=== PATIENT | female | born 1960 | race Caucasian/White ===

== ENCOUNTER → 2017-01-11 | Outpatient (CLI) | payer OTHER ==
--- NOTE | 2017-01-11 09:57 | US ---
EXAMINATION TYPE: US liver DATE OF EXAM: 01/11/2017 9:27 AM COMPARISON: CT on PACS CLINICAL HISTORY: Abn Liver Function Test R94.5. Patient stated is on multiple meds for anxiety and b ack pain due to multiple back surgeries; smoker; gallbladder removed EXAM MEASUREMENTS: Liver Length: 16.1 cm Gallbladder Wall: surgically removed cm CBD: 0.9 cm Right Kidney: 10.5 x 5.0 x 4.4cm TECHNOLOGIST IMPRESSION: Pancreas: hyperechoic Liver: mildly hyperechoic; prominent CHD at fay hepatis but gallbladder is removed Gallbladder: surgically removed CBD: size is wnl post cholecystectomy; comet tail artifact is noted posterior to hyperechoic focus a nterior wall within CBD (? Surgical clip vs. ?) Right Kidney: parallel hyperechoic focus noted upper and mid pole could represent vascular wall calc ifications; mid pole solitary focus could be microcalcification = 0.2 x 0.3 x 0.2cm. IMPRESSION: No definite acute right upper quadrant abnormality is seen. Echogenic focus within the common hepatic duct may represent a small polyp.
== END | disposition home or self-care (01) ==
LOC: RADUSWWP 08:51
PROVIDERS: ATTEND Family Medicine
DX: R94.5 Abnormal results of liver function studies (principal)
CPT/HCPCS: 76705

== ENCOUNTER → 2017-02-17 | Outpatient (CLI) | payer OTHER ==
--- NOTE | 2017-02-17 12:06 | XR ---
EXAMINATION TYPE: XR knee complete LT DATE OF EXAM: 02/17/2017 10:09 AM COMPARISON: NONE HISTORY: Pain TECHNIQUE: Four views are submitted. FINDINGS: Small suprapatellar bursal fluid collection seen. Mild/moderate arthropathy of the knee with no erosi ve changes. Mild diffuse osteopenia. Osseous structures are intact. No acute fracture seen. IMPRESSION: 1. Osteoarthritis. 2. Small suprapatellar bursal fluid collection. Correlate with MRI as clinically warranted.
== END | disposition home or self-care (01) ==
LOC: RADXRMAIN 09:46
PROVIDERS: ATTEND Psychiatry & Neurology Pain Medicine
DX: M17.12 Unilateral primary osteoarthritis, left knee (principal)

== ENCOUNTER 2017-02-22 15:00 | Emergency (ER) | payer OTHER ==
[2017-02-22 15:33] VITALS: RESP 18
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
--- NOTE | 2017-02-22 16:37 | CT ---
EXAMINATION TYPE: CT brain dexter wo con DATE OF EXAM: 02/22/2017 4:18 PM COMPARISON: NONE HISTORY: Pain Automated exposure control for dose reduction was used. TECHNIQUE: CT scan of the head and cervical spine are performed without contrast. FINDINGS: There is no acute intracranial hemorrhage, mass effect, or midline shift identified. The ventricles and sulci are within normal limits in size. The globes are intact and the visualized sin uses are clear. Right parietal occipital small scalp hematoma. Cervical spine is visualized in its entirety from C1 through upper thoracic levels and demonstrates s atisfactory alignment without evidence of acute fracture or dislocation. Prevertebral soft tissue ap pears within normal limits. The C1-C2 articulation is unremarkable. Postoperative changes of ACDF with laminectomy and pedicular screws. Alignment is anatomic. IMPRESSION: 1. There is no acute fracture or dislocation evident in the cervical spine. 2. No acute intracranial hemorrhage, mass effect, or midline shift is seen.
[2017-02-22] MEDS ORDERED: ORPHENADRINE 30 MG/ML 2 ML VIAL IM STA (16:47)
[2017-02-22 17:17] VITALS: BP 122/88; PULSE 92; TEMP 98.1
== END 2017-02-22 17:16 | disposition home or self-care (01) ==
LOC: EC 15:00
DX: S06.0X0A Concussion without loss of consciousness, initial encounter (principal); S16.1XXA Strain of muscle, fascia and tendon at neck level, initial encounter; V89.2XXA Person injured in unspecified motor-vehicle accident, traffic, initial encounter; F41.9 Anxiety disorder, unspecified; F17.200 Nicotine dependence, unspecified, uncomplicated; Z79.899 Other long term (current) drug therapy; Z88.0 Allergy status to penicillin; Z88.5 Allergy status to narcotic agent
CPT/HCPCS: 72125; 70450; 99284; 96372; J2360

== ENCOUNTER → 2017-03-03 | Outpatient (CLI) | payer OTHER ==
--- NOTE | 2017-03-03 20:43 | MR ---
EXAMINATION TYPE: MR lumbar spine wo con DATE OF EXAM: 03/03/2017 12:17 PM COMPARISON: 01/24/2016 HISTORY: 56-year-old female with low back pain TECHNIQUE: Multiplanar, multisequence images of the lumbar spine were acquired. FINDINGS: Vertebral body heights are preserved. There is similar grade 1 anterolisthesis at L4-L5 secondary to hypertrophic facet arthropathy in the mid to lower lumbar spine. Variable mild to moderate disc desiccation throughout with disc bulging at multiple levels and ligame ntum flavum thickening. No suspicious bone marrow replacement. Conus medullaris is normal. At T12-L1, no spinal canal or neuroforaminal stenosis. At L1-L2, no spinal canal or neuroforaminal stenosis. At L2-L3, very mild disc bulge and facet degenerative change. No significant spinal canal or foramina l stenosis. At L3-L4, mild disc bulge, ligamentum flavum thickening, and hypertrophic facet arthropathy. No signi ficant spinal canal or neuroforaminal stenosis. At L4-L5, there is hypertrophic facet arthropathy with grade 1 anterolisthesis, ligamentum flavum thi ckening, prominent dorsal epidural fat, and disc bulge. Changes result in mild spinal canal stenosis with mild to moderate bilateral neuroforaminal stenosis with disc material possibly abutting both exi ting L4 nerve roots. At L5-S1, there is facet degenerative change with minimal disc bulge. No significant spinal canal or neuroforaminal stenosis. Overall changes have not significantly progressed from prior. No prevertebral or paravertebral soft tissue abnormality seen. IMPRESSION: 1. Redemonstrated moderate multilevel degenerative disc disease as well as hypertrophic facet arthrop athy and ligamentum flavum thickening. 2. Similar degenerative grade 1 anterolisthesis at L4-L5. 3. Similar mild spinal canal stenosis at L4-L5 with mild to moderate bilateral neuroforaminal stenosi s though disc material may abut both exiting L4 nerve roots here.
--- NOTE | 2017-03-03 21:02 | MR ---
EXAMINATION TYPE: MR knee LT wo con DATE OF EXAM: 03/03/2017 12:20 PM COMPARISON: NONE HISTORY: 56-year-old female with left knee pain TECHNIQUE: Multiplanar, multisequence imaging of the left knee is performed without IV contrast. FINDINGS: The ACL and PCL are intact. There is mild soft tissue edema on either side of the intact MCL fibers. The LCL complex is intact. The posterior horn body of the medial meniscus is diffusely degenerative and torn with some horizonta l tearing extending into portion of the anterior horn. There is mild extrusion of the medial meniscal body. There is moderate cartilage thinning along the weightbearing aspect of the medial compartment by bone marrow edema within the medial tibial plateau is out of proportion to the degree of degenerat molly change. There is a curvilinear area of subchondral low signal intensity within the medial tibial plateau measuring 1.4 cm wide and 2.0 cm AP, coronal image 16 and sagittal image 19. There is degenerative signal within the posterior horn of the lateral meniscus which does not clearly contact either articular surface. Mild diffuse thinning of lateral compartment articular cartilage. There is mild irregular cartilage loss along the medial patellar facet and moderate irregular cartila ge loss along the inferior trochlear groove. Extensor mechanism is intact. There is a small knee joint effusion but with diffuse deep soft tissue swelling throughout the knee l ikely in part due to the changes involving the medial tibial plateau but also secondary to a frankly ruptured Norwood cyst which tracks both inferiorly and superiorly. There is focal area of increased fluid signal within the distal femoral diaphysis with corresponding low T1 signal, coronal image 16 that is only partially visualized. Normal popliteal artery anatomy and muscle bulk. IMPRESSION: 1. Diffusely degenerative and torn posterior horn and body of the medial meniscus with horizontal tea r extending into a portion of the anterior horn as well. 2. Nondepressed subchondral insufficiency fracture of the medial tibial plateau with extensive reacti ve bone marrow and deep soft tissue edema. 3. Grade 1 MCL sprain. 4. Extensively ruptured Norwood's cyst tracking both up and down. 5. Bone marrow signal changes within the distal femoral shaft are partially visualized. Additional marshall ne contusion is possible. This can be further evaluated with an MRI of the femur without and with con trast and also utilizing T1 opposed phase imaging to exclude an enhancing bone marrow replacing proce ss. 6. Mild overall medial and patellofemoral compartment osteoarthrosis.
== END | disposition home or self-care (01) ==
LOC: RADMRIMAIN 11:18
PROVIDERS: ATTEND Psychiatry & Neurology Pain Medicine
DX: S83.412A Sprain of medial collateral ligament of left knee, initial encounter (principal); S83.242A Other tear of medial meniscus, current injury, left knee, initial encounter; M25.462 Effusion, left knee; M17.12 Unilateral primary osteoarthritis, left knee; M48.06 Spinal stenosis, lumbar region
CPT/HCPCS: 72148

== ENCOUNTER → 2017-05-29 | Outpatient (CLI) | payer OTHER | END | disposition home or self-care (01) | LOC: RADMRIMAIN 13:01 | PROVIDERS: ATTEND Psychiatry & Neurology Pain Medicine | DX: Z53.9 Procedure and treatment not carried out, unspecified reason (principal) ==

== ENCOUNTER → 2017-05-29 | Outpatient (CLI) | payer OTHER ==
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
== END ==
LOC: RADXRMAIN 13:17
PROVIDERS: ATTEND Psychiatry & Neurology Pain Medicine
DX: M54.2 Cervicalgia (principal)
CPT/HCPCS: 72052; 72156; A9577

== ENCOUNTER → 2017-06-12 | Outpatient (CLI) | payer OTHER ==
[2017-06-12 11:16] LABS: EKG EKG PERFORMED
[2017-06-12 11:45] LABS: Basophils # (A) 0.1 k/uL (0-0.2); Basophils % (A) 1 %; CH 30.4; CHCM 32.7; Eosinophils # (A) 0.1 k/uL (0-0.7); Eosinophils % (A) 1 %; HCT 41.1 % (34.0-46.0); HDW 2.32; HGB 13.7 gm/dL (11.4-16.0); Luc # (Auto) 0.18; Luc % (Auto) 2; Lymphocytes # (A) 2.2 k/uL (1.0-4.8); Lymphocytes % (A) 23 %; MCH 31.1 pg (25.0-35.0); MCHC 33.3 g/dL (31.0-37.0); MCV 93.4 fL (80.0-100.0); Mean Platelet Volume 7.5; Monocytes # (A) 0.4 k/uL (0-1.0); Monocytes % (A) 5 %; Neutrophils # (A) 6.6 k/uL (1.3-7.7); Neutrophils % (A) 69 %; RDW 13.3 % (11.5-15.5); WBC 9.5 k/uL (3.8-10.6); WBC (Perox) 9.83
[2017-06-12 11:49] LABS: Anion Gap 9 mmol/L; Blood Urea Nitrogen 9 mg/dL (7-17); Calcium 9.9 mg/dL (8.4-10.2); Carbon Dioxide 27 mmol/L (22-30); Chloride 106 mmol/L (98-107); Glucose 87 mg/dL (74-99); Non-African American GFR(MDRD) >60 (>60 ml/min/1.73 sqM); Potassium 4.8 mmol/L (3.5-5.1); Sodium 142 mmol/L (137-145)
== END | disposition home or self-care (01) ==
LOC: LABWHC1 11:07
PROVIDERS: ATTEND Orthopaedic Surgery
DX: Z01.810 Encounter for preprocedural cardiovascular examination (principal); I49.49 Other premature depolarization; D61.3 Idiopathic aplastic anemia; Z01.812 Encounter for preprocedural laboratory examination
CPT/HCPCS: 36415; 80048; 85025; 93005

== ENCOUNTER → 2017-09-15 | Outpatient (CLI) | payer OTHER ==
[2017-09-15 11:44] LABS: CH 29.6; CHCM 31.9; HCT 40.7 % (34.0-46.0); HDW 2.11; MCH 29.9 pg (25.0-35.0); MCV 93.3 fL (80.0-100.0); Mean Platelet Volume 7.5; RBC 4.36 m/uL (3.80-5.40); RDW 13.3 % (11.5-15.5); WBC 10.2 k/uL (3.8-10.6)
[2017-09-15 11:58] LABS: ALT 32 U/L (9-52); AST 30 U/L (14-36); Alkaline Phosphatase 92 U/L (38-126); Anion Gap 9 mmol/L; Blood Urea Nitrogen 20 mg/dL (7-17); Calcium 9.3 mg/dL (8.4-10.2); Carbon Dioxide 27 mmol/L (22-30); Chloride 105 mmol/L (98-107); Glucose 86 mg/dL (74-99); Non-African American GFR(MDRD) >60 (>60 ml/min/1.73 sqM); Potassium 4.6 mmol/L (3.5-5.1); Sodium 141 mmol/L (137-145); Total Bilirubin 0.5 mg/dL (0.2-1.3); Total Protein 6.9 g/dL (6.3-8.2)
== END | disposition home or self-care (01) ==
LOC: LABWHC1 10:57
PROVIDERS: ATTEND Psychiatry & Neurology Pain Medicine
DX: A49.9 Bacterial infection, unspecified (principal); Z79.899 Other long term (current) drug therapy
CPT/HCPCS: 36415; 80053; 85027

== ENCOUNTER → 2017-10-13 | Outpatient (CLI) | payer OTHER ==
--- NOTE | 2017-10-13 14:01 | MR ---
EXAMINATION TYPE: MR knee LT wo con DATE OF EXAM: 10/13/2017 COMPARISON: MRI left knee March 03, 2017. Left knee x-ray February 17, 2017 HISTORY: Medial meniscus tear, lt knee per order. Pain and swelling after injury per patient. TECHNIQUE: Multiplanar, multisequence images of the knee is performed without IV contrast. FINDINGS: MEDIAL MENISCUS: There is redemonstration of diffuse degenerative change posterior horn of medial men iscus with oblique tear extending to inferior articular surface and central body. Medial extrusion of meniscus is redemonstrated. LATERAL MENISCUS: Degenerative signal posterior horn of lateral meniscus is redemonstrated. There is more prominent globular signal anterior horn of lateral meniscus on sagittal image 10 does not distin ctly extend to articular surface along the periphery. CRUCIATE LIGAMENTS: The anterior and posterior cruciate ligaments are intact. Increased signal in the anterior cruciate ligament is present which remains intact. COLLATERAL LIGAMENTS: The medial collateral ligament and lateral collateral ligament complex are inta ct. There is medial bulging of medial collateral ligament with surrounding fluid redemonstrated felt more prominent versus prior. EXTENSOR MECHANISM: Visualized quadriceps and patellar tendons are intact. EFFUSION: There is large suprapatellar joint effusion increased in prominence versus prior. POPLITEAL CYST: There is moderate to large size multi septated popliteal/norwood cyst seen best near sa gittal image 22. Surrounding ill-defined fluid superiorly and inferiorly is redemonstrated. TRICOMPARTMENT SPACES: There is persistent moderate tricompartment joint space loss and mild tricompa rtment joint space spurring. CARTILAGE: There is full-thickness cartilaginous loss medial tibiofemoral compartment. BONE MARROW SIGNAL: There is interval improvement in osseous contusion or bone marrow edema diffusely involving the medial tibial plateau though some medial compartment edema remains present. There is p ersistent subchondral curvilinear of low signal seen best sagittal image 22 measuring 2.[address] Some overall heterogeneity remains present. OTHER: No additional significant abnormality is appreciated. IMPRESSION: 1. Redemonstration of degeneration and tear posterior horn of medial meniscus extending into body wit h horizontal tear extending into portion of the anterior horn is not significantly changed. 2. Grade 2 MCL sprain injury more prominent versus prior. 3. Intrasubstance tear posterior horn lateral meniscus redemonstrated. New intrasubstance tearing ant erior horn lateral meniscus noted. 4. New myxoid degeneration ACL. 5. New large suprapatellar joint effusion. 6. Stable large ruptured Norwood's cyst. 7. Redemonstration of subchondral insufficiency fracture medial tibial plateau with interval improvem ent in surrounding edema. 8. Mild to moderate tricompartment degenerative changes most pronounced medial tibiofemoral compartme nt redemonstrated most likely on basis of osteoarthritis.
== END ==
LOC: RADMRIMAIN 11:05
PROVIDERS: ATTEND Physical Medicine & Rehabilitation
DX: S83.242A Other tear of medial meniscus, current injury, left knee, initial encounter (principal); S83.412A Sprain of medial collateral ligament of left knee, initial encounter; M17.12 Unilateral primary osteoarthritis, left knee; M71.22 Synovial cyst of popliteal space [Baker], left knee; M84.462A Pathological fracture, left tibia, initial encounter for fracture

== ENCOUNTER 2019-02-05 12:37 | Observation (INO) | payer OTHER ==
[2019-02-05] MEDS ORDERED: ONDANSETRON 4 MG/2 ML VIAL IVP STA (12:57)
[2019-02-05] MEDS ORDERED: SODIUM CHLORIDE 0.9% 500 ML 500 ML IV STA (12:57)
[2019-02-05] MEDS ORDERED: PANTOPRAZOLE 40 MG/10 ML VIAL IVP STA (12:58)
[2019-02-05] MEDS ORDERED: MAG HYDROX/AL HYDROX/SIMETH 30 ML, HYOSCYAMINE ELIXIR 10 ML, CIMETIDINE HCL 300 MG, LID... PO STA ×4 (12:58)
[2019-02-05] MEDS ORDERED: LORazepam 2 MG/ML INJ IV STA (13:00)
[2019-02-05] MEDS ORDERED: METOPROLOL TARTRATE 5 MG/5 ML VIAL IVP STA (13:14)
--- NOTE | 2019-02-05 13:14 | ED ---
General Adult HPI - General Chief complaint: Abdominal Pain Stated complaint: SOB, back pain Time Seen by Provider: 02/05/19 12:45 Source: patient, RN notes reviewed Mode of arrival: wheelchair Limitations: no limitations - History of Present Illness Initial comments: This a 58-year-old female presents emergency department stating that she's been having increasing gastric reflux over the last month but since yesterday has been severe pain in the epigastric region radiates to her back and sometimes up into her throat. Patient denies any actual chest pain or pressure. Patient states the pain is a burning sensation. Patient denies any shortness of breath or difficulty breathing. Patient states last night she was vomiting a lot and today she was nauseated but has not vomited. Patient denies any diarrhea. Patient denies any recent fever chills or cough. Patient denies any lightheadedness dizziness or near syncopal episode. Patient denies any recent injury or trauma. Patient denies any swelling to legs or calf tenderness. - Related Data Home Medications Medication Instructions Recorded Confirmed traMADol HCL [Ultram] 100 mg PO TID 02/22/17 02/05/19 ALPRAZolam [Xanax] 1 mg PO QID 01/05/19 02/05/19 Mirtazapine [Remeron] 15 mg PO HS 01/05/19 02/05/19 Mirtazapine [Remeron] 30 mg PO HS 01/05/19 02/05/19 Omeprazole 20 mg PO BID 01/05/19 02/05/19 Polyethylene Glycol 3350 [Miralax] 17 gm PO DAILY 01/05/19 02/05/19 QUEtiapine FUMARATE [QUEtiapine 50 mg PO HS 01/05/19 02/05/19 FUMARATE ER] Zolpidem Tartrate [Ambien] 10 mg PO HS 01/05/19 02/05/19 Levothyroxine Sodium [Synthroid] 75 mcg PO DAILY 02/05/19 02/05/19 Allergies Allergy/AdvReac Type Severity Reaction Status Date / Time hydrocodone [From [place]] Allergy Severe Abdominal Verified 02/05/19 13:09 Pain,vomiting codeine Allergy Rash/Hives Verified 02/05/19 13:09 Penicillins Allergy Rash/Hives Verified 02/05/19 13:09 Review of Systems ROS Statement: Those systems with pertinent positive or pertinent negative responses have been documented in the HPI. ROS Other: All systems not noted in ROS Statement are negative. Past Medical History Past Medical History: Chest Pain / Angina, Liver Disease, Osteoarthritis (OA), Pneumonia, Rheumatoid Arthritis (RA), Thyroid Disorder Additional Past Medical History / Comment(s): orthostatic hypotension, constipation, hx sepsis, currently has a cold History of Any Multi-Drug Resistant Organisms: None Reported Past Surgical History: Adenoidectomy, Back Surgery, Cholecystectomy, Hysterectomy, Joint Replacement, Tonsillectomy Additional Past Surgical History / Comment(s): cadavar bone placed in c-4 through C-7 with titanium jarod, left knee replacement, Past Anesthesia/Blood Transfusion Reactions: Postoperative Nausea & Vomiting (PONV) Past Psychological History: Anxiety Smoking Status: Former smoker Past Alcohol Use History: None Reported Past Drug Use History: None Reported General Exam - General Exam Comments Initial Comments: GENERAL: Patient is well-developed and well-nourished. Patient is nontoxic and well- hydrated and is in moderate distress. ENT: Neck is soft and supple. No significant lymphadenopathy is noted. Oropharynx is clear. Moist mucous membranes. Neck has full range of motion without eliciting any pain. EYES: The sclera were anicteric and conjunctiva were pink and moist. Extraocular movements were intact and pupils were equal round and reactive to light. Eyelids were unremarkable. PULMONARY: Unlabored respirations. Good breath sounds bilaterally. No audible rales rhonchi or wheezing was noted. CARDIOVASCULAR: There is a regular rate and rhythm without any murmurs gallops or rubs. ABDOMEN: Soft and nontender with normal bowel sounds. No palpable organomegaly was noted. There is no palpable pulsatile mass. SKIN: Skin is clear with no lesions or rashes and otherwise unremarkable. NEUROLOGIC: Patient is alert and oriented x3. Cranial nerves II through XII are grossly intact. Motor and sensory are also intact. Normal speech, volume and content. Symmetrical smile. MUSCULOSKELETAL: Normal extremities with adequate strength and full range of motion. No lower extremity swelling or edema. No calf tenderness. LYMPHATICS: No significant lymphadenopathy is noted PSYCHIATRIC: Normal psychiatric evaluation. Limitations: no limitations Course Vital Signs 02/05/19 02/05/19 02/05/19 12:42 12:53 13:00 Temperature 98.2 F Pulse Rate 52 L 100 94 Respiratory 24 30 H 21 Rate Blood Pressure 178/95 142/111 O2 Sat by Pulse 97 97 Oximetry 02/05/19 02/05/19 02/05/19 13:10 13:20 13:30 Temperature Pulse Rate 92 84 87 Respiratory 28 H 12 8 L Rate Blood Pressure 152/117 152/117 152/117 O2 Sat by Pulse 90 L Oximetry 02/05/19 02/05/19 02/05/19 13:36 13:40 13:50 Temperature Pulse Rate 81 Respiratory Rate Blood Pressure 139/77 139/77 139/77 O2 Sat by Pulse Oximetry 02/05/19 02/05/19 02/05/19 14:00 14:10 14:20 Temperature Pulse Rate 85 Respiratory 15 Rate Blood Pressure 139/77 139/77 134/76 O2 Sat by Pulse 95 Oximetry 02/05/19 02/05/19 14:30 14:40 Temperature Pulse Rate 81 84 Respiratory 9 L 13 Rate Blood Pressure 142/74 142/74 O2 Sat by Pulse 95 97 Oximetry Medical Decision Making - Medical Decision Making EKG shows sinus rhythm with PVCs in a bigeminy pattern. Patient's rate is 90 be ats minute MN interval 164 QRS is 82 QT interval 396 QTC is 505. On the kenaitze rhythm I don't see any ST segment elevation. CT of the aorta shows no dissection. I spoke with Dr. Samayoa he wanted the patient admitted the patient I consult to cardiology. - Lab Data Result diagrams: 02/05/19 13:02 02/05/19 13:02 Lab Results 02/05/19 02/05/19 02/05/19 Range/Units 13:02 13:02 13:02 WBC 10.3 (3.8-10.6) k/uL RBC 4.58 (3.80-5.40) m/uL Hgb 13.3 (11.4-16.0) gm/dL Hct 41.3 (34.0-46.0) % MCV 90.3 (80.0-100.0) fL MCH 29.0 (25.0-35.0) pg MCHC 32.2 (31.0-37.0) g/dL RDW 13.4 (11.5-15.5) % Plt Count 305 (150-450) k/uL Neutrophils % 74 % Lymphocytes % 18 % Monocytes % 5 % Eosinophils % 2 % Basophils % 1 % Neutrophils # 7.6 (1.3-7.7) k/uL Lymphocytes # 1.9 (1.0-4.8) k/uL Monocytes # 0.5 (0-1.0) k/uL Eosinophils # 0.2 (0-0.7) k/uL Basophils # 0.1 (0-0.2) k/uL Sodium 140 (137-145) mmol/L Potassium 4.3 (3.5-5.1) mmol/L Chloride 109 H (98-107) mmol/L Carbon Dioxide 20 L (22-30) mmol/L Anion Gap 11 mmol/L BUN 12 (7-17) mg/dL Creatinine 0.66 (0.52-1.04) mg/dL Est GFR (CKD-EPI)AfAm >90 (>60 ml/min/1.73 sqM) Est GFR (CKD-EPI)NonAf >90 (>60 ml/min/1.73 sqM) Glucose 102 H (74-99) mg/dL Plasma Lactic Acid Tae 1.3 (0.7-2.0) mmol/L Calcium 9.6 (8.4-10.2) mg/dL Total Bilirubin 0.7 (0.2-1.3) mg/dL AST 23 (14-36) U/L ALT 28 (9-52) U/L Alkaline Phosphatase 110 (38-126) U/L Troponin I (0.000-0.034) ng/mL Total Protein 7.3 (6.3-8.2) g/dL Albumin 4.4 (3.5-5.0) g/dL Amylase 43 (30-110) U/L Lipase 31 (23-300) U/L Urine Color Urine Appearance (Clear) Urine pH (5.0-8.0) Ur Specific [place] (1.001-1.035) Urine Protein (Negative) Urine Glucose (UA) (Negative) Urine Ketones (Negative) Urine Blood (Negative) Urine Nitrite (Negative) Urine Bilirubin (Negative) Urine Urobilinogen (<2.0) mg/dL Ur Leukocyte Esterase (Negative) 02/05/19 02/05/19 Range/Units 13:02 13:02 WBC (3.8-10.6) k/uL RBC (3.80-5.40) m/uL Hgb (11.4-16.0) gm/dL Hct (34.0-46.0) % MCV (80.0-100.0) fL MCH (25.0-35.0) pg MCHC (31.0-37.0) g/dL RDW (11.5-15.5) % Plt Count (150-450) k/uL Neutrophils % % Lymphocytes % % Monocytes % % Eosinophils % % Basophils % % Neutrophils # (1.3-7.7) k/uL Lymphocytes # (1.0-4.8) k/uL Monocytes # (0-1.0) k/uL Eosinophils # (0-0.7) k/uL Basophils # (0-0.2) k/uL Sodium (137-145) mmol/L Potassium (3.5-5.1) mmol/L Chloride (98-107) mmol/L Carbon Dioxide (22-30) mmol/L Anion Gap mmol/L BUN (7-17) mg/dL Creatinine (0.52-1.04) mg/dL Est GFR (CKD-EPI)AfAm (>60 ml/min/1.73 sqM) Est GFR (CKD-EPI)NonAf (>60 ml/min/1.73 sqM) Glucose (74-99) mg/dL Plasma Lactic Acid Tae (0.7-2.0) mmol/L Calcium (8.4-10.2) mg/dL Total Bilirubin (0.2-1.3) mg/dL AST (14-36) U/L ALT (9-52) U/L Alkaline Phosphatase (38-126) U/L Troponin I <0.012 (0.000-0.034) ng/mL Total Protein (6.3-8.2) g/dL Albumin (3.5-5.0) g/dL Amylase (30-110) U/L Lipase (23-300) U/L Urine Color Light Yellow Urine Appearance Clear (Clear) Urine pH 5.5 (5.0-8.0) Ur Specific [place] 1.005 (1.001-1.035) Urine Protein Negative (Negative) Urine Glucose (UA) Negative (Negative) Urine Ketones Negative (Negative) Urine Blood Negative (Negative) Urine Nitrite Negative (Negative) Urine Bilirubin Negative (Negative) Urine Urobilinogen <2.0 (<2.0) mg/dL Ur Leukocyte Esterase Negative (Negative) Critical Care Time Critical Care Time: Yes Total Critical Care Time: 35 Disposition Clinical Impression: Chest pain, Bigeminy, GERD (gastroesophageal reflux disease) Disposition: ADMITTED IP TO THIS HOSP Referrals: Elmer Samayoa MD [Primary Care Provider] - 1-2 days Time of Disposition: 16:16
[2019-02-05 13:30] LABS: Basophils # (A) 0.1 k/uL (0-0.2); Basophils % (A) 1 %; Eosinophils # (A) 0.2 k/uL (0-0.7); Eosinophils % (A) 2 %; HCT 41.3 % (34.0-46.0); HGB 13.3 gm/dL (11.4-16.0); Lymphocytes # (A) 1.9 k/uL (1.0-4.8); Lymphocytes % (A) 18 %; MCHC 32.2 g/dL (31.0-37.0); MCV 90.3 fL (80.0-100.0); Mean Platelet Volume 7.9; Monocytes # (A) 0.5 k/uL (0-1.0); Monocytes % (A) 5 %; Neutrophils # (A) 7.6 k/uL (1.3-7.7); Neutrophils % (A) 74 %; Platelet Count 305 k/uL (150-450); RBC 4.58 m/uL (3.80-5.40); RDW 13.4 % (11.5-15.5); WBC 10.3 k/uL (3.8-10.6)
[2019-02-05 13:32] LABS: Appearance,Urine Clear (Clear); Bilirubin,Urine Negative (Negative); Blood,Urine Negative (Negative); Color,Urine Light Yellow; Glucose,Urine (UA) Negative (Negative); Ketones,Urine Negative (Negative); Leukocyte Esterase,Urine Negative (Negative); Nitrite,Urine Negative (Negative); PH, Urine 5.5 (5.0-8.0); Protein,Urine Negative (Negative); Specific Gravity,Urine 1.005 (1.001-1.035); Urobilinogen,Urine <2.0 mg/dL (<2.0)
[2019-02-05 13:43] LABS: ALT 28 U/L (9-52); AST 23 U/L (14-36); Albumin 4.4 g/dL (3.5-5.0); Alkaline Phosphatase 110 U/L (38-126); Amylase 43 U/L (30-110); Anion Gap 11 mmol/L; Blood Urea Nitrogen 12 mg/dL (7-17); Calcium 9.6 mg/dL (8.4-10.2); Carbon Dioxide 20 mmol/L (22-30); Chloride 109 mmol/L (98-107); Glucose 102 mg/dL (74-99); Lipase 31 U/L (23-300); Potassium 4.3 mmol/L (3.5-5.1); Sodium 140 mmol/L (137-145); Total Bilirubin 0.7 mg/dL (0.2-1.3); Total Protein 7.3 g/dL (6.3-8.2)
--- NOTE | 2019-02-05 13:52 | XR ---
EXAMINATION TYPE: XR chest 2V DATE OF EXAM: 02/05/2019 COMPARISON: Prior chest x-ray 03/16/2016 HISTORY: Abdominal pain, chest pain TECHNIQUE: Frontal and lateral views of the chest are obtained. FINDINGS: There is no focal air space opacity, pleural effusion, or pneumothorax seen. The cardiac silhouette size is prominent, may be accentuated by technique. The osseous structures are intact. T here are cardiac leads. Patient is rotated. Postop change noted in the cervical spine. IMPRESSION: Prominence of the cardiac silhouette could be at least in part due to rotation
--- NOTE | 2019-02-05 16:01 | CT ---
EXAMINATION TYPE: CT angio thor/abd pel aorta DATE OF EXAM: 02/05/2019 COMPARISON: CT 02/27/2015 HISTORY: Abdominal pain, hx of liver disease CT DLP: 1521.7 mGycm. Automated Exposure Control for Dose Reduction was Utilized. CONTRAST: CT scan of the thorax, abdomen and pelvis is performed with IV Contrast, patient injected with 100 mL of Isovue 300. FINDINGS: LUNGS: The lungs are grossly clear, there is no concerning parenchymal mass or nodule identified. T here is no pleural effusion or pneumothorax seen. The tracheobronchial tree is patent. MEDIASTINUM: There are no greater than 1 cm hilar or mediastinal lymph nodes. Prevascular nodes are present. No pericardial effusion is seen. The heart is overlying enlarged. Aorta shows normal enhancement, there is no evident aneurysm or dissection. The super aortic branch v essels are patent proximally, the abdominal aorta is not aneurysmal, celiac axis, superior mesenteric artery, inferior mesenteric artery are patent, independent origin of the splenic artery is noted. Re nal arteries are patent. Atheromatous changes are present within the aorta, common iliac, proximal carreno perficial femoral, common femoral, deep femoral, iliac arteries are patent. LIVER/GB: No significant abnormality is appreciated within the liver, gallbladder is absent. PANCREAS: No significant abnormality is seen. SPLEEN: No significant abnormality is seen. ADRENALS: No significant abnormality is seen. KIDNEYS: No significant abnormality is seen. BOWEL: Fluid-filled loops of small bowel are present, small hiatal hernia. GENITAL ORGANS: Not seen LYMPH NODES: No greater than 1cm abdominal or pelvic lymph nodes are apprec iated. OSSEOUS STRUCTURES: There are facet arthropathy changes, degenerative disc changes the lower lumbar s pine. OTHER: No significant additional abnormality is seen. IMPRESSION: Borderline cardiac enlargement. Correlate for possible enteritis. Postop changes. Additio nal nonspecific findings above.
[2019-02-05] MEDS ORDERED: NITROGLYCERIN SL TABS 0.4 MG TAB SUBLINGUAL PRN (16:22)
[2019-02-05] MEDS: NITROGLYCERIN OINT 1 INCH/GM PACKET TOPICAL SCH ×2 (17:05→19:57)
[2019-02-05 19:42] LABS: T4, Free (Free Thyroxine) 0.6 ng/dL (0.78-2.19)
[2019-02-05] MEDS: MIRTAZAPINE 45 MG TABLET PO SCH (19:50)
[2019-02-05] MEDS: traMADol 50 MG TAB PO SCH (19:50)
[2019-02-05] MEDS: QUEtiapine 25 MG TAB PO SCH (19:51)
[2019-02-05] MEDS: ALPRAZolam 1 MG TAB PO SCH ×2 (19:51→23:30)
[2019-02-05] MEDS ORDERED: MIRTAZAPINE 30 MG PO SCH (21:00)
[2019-02-06] MEDS: ALPRAZolam 1 MG TAB PO SCH ×4 (01:37→19:24)
[2019-02-06] MEDS: traMADol 50 MG TAB PO SCH ×3 (03:44→21:33)
[2019-02-06] MEDS: LEVOTHYROXINE 75 MCG TAB PO SCH (03:44)
[2019-02-06] MEDS: POLYETHYLENE GLYCOL 3350 17 GM POWD.PACK PO SCH (08:09)
[2019-02-06] MEDS: ASPIRIN 325 MG TAB PO SCH (08:09)
[2019-02-06] MEDS: QUEtiapine 25 MG TAB PO SCH ×2 (08:09→21:33)
[2019-02-06] MEDS: PANTOPRAZOLE 40 MG TABLET PO SCH (08:09)
[2019-02-06] MEDS ORDERED: DOBUTamine DRIP for NUC MED 500 MG in DEXTROSE/WATER 1 250ML.BAG IV ONE (08:16)
[2019-02-06 08:46] LABS: Magnesium 1.9 mg/dL (1.6-2.3)
--- NOTE | 2019-02-06 10:21 | P.GSCN ---
History of Present Illness Consult date: 02/06/19 Reason for Consult: abdominal pain Requesting physician: Elmer Samayoa History of present illness: CHIEF COMPLAINT: Abdominal pain HISTORY OF PRESENT ILLNESS: 58-year-old female who presented to the emergency room with a chief complaint of abdominal pain and increasing reflux. Patient states this has been going on for about a month but has gotten worse over the last 2 days. She reports nausea. Denies diarrhea or constipation. Last EGD was performed over 5 years ago. PAST MEDICAL HISTORY: See list. PAST SURGICAL HISTORY: See list. MEDICATIONS: See list. ALLERGIES: See list. SOCIAL HISTORY: No illicit drug use. REVIEW OF SYSTEMS: CONSTITUTIONAL: Denies fever or chills. HEENT: Denies blurred vision, vision changes, or eye pain. Denies hemoptysis ENDOCRINE: Denies heat or cold intolerance. CARDIOVASCULAR: Denies chest pain or pressure. RESPIRATORY: No shortness of breath. GASTROINTESTINAL: Reports epigastric pain. Reports nausea. NEURO: Denies history of seizures. PSYCH: No depression or suicidal ideation HEMATOLOGIC: Denies bleeding disorders. LYMPHATIC: The patient denies any lumps and bumps around the neck. GENITOURINARY: Denies any blood in urine or increased urinary frequency. MUSCULOSKELETAL: Denies myalgias. Denies joint swelling. Denies decreased range of motion beyond patients baseline. SKIN: Denies pruitis. Denies rash. PHYSICAL EXAM: VITAL SIGNS: Currently stable. GENERAL: Well-developed in no acute distress. HEENT: No sclera icterus. Extraocular movements grossly intact. Moist buccal mucosa. Head is atraumatic, normocephalic. Hears conversational speech. No nasal drainage. NECK: Supple without lymphadenopathy. CHEST: Non-labored respirations and equal bilateral excursions. CARDIOVASCULAR: Regular rate with regular rhythm. Palpable 2+ radial pulses. ABDOMEN: Soft. Nondistended. Tenderness upon palpation of epigastric region. MUSCULOSKELETAL: No clubbing, cyanosis or edema. NEUROLOGIC: No focal or lateralizing signs. Cranial nerves II through XII grossly intact. PSYCH: Appropriate affect. Alert and oriented to person, place and time. SKIN: Well perfused. Good skin turgor. ASSESSMENT: 1. Epigastric pain with nausea PLAN: 1. NPO 2. Patient to undergo EGD today with Dr. Verma Nurse practitioner note has been reviewed by physician. Signing provider agrees with the documented findings, assessment, and plan of care. Past Medical History Past Medical History: Chest Pain / Angina, Liver Disease, Osteoarthritis (OA), Pneumonia, Rheumatoid Arthritis (RA), Thyroid Disorder Additional Past Medical History / Comment(s): orthostatic hypotension, constipation, hx sepsis, currently has a cold History of Any Multi-Drug Resistant Organisms: None Reported Past Surgical History: Adenoidectomy, Back Surgery, Cholecystectomy, Hysterectomy, Joint Replacement, Tonsillectomy Additional Past Surgical History / Comment(s): cadavar bone placed in c-4 through C-7 with titanium jarod, left knee replacement, Past Anesthesia/Blood Transfusion Reactions: Postoperative Nausea & Vomiting (PONV) Past Psychological History: Anxiety Smoking Status: Former smoker Past Alcohol Use History: None Reported Additional Past Alcohol Use History / Comment(s): quit smoking 3 months ago, smoked for 45 yrs. has nicotine patch but does not use daily Past Drug Use History: None Reported Medications and Allergies Home Medications Medication Instructions Recorded Confirmed Type traMADol HCL [Ultram] 100 mg PO TID 02/22/17 02/05/19 History ALPRAZolam [Xanax] 1 mg PO QID 01/05/19 02/05/19 History Mirtazapine [Remeron] 15 mg PO HS 01/05/19 02/05/19 History Mirtazapine [Remeron] 30 mg PO HS 01/05/19 02/05/19 History Omeprazole 20 mg PO BID 01/05/19 02/05/19 History Polyethylene Glycol 3350 [Miralax] 17 gm PO DAILY 01/05/19 02/05/19 History QUEtiapine FUMARATE [QUEtiapine 50 mg PO HS 01/05/19 02/05/19 History FUMARATE ER] Zolpidem Tartrate [Ambien] 10 mg PO HS 01/05/19 02/05/19 History Levothyroxine Sodium [Synthroid] 75 mcg PO DAILY 02/05/19 02/05/19 History Allergies Allergy/AdvReac Type Severity Reaction Status Date / Time hydrocodone [From [place]] Allergy Severe Abdominal Verified 02/05/19 13:09 Pain,vomiting codeine Allergy Rash/Hives Verified 02/05/19 13:09 Penicillins Allergy Rash/Hives Verified 02/05/19 13:09 Surgical - Exam Vital Signs Temp Pulse Resp BP Pulse Ox 98.2 F 52 L 24 178/95 97 02/05/19 12:42 02/05/19 12:42 02/05/19 12:42 02/05/19 12:42 02/05/19 12:42 Results - Labs 02/05/19 13:02 02/05/19 13:02 Abnormal Lab Results - Last 24 Hours (Table) 02/05/19 02/05/19 02/06/19 Range/Units 13:02 18:16 08:10 Chloride 109 H (98-107) mmol/L Carbon Dioxide 20 L (22-30) mmol/L Glucose 102 H (74-99) mg/dL Cholesterol 201 H (<200) mg/dL LDL Cholesterol, Calc 127 H (0-99) mg/dL TSH 5.980 H (0.465-4.680) mIU/L Free T4 0.60 L (0.78-2.19) ng/dL Diabetes panel 02/05/19 02/06/19 Range/Units 13:02 08:10 Sodium 140 (137-145) mmol/L Potassium 4.3 (3.5-5.1) mmol/L Chloride 109 H (98-107) mmol/L Carbon Dioxide 20 L (22-30) mmol/L BUN 12 (7-17) mg/dL Creatinine 0.66 (0.52-1.04) mg/dL Glucose 102 H (74-99) mg/dL Calcium 9.6 (8.4-10.2) mg/dL AST 23 (14-36) U/L ALT 28 (9-52) U/L Alkaline Phosphatase 110 (38-126) U/L Total Protein 7.3 (6.3-8.2) g/dL Albumin 4.4 (3.5-5.0) g/dL Triglycerides 130 (<150) mg/dL HDL Cholesterol 48 (40-60) mg/dL Thyroid panel 02/05/19 Range/Units 18:16 TSH 5.980 H (0.465-4.680) mIU/L Calcium panel 02/05/19 Range/Units 13:02 Calcium 9.6 (8.4-10.2) mg/dL Albumin 4.4 (3.5-5.0) g/dL Pituitary panel 02/05/19 02/05/19 Range/Units 13:02 18:16 Sodium 140 (137-145) mmol/L Potassium 4.3 (3.5-5.1) mmol/L Chloride 109 H (98-107) mmol/L Carbon Dioxide 20 L (22-30) mmol/L BUN 12 (7-17) mg/dL Creatinine 0.66 (0.52-1.04) mg/dL Glucose 102 H (74-99) mg/dL Calcium 9.6 (8.4-10.2) mg/dL TSH 5.980 H (0.465-4.680) mIU/L Adrenal panel 02/05/19 Range/Units 13:02 Sodium 140 (137-145) mmol/L Potassium 4.3 (3.5-5.1) mmol/L Chloride 109 H (98-107) mmol/L Carbon Dioxide 20 L (22-30) mmol/L BUN 12 (7-17) mg/dL Creatinine 0.66 (0.52-1.04) mg/dL Glucose 102 H (74-99) mg/dL Calcium 9.6 (8.4-10.2) mg/dL Total Bilirubin 0.7 (0.2-1.3) mg/dL AST 23 (14-36) U/L ALT 28 (9-52) U/L Alkaline Phosphatase 110 (38-126) U/L Total Protein 7.3 (6.3-8.2) g/dL Albumin 4.4 (3.5-5.0) g/dL
--- NOTE | 2019-02-06 10:42 | P.CRDCN ---
History of Present Illness History of present illness: This is a pleasant 58-year-old female past medical history significant for hypothyroidism, rheumatoid arthritis, cervical injury status post surgical intervention, palpitations and chronic nicotine dependence recently quit 3 months ago. She denies history of coronary artery disease, hypertension, dyslipidemia or diabetes mellitus. We have been asked to see her in consultation for chest pain. She states over the previous few weeks she has been feeling increase in congestion, cough and shortness of breath. She also has been feeling increased pain in her neck, throat and down her left arm. She recently saw Dr. Villanueva and underwent an MRI due to left arm numbness and was told there is some abnormality. Since Wednesday she started feeling some numbness in her throat and tongue. She felt like her throat was congested and full of phlegm that she couldn't clear. She felt this is possibly related to levothyroxine so she stopped taking it and the swelling in her throat and tongue seemed to improve. She denies dizziness, palpitations or diaphoresis. She states she has been told in the past that she has frequent PVCs and can sometimes feel them. EKG reveals sinus mechanism with frequent PVC's in bigeminy. Repeat this morning reveals sinus mechanism with PVC's, no longer bigeminy. CT angio thoracic/abdomen/pelvis reveals no acute cardiopulmonary process. Aorta shows no evidence of aneurysm or dissection. Possible enteritis and small hiatal hernia. Laboratory data reviewed, WBC 10.3, hemoglobin 13.3, platelets 305, sodium 140, potassium 4.3, creatinine 0.66, magnesium 1.9, cardiac enzymes negative 3, LDL 127, HDL 48, TSH 5.98 and free T4 0.6. She takes no daily cardiac medications. At the time of my exam: CONSTITUTIONAL: Denies fever. Denies chills. EYES: Denies blurred vision. Denies vision changes. Denies eye pain. EARS, NOSE, MOUTH & THROAT: Denies headache. Denies sore throat. Denies ear pain. CARDIOVASCULAR: Denies chest pain. Denies shortness of breath. Denies orthopnea. Denies PND. Denies palpitations. RESPIRATORY: Denies cough. GASTROINTESTINAL: Denies abdominal pain. Denies diarrhea. Denies constipation. Denies nausea. Denies vomiting. MUSCULOSKELETAL: Denies myalgias. INTEGUMENTARY: Denies pruitis. Denies rash. NEUROLOGIC: Denies numbness. Denies tingling. Denies weakness. PSYCHIATRIC: Denies anxiety. Denies depression. ENDOCRINE: Denies fatigue. Denies weight change. Denies polydipsia. Denies polyurina. GENITOURINARY: Denies burning, hematuria or urgency with micturation. HEMATOLOGIC: Denies history of anemia. Denies bleeding. Blood pressure 128/65 heart rate 47 afebrile maintaining oxygen saturation on room air GENERAL: This is a 58-year-old female in no apparent distress at the time of my examination. HEENT: Head is atraumatic, normocephalic. Pupils are equal, round. Sclerae anicteric. Conjunctivae are clear. Mucous membranes of the mouth are moist. Neck is supple. There is no jugular venous distention. No carotid bruit is heard. LUNGS: Clear to auscultation no wheezes, rales or rhonchi. No chest wall tende rness is noted on palpation or with deep breathing. HEART: Irregular rate and rhythm without murmurs, rubs or gallops. S1 and S2 heard. ABDOMEN: Soft, nontender. Bowel sounds are heard. No organomegaly noted. EXTREMITIES: No evidence of peripheral edema and no calf tenderness noted. VASCULAR: Radial and dorsalis pedis pulses palpated, no evidence of clubbing. NEUROLOGIC: Patient is awake, alert and oriented x3. ASSESSMENT Chest pain, atypical. An acute coronary event has been ruled out. Frequent PVC's, bigeminy on admission. Chronic nicotine dependence Dyslipidemia Cervical fusion with jarod placement 2014 PLAN An acute coronary event coronary event has been ruled out. Obtain 2D echocardiogram and doppler study to assess cardiac structure and function. Perform dobutamine stress echocardiogram to assess for stress induced ischemia. Lifestyle modifications for lowering of LDL cholesterol discussed as well as ongoing smoking cessation. Thank you kindly for this consultation. Nurse Practitioner note has been reviewed, I agree with a documented findings and plan of care. Patient was seen and examined. Past Medical History Past Medical History: Chest Pain / Angina, Liver Disease, Osteoarthritis (OA), Pneumonia, Rheumatoid Arthritis (RA), Thyroid Disorder Additional Past Medical History / Comment(s): orthostatic hypotension, constipation, hx sepsis, currently has a cold History of Any Multi-Drug Resistant Organisms: None Reported Past Surgical History: Adenoidectomy, Back Surgery, Cholecystectomy, Hysterectomy, Joint Replacement, Tonsillectomy Additional Past Surgical History / Comment(s): cadavar bone placed in c-4 through C-7 with titanium jarod, left knee replacement, Past Anesthesia/Blood Transfusion Reactions: Postoperative Nausea & Vomiting (PONV) Past Psychological History: Anxiety Smoking Status: Former smoker Past Alcohol Use History: None Reported Additional Past Alcohol Use History / Comment(s): quit smoking 3 months ago, smoked for 45 yrs. has nicotine patch but does not use daily Past Drug Use History: None Reported Medications and Allergies Home Medications Medication Instructions Recorded Confirmed Type traMADol HCL [Ultram] 100 mg PO TID 02/22/17 02/05/19 History ALPRAZolam [Xanax] 1 mg PO QID 01/05/19 02/05/19 History Mirtazapine [Remeron] 15 mg PO HS 01/05/19 02/05/19 History Mirtazapine [Remeron] 30 mg PO HS 01/05/19 02/05/19 History Omeprazole 20 mg PO BID 01/05/19 02/05/19 History Polyethylene Glycol 3350 [Miralax] 17 gm PO DAILY 01/05/19 02/05/19 History QUEtiapine FUMARATE [QUEtiapine 50 mg PO HS 01/05/19 02/05/19 History FUMARATE ER] Zolpidem Tartrate [Ambien] 10 mg PO HS 01/05/19 02/05/19 History Levothyroxine Sodium [Synthroid] 75 mcg PO DAILY 02/05/19 02/05/19 History Allergies Allergy/AdvReac Type Severity Reaction Status Date / Time hydrocodone [From [place]] Allergy Severe Abdominal Verified 02/05/19 13:09 Pain,vomiting codeine Allergy Rash/Hives Verified 02/05/19 13:09 Penicillins Allergy Rash/Hives Verified 02/05/19 13:09 Physical Exam Vitals: Vital Signs Temp Pulse Pulse Resp BP BP Pulse Ox 02/06/19 03:48 98.2 F 47 L 16 128/65 96 02/06/19 03:07 18 02/05/19 23:34 18 02/05/19 23:33 98.1 F 50 L 18 113/68 96 02/05/19 19:40 18 02/05/19 19:36 97.9 F 49 L 18 128/69 96 02/05/19 17:00 16 02/05/19 16:53 98.4 F 81 16 142/77 96 02/05/19 16:30 90 11 L 02/05/19 16:20 83 16 155/84 95 02/05/19 16:10 84 9 L 155/84 97 02/05/19 16:00 81 23 133/85 88 L 02/05/19 15:50 85 20 133/85 95 02/05/19 15:40 98.8 F 86 21 154/90 94 L 02/05/19 15:30 86 21 154/90 94 L 02/05/19 15:20 88 18 150/101 94 L 02/05/19 15:10 84 20 150/101 96 02/05/19 15:00 87 23 131/71 96 02/05/19 14:50 131/71 02/05/19 14:40 84 13 142/74 97 02/05/19 14:30 81 9 L 142/74 95 02/05/19 14:20 85 15 134/76 95 02/05/19 14:10 139/77 02/05/19 14:00 139/77 02/05/19 13:50 139/77 02/05/19 13:40 139/77 02/05/19 13:36 81 139/77 02/05/19 13:30 87 8 L 152/117 90 L 02/05/19 13:20 84 12 152/117 02/05/19 13:10 92 28 H 152/117 02/05/19 13:00 94 21 142/111 97 02/05/19 12:53 100 30 H 02/05/19 12:42 98.2 F 52 L 24 178/95 97 Intake and Output 02/05/19 02/06/19 02/06/19 22:59 06:59 14:59 Intake Total 500 Balance 500 Intake: Amount of Fluid Infused ( 500 ml) Other: Voiding Method Toilet Toilet # Voids 1 Results 02/05/19 13:02 02/05/19 13:02 Cardiac Enzymes 02/05/19 02/05/19 02/05/19 Range/Units 13:02 13:02 18:16 AST 23 (14-36) U/L Troponin I <0.012 <0.012 (0.000-0.034) ng/mL 02/06/19 Range/Units 01:25 AST (14-36) U/L Troponin I <0.012 (0.000-0.034) ng/mL CBC 02/05/19 Range/Units 13:02 WBC 10.3 (3.8-10.6) k/uL RBC 4.58 (3.80-5.40) m/uL Hgb 13.3 (11.4-16.0) gm/dL Hct 41.3 (34.0-46.0) % Plt Count 305 (150-450) k/uL Comprehensive Metabolic Panel 02/05/19 Range/Units 13:02 Sodium 140 (137-145) mmol/L Potassium 4.3 (3.5-5.1) mmol/L Chloride 109 H (98-107) mmol/L Carbon Dioxide 20 L (22-30) mmol/L BUN 12 (7-17) mg/dL Creatinine 0.66 (0.52-1.04) mg/dL Glucose 102 H (74-99) mg/dL Calcium 9.6 (8.4-10.2) mg/dL AST 23 (14-36) U/L ALT 28 (9-52) U/L Alkaline Phosphatase 110 (38-126) U/L Total Protein 7.3 (6.3-8.2) g/dL Albumin 4.4 (3.5-5.0) g/dL Current Medications Generic Name Dose Route Start Last Admin Trade Name Freq PRN Reason Stop Dose Admin Alprazolam 1 mg 02/05/19 18:00 02/06/19 01:37 Xanax PO 1 mg QID [facility] Administration Aspirin 325 mg 02/06/19 09:00 Aspirin PO DAILY [facility] Levothyroxine Sodium 75 mcg 02/06/19 06:30 02/06/19 03:44 Synthroid PO 75 mcg DAILY@0630 [facility] Administration Mirtazapine 45 mg 02/05/19 21:00 02/05/19 19:50 Remeron PO 45 mg HS CHARLY Administration Nitroglycerin 1 inch 02/05/19 18:00 02/05/19 19:57 Nitro-Bid Oint TOPICAL Not Given Q6HR [facility] Nitroglycerin 0.4 mg 02/05/19 16:22 Nitrostat SUBLINGUAL Q5M PRN Chest Pain Pantoprazole Sodium 40 mg 02/06/19 07:30 Protonix PO AC-BRKFST [facility] Polyethylene Glycol 17 gm 02/06/19 09:00 Miralax PO DAILY [facility] Quetiapine Fumarate 25 mg 02/05/19 21:00 02/05/19 19:51 Seroquel PO 25 mg BID [facility] Administration Tramadol HCl 100 mg 02/05/19 22:00 02/06/19 03:44 Ultram PO 100 mg TID [facility] Administration Intake and Output 02/05/19 02/06/19 02/06/19 22:59 06:59 14:59 Intake Total 500 Balance 500 Intake: Amount of Fluid Infused ( 500 ml) Other: Voiding Method Toilet Toilet # Voids 1 02/05/19 13:02 02/05/19 13:02
--- NOTE | 2019-02-06 12:00 | ECHOF ---
Referral Reason:arrhythmia MEASUREMENTS -------- HEIGHT: 154.9 cm WEIGHT: 72.6 kg BP: RVIDd: 1.7 cm (< 3.3) IVSd: 1.1 cm (0.6 - 1.1) LVIDd: 5.8 cm (3.9 - 5.3) LVPWd: 1.1 cm (0.6 - 1.1) IVSs: 1.4 cm LVIDs: 4.7 cm LVPWs: 1.5 cm LAESV Index (A-L): 26.91 ml/m Ao Diam: 3.2 cm (2.0 - 3.7) AV Cusp: 2.2 cm (1.5 - 2.6) LA Diam: 3.4 cm (2.7 - 3.8) MV EXCURSION: 17.354 mm (> 18.000) MV EF SLOPE: 112 mm/s (70 - 150) EPSS: 1.7 cm MV E Jaciel: 1.38 m/s MV DecT: 250 ms MV A Jaciel: 0.73 m/s MV E/A Ratio: 1.90 RAP: 5.00 mmHg RVSP: 28.86 mmHg FINDINGS -------- Sinus rhythm with extra systolic beats. This was a technically difficult study with suboptimal views. The left ventricle is moderately dilated. There is mild concentric left ventricular hypertrophy. Overall left ventricular systolic function is mildly impaired with, an EF between 45 - 50 %. The right ventricular wall thickness is normal measuring < 5mm. Normal LA size by volume 22+/-6 ml/m2. The right atrium is normal in size. Lumason used The aortic valve is trileaflet and appears structurally normal. The mitral valve is normal. Moderate mitral regurgitation is present. Mild tricuspid regurgitation present. There is no evidence of pulmonary hypertension. The right v entricular systolic pressure, as measured by Doppler, is 28.86mmHg. There is no pulmonic regurgitation present. The aortic root size is normal. IVC Not well visulized. There is no pericardial effusion. CONCLUSIONS -------- 1. Sinus rhythm with extra systolic beats. 2. This was a technically difficult study with suboptimal views. 3. The left ventricle is moderately dilated. 4. There is mild concentric left ventricular hypertrophy. 5. Overall left ventricular systolic function is mildly impaired with, an EF between 45 - 50 %. 6. Normal LA size by volume 22+/-6 ml/m2. 7. Lumason used 8. The aortic valve is trileaflet and appears structurally normal. 9. Moderate mitral regurgitation is present. 10. Mild tricuspid regurgitation present. 11. There is no evidence of pulmonary hypertension. 12. There is no pulmonic regurgitation present. 13. The aortic root size is normal. 14. IVC Not well visulized. 15. There is no pericardial effusion. DOOR WORKER: Leigha Giron RDCS
[2019-02-06] MEDS ORDERED: GLYCOPYRROLATE 0.2 MG/ML 2 ML VIAL ONE (12:17)
[2019-02-06] MEDS ORDERED: LIDOCAINE 1% INJ 10MG/ML (20 ML MDV) ONE (12:17)
[2019-02-06] MEDS ORDERED: PROPOFOL 10 MG/ML 20 ML VIAL IV ONE (12:17)
[2019-02-06] MEDS ORDERED: LACTATED RINGERS 1,000 ML IV ONE ×2 (12:20)
--- NOTE | 2019-02-06 12:24 | HP ---
HISTORY AND PHYSICAL A 58-year-old white female who came to the hospital with hypothyroidism, rheumatoid arthritis, cervical injury, status post cervical surgery, palpitations, chronic nicotine addiction with chest pain radiating into the throat and down her arm. She is complaining of throat pain, cough, shortness of breath. She said, Dr. Smith ordered an ordered MRI due to left arm numbness, was told there was some abnormality. She came to the hospital with swelling of her throat and tongue, dizziness. She had bigeminy on the monitor when came at which time, Cardiology has been consulted for chest pain, rule out myocardial infarction. CT angiogram of the thoracic, abdomen and pelvis showed essentially normal except some possible enteritis for which Surgery has seen her. Her thyroid was off, she will need increasing thyroid doses. REVIEW OF SYSTEMS: Fourteen-point review of systems negative except for mentioned in HPI. Blood pressure 120s over 60s. Heart rate in the 40s. CARDIOVASCULAR: S1, S2. Lungs are clear. Abdomen is soft. EXTREMITIES: No cyanosis, clubbing, edema. : No suprapubic tenderness. ASSESSMENT: 1. Atypical chest pain. 2. Previous PVCs in bigeminy. 3. Nicotine addiction. 4. Cervical fusion. 5. Dyslipidemia. She has been ruled out for myocardial infarction. She did have a stress test prior to discharge as well as echo. Surgery has seen her for enteritis seen on CAT scan and abdominal pain. Recommendations EGD per Dr. Verma prior to discharge. MMODL / IJN: [id number] /
--- NOTE | 2019-02-06 12:48 | P.OP ---
Date of Procedure: 02/06/19 Preoperative Diagnosis: GERD Postoperative Diagnosis: Gastritis Hiatal hernia Esophagitis Procedure(s) Performed: EGD Anesthesia: MAC Surgeon: Germán Verma Pathology: other (Antrum, esophagus) Condition: stable Disposition: PACU Description of Procedure: The patient's placed on the endoscopy table in the lateral position. She received IV sedation. The gastroscope placed oropharynx and passed in the esophagus and into the stomach. Scope was then placed through the pylorus. The first and second portion of the duodenum appeared normal. Scope was then brought back the antrum and this was moderately inflamed. A biopsies performed. The scope was then retroflexed and the remainder the stomach appeared normal. There was evidence of a hiatal hernia. The GE junction was at 38 cm the distal esophagus appeared inflamed a biopsies performed. The proximal esophagus appeared normal. Scope was withdrawn for patient.
--- NOTE | 2019-02-06 13:02 | ECHOS ---
STRESS ECHOCARDIOGRAM DATE OF SERVICE: 02/06/2019 INDICATIONS: Chest pain. MEDICATIONS: BASELINE HEART RATE: 98 BASELINE BLOOD PRESSURE: 140/93 MAXIMUM HEART RATE: 132 MAXIMUM BLOOD PRESSURE: 148/78 85% MPHR: 138 100% MPHR: 162 METS: MAXIMUM STAGE REACHED: TOTAL EXERCISE TIME: CLINICAL INFORMATION: Baseline rhythm is a sinus mechanism, rate of 98, right axis deviation, frequent PVCs with bigeminal pattern. Baseline blood pressure 140/93 mmHg. Patient received an infusion of dobutamine per protocol peak rate 132 beats per minute which is equal to 82% maximum predicted heart rate. Peak blood pressure 148/78 mmHg. Electrocardiograph monitoring revealed frequent PVCs with evidence of bigeminy and couplets. There was no evidence of diagnostic ischemic ST deviation. Baseline echocardiogram revealed mild global hypokinesis at peak infusion. There was normal wall motion augmentation with no segmental wall motion abnormalities. CONCLUSION: 1. Nondiagnostic electrocardiographic response to dobutamine infusion secondary to baseline EKG abnormality and frequent PVCs. 2. Abnormal stress echocardiogram with baseline mild hypokinesis, but with no evidence of segmental wall abnormalities at peak infusion. Those finding are suggestive of mild nonischemic cardiomyopathy. There was no evidence of stress induced ischemia. MMODL / IJN: [id number] /
[2019-02-06] MEDS ORDERED: ALBUTEROL NEBULIZED 2.5 MG/3 ML INHALATION PRN (16:46)
[2019-02-06] MEDS: SODIUM CHLORIDE 0.9% 1,000 ML IV SCH (19:23)
[2019-02-06] MEDS: MIRTAZAPINE 45 MG TABLET PO SCH (21:33)
[2019-02-07] MEDS: ALPRAZolam 1 MG TAB PO SCH ×3 (00:42→12:13)
[2019-02-07] MEDS: LEVOTHYROXINE 75 MCG TAB PO SCH (06:03)
[2019-02-07] MEDS: SODIUM CHLORIDE 0.9% 1,000 ML IV SCH (06:03)
[2019-02-07] MEDS: traMADol 50 MG TAB PO SCH (07:44)
[2019-02-07] MEDS: ASPIRIN 325 MG TAB PO SCH (07:44)
[2019-02-07] MEDS: PANTOPRAZOLE 40 MG TABLET PO SCH (07:44)
[2019-02-07] MEDS: QUEtiapine 25 MG TAB PO SCH (07:45)
[2019-02-07] MEDS: POLYETHYLENE GLYCOL 3350 17 GM POWD.PACK PO SCH (07:46)
--- NOTE | 2019-02-07 08:42 | XR ---
EXAMINATION TYPE: XR chest 2V DATE OF EXAM: 02/07/2019 COMPARISON: Prior chest x-ray 02/05/2019 HISTORY: Chest pain, abdomen pain TECHNIQUE: Frontal and lateral views of the chest are obtained. FINDINGS: There is no focal air space opacity, pleural effusion, or pneumothorax seen. The cardiac silhouette size is stable, borderline enlarged. The osseous structures are intact. There are cardia c leads. Postop changes are noted to the cervical spine. IMPRESSION: No acute cardiopulmonary process. Borderline cardiac size
[2019-02-07 08:57] VITALS: RESP 18
--- NOTE | 2019-02-07 11:43 | P.PN ---
Subjective This is a pleasant 58-year-old female past medical history significant for hypothyroidism, rheumatoid arthritis, cervical injury status p ost surgical intervention, palpitations and chronic nicotine dependence recently quit 3 months ago. She denies history of coronary artery disease, hypertension, dyslipidemia or diabetes mellitus. We have been asked to see her in consultation for chest pain. She states over the previous few weeks she has been feeling increase in congestion, cough and shortness of breath. She also has been feeling increased pain in her neck, throat and down her left arm. She recently saw Dr. Villanueva and underwent an MRI due to left arm numbness and was told there is some abnormality. Since Wednesday she started feeling some numbness in her throat and tongue. She felt like her throat was congested and full of phlegm that she couldn't clear. She felt this is possibly related to levothyroxine so she stopped taking it and the swelling in her throat and tongue seemed to improve. She denies dizziness, palpitations or diaphoresis. She states she has been told in the past that she has frequent PVCs and can sometimes feel them. GENERAL: This is a 58-year-old female in no apparent distress at the time of my examination. HEENT: Head is atraumatic, normocephalic. Pupils are equal, round. Sclerae anicteric. Conjunctivae are clear. Mucous membranes of the mouth are moist. Neck is supple. There is no jugular venous distention. No carotid bruit is heard. LUNGS: Clear to auscultation no wheezes, rales or rhonchi. No chest wall tenderness is noted on palpation or with deep breathing. HEART: Irregular rate and rhythm without murmurs, rubs or gallops. S1 and S2 heard. EXTREMITIES: No evidence of peripheral edema and no calf tenderness noted. ASSESSMENT Chest pain, atypical. An acute coronary event has been ruled out. Mitral regurgitation Frequent PVC's, bigeminy on admission. Chronic nicotine dependence Dyslipidemia Cervical fusion with jarod placement 2015 PLAN Stable from a cardiac perspective. Further evaluation of the mitral valve with JANNA will be required. This can be pursued as an outpatient. Appointment has been in the office with Dr. Carreno. Initiate on Toprol 25 mg daily for PVC's as well as mildly impaired LV function. Nurse Practitioner note has been reviewed, I agree with a documented findings and plan of care. Patient was seen and examined. Objective - Vital Signs Vital signs: Vital Signs Temp 97.7 F 02/07/19 08:00 Pulse 90 02/07/19 08:00 Resp 18 02/07/19 08:00 BP 146/79 02/07/19 08:00 Pulse Ox 94 L 02/07/19 08:00 Intake & Output 02/06/19 02/07/19 02/07/19 18:59 06:59 18:59 Intake Total 822 375 440 Balance 822 375 440 Intake: IV 600 375 Sodium Chloride 0.9% 1, 375 000 ml @ 75 mls/hr IV . [id number] COUNT INCLUDES THE [facility] Rx#:[id number] Oral 222 240 Other 200 Other: Voiding Method Toilet Toilet Toilet # Voids 1 2 - Labs CBC & Chem 7: 02/05/19 13:02 02/05/19 13:02
[2019-02-07] MEDS ORDERED: METOPROLOL SUCCINATE (ER) 25 MG TAB.ER.24H PO SCH (11:45)
[2019-02-07 12:04] VITALS: BP 150/83; PULSE 46; TEMP 98
--- NOTE | 2019-02-07 17:22 | DS ---
DISCHARGE SUMMARY DISCHARGE MEDICATIONS: 1. Tramadol 100 mg t.i.d. 2. Quetiapine 50 mg at night. 3. Omeprazole 20 mg b.i.d. 4. Remeron 30 mg at bedtime. 5. Synthroid 75 mcg daily. 6. Xanax 1 mg q.i.d. 7. Toprol-XL 25 mg daily. 8. Medrol Dosepak. 9. Augmentin 875 one b.i.d. for 7 days. DIAGNOSES: 1. Atypical chest pain. 2. Tracheobronchitis with bronchospasm. 3. Hypertension. 4. Hypothyroidism. 5. Insomnia. 6. Mood disorder. 7. Chronic pain syndrome. HOSPITAL COURSE: This patient is a white female who came into the hospital with atypical chest pain. Cardiology saw her and cleared her for discharge. She was found to be negative with a stress test which she passed. She was treated for some tracheobronchitis and COPD with some medication. She will be is discharged to be sent home and follow up in the next 24-48 hours. MMCELYL / MAYTEN: [id number] /
== END 2019-02-07 12:23 | disposition home or self-care (01) ==
LOC: EC 12:37 → 1SOBS 16:22
PROVIDERS: ADMIT Family Medicine; ATTEND Family Medicine
DX: R07.89 Other chest pain (principal); K29.50 Unspecified chronic gastritis without bleeding; K21.0 Gastro-esophageal reflux disease with esophagitis; E03.9 Hypothyroidism, unspecified; E78.5 Hyperlipidemia, unspecified; I34.0 Nonrheumatic mitral (valve) insufficiency; Z71.6 Tobacco abuse counseling; M06.9 Rheumatoid arthritis, unspecified; K44.9 Diaphragmatic hernia without obstruction or gangrene; J44.0 Chronic obstructive pulmonary disease with (acute) lower respiratory infection; G89.4 Chronic pain syndrome; J20.9 Acute bronchitis, unspecified; F41.9 Anxiety disorder, unspecified; I49.3 Ventricular premature depolarization; Z90.49 Acquired absence of other specified parts of digestive tract; Z96.652 Presence of left artificial knee joint; Z98.1 Arthrodesis status; Z90.710 Acquired absence of both cervix and uterus; Z79.890 Hormone replacement therapy; Z87.891 Personal history of nicotine dependence; Z86.19 Personal history of other infectious and parasitic diseases
CPT/HCPCS: 96361; 96374; 96375; 99285; 36415; 94640; 94760; 93005; 84439; 88305; 80061; 80053; 84443; 82150; 83605; 83690; 83735; 84484 ×2; 85025; 81003; 71046 ×2; 71275; 74174; 43239; G0378 ×3; C8929; C8930; J2060; J1250; J2405; J2001; J2704; C9113; Q9950; Q9967; 93306; 93351

== ENCOUNTER 2019-07-22 00:43 | Inpatient (IN) | payer OTHER ==
[2019-07-22] MEDS ORDERED: SODIUM CHLORIDE 0.9% 1,000 ML IV STA (00:56)
[2019-07-22 01:51] LABS: Basophils # (A) 0.1 k/uL (0-0.2); Basophils % (A) 1 %; Eosinophils # (A) 0.2 k/uL (0-0.7); Eosinophils % (A) 2 %; HCT 39.9 % (34.0-46.0); HGB 13.1 gm/dL (11.4-16.0); Lymphocytes # (A) 2.3 k/uL (1.0-4.8); Lymphocytes % (A) 25 %; MCH 29.9 pg (25.0-35.0); MCHC 32.9 g/dL (31.0-37.0); MCV 90.8 fL (80.0-100.0); Mean Platelet Volume 7.8; Monocytes # (A) 0.6 k/uL (0-1.0); Monocytes % (A) 6 %; Neutrophils # (A) 5.9 k/uL (1.3-7.7); Neutrophils % (A) 64 %; Platelet Count 257 k/uL (150-450); RDW 13.5 % (11.5-15.5); WBC 9.2 k/uL (3.8-10.6)
[2019-07-22 02:24] LABS: Albumin 4.4 g/dL (3.5-5.0); Calcium 9.2 mg/dL (8.4-10.2); Potassium 3.7 mmol/L (3.5-5.1); Total Bilirubin 0.3 mg/dL (0.2-1.3); Total Protein 7.1 g/dL (6.3-8.2)
--- NOTE | 2019-07-22 03:07 | ED ---
Abdominal Pain HPI - General Chief Complaint: Abdominal Pain Stated Complaint: Abd Muscle Spasms Time Seen by Provider: 07/22/19 00:56 Source: patient Mode of arrival: wheelchair Limitations: no limitations - History of Present Illness Initial Comments: Ava is a 59-year-old female who presents to the emergency department today for evaluation of abdominal pain. Patient reports she's been experiencing significant abdominal pain for approximately 3-4 days however today became unbearable. Patient reports a burning discomfort throughout her abdomen as well as a significant difficulty urinating. Patient reports she feels as though there is something in her vagina that prevents her from urinating. She describes it as feeling as though her uterus is going to follow-up however the patient is status post hysterectomy. Patient denies any fevers chills nausea or vomiting. She denies any change in bowel habits. - Related Data Home Medications Medication Instructions Recorded Confirmed traMADol HCL [Ultram] 100 mg PO TID 02/22/17 07/22/19 ALPRAZolam [Xanax] 1 mg PO QID 01/05/19 07/22/19 Mirtazapine [Remeron] 15 mg PO HS 01/05/19 07/22/19 Mirtazapine [Remeron] 30 mg PO HS 01/05/19 07/22/19 QUEtiapine FUMARATE [QUEtiapine 50 mg PO HS 01/05/19 07/22/19 FUMARATE ER] Zolpidem Tartrate [Ambien] 10 mg PO HS 01/05/19 07/22/19 Levothyroxine Sodium [Synthroid] 150 mcg PO DAILY 02/05/19 07/22/19 Atorvastatin [Lipitor] 20 mg PO HS 07/22/19 07/22/19 Lisinopril [Prinivil] 5 mg PO 07/22/19 Methocarbamol [Robaxin] 1,000 mg PO QID 07/22/19 07/22/19 Previous Rx's Medication Instructions Recorded Metoprolol Succinate (ER) [Toprol 25 mg PO DAILY #90 tab.er.24h 02/07/19 XL] Allergies Allergy/AdvReac Type Severity Reaction Status Date / Time hydrocodone [From [place]] Allergy Severe Abdominal Verified 02/05/19 13:09 Pain,vomiting codeine Allergy Rash/Hives Verified 02/05/19 13:09 Penicillins Allergy Rash/Hives Verified 02/05/19 13:09 Review of Systems ROS Statement: Those systems with pertinent positive or pertinent negative responses have been documented in the HPI. ROS Other: All systems not noted in ROS Statement are negative. Past Medical History Past Medical History: Chest Pain / Angina, Liver Disease, Osteoarthritis (OA), Pneumonia, Rheumatoid Arthritis (RA), Thyroid Disorder Additional Past Medical History / Comment(s): orthostatic hypotension, constipation, hx sepsis, currently has a cold History of Any Multi-Drug Resistant Organisms: None Reported Past Surgical History: Adenoidectomy, Back Surgery, Cholecystectomy, Hysterectomy, Joint Replacement, Tonsillectomy Additional Past Surgical History / Comment(s): cadavar bone placed in c-4 through C-7 with titanium jarod, left knee replacement, Past Anesthesia/Blood Transfusion Reactions: Postoperative Nausea & Vomiting (PONV) Past Psychological History: Anxiety Smoking Status: Former smoker Past Alcohol Use History: None Reported Past Drug Use History: None Reported General Exam - General Exam Comments Initial Comments: Physical Exam GENERAL: Obese female appears mildly uncomfortable HENT: Normocephalic, Atraumatic. EYES: PERRL, EOMI PULMONARY: Have expiratory wheezing, nonproductive cough CARDIOVASCULAR: There is a regular rate and rhythm without any murmurs gallops or rubs. ABDOMEN: Obese, mild tenderness to palpation in the suprapubic region SKIN: Skin is clear with no lesions or rashes and otherwise unremarkable. : Normal external genitalia Intraoral exam concerning for bladder prolapse NEUROLOGIC: Patient is alert and oriented x3. Moving all extremities spontaneously MUSCULOSKELETAL: Normal extremities with adequate strength and full range of motion. No lower extremity swelling or edema. No calf tenderness. PSYCHIATRIC: Normal psychiatric evaluation Limitations: no limitations Course Vital Signs 07/22/19 00:47 Temperature 97.4 F L Pulse Rate 85 Respiratory 20 Rate Blood Pressure 120/67 O2 Sat by Pulse 99 Oximetry Medical Decision Making - Medical Decision Making The patient was seen and evaluated, history is obtained from the patient and at bedside next and history and physical exam concerning for bladder prolapse, labs resulted with elevated creatinine concerning for a KI likely secondary to outlet obstruction. Patient repeatedly stated that she could not urinate however after a liter fluid was able to urinate a significant amount though she did have to bear down significantly to do so. Computed tomography scan reveals a under distended bladder no significant abnormalities possible early colitis however patient has no leukocytosis and the rest of her abdomen is rather benign and I do not feel she warrants treatment with antibiotics at this time Urinalysis with no signs of urinary tract infection Given the patient's acute kidney injury and new finding of bladder prolapse I do feel she warrants observation the hospital for fluid resuscitation, repeat labs and possible evaluation by urology or gynecology. This plan was discussed with her primary care physician Dr. Samayoa who agrees with plan. - Lab Data Result diagrams: 07/22/19 01:22 07/22/19 01:22 Lab Results 07/22/19 07/22/19 07/22/19 Range/Units 01:22 01:22 01:22 WBC 9.2 (3.8-10.6) k/uL RBC 4.40 (3.80-5.40) m/uL Hgb 13.1 (11.4-16.0) gm/dL Hct 39.9 (34.0-46.0) % MCV 90.8 (80.0-100.0) fL MCH 29.9 (25.0-35.0) pg MCHC 32.9 (31.0-37.0) g/dL RDW 13.5 (11.5-15.5) % Plt Count 257 (150-450) k/uL Neutrophils % 64 % Lymphocytes % 25 % Monocytes % 6 % Eosinophils % 2 % Basophils % 1 % Neutrophils # 5.9 (1.3-7.7) k/uL Lymphocytes # 2.3 (1.0-4.8) k/uL Monocytes # 0.6 (0-1.0) k/uL Eosinophils # 0.2 (0-0.7) k/uL Basophils # 0.1 (0-0.2) k/uL Sodium 137 (137-145) mmol/L Potassium 3.7 (3.5-5.1) mmol/L Chloride 104 (98-107) mmol/L Carbon Dioxide 24 (22-30) mmol/L Anion Gap 9 mmol/L BUN 35 H (7-17) mg/dL Creatinine 1.72 H (0.52-1.04) mg/dL Est GFR (CKD-EPI)AfAm 37 (>60 ml/min/1.73 sqM) Est GFR (CKD-EPI)NonAf 32 (>60 ml/min/1.73 sqM) Glucose 87 (74-99) mg/dL Plasma Lactic Acid Tae 0.9 (0.7-2.0) mmol/L Calcium 9.2 (8.4-10.2) mg/dL Total Bilirubin 0.3 (0.2-1.3) mg/dL AST 32 (14-36) U/L ALT 34 (9-52) U/L Alkaline Phosphatase 102 (38-126) U/L Creatine Kinase 475 H (30-135) U/L Troponin I (0.000-0.034) ng/mL Total Protein 7.1 (6.3-8.2) g/dL Albumin 4.4 (3.5-5.0) g/dL Amylase 51 (30-110) U/L Lipase 55 (23-300) U/L Urine Color Urine Appearance (Clear) Urine pH (5.0-8.0) Ur Specific [place] (1.001-1.035) Urine Protein (Negative) Urine Glucose (UA) (Negative) Urine Ketones (Negative) Urine Blood (Negative) Urine Nitrite (Negative) Urine Bilirubin (Negative) Urine Urobilinogen (<2.0) mg/dL Ur Leukocyte Esterase (Negative) 07/22/19 07/22/19 Range/Units 01:22 04:57 WBC (3.8-10.6) k/uL RBC (3.80-5.40) m/uL Hgb (11.4-16.0) gm/dL Hct (34.0-46.0) % MCV (80.0-100.0) fL MCH (25.0-35.0) pg MCHC (31.0-37.0) g/dL RDW (11.5-15.5) % Plt Count (150-450) k/uL Neutrophils % % Lymphocytes % % Monocytes % % Eosinophils % % Basophils % % Neutrophils # (1.3-7.7) k/uL Lymphocytes # (1.0-4.8) k/uL Monocytes # (0-1.0) k/uL Eosinophils # (0-0.7) k/uL Basophils # (0-0.2) k/uL Sodium (137-145) mmol/L Potassium (3.5-5.1) mmol/L Chloride (98-107) mmol/L Carbon Dioxide (22-30) mmol/L Anion Gap mmol/L BUN (7-17) mg/dL Creatinine (0.52-1.04) mg/dL Est GFR (CKD-EPI)AfAm (>60 ml/min/1.73 sqM) Est GFR (CKD-EPI)NonAf (>60 ml/min/1.73 sqM) Glucose (74-99) mg/dL Plasma Lactic Acid Tae (0.7-2.0) mmol/L Calcium (8.4-10.2) mg/dL Total Bilirubin (0.2-1.3) mg/dL AST (14-36) U/L ALT (9-52) U/L Alkaline Phosphatase (38-126) U/L Creatine Kinase (30-135) U/L Troponin I <0.012 (0.000-0.034) ng/mL Total Protein (6.3-8.2) g/dL Albumin (3.5-5.0) g/dL Amylase (30-110) U/L Lipase (23-300) U/L Urine Color Light Yellow Urine Appearance Clear (Clear) Urine pH 5.5 (5.0-8.0) Ur Specific [place] 1.011 (1.001-1.035) Urine Protein Negative (Negative) Urine Glucose (UA) Negative (Negative) Urine Ketones Negative (Negative) Urine Blood Negative (Negative) Urine Nitrite Negative (Negative) Urine Bilirubin Negative (Negative) Urine Urobilinogen <2.0 (<2.0) mg/dL Ur Leukocyte Esterase Negative (Negative) Disposition Clinical Impression: SHEA (acute kidney injury), Bladder prolapse Disposition: ADMITTED IP TO THIS [facility] Condition: Stable Is patient prescribed a controlled substance at d/c from ED?: No Referrals: Elmer Samayoa MD [Primary Care Provider] - 1-2 days
--- NOTE | 2019-07-22 03:57 | XR ---
EXAM: XR Abdomen, 1 View CLINICAL HISTORY: ITS.REASON XR Reason: abdominal pain TECHNIQUE: Frontal supine view of the abdomen/pelvis. COMPARISON: 04/30/14. FINDINGS: Gastrointestinal tract: Nonspecific bowel gas pattern. Bones/joints: No acute fracture. Soft tissues: Surgical clips again noted in the right upper quadrant. IMPRESSION: Nonspecific bowel gas pattern.
--- NOTE | 2019-07-22 04:01 | XR ---
EXAM: XR Chest, 2 Views CLINICAL HISTORY: ITS.REASON XR Reason: abdominal pain TECHNIQUE: Frontal and lateral views of the chest. COMPARISON: 02/07/19. FINDINGS: Lungs: Low lung volumes with prominent perihilar opacities, possible atelectasis. Pleural space: No significant pleural effusion or pneumothorax. Heart: Stable cardiomediastinal silhouette. Mediastinum: See above. Bones/joints: No acute fracture. IMPRESSION: Low lung volumes with prominent perihilar opacities, possible atelectasis. Correlate clinically to exclude developing infiltrate.
[2019-07-22] MEDS ORDERED: SODIUM CHLORIDE 0.9% 1,000 ML IV ONE (04:44)
[2019-07-22 05:39] LABS: Appearance,Urine Clear (Clear); Bilirubin,Urine Negative (Negative); Blood,Urine Negative (Negative); Color,Urine Light Yellow; Glucose,Urine (UA) Negative (Negative); Ketones,Urine Negative (Negative); Leukocyte Esterase,Urine Negative (Negative); Nitrite,Urine Negative (Negative); PH, Urine 5.5 (5.0-8.0); Protein,Urine Negative (Negative); Specific Gravity,Urine 1.011 (1.001-1.035); Urobilinogen,Urine <2.0 mg/dL (<2.0)
--- NOTE | 2019-07-22 05:43 | CT ---
EXAM: CT Abdomen and Pelvis With Intravenous Contrast CLINICAL HISTORY: mid to upper abd pain, pelvic pain ITS.REASON CT Reason: Pain TECHNIQUE: Axial computed tomography images of the abdomen and pelvis with intravenous contrast. CTDI is 17 mGy and DLP is 1532.4 mGy-cm. This CT exam was performed using one or more of the following dose reduction techniques: automated exposure control, adjustment of the mA and/or kV according to patient size, and/or use of iterative reconstruction technique. COMPARISON: CT 02/27/15. FINDINGS: Lung bases: No acute findings. ABDOMEN: Liver: Hepatomegaly. Gallbladder and bile ducts: Prior cholecystectomy. Pancreas: Unremarkable. Spleen: Unremarkable. Adrenals: Unremarkable. Kidneys and ureters: No hydronephrosis. Stomach and bowel: Mild colonic wall thickening or underdistention. No evidence of bowel obstruction. PELVIS: Appendix: Normal caliber appendix. Bladder: Mildly thickened underdistended bladder. Reproductive: Unremarkable as visualized. ABDOMEN and PELVIS: Intraperitoneal space: No free air. No significant fluid collection. Bones/joints: No acute fracture. Soft tissues: Unremarkable. Vasculature: Atherosclerotic disease. Lymph nodes: Unremarkable. IMPRESSION: 1. Mild colonic wall thickening or underdistention. Correlate clinically regarding colitis. 2. Thickened underdistended bladder.
[2019-07-22] MEDS ORDERED: NALOXONE 0.4 MG/ML 1 ML VIAL IV PRN (05:50)
[2019-07-22] MEDS ORDERED: ONDANSETRON 4 MG/2 ML VIAL IVP PRN (05:50)
[2019-07-22] MEDS ORDERED: ALPRAZolam 1 MG TAB PO STA (06:00)
[2019-07-22] MEDS ORDERED: traMADol 50 MG TAB PO STA (06:00)
[2019-07-22] MEDS: SODIUM CHLORIDE 0.9% 1,000 ML IV SCH ×3 (06:07→21:31)
[2019-07-22 07:20] VITALS: BMI 36.0
--- NOTE | 2019-07-22 11:11 | P.GSCN ---
History of Present Illness Consult date: 07/22/19 Reason for Consult: Bladder prolapse Requesting physician: Elmer Samayoa History of present illness: The patient is a 59-year-old white female who underwent a hysterectomy at age 20. She now presents with a three-day history of diffuse abdominal pain. This is associated with a poor taste in her mouth, abdominal distention, and bloody diarrhea. She is a vague historian. She reports mild stress urinary incontinence. She states that she has recently experienced difficulty voiding, voiding only small amounts, and that she has noted a vaginal bulge. Review of Systems - Constitutional Reports chills, Reports poor appetite, Denies fever - Gastrointestinal Reports abdominal pain, Reports diarrhea - Genitourinary Genitourinary: Reports prolapse symptoms, Reports stress incontinence, Denies dysuria, Denies hematuria - Psychiatric Reports anxiety Past Medical History Past Medical History: Chest Pain / Angina, Liver Disease, Osteoarthritis (OA), Pneumonia, Rheumatoid Arthritis (RA), Thyroid Disorder Additional Past Medical History / Comment(s): orthostatic hypotension, constipation, hx sepsis, currently has a cold History of Any Multi-Drug Resistant Organisms: None Reported Past Surgical History: Adenoidectomy, Back Surgery, Cholecystectomy, Hyste rectomy, Joint Replacement, Tonsillectomy Additional Past Surgical History / Comment(s): cadavar bone placed in c-4 through C-7 with titanium jarod, left knee replacement, Past Anesthesia/Blood Transfusion Reactions: Postoperative Nausea & Vomiting (PO NV) Smoking Status: Former smoker Medications and Allergies Home Medications Medication Instructions Recorded Confirmed Type traMADol HCL [Ultram] 100 mg PO TID 02/22/17 07/22/19 History ALPRAZolam [Xanax] 1 mg PO QID 01/05/19 07/22/19 History Mirtazapine [Remeron] 15 mg PO HS 01/05/19 07/22/19 History Mirtazapine [Remeron] 30 mg PO HS 01/05/19 07/22/19 History QUEtiapine FUMARATE [QUEtiapine 50 mg PO HS 01/05/19 07/22/19 History FUMARATE ER] Zolpidem Tartrate [Ambien] 10 mg PO HS 01/05/19 07/22/19 History Levothyroxine Sodium [Synthroid] 150 mcg PO DAILY 02/05/19 07/22/19 History Metoprolol Succinate (ER) [Toprol 25 mg PO DAILY #90 tab.er.24h 02/07/19 07/22/19 Rx XL] Atorvastatin [Lipitor] 20 mg PO HS 07/22/19 07/22/19 History Furosemide [Lasix] 20 mg PO DAILY 07/22/19 07/22/19 History Ibuprofen [Motrin] 800 mg PO TID PRN 07/22/19 07/22/19 History Lisinopril [Prinivil] 5 mg PO DAILY 07/22/19 07/22/19 History Nicotine 21Mg/24Hr Patch [Habitrol] 1 patch TRANSDERM DAILY 07/22/19 07/22/19 History Omeprazole 20 mg PO DAILY 07/22/19 07/22/19 History Polyethylene Glycol 3350 [Miralax] 17 gm PO DAILY 07/22/19 07/22/19 History Vortioxetine Hydrobromide 10 mg PO DAILY 07/22/19 07/22/19 History [Trintellix] Allergies Allergy/AdvReac Type Severity Reaction Status Date / Time codeine Allergy Rash/Hives Verified 07/22/19 08:10 Penicillins Allergy Rash/Hives Verified 07/22/19 08:10 hydrocodone [From [place]] AdvReac Severe Abdominal Verified 07/22/19 08:10 Pain,vomiting Surgical - Exam Vital Signs Temp Pulse Resp BP Pulse Ox 97.4 F L 85 20 120/67 99 07/22/19 00:47 07/22/19 00:47 07/22/19 00:47 07/22/19 00:47 07/22/19 00:47 - General well developed, well nourished, no distress - Respiratory normal respiratory effort - Abdomen Abdomen: soft, tender (Diffuse abdominal tenderness to palpation), no guarding, no rigid, no rebound - Genitourinary normal external genitalia, normal perineum, no perineal/vulvar lesions, other (Grade 1-2 cystocele. Minimal urethral hypermobility.) - Psychiatric oriented to time, oriented to person, oriented to place, speech is normal, memory intact Results - Labs 07/22/19 01:22 07/22/19 01:22 Abnormal Lab Results - Last 24 Hours (Table) 07/22/19 Range/Units 01:22 BUN 35 H (7-17) mg/dL Creatinine 1.72 H (0.52-1.04) mg/dL Creatine Kinase 475 H (30-135) U/L Diabetes panel 07/22/19 Range/Units 01:22 Sodium 137 (137-145) mmol/L Potassium 3.7 (3.5-5.1) mmol/L Chloride 104 (98-107) mmol/L Carbon Dioxide 24 (22-30) mmol/L BUN 35 H (7-17) mg/dL Creatinine 1.72 H (0.52-1.04) mg/dL Glucose 87 (74-99) mg/dL Calcium 9.2 (8.4-10.2) mg/dL AST 32 (14-36) U/L ALT 34 (9-52) U/L Alkaline Phosphatase 102 (38-126) U/L Total Protein 7.1 (6.3-8.2) g/dL Albumin 4.4 (3.5-5.0) g/dL Calcium panel 07/22/19 Range/Units 01:22 Calcium 9.2 (8.4-10.2) mg/dL Albumin 4.4 (3.5-5.0) g/dL Pituitary panel 07/22/19 Range/Units 01:22 Sodium 137 (137-145) mmol/L Potassium 3.7 (3.5-5.1) mmol/L Chloride 104 (98-107) mmol/L Carbon Dioxide 24 (22-30) mmol/L BUN 35 H (7-17) mg/dL Creatinine 1.72 H (0.52-1.04) mg/dL Glucose 87 (74-99) mg/dL Calcium 9.2 (8.4-10.2) mg/dL Adrenal panel 07/22/19 Range/Units 01:22 Sodium 137 (137-145) mmol/L Potassium 3.7 (3.5-5.1) mmol/L Chloride 104 (98-107) mmol/L Carbon Dioxide 24 (22-30) mmol/L BUN 35 H (7-17) mg/dL Creatinine 1.72 H (0.52-1.04) mg/dL Glucose 87 (74-99) mg/dL Calcium 9.2 (8.4-10.2) mg/dL Total Bilirubin 0.3 (0.2-1.3) mg/dL AST 32 (14-36) U/L ALT 34 (9-52) U/L Alkaline Phosphatase 102 (38-126) U/L Total Protein 7.1 (6.3-8.2) g/dL Albumin 4.4 (3.5-5.0) g/dL - Imaging CT scan - abdomen: report reviewed, image reviewed Assessment and Plan (1) Cystocele Current Visit: Yes Status: Acute Code(s): [id number] - SNOMED Code(s): 002694562 Plan: I reviewed Mrs. Gaston's CT scan. The kidneys appear normal. The bladder is non-distended. Although she reports difficulty voiding, as can be the case with a cystocele, she voided 500 mL prior to my arrival and had a postvoid residual of only 16 mL. Urinalysis at the time of admission was negative. I have spoken with Dr. Vásquez, who will see her for gynecologic evaluation, and given the bloody diarrhea I believe she would benefit from general surgical or GI evaluation. I do not feel that any further urologic evaluation is warranted. There is a standing order to straight catheterized as needed. Please notify me if I can be of any further assistance.
[2019-07-22] MEDS: MORPHINE SULFATE 4 MG/ML SYRINGE IVP PRN ×2 (11:31→18:08)
[2019-07-22] MEDS: ALPRAZolam 1 MG TAB PO SCH ×3 (12:18→21:56)
--- NOTE | 2019-07-22 13:08 | P.OBCN ---
History of Present Illness Consult date: 07/22/19 Requesting physician: Elmer Samayoa Reason for consult: other (Possible prolapse) Chief complaint: Acute abdominal pain, 3 days History of present illness: The patient is a 59-year-old 1 para 1001 who presents to the hospital with a complaint of acute abdominal pain beginning approximately 3 days ago. She has had ongoing abdominal pain for quite some time but had an acute exacerbation 3 days ago and ultimately reported to the hospital today as it was significantly worse. She secondarily reports that she feels she is unable to void effectively or completely. She has, however, voided on 2 occasions on the floor today a volume of 500 mL and 300 mL with minimal post Lopez residual present. Her main complaint is of generalized abdominal pain. She has undergone hysterectomy in her 20s for undisclosed reasons. She reports that she has been unable to engage in intercourse secondary to discomfort but has had no other vaginal bleeding or concerns. She does report that she feels a bulge when straining at the bathroom. She does use occasional splinting in order to adequately void. The patient is not the most fluent historian. Obstetrical history: 1 para 1001 with 1 term vaginal delivery many years ago. Mester contraception has been hysterectomy. Gynecologic history: Unremarkable except as relates to history of present illness. She did undergo abdominal hysterectomy in her early to mid 20s for undisclosed reasons. She has not seen a feed miller in at least several years by her report. Review of Systems Review of systems is confined to history of present illness. Past Medical History Past Medical History: Chest Pain / Angina, Liver Disease, Osteoarthritis (OA), Pneumonia, Rheumatoid Arthritis (RA), Thyroid Disorder Additional Past Medical History / Comment(s): orthostatic hypotension, constipation, hx sepsis, currently has a cold History of Any Multi-Drug Resistant Organisms: None Reported Past Surgical History: Adenoidectomy, Back Surgery, Cholecystectomy, Hysterectomy, Joint Replacement, Tonsillectomy Additional Past Surgical History / Comment(s): cadavar bone placed in c-4 through C-7 with titanium jarod, left knee replacement, Past Anesthesia/Blood Transfusion Reactions: Postoperative Nausea & Vomiting (PONV) Smoking Status: Former smoker - Past Family History Mother Family Medical History: Cancer Additional Family Medical History / Comment(s): Brain CA Father Family Medical History: Cancer Additional Family Medical History / Comment(s): liver CA Medications and Allergies Home Medications Medication Instructions Recorded Confirmed Type traMADol HCL [Ultram] 100 mg PO TID 02/22/17 07/22/19 History ALPRAZolam [Xanax] 1 mg PO QID 01/05/19 07/22/19 History Mirtazapine [Remeron] 15 mg PO HS 01/05/19 07/22/19 History Mirtazapine [Remeron] 30 mg PO HS 01/05/19 07/22/19 History QUEtiapine FUMARATE [QUEtiapine 50 mg PO HS 01/05/19 07/22/19 History FUMARATE ER] Zolpidem Tartrate [Ambien] 10 mg PO HS 01/05/19 07/22/19 History Levothyroxine Sodium [Synthroid] 150 mcg PO DAILY 02/05/19 07/22/19 History Metoprolol Succinate (ER) [Toprol 25 mg PO DAILY #90 tab.er.24h 02/07/19 07/22/19 Rx XL] Atorvastatin [Lipitor] 20 mg PO HS 07/22/19 07/22/19 History Furosemide [Lasix] 20 mg PO DAILY 07/22/19 07/22/19 History Ibuprofen [Motrin] 800 mg PO TID PRN 07/22/19 07/22/19 History Lisinopril [Prinivil] 5 mg PO DAILY 07/22/19 07/22/19 History Nicotine 21Mg/24Hr Patch [Habitrol] 1 patch TRANSDERM DAILY 07/22/19 07/22/19 History Omeprazole 20 mg PO DAILY 07/22/19 07/22/19 History Polyethylene Glycol 3350 [Miralax] 17 gm PO DAILY 07/22/19 07/22/19 History Vortioxetine Hydrobromide 10 mg PO DAILY 07/22/19 07/22/19 History [Trintellix] Allergies Allergy/AdvReac Type Severity Reaction Status Date / Time codeine Allergy Rash/Hives Verified 07/22/19 08:10 Penicillins Allergy Rash/Hives Verified 07/22/19 08:10 hydrocodone [From [place]] AdvReac Severe Abdominal Verified 07/22/19 08:10 Pain,vomiting Exam Vital Signs Temp Pulse Pulse Pulse Resp BP BP 07/22/19 11:21 97.7 F 82 18 95/61 07/22/19 07:30 97.4 F L 82 16 07/22/19 06:16 98.7 F 97 18 134/88 07/22/19 00:47 97.4 F L 85 20 120/67 BP Pulse Ox 07/22/19 11:21 96 07/22/19 07:30 97/61 94 L 07/22/19 06:16 97 07/22/19 00:47 99 Intake and Output 07/21/19 07/22/19 07/22/19 22:59 06:59 14:59 Output Total 243 841 Balance -243 -841 Output: Urine 825 Post Void Residual 243 16 Other: Weight 83.915 kg 86.5 kg In general, this is a well-developed, well-nourished white female in some discomfort. She is hunched over in bed and holding her abdomen. Her heart has a regular rhythm and rate without murmur. Her lungs are clear to auscultation bilaterally in all craft. Her abdomen is nondistended, soft, without any palpable masses but is otherwise generally tender. Her extremities without any cyanosis, clubbing, or edema and are nontender to palpation bilaterally. Bimanual pelvic examination demonstrates normal external genitalia and BUS with normal vaginal mucosa and apex. With strong Valsalva, there is grade 3 cystocele present with the bladder bulging to the introitus. Uterus is surgically absent and I am unable to appreciate the adnexa bilaterally though there are no apparent masses. Rectovaginal examination is deferred. Results Result Diagrams: 07/22/19 01:22 07/22/19 01:22 Abnormal Lab Results - Last 24 Hours (Table) 07/22/19 Range/Units 01:22 BUN 35 H (7-17) mg/dL Creatinine 1.72 H (0.52-1.04) mg/dL Creatine Kinase 475 H (30-135) U/L Assessment and Plan (1) Cystocele Current Visit: Yes Status: Acute Code(s): [id number] - SNOMED Code(s): 930607917 (2) Abdominal pain Current Visit: No Status: Acute Code(s): R10.9 - UNSPECIFIED ABDOMINAL PAIN SNOMED Code(s): 26936363 Plan: Examination does indeed bear out a grade 3 cystocele. This, however, should not be responsible for the kind of pain that she is experiencing. She does appear to be able to adequately void though she reports occasionally she has needed to splint at home in order to do so. While the cystocele is present, it is not likely the source of her pain. It is much more amenable to evaluation and disposition in an outpatient setting either with the surgical repair for cystocele or use of a pessary. Pessary fitting cannot be accomplished as an inpatient. I strongly suspect that her concerns are primarily of a GI nature and should be evaluated by gastroenterology. She is certainly welcome to follow-up with a feed miller in the outpatient setting. Otherwise I will sign off the case unless require further information or direction.
[2019-07-22 14:30] LABS: Basophils # (A) 0.1 k/uL (0-0.2); Basophils % (A) 1 %; Eosinophils # (A) 0.2 k/uL (0-0.7); Eosinophils % (A) 3 %; HGB 11.9 gm/dL (11.4-16.0); Lymphocytes # (A) 1.7 k/uL (1.0-4.8); Lymphocytes % (A) 31 %; MCH 30.8 pg (25.0-35.0); MCHC 33.2 g/dL (31.0-37.0); MCV 92.8 fL (80.0-100.0); Mean Platelet Volume 7.7; Monocytes # (A) 0.4 k/uL (0-1.0); Monocytes % (A) 7 %; Neutrophils # (A) 3.1 k/uL (1.3-7.7); Neutrophils % (A) 56 %; Platelet Count 232 k/uL (150-450); RBC 3.88 m/uL (3.80-5.40); RDW 13.4 % (11.5-15.5); WBC 5.4 k/uL (3.8-10.6)
--- NOTE | 2019-07-22 15:22 | HP ---
HISTORY AND PHYSICAL CHIEF COMPLAINT: A 59-year-old white female had a hysterectomy at age 20. She now presents with 3-day history of abdominal pain, abdominal distention, bloody diarrhea, poor taste in her mouth. States in the ER, doctor said she possibly has ureteral cystocele affecting her inability to urinate. Not getting any urine out. She has stress urinary incontinence, difficulty voiding and a vaginal bulge. She is admitted to the hospital for possible colitis seen on CT scan and for possible acute renal insufficiency, tubular necrosis secondary to possible urinary retention or blockage. REVIEW OF SYSTEMS: Fourteen point review of systems negative except for mentioned above. Psych history of anxiety. PAST MEDICAL HISTORY: Angina, chest pain. Liver disease, osteoarthritis, pneumonia, community-acquired pneumonia, rheumatoid arthritis, hypothyroidism, constipation, orthostatic hypotension, history of sepsis. PAST SURGICAL HISTORY: She has had adenoidectomy, back surgery, lumbar disc surgery, left total knee replacement, hysterectomy, cholecystectomy, tonsillectomy, C4-3, C7 titanium jarod, left knee replacement. SOCIAL HISTORY: Former smoker. MEDICATIONS: Include tramadol 100 t.i.d., 1 mg q.i.d., Remeron 45 q.h.s., Quetiapine 50 q.h.s., Ambien 10 q.h.s., Synthroid 150 daily, metoprolol-XL 25 daily, atorvastatin 20 mg at night, Lasix 20 mg daily, Motrin 800 t.i.d., Prinivil 5 mg daily, nicotine patch 21 mg daily, omeprazole 20 mg daily, Trintellix 10 mg daily, MiraLAX 17 g daily. ALLERGIES: TO CODEINE, PENICILLIN, NORCO. PHYSICAL EXAMINATION: Temp 97.4, pulse 80 to 85, respiratory rate 15 to 20, blood pressure 120s over 60s, oxygen 99%. Constitutional: Well developed, well nourished, no acute distress. Respiratory: Normal respiratory effort. Abdomen is soft. Diffuse tenderness to palpation. No guarding. No rigidity. Genitourinary: Per ER doctor. Psych: She appears anxious and nervous. GI is increased bowel sounds. Some diffuse mild tenderness. No guarding. Lungs show mild wheeze. BUN 35, creatinine 1.72. Sodium 137, potassium 3.7. ASSESSMENT: 1. Acute tubular necrosis secondary to possible dehydration. 2. Cystocele, possible colitis. 3. Acute abdominal pain secondary to most likely colitis. 4. Stress urinary incontinence secondary to cystocele. Apparently, she has a good urinalysis, this morning and Gastroenterology evaluation for colitis. Will start her on IV Flagyl for colitis and wait for GI surgical intervention. Please see further orders and consults. MMODL / IJN: [id number] /
[2019-07-22] MEDS: methylPREDNISolone SOD SUCCI 40 MG/ML 1 ML VIAL IV SCH ×2 (16:37→23:58)
[2019-07-22] MEDS: metroNIDAZOLE-NS PMX 500 MG in SALINE 1 100ML.BAG IVPB SCH ×2 (16:37→23:58)
[2019-07-22] MEDS: traMADol 50 MG TAB PO SCH ×3 (16:38→22:48)
[2019-07-22] MEDS: MIRTAZAPINE 45 MG TABLET PO SCH (20:50)
[2019-07-22] MEDS: ATORVASTATIN 20 MG TAB PO SCH (20:50)
[2019-07-22] MEDS: QUEtiapine 25 MG TAB PO SCH (20:50)
[2019-07-22] MEDS ORDERED: MIRTAZAPINE 30 MG PO SCH (21:00)
[2019-07-23] MEDS: MORPHINE SULFATE 4 MG/ML SYRINGE IVP PRN ×3 (03:11→19:48)
[2019-07-23] MEDS: SODIUM CHLORIDE 0.9% 1,000 ML IV SCH ×3 (05:56→22:31)
[2019-07-23] MEDS: LEVOTHYROXINE 75 MCG TAB PO SCH (05:56)
[2019-07-23 07:52] LABS: ALT 33 U/L (9-52); AST 26 U/L (14-36); African American GFR (CKD) >90 (>60 ml/min/1.73 sqM); Albumin 3.2 g/dL (3.5-5.0); Alkaline Phosphatase 70 U/L (38-126); Anion Gap 5 mmol/L; Blood Urea Nitrogen 9 mg/dL (7-17); Calcium 8.2 mg/dL (8.4-10.2); Carbon Dioxide 22 mmol/L (22-30); Chloride 114 mmol/L (98-107); Glucose 94 mg/dL (74-99); Potassium 3.9 mmol/L (3.5-5.1); Sodium 141 mmol/L (137-145); Total Bilirubin 0.3 mg/dL (0.2-1.3); Total Protein 5.5 g/dL (6.3-8.2)
[2019-07-23] MEDS: QUEtiapine 25 MG TAB PO SCH ×2 (08:12→22:27)
[2019-07-23] MEDS: METOPROLOL SUCCINATE (ER) 25 MG TAB.ER.24H PO SCH (08:12)
[2019-07-23] MEDS: ALPRAZolam 1 MG TAB PO SCH ×4 (08:12→22:26)
[2019-07-23] MEDS: VORTIOXETINE HYDROBROMIDE 10 MG TABLET PO SCH (08:12)
[2019-07-23] MEDS: PANTOPRAZOLE 40 MG TABLET PO SCH (08:13)
[2019-07-23] MEDS: methylPREDNISolone SOD SUCCI 40 MG/ML 1 ML VIAL IV SCH ×2 (08:13→16:26)
[2019-07-23] MEDS: NICOTINE 21MG/24HR PATCH TRANSDERM SCH (08:13)
[2019-07-23] MEDS: metroNIDAZOLE-NS PMX 500 MG in SALINE 1 100ML.BAG IVPB SCH ×2 (08:15→18:13)
[2019-07-23] MEDS: traMADol 50 MG TAB PO SCH ×3 (09:09→22:27)
[2019-07-23] MEDS ORDERED: PEG 3350-NA SULF,BICARB,CL/KCL 4,000 ML BOTTLE PO ONE (10:19)
--- NOTE | 2019-07-23 10:19 | P.GSCN ---
History of Present Illness Consult date: 07/23/19 Reason for Consult: GI bleed History of present illness: 59-year-old female presents to the hospital complaining of abdominal pain bloating and bloody diarrhea. Describes a spasm prior to bowel activity. Started 4 days ago. No fevers. CAT scan was performed which showed slight thickening of the colon wall however the colon was fairly collapsed. No surrounding inflammatory changes. Last colonoscopy numerous years ago. Patient also complains of vague other symptoms including urinary retention neck pain in her pain headaches. States she has chronic pain. History of previous cholecystectomy. Patient started on IV Flagyl for colitis. Review of Systems The patient denies any acute changes in vision or hearing, no dysphagia or odynophagia, no chest pain or shortness of breath, no dysuria or hematuria, no headache, no runny nose, no melena, no unexplained weight loss Past Medical History Past Medical History: Chest Pain / Angina, Liver Disease, Osteoarthritis (OA), Pneumonia, Rheumatoid Arthritis (RA), Thyroid Disorder Additional Past Medical History / Comment(s): orthostatic hypotension, constipation, hx sepsis, currently has a cold History of Any Multi-Drug Resistant Organisms: None Reported Past Surgical History: Adenoidectomy, Back Surgery, Cholecystectomy, Hysterectomy, Joint Replacement, Tonsillectomy Additional Past Surgical History / Comment(s): cadavar bone placed in c-4 through C-7 with titanium jarod, left knee replacement, Past Anesthesia/Blood Transfusion Reactions: Postoperative Nausea & Vomiting (PONV) Smoking Status: Former smoker - Past Family History Mother Family Medical History: Cancer Additional Family Medical History / Comment(s): Brain CA Father Family Medical History: Cancer Additional Family Medical History / Comment(s): liver CA Medications and Allergies Home Medications Medication Instructions Recorded Confirmed Type traMADol HCL [Ultram] 100 mg PO TID 02/22/17 07/22/19 History ALPRAZolam [Xanax] 1 mg PO QID 01/05/19 07/22/19 History Mirtazapine [Remeron] 15 mg PO HS 01/05/19 07/22/19 History Mirtazapine [Remeron] 30 mg PO HS 01/05/19 07/22/19 History QUEtiapine FUMARATE [QUEtiapine 50 mg PO HS 01/05/19 07/22/19 History FUMARATE ER] Zolpidem Tartrate [Ambien] 10 mg PO HS 01/05/19 07/22/19 History Levothyroxine Sodium [Synthroid] 150 mcg PO DAILY 02/05/19 07/22/19 History Metoprolol Succinate (ER) [Toprol 25 mg PO DAILY #90 tab.er.24h 02/07/1907/22 Rx XL] Atorvastatin [Lipitor] 20 mg PO HS 07/22/19 07/22/19 History Furosemide [Lasix] 20 mg PO DAILY 07/22/19 07/22/19 History Ibuprofen [Motrin] 800 mg PO TID PRN 07/22/19 07/22/19 History Lisinopril [Prinivil] 5 mg PO DAILY 07/22/19 07/22/19 History Nicotine 21Mg/24Hr Patch [Habitrol] 1 patch TRANSDERM DAILY 07/22/19 07/22/19 History Omeprazole 20 mg PO DAILY 07/22/19 07/22/19 History Polyethylene Glycol 3350 [Miralax] 17 gm PO DAILY 07/22/19 07/22/19 History Vortioxetine Hydrobromide 10 mg PO DAILY 07/22/19 07/22/19 History [Trintellix] Allergies Allergy/AdvReac Type Severity Reaction Status Date / Time codeine Allergy Rash/Hives Verified 07/22/19 08:10 Penicillins Allergy Rash/Hives Verified 07/22/19 08:10 hydrocodone [From [place]] AdvReac Severe Abdominal Verified 07/22/19 08:10 Pain,vomiting Surgical - Exam Vital Signs Temp Pulse Resp BP Pulse Ox 97.4 F L 85 20 120/67 99 07/22/19 00:47 07/22/19 00:47 07/22/19 00:47 07/22/19 00:47 07/22/19 00:47 Results - Labs 07/22/19 14:02 07/23/19 06:58 Abnormal Lab Results - Last 24 Hours (Table) 07/23/19 Range/Units 06:58 Chloride 114 H (98-107) mmol/L Calcium 8.2 L (8.4-10.2) mg/dL Total Protein 5.5 L (6.3-8.2) g/dL Albumin 3.2 L (3.5-5.0) g/dL Diabetes panel 07/23/19 Range/Units 06:58 Sodium 141 (137-145) mmol/L Potassium 3.9 (3.5-5.1) mmol/L Chloride 114 H (98-107) mmol/L Carbon Dioxide 22 (22-30) mmol/L BUN 9 (7-17) mg/dL Creatinine 0.66 (0.52-1.04) mg/dL Glucose 94 (74-99) mg/dL Calcium 8.2 L (8.4-10.2) mg/dL AST 26 (14-36) U/L ALT 33 (9-52) U/L Alkaline Phosphatase 70 (38-126) U/L Total Protein 5.5 L (6.3-8.2) g/dL Albumin 3.2 L (3.5-5.0) g/dL Calcium panel 07/23/19 Range/Units 06:58 Calcium 8.2 L (8.4-10.2) mg/dL Albumin 3.2 L (3.5-5.0) g/dL Pituitary panel 07/23/19 Range/Units 06:58 Sodium 141 (137-145) mmol/L Potassium 3.9 (3.5-5.1) mmol/L Chloride 114 H (98-107) mmol/L Carbon Dioxide 22 (22-30) mmol/L BUN 9 (7-17) mg/dL Creatinine 0.66 (0.52-1.04) mg/dL Glucose 94 (74-99) mg/dL Calcium 8.2 L (8.4-10.2) mg/dL Adrenal panel 07/23/19 Range/Units 06:58 Sodium 141 (137-145) mmol/L Potassium 3.9 (3.5-5.1) mmol/L Chloride 114 H (98-107) mmol/L Carbon Dioxide 22 (22-30) mmol/L BUN 9 (7-17) mg/dL Creatinine 0.66 (0.52-1.04) mg/dL Glucose 94 (74-99) mg/dL Calcium 8.2 L (8.4-10.2) mg/dL Total Bilirubin 0.3 (0.2-1.3) mg/dL AST 26 (14-36) U/L ALT 33 (9-52) U/L Alkaline Phosphatase 70 (38-126) U/L Total Protein 5.5 L (6.3-8.2) g/dL Albumin 3.2 L (3.5-5.0) g/dL Assessment and Plan (1) GI bleed Narrative/Plan: Patient with abdominal pain and rectal bleeding. We'll proceed with upper and lower endoscopy tomorrow. Risks of bleeding and bowel perforation reviewed. She understands and wishes to proceed. Current Visit: Yes Status: Acute Code(s): K92.2 - GASTROINTESTINAL HEMORRHAGE, UNSPECIFIED SNOMED Code(s): 88324717
[2019-07-23] MEDS: MIRTAZAPINE 45 MG TABLET PO SCH (22:27)
[2019-07-23] MEDS: ATORVASTATIN 20 MG TAB PO SCH (22:27)
--- NOTE | 2019-07-24 00:18 | PN ---
PROGRESS NOTE She was complaining of some mild shortness of breath. She was having some lower abdominal pain. She is due for upper and lower GI endoscopy tomorrow. On physical examination respiratory rate is 17, pulse rate is 82, temperature 98.2, blood pressure 110/60, O2 saturation on room air is 91%. HEENT is unremarkable. Chest reveals faint expiratory wheeze. Cardiovascular system is S1, S2. Abdomen is soft. There is no edema. IMPRESSION: At this time is: 1. Abdominal pain. 2. Bladder prolapse with cystocele. 3. Colitis. Continue IV Flagyl and IV fluids and IV steroids. At this point, she her prognosis is fair. MMODL / IJN: [id number] /
[2019-07-24] MEDS: methylPREDNISolone SOD SUCCI 40 MG/ML 1 ML VIAL IV SCH ×3 (00:42→16:19)
[2019-07-24] MEDS: metroNIDAZOLE-NS PMX 500 MG in SALINE 1 100ML.BAG IVPB SCH ×2 (00:42→07:52)
[2019-07-24] MEDS: MORPHINE SULFATE 4 MG/ML SYRINGE IVP PRN ×4 (00:48→19:22)
[2019-07-24] MEDS: SODIUM CHLORIDE 0.9% 1,000 ML IV SCH ×2 (05:31→13:42)
[2019-07-24] MEDS: LEVOTHYROXINE 75 MCG TAB PO SCH (05:31)
[2019-07-24] MEDS: ALBUTEROL NEBULIZED 2.5 MG/3 ML INHALATION PRN ×4 (05:34→19:48)
--- NOTE | 2019-07-24 07:16 | XR ---
"EXAMINATION TYPE: XR chest 1V portable DATE OF EXAM: 07/24/2019 COMPARISON: 07/22/2019 HISTORY: Shortness of breath TECHNIQUE: Single frontal view of the chest is obtained. FINDINGS: There is a questionable new trace right lateral pneumothorax versus overlying skin fold. N o clear lung markings are definitively seen beyond the vertically oriented linear density. Cardiomedi astinal silhouette is mildly enlarged. Pulmonary vascular prominence is present. No focal consolidati on, pleural effusion, or left-sided pneumothorax. Partial visualization of cervical fusion rods. Osse ous structures are grossly intact. IMPRESSION: There is a trace new right pneumothorax versus lateral skinfold. Inspiratory and expirat ory chest x-ray is recommended for further evaluation. A Yellow level critical message alert has been initiated for Elmer Samayoa MD via the [employer] 36 0 | Critical Results System on 07/24/2019 7:13 AM. This message alert has been sent to Elmer Samayoa MD via the preferences provided by the clinician for the receipt of Radiology Critical Findings. [facility], [place] [id number]."
[2019-07-24] MEDS: traMADol 50 MG TAB PO SCH ×3 (07:51→22:16)
[2019-07-24] MEDS: PANTOPRAZOLE 40 MG TABLET PO SCH (07:51)
[2019-07-24] MEDS: NICOTINE 21MG/24HR PATCH TRANSDERM SCH (07:51)
[2019-07-24] MEDS: VORTIOXETINE HYDROBROMIDE 10 MG TABLET PO SCH (07:51)
[2019-07-24] MEDS: METOPROLOL SUCCINATE (ER) 25 MG TAB.ER.24H PO SCH (07:51)
[2019-07-24] MEDS: ALPRAZolam 1 MG TAB PO SCH ×4 (07:51→22:18)
[2019-07-24] MEDS: QUEtiapine 25 MG TAB PO SCH ×2 (07:53→22:18)
[2019-07-24] MEDS: FUROSEMIDE 20 MG TAB PO SCH (08:12)
--- NOTE | 2019-07-24 11:01 | CT ---
EXAMINATION TYPE: CT chest wo con DATE OF EXAM: 07/24/2019 COMPARISON: CTA chest 02/05/2019 chest x-ray 07/24/2019 HISTORY: New trace Right pneumothorax CT DLP: 534.50 mGycm, Automated exposure control for dose reduction was used. CONTRAST: Performed injected with 0 mL of Isovue 300. TECHNIQUE: Axial images were obtained at 5 mm thick sections. Reconstructed images are reviewed on Snapguide computer in the coronal plane. FINDINGS: Thyroid is not visualized. Small bilateral pleural effusions are present. No enlarged mediastinal or hilar adenopathy is evident. The ascending aorta diameter at the level of the main pulmonary artery is 3.9 cm. The main pulmonary artery diameter at the bifurcation is 3.0 cm. Mild coronary artery calcifications present. Limited CT sections are obtained through the upper abdomen. Abdomen is essentially unremarkable. No pneumothorax is identified. IMPRESSIONS: 1. Small bilateral pleural effusions. 2. No pneumothorax is evident on the current exam. Findings from CXR are likely related to a skinfold .
[2019-07-24] MEDS ORDERED: FUROSEMIDE 10 MG/ML 10 ML VIAL IV STA (11:05)
--- NOTE | 2019-07-24 11:44 | P.PN ---
Subjective Progress Note Date: 07/24/19 Chest x-ray suggestive of right pneumothorax. Stat CT ordered, reviewed by pulmonary as negative, with a dose of Lasix IV push ordered and cleared patient to proceed with EGD and colonoscopy.NPO, endoscopies pending. Mild lower abdominal pain. No further bleeding reported. Currently maintaining O2 sats of 93% on room air. Vital signs stable. Denies chest pain, palpitations. Denies lightheadedness, dizziness or focal deficits. Objective - Vital Signs Vital signs: Vital Signs Temp 98.1 F 07/24/19 05:00 Pulse 84 07/24/19 09:09 Resp 16 07/24/19 05:00 BP 148/78 07/24/19 05:00 Pulse Ox 91 L 07/24/19 05:00 Intake & Output 07/23/19 07/24/19 07/24/19 18:59 06:59 18:59 Intake Total 160 2000 Output Total 250 Balance -90 2000 Intake: Intake, IV Titration 2000 Amount Sodium Chloride 0.9% 1, 2000 000 ml @ 125 mls/hr IV . Q8H [facility] Rx#:[id number] Oral 160 Output: Urine 250 Other: Voiding Method Toilet Bedside Commode Bedside Commode # Voids 3 5 # Bowel Movements 2 - Exam PHYSICAL EXAM: VITAL SIGNS: As above GENERAL: Sitting up in bed, no acute distress HEENT: Conjunctivae normal. eyes normal. NECK: No JVD. No thyroid enlargement. No LNs CARDIOVASCULAR: S1, S2 regular.. No murmur RESPIRATION: Breath sounds diminished in the bases. No rhonchi or crackles. Occasional fine expiratory wheeze ABDOMEN: Soft, nontender . No guarding. no masses palpable. Bowel sounds heard. LEGS: No edema. no swelling PSYCHIATRY: Alert and oriented X3, mood and affect normal. NERVOUS SYSTEM: Cranial N 2-12 grossly normal. Moves all 4 limbs. Diffuse weakness No focal deficits. Strength and sensation grossly intact.. Skin: no lesions, no rash - Labs CBC & Chem 7: 07/22/19 14:02 07/23/19 06:58 Assessment and Plan Assessment: -Acute renal failure secondary to tubular necrosis related to possible de hydration, improved -Cystocele possibly colitis -Acute abdominal pain secondary to most likely colitis with rectal bleeding -Stress incontinence secondary to cystocele, Plan: Continue on current medication regime ,monitoring and sed rate treatment. Pneumothorax ruled out her pulmonary's review of CT and patient has been cleared to proceed with EGD and colonoscopy-pending. Maintain IV Flagyl, IV steroids and IV fluid hydration. Further recommendations to follow. The impression and plan of care has been dictated as directed. : I performed a history and examination of this patient, discussed the same with the dictator. I agree with the dictator's note ,documented as a scribe. Any additional findings or plans will be noted.
[2019-07-24] MEDS ORDERED: MIDAZOLAM 2 MG/2 ML VIAL ONE (11:49)
[2019-07-24] MEDS ORDERED: fentaNYL (PF) 50 MCG/ML 2 ML AMP ONE (11:49)
[2019-07-24] MEDS ORDERED: PROPOFOL 10 MG/ML 20 ML VIAL IV ONE (11:49)
[2019-07-24] MEDS ORDERED: IV FLUID CONTINUATION 1,000 ML IV ONE (11:49)
[2019-07-24] MEDS ORDERED: LIDOCAINE 1% INJ 10MG/ML (20 ML MDV) ONE (11:49)
--- NOTE | 2019-07-24 12:30 | P.PCN ---
Date of Procedure: 07/24/19 Procedure(s) Performed: PREOPERATIVE DIAGNOSIS: GI bleed, abdominal pain POSTOPERATIVE DIAGNOSIS: Gastritis, diverticulosis PROCEDURE: 1. EGD with biopsy 2. Colonoscopy ANESTHESIA: MAC SURGEON: Munir Harris M.D. SPECIMENS: Antrum ENDOSCOPIC PROCEDURE: The patient was on the endoscopy table in the left decubitus position. The Olympus gastroscope was inserted into the oropharynx and passed under direct visualization to the region of the third portion of the duodenum. From that point the scope was slowly withdrawn inspecting all surfaces carefully. There were no neoplastic inflammatory or polypoid lesions throughout the duodenum. The pylorus was widely patent. The stomach was carefully inspected. There was mild gastritis present. A biopsy of the antrum took place to rule out H. pylori. Retroflexion revealed a normal hiatus. The esophagus was then carefully examined. There were no neoplastic inflammatory or polypoid lesions throughout the visualized esophagus. The patient was kept on the endoscopy table in the left decubitus position. The Olympus colonoscope was inserted into the anus and passed under direct visualization to the proximal ascending colon. I could not advance the scope to the base of the cecum. From a distance I did not see any abnormalities at the cecum or what I could visualize of the cecal base. From that point the scope was slowly withdrawn inspecting all surfaces carefully. There were no neoplastic inflammatory or polypoid lesions throughout the cecum, ascending, transverse, descending, sigmoid and rectum. Overall prep was slightly suboptimal. There was mild left-sided diverticulosis noted. Digital rectal examination was normal. The patient was taken to the recovery room in stable condition per anesthesia guidelines. RECOMMENDATIONS: Increase fiber. Resume diet. Continue antiacids.
[2019-07-24] MEDS: DICYCLOMINE 20 MG TAB PO PRN ×2 (16:19→22:17)
[2019-07-24] MEDS: metroNIDAZOLE 500 MG TAB PO SCH (16:19)
--- NOTE | 2019-07-24 19:30 | P.CONS ---
History of Present Illness - Reason for Consult Consult date: 07/24/19 Abdominal pain Requesting physician: Elmer Samayoa - Chief Complaint Abdominal pain - History of Present Illness 59-year-old female with a medical history significant for hypertension, dyslipidemia, hypothyroidism who presented to the hospital with complaints of 3- 4 days of abdominal pain. She described severe cramping abdominal pain worse prior to bowel movements across her abdomen. She reports associated abdominal distention and did feel as though she was having urinary retention with symptoms. Patient denied any nausea or vomiting. She did report blood with b owel movements prior to presentation to the hospital, however has had no further bleeding since admission. Laboratory evaluation significant for WBC 5.4, hemoglobin 11.9, platelet count 232,000, total bilirubin 0.3, alkaline phosphatase 70, AST 26, LC 33 with a normal amylase and lipase. Computed tomography scan performed on evaluation was significant for mild colonic wall thickening versus under distention. Review of Systems REVIEW OF SYSTEMS: CONSTITUTIONAL: Denies any fevers, chills, weight change or fatigue. CARDIOVASCULAR: Denies any chest pain, palpitations high or low blood pressures RESPIRATORY: Denies any shortness of breath, hemoptysis or cough. GENITOURINARY: No dysuria or hematuria, but did report some difficulty voiding. MUSCULOSKELETAL: No weakness reported. SKIN: Denies any new rashes or lesions, jaundice or pallor. PSYCHIATRIC: Denies any recent change in mood. NEUROLOGY: Denies headache, denies any new focal deficits. EARS/NOSE/THROAT: No recent hearing change, congestion, nasal discharge or sore throat. EYES: No pain in eyes, discharge or change in vision. GASTROINTESTINAL: As per HPI. Past Medical History Past Medical History: Chest Pain / Angina, Liver Disease, Osteoarthritis (OA), Pneumonia, Rheumatoid Arthritis (RA), Thyroid Disorder Additional Past Medical History / Comment(s): orthostatic hypotension, constipation, hx sepsis, currently has a cold History of Any Multi-Drug Resistant Organisms: None Reported Past Surgical History: Adenoidectomy, Back Surgery, Cholecystectomy, Hysterectomy, Joint Replacement, Tonsillectomy Additional Past Surgical History / Comment(s): cadavar bone placed in c-4 through C-7 with titanium jarod, left knee replacement, Past Anesthesia/Blood Transfusion Reactions: Postoperative Nausea & Vomiting (PONV) Smoking Status: Former smoker - Past Family History Mother Family Medical History: Cancer Additional Family Medical History / Comment(s): Brain CA Father Family Medical History: Cancer Additional Family Medical History / Comment(s): liver CA Medications and Allergies Home Medications Medication Instructions Recorded Confirmed Type traMADol HCL [Ultram] 100 mg PO TID 02/22/17 07/22/19 History ALPRAZolam [Xanax] 1 mg PO QID 01/05/19 07/22/19 History Mirtazapine [Remeron] 15 mg PO HS 01/05/19 07/22/19 History Mirtazapine [Remeron] 30 mg PO HS 01/05/19 07/22/19 History QUEtiapine FUMARATE [QUEtiapine 50 mg PO HS 01/05/19 07/22/19 History FUMARATE ER] Zolpidem Tartrate [Ambien] 10 mg PO HS 01/05/19 07/22/19 History Levothyroxine Sodium [Synthroid] 150 mcg PO DAILY 02/05/19 07/22/19 History Metoprolol Succinate (ER) [Toprol 25 mg PO DAILY #90 tab.er.24h 02/07/19 07/22/19 Rx XL] Atorvastatin [Lipitor] 20 mg PO HS 07/22/19 07/22/19 History Furosemide [Lasix] 20 mg PO DAILY 07/22/19 07/22/19 History Ibuprofen [Motrin] 800 mg PO TID PRN 07/22/19 07/22/19 History Lisinopril [Prinivil] 5 mg PO DAILY 07/22/19 07/22/19 History Nicotine 21Mg/24Hr Patch [Habitrol] 1 patch TRANSDERM DAILY 07/22/19 07/22/19 History Omeprazole 20 mg PO DAILY 07/22/19 07/22/19 History Polyethylene Glycol 3350 [Miralax] 17 gm PO DAILY 07/22/19 07/22/19 History Vortioxetine Hydrobromide 10 mg PO DAILY 07/22/19 07/22/19 History [Trintellix] Allergies Allergy/AdvReac Type Severity Reaction Status Date / Time codeine Allergy Rash/Hives Verified 07/22/19 08:10 Penicillins Allergy Rash/Hives Verified 07/22/19 08:10 hydrocodone [From [place]] AdvReac Severe Abdominal Verified 07/22/19 08:10 Pain,vomiting Physical Exam Vitals: Vital Signs Temp Pulse Pulse Pulse Pulse Resp BP 07/24/19 09:09 84 07/24/19 08:58 84 07/24/19 05:45 88 07/24/19 05:38 88 07/24/19 05:00 98.1 F 86 16 148/78 07/23/19 23:20 72 16 07/23/19 20:52 98.0 F 71 16 128/78 07/23/19 16:30 83 79 82 17 07/23/19 11:56 98.2 F 79 17 112/60 Pulse Ox 07/24/19 09:09 07/24/19 08:58 07/24/19 05:45 07/24/19 05:38 07/24/19 05:00 91 L 07/23/19 23:20 07/23/19 20:52 94 L 07/23/19 16:30 07/23/19 11:56 91 L Intake and Output 07/23/19 07/24/19 07/24/19 22:59 06:59 14:59 Intake Total 1000 1000 Output Total 250 Balance 750 1000 Intake: Intake, IV Titration 1000 1000 Amount Sodium Chloride 0.9% 1, 1000 1000 000 ml @ 125 mls/hr IV . Q8H [facility] Rx#:[id number] Output: Urine 250 Other: Voiding Method Toilet Bedside Commode Bedside Commode # Voids 3 5 # Bowel Movements 2 On physical examination, patient appears comfortable in no apparent distress. HEAD: Normocephalic, atraumatic. EYES: No scleral icterus. No conjunctival injection. MOUTH: No lesions, tongue midline. NECK: Trachea midline, no gross abnormalities. CHEST: Clear to auscultation with no wheezing or rhonchi appreciated. HEART: S1-S2 appreciated. ABDOMEN: Soft, obese. Bowel sounds are positive. No organomegaly. No guarding or rigidity. EXTREMITIES: No pedal edema. SKIN: No rashes, no jaundice. NEUROLOGIC: Alert and oriented x3. No focal deficits. Results CBC & Chem 7: 07/22/19 14:02 07/23/19 06:58 CT scan - abdomen: report reviewed (Computed tomography scan of abdomen with findings suggestive of colonic thickening versus under distention) Assessment and Plan (1) Abdominal pain Narrative/Plan: 59-year-old with multiple medical comorbidities reporting 3-4 days of diffuse cramping abdominal pain on presentation with associated sensation of distention. A CT showed mild colonic wall thickening versus under distention. Patient underwent EGD and colonoscopy today significant only for some mild gastritis and diverticulosis. Amylase and lipase normal on admission. Likely represents an acute viral or bacterial gastroenteritis, with consideration also for functional bowel disorder, with no evidence of colitis on endoscopy. Current Visit: No Status: Acute Code(s): R10.9 - UNSPECIFIED ABDOMINAL PAIN SNOMED Code(s): 89023559 (2) GI bleed Narrative/Plan: No further reports of lower GI bleeding since patient was admitted. Current Visit: Yes Status: Acute Code(s): K92.2 - GASTROINTESTINAL HEMORRHAGE, UNSPECIFIED SNOMED Code(s): 66624814 Plan: Supportive care Okay for diet Computed tomography scan reviewed Endoscopic report reviewed Continue to monitor CBC, CMP At this time will add Bentyl 20 mg 4 times a day when necessary abdominal pain, with patient instructed to try the medication to see if he aids and relief of her abdominal pain Thank you for allowing us to participate in the care of the patient, okay for discharge from gastroenterology standpoint
[2019-07-24 22:05] VITALS: RESP 16
[2019-07-24] MEDS: ATORVASTATIN 20 MG TAB PO SCH (22:17)
[2019-07-24] MEDS: MIRTAZAPINE 45 MG TABLET PO SCH (22:17)
--- NOTE | 2019-07-24 23:14 | CONS ---
CONSULTATION Ava Gaston is a 59-year-old female who presented to the ED at [facility] on 07/22/2019. At that time, she had been complaining of abdominal pain. She had some diarrhea as well. She also had been having shortness of breath with wheezing. A chest x-ray was done on July 24, 2019 prior to her having an EGD and colonoscopy. There was noticed to be a possible right-sided pneumothorax and a pulmonary consultation was placed. The patient was short of breath and a stat CT scan was done, which showed no evidence of pneumothorax with bilateral pleural effusion. The patient was given a single dose of Lasix and was continued on Solu-Medrol and subsequently underwent EGD and colonoscopy, which showed gastritis as well as diverticulosis. The patient is in the post procedure period and is sleepy, but arousable. She does not seem to be in any distress and does not have any audible wheezing. She easily awakens and follows simple commands. Her chart was reviewed. PAST MEDICAL HISTORY: Positive for COPD, pneumonia, asthma, sepsis, chest pain, adenoidectomy, cholecystectomy, tonsillectomy, C3, C4, C7 back surgery with titanium jarod and left knee replacement. SOCIAL HISTORY: Patient is a former smoker. FAMILY HISTORY: Was reviewed. MEDS: Were reviewed. PHYSICAL EXAMINATION: Patient is lying in bed. Her respiratory rate was 18, pulse rate 71, temperature 97.7, blood pressure 130/84, O2 saturation on room air is 95%. HEENT reveals pupils are equal. No jugular venous distention. Chest with decreased breath sounds. Prolonged expiration. No wheeze. Cardiovascular system reveals an S1, S2. ABDOMEN: Soft. There is trace to 1+ pedal edema. CT scan of the chest was personally reviewed which showed evidence of bilateral pleural effusions more on the right than the left. No evidence of any pneumothorax. IMPRESSION: At this time: 1. Gastritis. 2. Diverticulosis. 3. Asthma with chronic obstructive pulmonary disease with acute exacerbation. 4. Congestive heart failure. 5. Possible obstructive sleep apnea. 6. Cystocele. At this point in time from a pulmonary standpoint, would keep her in negative fluid balance. Continue bronchodilators, aerosolized steroids, and IV steroids. Increase her activity level. We will follow closely and appreciate the opportunity to participate in her care. MMODL / IJN: [id number] /
[2019-07-25] MEDS: metroNIDAZOLE 500 MG TAB PO SCH ×2 (00:33→08:16)
[2019-07-25] MEDS: MORPHINE SULFATE 4 MG/ML SYRINGE IVP PRN (00:34)
[2019-07-25] MEDS: methylPREDNISolone SOD SUCCI 40 MG/ML 1 ML VIAL IV SCH ×2 (00:34→08:20)
[2019-07-25 06:03] VITALS: BP 143/75; PULSE 66; TEMP 97.9
[2019-07-25] MEDS: LEVOTHYROXINE 75 MCG TAB PO SCH (06:06)
[2019-07-25 08:00] LABS: African American GFR (CKD) >90 (>60 ml/min/1.73 sqM); Anion Gap 4 mmol/L; Blood Urea Nitrogen 9 mg/dL (7-17); Calcium 8.7 mg/dL (8.4-10.2); Carbon Dioxide 32 mmol/L (22-30); Chloride 104 mmol/L (98-107); Glucose 109 mg/dL (74-99); Potassium 4.3 mmol/L (3.5-5.1); Sodium 140 mmol/L (137-145)
[2019-07-25 08:01] LABS: Basophils % (A) 0 %; Eosinophils % (A) 0 %; HCT 35.7 % (34.0-46.0); HGB 11.7 gm/dL (11.4-16.0); Lymphocytes # (A) 0.9 k/uL (1.0-4.8); Lymphocytes % (A) 7 %; MCH 30.2 pg (25.0-35.0); MCHC 32.9 g/dL (31.0-37.0); Mean Platelet Volume 8.1; Monocytes # (A) 0.3 k/uL (0-1.0); Monocytes % (A) 2 %; Neutrophils # (A) 11.6 k/uL (1.3-7.7); Neutrophils % (A) 90 %; Platelet Count 244 k/uL (150-450); RBC 3.88 m/uL (3.80-5.40); RDW 14.4 % (11.5-15.5); WBC 12.9 k/uL (3.8-10.6)
[2019-07-25] MEDS: NICOTINE 21MG/24HR PATCH TRANSDERM SCH (08:07)
[2019-07-25] MEDS: QUEtiapine 25 MG TAB PO SCH (08:15)
[2019-07-25] MEDS: ALPRAZolam 1 MG TAB PO SCH (08:16)
[2019-07-25] MEDS: PANTOPRAZOLE 40 MG TABLET PO SCH (08:16)
[2019-07-25] MEDS: VORTIOXETINE HYDROBROMIDE 10 MG TABLET PO SCH (08:16)
[2019-07-25] MEDS: FUROSEMIDE 20 MG TAB PO SCH (08:16)
[2019-07-25] MEDS: traMADol 50 MG TAB PO SCH (08:16)
[2019-07-25] MEDS: METOPROLOL SUCCINATE (ER) 25 MG TAB.ER.24H PO SCH (08:17)
[2019-07-25] MEDS: SODIUM CHLORIDE 0.9% 1,000 ML IV SCH (08:17)
--- NOTE | 2019-07-25 10:55 | P.DS ---
Providers Date of admission: 07/24/19 14:14 Expected date of discharge: 07/25/19 Attending physician: Elmer Samayoa Consults: 07/22/19 05:50 Consult Physician Urgent Consulting Provider: Braden Owusu Consult Reason/Comments: bladder prolapse, SHEA Do you want consulting provider notified?: Yes 07/22/19 10:43 Consult Physician Urgent Consulting Provider: Adelia Jamil Consult Reason/Comments: colitis Do you want consulting provider notified?: Yes 07/22/19 10:45 Consult Physician Routine Consulting Provider: Latoya Whitman Consult Reason/Comments: uterocoele/cystocoele Do you want consulting provider notified?: Yes 07/22/19 13:28 Consult Physician Urgent Consulting Provider: Munir Harris Consult Reason/Comments: abdominal pain, colitis Do you want consulting provider notified?: Yes 07/24/19 09:39 Consult Physician Stat Consulting Provider: Zackary Rios Consult Reason/Comments: new right pneumothorax Do you want consulting provider notified?: Yes Primary care physician: Elmer Samayoa [facility] Course: Final Diagnoses: -Acute renal failure secondary to tubular necrosis related to possible dehydration, improved -Cystocele possibly colitis -Acute abdominal pain secondary to most likely colitis with rectal bleeding. Status post EGD colonoscopy reporting gastritis, diverticulosis. -Stress incontinence secondary to cystocele, Hospital course: This a 59-year-old female admitted with multiple medical issues, including rectal bleeding,, pain, sepsis is soft, acute renal failure .evaluated by multiple consults. Maintained on Flagyl IV. Underwent EGD, colonoscopy reporting gastritis diverticulosis. Tolerated procedure well. Significant clinical improvement. Cleared by all consults for discharge. Patient is being discharged home in stable condition with guarded prognosis. - Exam GENERAL: Alert and oriented 3, no acute distress CARDIOVASCULAR: S1, S2 regular. No murmur RESPIRATION: Breath sounds diminished in the bases. No rhonchi or crackles. No wheezing. ABDOMEN: Soft, nontender . No guarding. no masses palpable. Bowel sounds heard. NERVOUS SYSTEM: No focal deficits. The impression and plan of care has been dictated as directed. : I performed a history and examination of this patient, discussed the same with the dictator. I agree with the dictator's note ,documented as a scribe. Any additional findings or plans will be noted. Time taken: 35 min. Patient Condition at Discharge: Stable Plan - Discharge Summary Discharge Rx Participant: No New Discharge Prescriptions: New metroNIDAZOLE [Flagyl] 500 mg PO Q8HR #30 tab Dicyclomine [Bentyl] 20 mg PO QID PRN #28 tab PRN Reason: Dyspepsia predniSONE 10 mg PO DIRECTED #30 tab Albuterol Inhaler [Ventolin Hfa Inhaler] 2 puff INHALATION RT-Q6H PRN #1 inhaler PRN Reason: Shortness Of Breath Continue traMADol HCL [Ultram] 100 mg PO TID ALPRAZolam [Xanax] 1 mg PO QID Mirtazapine [Remeron] 30 mg PO HS Mirtazapine [Remeron] 15 mg PO HS QUEtiapine FUMARATE [QUEtiapine FUMARATE ER] 50 mg PO HS Zolpidem Tartrate [Ambien] 10 mg PO HS Levothyroxine Sodium [Synthroid] 150 mcg PO DAILY Metoprolol Succinate (ER) [Toprol XL] 25 mg PO DAILY #90 tab.er.24h Atorvastatin [Lipitor] 20 mg PO HS Lisinopril [Prinivil] 5 mg PO DAILY Omeprazole 20 mg PO DAILY Furosemide [Lasix] 20 mg PO DAILY Vortioxetine Hydrobromide [Trintellix] 10 mg PO DAILY Polyethylene Glycol 3350 [Miralax] 17 gm PO DAILY Nicotine 21Mg/24Hr Patch [Habitrol] 1 patch TRANSDERM DAILY Discontinued Ibuprofen [Motrin] 800 mg PO TID PRN PRN Reason: Pain Discharge Medication List traMADol HCL [Ultram] 100 mg PO TID 02/22/17 [History] ALPRAZolam [Xanax] 1 mg PO QID 01/05/19 [History] Mirtazapine [Remeron] 15 mg PO HS 01/05/19 [History] Mirtazapine [Remeron] 30 mg PO HS 01/05/19 [History] QUEtiapine FUMARATE [QUEtiapine FUMARATE ER] 50 mg PO HS 01/05/19 [History] Zolpidem Tartrate [Ambien] 10 mg PO HS 01/05/19 [History] Levothyroxine Sodium [Synthroid] 150 mcg PO DAILY 02/05/19 [History] Metoprolol Succinate (ER) [Toprol XL] 25 mg PO DAILY #90 tab.er.24h 03/12/19 [Rx] Atorvastatin [Lipitor] 20 mg PO HS 07/22/19 [History] Furosemide [Lasix] 20 mg PO DAILY 07/22/19 [History] Lisinopril [Prinivil] 5 mg PO DAILY 07/22/19 [History] Nicotine 21Mg/24Hr Patch [Habitrol] 1 patch TRANSDERM DAILY 07/22/19 [History] Omeprazole 20 mg PO DAILY 07/22/19 [History] Polyethylene Glycol 3350 [Miralax] 17 gm PO DAILY 07/22/19 [History] Vortioxetine Hydrobromide [Trintellix] 10 mg PO DAILY 07/22/19 [History] Albuterol Inhaler [Ventolin Hfa Inhaler] 2 puff INHALATION RT-Q6H PRN #1 inhaler 07/25/19 [Rx] Dicyclomine [Bentyl] 20 mg PO QID PRN #28 tab 07/25/19 [Rx] metroNIDAZOLE [Flagyl] 500 mg PO Q8HR #30 tab 07/25/19 [Rx] predniSONE 10 mg PO DIRECTED #30 tab 07/25/19 [Rx] Follow up Appointment(s)/Referral(s): Munir Harris MD [Medical Doctor] - 2 Weeks Elmer Samayoa MD [Primary Care Provider] - 1 Week SAFETY SUPERVISOR, of patient's choice [Other] - 3 Weeks Activity/Diet/Wound Care/Special Instructions: Lift abdomen while urinating.
--- NOTE | 2019-07-25 14:18 | PN ---
PROGRESS NOTE DATE OF SERVICE: 07/25/2019. She is less short of breath. She is being considered for discharge. She has less abdominal pain and diarrhea. PHYSICAL EXAMINATION: Her blood pressure is 143/75, respiratory rate of 16, pulse rate of 66, temperature 97.9, O2 saturation on room air is 94%. HEENT: Reveals no new changes. CHEST: Reveals prolonged expiration, but no wheeze. CARDIOVASCULAR SYSTEM: Reveals an S1, S2. ABDOMEN: Soft. There is trace pedal edema. White count is 12.9, hemoglobin of 11.7, sodium 140, potassium 4.3, chloride 104, bicarb 32. IMPRESSION: 1. Asthma with chronic obstructive pulmonary disease with acute exacerbation. 2. Colitis and gastritis. 3. Mild fluid overload and possible congestive heart failure. 4. Possible obstructive sleep apnea. 5. Cystocele. From a pulmonary perspective, agree with discharge planning with close outpatient followup. Will be happy to see her in the outpatient setting if need be. She was counseled regarding her condition and this approach. MMODL / IJN: [id number] /
== END 2019-07-25 12:35 | disposition home or self-care (01) | DRG 391 ==
LOC: EC 00:43 → 3NMEDONC 05:50 → OBSVTOIN 07-24 14:14
PROVIDERS: ADMIT Family Medicine; ATTEND Family Medicine
PROC: 0DB78ZX Excision of Stomach, Pylorus, Via Natural or Artificial Opening Endoscopic, Diagnostic (ICD-10-PCS; principal; 2019-07-24 07:55)
PROC: 0DJD8ZZ Inspection of Lower Intestinal Tract, Via Natural or Artificial Opening Endoscopic (ICD-10-PCS; 2019-07-24 07:55)
DX: K52.9 Noninfective gastroenteritis and colitis, unspecified (principal); N17.0 Acute kidney failure with tubular necrosis; J44.1 Chronic obstructive pulmonary disease with (acute) exacerbation; J45.901 Unspecified asthma with (acute) exacerbation; K29.70 Gastritis, unspecified, without bleeding; K57.90 Diverticulosis of intestine, part unspecified, without perforation or abscess without bleeding; M06.9 Rheumatoid arthritis, unspecified; N39.3 Stress incontinence (female) (male); N99.3 Prolapse of vaginal vault after hysterectomy; Z79.890 Hormone replacement therapy; E03.9 Hypothyroidism, unspecified; E78.5 Hyperlipidemia, unspecified; G89.29 Other chronic pain; I11.0 Hypertensive heart disease with heart failure; I50.9 Heart failure, unspecified; Z79.899 Other long term (current) drug therapy; Z80.0 Family history of malignant neoplasm of digestive organs; Z80.8 Family history of malignant neoplasm of other organs or systems; Z87.891 Personal history of nicotine dependence; Z96.652 Presence of left artificial knee joint; M54.2 Cervicalgia; R51 Headache; M19.90 Unspecified osteoarthritis, unspecified site; Z87.01 Personal history of pneumonia (recurrent); Z88.5 Allergy status to narcotic agent; Z88.0 Allergy status to penicillin; Z90.49 Acquired absence of other specified parts of digestive tract
CPT/HCPCS: 36415; 43239; 45378; 51798; 71045; 71046; 71250; 74018; 74177; 80048; 80053; 81003; 82150; 82550; 83605; 83690; 84484; 85025; 88305; 93005; 94640; 96360; 96361; 99285

== ENCOUNTER 2021-01-23 08:57 | Inpatient (IN) | payer OTHER ==
[2021-01-23] MEDS ORDERED: ASPIRIN 81 MG PO STA (09:37)
[2021-01-23] MEDS ORDERED: MORPHINE SULFATE 2 MG/ML SYRINGE IV STA (09:38)
[2021-01-23] MEDS ORDERED: MAG HYDROX/AL HYDROX/SIMETH 30 ML, HYOSCYAMINE ELIXIR 10 ML, LIDOCAINE VISCOUS 2% 10 ML PO STA ×3 (09:40)
--- NOTE | 2021-01-23 09:41 | ED ---
General Adult HPI - General Chief complaint: Chest Pain Stated complaint: Chest pain Time Seen by Provider: 01/23/21 09:07 Source: patient Mode of arrival: ambulatory Limitations: no limitations - History of Present Illness Initial comments: Dictation was produced using [email or web address] dictation software. please excuse any grammatical, word or spelling errors. This patient was cared for during a federal and state declared state of emergency secondary to Covid 19 Chief Complaint: 60-year-old female presents with chest pain History of Present Illness: Is a 6-year-old female she has past medical history of angina, hiatal hernia, pneumonia thyroid disease. She states that over the last 48 hours she's been developing left lower anterior chest pain and epigastric abdominal pain. Patient states that her last 48 hours she's been having increased frequency and intensity of episodes. She states that she is been getting sweaty with this pain. She states he goes on her left upper extremity. Patient states she denies any cardiac history. She reports having had a stress test proximal one year ago which was found to be normal. Patient denies any known history of coronary artery disease. Patient states she's had been having a really poor intake recently. Family member at bedside reports that she's been having these symptoms for the last 2 weeks. They notified the primary care physician about this. They report that Taurus momin wants to be involved. The ROS documented in this emergency department record has been reviewed and confirmed by me. Those systems with pertinent positive or negative responses have been documented in the HPI. All other systems are other negative and/or noncontributory. PHYSICAL EXAM: General Impression: Alert and oriented x3, mild distress secondary to symptoms. HEENT: Normocephalic atraumatic, extra-ocular movements intact, pupils equal and reactive to light bilaterally, mucous membranes moist. Cardiovascular: Heart regular rate and rhythm Chest: Able to complete full sentences, no retractions, no tachypnea Abdomen: abdomen soft, non-tender, non-distended, no organomegaly Musculoskeletal: Pulses present and equal in all extremities, no peripheral edema Motor: no focal deficits noted Neurological: CN II-XII grossly intact, no focal motor or sensory deficits noted Skin: Intact with no visualized rashes Psych: Normal affect and mood ED course: 60 y Old female presents with atypical chest pain with typical features. Vital signs upon arrival are within acceptable limits. Case was discussed with patient's primary care physician who reports that patient is normally very healthy and well-appearing. States that it's abnormal for patient to be having the symptoms that she is having. Primary care physician recommended computed tomography scan of the brain. Patient is reevaluated at bedside at 1035 and started having a difficult is ambulatory however she appears in marked distress. Since that pain is severe and in her epigastric left upper quadrant area with radiation to the back. Laboratory evaluation obtained. CBC unremarkable. Coag panel is negative. Metabolic panel was obtained showing no acute processes. Urinalysis is positive for nitrites but there are only 4 white blood cells. Patient will be treated with 1 g of ceftriaxone. Chest x-ray shows no acute processes. Computed tomography scan of the brain shows no acute processes. Computed tomography scan of the thoracic aorta shows no aortic dissection. There is mild ectasia of the ascending aorta 3.6 cm. No acute findings to account for patient's symptoms. At this point signs entirely clear what is causing patient's symptoms of pain. She does have atypical chest pain with typical features. There is concern of acute delirium from urinary tract infection. PCP and patient's also report that patient has been acting more strangely recently. EKG interpretation: Ventricular rate 93, sinus rhythms with multiple PVCs,. Interval 156, QRS 92, QTC 452. No VA prolongation, no QTC prolongation, no ST or T-wave changes noted. Overall this EKG is nonspecific. - Related Data Home Medications Medication Instructions Recorded Confirmed traMADol HCL [Ultram] 100 mg PO TID PRN 02/22/17 01/23/21 ALPRAZolam [Xanax] 1 mg PO QID 01/05/19 01/23/21 QUEtiapine FUMARATE [QUEtiapine 50 mg PO HS 01/05/19 01/23/21 FUMARATE ER] Zolpidem Tartrate [Ambien] 10 mg PO HS 01/05/19 01/23/21 Furosemide [Lasix] 20 mg PO DAILY 07/22/19 01/23/21 Omeprazole 20 mg PO BID 07/22/19 01/23/21 Albuterol Sulfate [Proair Hfa] 1 - 2 puff INHALATION RT-Q6H PRN 01/23/21 01/23/21 Chlorzoxazone [Parafon Forte DSC] 250 mg PO BID 01/23/21 01/23/21 Diclofenac Sodium Gel [Voltaren 1 gm TOPICAL QID PRN 01/23/21 01/23/21 Gel] Ibuprofen [Motrin] 800 mg PO Q8H PRN 01/23/21 01/23/21 Levothyroxine Sodium [Synthroid] 150 mcg PO DAILY 01/23/21 01/23/21 Mirtazapine [Remeron Soluspan] 30 mg PO HS 01/23/21 01/23/21 Nystatin 100,000 Unit/ml Susp 5 ml PO QID 01/23/21 01/23/21 [Mycostatin Oral Susp] Allergies Allergy/AdvReac Type Severity Reaction Status Date / Time codeine Allergy Rash/Hives Verified 01/23/21 10:22 Penicillins Allergy Rash/Hives Verified 01/23/21 10:22 hydrocodone [From [place]] AdvReac Severe Abdominal Verified 01/23/21 10:22 Pain,vomiting Review of Systems ROS Statement: Those systems with pertinent positive or pertinent negative responses have been documented in the HPI. ROS Other: All systems not noted in ROS Statement are negative. Past Medical History Past Medical History: Chest Pain / Angina, Liver Disease, Osteoarthritis (OA), Pneumonia, Rheumatoid Arthritis (RA), Thyroid Disorder Additional Past Medical History / Comment(s): orthostatic hypotension, constipation, hx sepsis, currently has a cold History of Any Multi-Drug Resistant Organisms: None Reported Past Surgical History: Adenoidectomy, Back Surgery, Cholecystectomy, Hysterectomy, Joint Replacement, Tonsillectomy Additional Past Surgical History / Comment(s): cadavar bone placed in c-4 throug h C-7 with titanium jarod, left knee replacement, Past Anesthesia/Blood Transfusion Reactions: Postoperative Nausea & Vomiting (PONV) Past Psychological History: Anxiety Smoking Status: Current every day smoker Past Alcohol Use History: None Reported Past Drug Use History: None Reported - Past Family History Mother Family Medical History: Cancer Additional Family Medical History / Comment(s): Brain CA Father Family Medical History: Cancer Additional Family Medical History / Comment(s): liver CA General Exam Limitations: no limitations Course Vital Signs 01/23/21 01/23/21 09:01 10:39 Temperature 98 F Pulse Rate 50 L 75 Respiratory 18 20 Rate Blood Pressure 198/79 194/87 O2 Sat by Pulse 98 99 Oximetry Medical Decision Making - Lab Data Result diagrams: 01/23/21 09:41 01/23/21 09:41 Lab Results 01/23/21 01/23/21 01/23/21 Range/Units 09:41 09:41 09:41 WBC 9.6 (3.8-10.6) k/uL RBC 4.80 (3.80-5.40) m/uL Hgb 14.5 (11.4-16.0) gm/dL Hct 42.8 (34.0-46.0) % MCV 89.2 (80.0-100.0) fL MCH 30.3 (25.0-35.0) pg MCHC 34.0 (31.0-37.0) g/dL RDW 12.4 (11.5-15.5) % Plt Count 314 (150-450) k/uL MPV 8.8 Neutrophils % 74 % Lymphocytes % 18 % Monocytes % 5 % Eosinophils % 1 % Basophils % 1 % Neutrophils # 7.1 (1.3-7.7) k/uL Lymphocytes # 1.7 (1.0-4.8) k/uL Monocytes # 0.5 (0-1.0) k/uL Eosinophils # 0.1 (0-0.7) k/uL Basophils # 0.1 (0-0.2) k/uL PT 9.9 (9.0-12.0) sec INR 0.9 (<1.2) APTT 25.0 (22.0-30.0) sec Sodium 137 (137-145) mmol/L Potassium 4.1 (3.5-5.1) mmol/L Chloride 107 (98-107) mmol/L Carbon Dioxide 19 L (22-30) mmol/L Anion Gap 11 mmol/L BUN 12 (7-17) mg/dL Creatinine 0.80 (0.52-1.04) mg/dL Est GFR (CKD-EPI)AfAm >90 (>60 ml/min/1.73 sqM) Est GFR (CKD-EPI)NonAf 81 (>60 ml/min/1.73 sqM) Glucose 121 H (74-99) mg/dL Calcium 9.8 (8.4-10.2) mg/dL Magnesium 2.0 (1.6-2.3) mg/dL Total Bilirubin 0.6 (0.2-1.3) mg/dL AST 25 (14-36) U/L ALT 20 (4-34) U/L Alkaline Phosphatase 124 (38-126) U/L Troponin I (0.000-0.034) ng/mL Total Protein 7.6 (6.3-8.2) g/dL Albumin 4.7 (3.5-5.0) g/dL Lipase 34 (23-300) U/L Urine Color Urine Appearance (Clear) Urine pH (5.0-8.0) Ur Specific [place] (1.001-1.035) Urine Protein (Negative) Urine Glucose (UA) (Negative) Urine Ketones (Negative) Urine Blood (Negative) Urine Nitrite (Negative) Urine Bilirubin (Negative) Urine Urobilinogen (<2.0) mg/dL Ur Leukocyte Esterase (Negative) Urine RBC (0-5) /hpf Urine WBC (0-5) /hpf Ur Squamous Epith Cells (0-4) /hpf Urine Bacteria (None) /hpf 01/23/21 01/23/21 Range/Units 09:41 10:32 WBC (3.8-10.6) k/uL RBC (3.80-5.40) m/uL Hgb (11.4-16.0) gm/dL Hct (34.0-46.0) % MCV (80.0-100.0) fL MCH (25.0-35.0) pg MCHC (31.0-37.0) g/dL RDW (11.5-15.5) % Plt Count (150-450) k/uL MPV Neutrophils % % Lymphocytes % % Monocytes % % Eosinophils % % Basophils % % Neutrophils # (1.3-7.7) k/uL Lymphocytes # (1.0-4.8) k/uL Monocytes # (0-1.0) k/uL Eosinophils # (0-0.7) k/uL Basophils # (0-0.2) k/uL PT (9.0-12.0) sec INR (<1.2) APTT (22.0-30.0) sec Sodium (137-145) mmol/L Potassium (3.5-5.1) mmol/L Chloride (98-107) mmol/L Carbon Dioxide (22-30) mmol/L Anion Gap mmol/L BUN (7-17) mg/dL Creatinine (0.52-1.04) mg/dL Est GFR (CKD-EPI)AfAm (>60 ml/min/1.73 sqM) Est GFR (CKD-EPI)NonAf (>60 ml/min/1.73 sqM) Glucose (74-99) mg/dL Calcium (8.4-10.2) mg/dL Magnesium (1.6-2.3) mg/dL Total Bilirubin (0.2-1.3) mg/dL AST (14-36) U/L ALT (4-34) U/L Alkaline Phosphatase (38-126) U/L Troponin I <0.012 (0.000-0.034) ng/mL Total Protein (6.3-8.2) g/dL Albumin (3.5-5.0) g/dL Lipase (23-300) U/L Urine Color Light Yellow Urine Appearance Clear (Clear) Urine pH 6.5 (5.0-8.0) Ur Specific [place] 1.005 (1.001-1.035) Urine Protein Negative (Negative) Urine Glucose (UA) Negative (Negative) Urine Ketones Negative (Negative) Urine Blood Negative (Negative) Urine Nitrite Positive H (Negative) Urine Bilirubin Negative (Negative) Urine Urobilinogen <2.0 (<2.0) mg/dL Ur Leukocyte Esterase Small H (Negative) Urine RBC 1 (0-5) /hpf Urine WBC 4 (0-5) /hpf Ur Squamous Epith Cells 1 (0-4) /hpf Urine Bacteria Few H (None) /hpf Disposition Clinical Impression: Chest pain Disposition: ADMITTED IP TO THIS HOSP Condition: Fair Referrals: Elmer Samayoa MD [Primary Care Provider] - 1-2 days Decision Time: 11:47
[2021-01-23 10:01] LABS: Basophils # (A) 0.1 k/uL (0-0.2); Basophils % (A) 1 %; Eosinophils # (A) 0.1 k/uL (0-0.7); Eosinophils % (A) 1 %; HCT 42.8 % (34.0-46.0); HGB 14.5 gm/dL (11.4-16.0); Lymphocytes # (A) 1.7 k/uL (1.0-4.8); Lymphocytes % (A) 18 %; MCH 30.3 pg (25.0-35.0); MCV 89.2 fL (80.0-100.0); Mean Platelet Volume 8.8; Monocytes # (A) 0.5 k/uL (0-1.0); Monocytes % (A) 5 %; Neutrophils # (A) 7.1 k/uL (1.3-7.7); Neutrophils % (A) 74 %; Platelet Count 314 k/uL (150-450); RDW 12.4 % (11.5-15.5); WBC 9.6 k/uL (3.8-10.6)
--- NOTE | 2021-01-23 10:04 | XR ---
EXAMINATION TYPE: XR chest 2V DATE OF EXAM: 01/23/2021 COMPARISON: 07/24/2019 TECHNIQUE: PA and lateral views submitted. HISTORY: Chest pain FINDINGS: The lungs are clear and there is no pneumothorax, pleural effusion, or focal pneumonia. Postsurgica l change overlying the cervical spine. No overt failure. Heart size normal. Hypertrophic and degenera tive changes of the spine. IMPRESSION: 1. No acute process.
[2021-01-23 10:08] LABS: ALT 20 U/L (4-34); AST 25 U/L (14-36); African American GFR (CKD) >90 (>60 ml/min/1.73 sqM); Albumin 4.7 g/dL (3.5-5.0); Alkaline Phosphatase 124 U/L (38-126); Anion Gap 11 mmol/L; Blood Urea Nitrogen 12 mg/dL (7-17); Calcium 9.8 mg/dL (8.4-10.2); Carbon Dioxide 19 mmol/L (22-30); Chloride 107 mmol/L (98-107); Glucose 121 mg/dL (74-99); Lipase 34 U/L (23-300); Non-African American GFR(CKD) 81 (>60 ml/min/1.73 sqM); Potassium 4.1 mmol/L (3.5-5.1); Sodium 137 mmol/L (137-145); Total Bilirubin 0.6 mg/dL (0.2-1.3); Total Protein 7.6 g/dL (6.3-8.2)
[2021-01-23 10:21] LABS: INR 0.9 (<1.2); Prothrombin Time 9.9 sec (9.0-12.0)
[2021-01-23] MEDS ORDERED: MORPHINE SULFATE 4 MG/ML SYRINGE IV STA (10:36)
[2021-01-23 10:57] LABS: Appearance,Urine Clear (Clear); Bacteria,Urine Few /hpf; Bilirubin,Urine Negative (Negative); Blood,Urine Negative (Negative); Color,Urine Light Yellow; Glucose,Urine (UA) Negative (Negative); Ketones,Urine Negative (Negative); Leukocyte Esterase,Urine Small (Negative); Nitrite,Urine Positive (Negative); PH, Urine 6.5 (5.0-8.0); Protein,Urine Negative (Negative); RBC,Urine 1 /hpf (0-5); Specific Gravity,Urine 1.005 (1.001-1.035); Squamous Epithelial Cell,Urine 1 /hpf (0-4); Urobilinogen,Urine <2.0 mg/dL (<2.0); WBC,Urine 4 /hpf (0-5)
--- NOTE | 2021-01-23 11:14 | CT ---
EXAMINATION TYPE: CT brain wo con DATE OF EXAM: 01/23/2021 COMPARISON: 02/15/1717 HISTORY: mental status change CT DLP: 1111.[address] of the brain was performed. The ventricles, basal cisterns and sulci overlying the cerebral convexities demonstrate mild enlargem ent. There is no evidence for intracranial hemorrhage or sulcal effacement. There is decreased attenuation about the periventricular white matter and deep white matter of both c erebral hemispheres, compatible with chronic small vessel ischemia. Differential diagnosis does inclu de demyelination. No mass effects are seen.No midline shift. Osseous calvarium is intact. If symptoms persist consider MRI. IMPRESSION: 1. Age related atrophic and chronic small vessel ischemic change without acute intracranial process s een at this time.
--- NOTE | 2021-01-23 11:20 | CT ---
EXAMINATION TYPE: CT angio thor/abd pel aorta DATE OF EXAM: 01/23/2021 COMPARISON: CT February 05, 2019 HISTORY: Severe chest and back pain, difficulty breathing CT DLP: 1552.3 mGycm. Automated Exposure Control for Dose Reduction was Utilized. CONTRAST: CTA scan of the thorax, abdomen and pelvis is performed without and with IV Contrast, patient injecte d with 100 mL of Isovue 370. Dissection protocol with 3-D reconstructed images created on an [employer] ent workstation and reviewed. FINDINGS: VASCULAR: Noncontrast images show no suspicious hyperdense material to suggest intramural hematoma. P ostcontrast images show satisfactory enhancement of the pulmonary arteries. Normal three-vessel origi n from the aortic arch is redemonstrated. Satisfactory visualization of the celiac artery, SMA, and b ilateral single renal arteries along with patent [place]. No significant stenosis. No linear hypodensity to suggest dissection. Prominent main pulmonary artery of 3.2 cm axial image [address] f indings consistent with underlying pulmonary artery hypertension. Adjacent ascending aorta measures u p to 3.6 cm in diameter axial image 38. Mild peripheral mixed plaque in the descending thoracic aorta . More mild to moderate calcified plaque in the mid to distal abdominal aorta extending into the jigar c branch vessels. No significant stenosis extending into the femoral artery branches in the bilateral groin. No AAA. LUNGS: Low lung volumes. Lungs remain grossly clear. There is no pleural effusion or pneumothorax s een. The tracheobronchial tree is patent. MEDIASTINUM: There are no new greater than 1 cm hilar or mediastinal lymph nodes. No cardiomegaly o r pericardial effusion is seen. Moderate three-vessel coronary artery calcification is present. LIVER/GB: Gallbladder not seen presumed surgically absent similar to prior. PANCREAS: No significant abnormality is seen. SPLEEN: No significant abnormality is seen. ADRENALS: No significant abnormality is seen. KIDNEYS: No significant abnormality is seen. BOWEL: Suboptimal evaluation without enteric contrast. No suspicious dilatation. GENITAL ORGANS: Uterus surgically absent or markedly atrophic. LYMPH NODES: No greater than 1cm abdominal or pelvic lymph nodes are appreciated. OSSEOUS STRUCTURES: Surgical change of the cervical spine noted on localizer. Grade 1 anterolisthesis L4 on L5. Mild to moderate disc space narrowing and spurring in the mid to lower thoracic spine. OTHER: No significant additional abnormality is seen. IMPRESSION: No aortic dissection. Ectasia of ascending aorta up to 3.6 cm. No AAA. No acute findings identified on this study to account for patient's symptoms.
[2021-01-23] MEDS ORDERED: cefTRIAXone IN SWFI 1,000 MG/10 ML SYRINGE IVP STA (11:36)
[2021-01-23] MEDS: PANTOPRAZOLE 40 MG/10 ML VIAL IVP SCH ×2 (12:02→20:57)
[2021-01-23] MEDS: ALPRAZolam 1 MG TAB PO SCH ×3 (12:53→20:56)
--- NOTE | 2021-01-23 16:02 | CONS ---
CONSULTATION Mrs. Gaston is a 60-year-old female with a history of hypertension, history of chronic tobacco use, who presented to the hospital with symptoms of abdominal and lower chest discomfort going on for the last 2 weeks. The discomfort is on and off, worse with drinking or lying supine, better with certain position and not activity related. Because of that, she came into the emergency room and subsequently admitted. The patient was in the hospital in January of 2019 and at that time had symptoms of chest discomfort. She has a history of neck discomfort and prior cervical fusion. During her last admission in 2019, she underwent an echocardiogram that was reported showing ejection fraction of 45% to 50% with moderate mitral and mild tricuspid regurgitation. Subsequently underwent dobutamine stress echocardiogram and that showed fixed mild global hypokinesis, but no evidence of stress-induced ischemia. The discomfort is not associated with significant dyspnea or dizziness. She has no syncope. She has no history of PND nor orthopnea. She has occasional peripheral edema. She has been told that she has a hiatal hernia in the past and has underwent endoscopy and had gastritis as well as hiatal hernia. Her coronary risk factors are remarkable for the history of hypertension and chronic tobacco use. She is nondiabetic. Her lipid profile is not available to me. She had that abdominal discomfort in the past and has been evaluated by Dr. Romero as well as Dr. Harris and Dr. Verma. MEDICATION: Her medications at home included tramadol, Ambien, quetiapine, omeprazole, Remeron, Synthroid, Motrin, Lasix 20 mg daily, Voltaren cream, Parafon Forte, ProAir, and Xanax. REVIEW OF SYSTEMS: RESPIRATORY SYSTEM: She has chronic tobacco use with some dyspnea but no recent wheezing or cough. GI SYSTEM: She has the abdominal pain. She has constipation with some lower GI bleeding related to the constipation. She takes a lot of laxative. SYSTEM: No dysuria or hematuria. NERVOUS SYSTEM: No history of stroke or seizure. MUSCULOSKELETAL: She has history of the cervical pain. SOCIAL HISTORY: She denies any alcohol intake. PHYSICAL EXAMINATION: She is a 60-year-old female, alert, oriented, in mild discomfort. Blood pressure running in the 150s to 190s with the heart rate in the 70s and 90s. HEAD: Normocephalic. EYES: Sclerae anicteric. NECK: Good upstroke, no bruit. LUNGS: Clear to auscultation. HEART: Regular rate and rhythm. S1, S2. No S3 with extra systole with a soft systolic murmur. No diastolic murmur. No rub. ABDOMEN: Soft. Epigastric, right and left upper quadrant tenderness. No rebound. Positive bowel sounds. No organomegaly. EXTREMITIES: No edema. Intact distal pulses. LAB DATA: Lab data revealed BUN and creatinine 12 and 0.8, potassium 4.1. Troponin less than 0.012. Hemoglobin of 14.5, white blood cell of 9.6. EKG revealed a sinus mechanism with a bigeminal ventricular ectopic activity. On subsequent EKG she is sinus mechanism with occasional PVCs and nonspecific ST-T wave changes. Her chest x-ray shows no infiltrates. She had a thoracic aortic CT done that showed no evidence of aortic dissection. There was ectasia of the ascending aorta. There was mild to moderate calcific plaque in the mid to distal abdominal aorta with no clear other abnormalities. IMPRESSIONS: 1. Abdominal and chest discomfort, appears to be GI in origin, unlikely to be cardiac in etiology. 2. Prior history of cardiomyopathy in 2019. The patient has not followed subsequently. 3. History of chronic tobacco use. 4. History of hypertension. 5. History of ventricular ectopic activity noted in the past. 6. History of musculoskeletal arthritic pain. RECOMMENDATION: From the cardiac standpoint, I will obtain echocardiogram with Doppler. I will add to her regimen metoprolol tartrate 25 mg twice a day. She is started on Protonix intravenously. She may benefit from further GI evaluation and depending on her progress, further recommendation will be made. We will follow her cardiac enzymes. Depending on the results, further recommendation will be made. Thank you for this consult. We will follow with you. MMODL / IJN: [id number] / MTDD
[2021-01-23] MEDS ORDERED: DICLOFENAC SODIUM GEL 100 GM TUBE TOPICAL PRN (16:54)
[2021-01-23] MEDS ORDERED: IBUPROFEN 800 MG TAB PO PRN (16:54)
[2021-01-23] MEDS: traMADol 50 MG TAB PO PRN (17:27)
[2021-01-23] MEDS: METOPROLOL TARTRATE 25 MG TAB PO SCH ×2 (17:27→21:00)
[2021-01-23] MEDS: FUROSEMIDE 20 MG TAB PO SCH (17:28)
[2021-01-23] MEDS ORDERED: MAG HYDROX/AL HYDROX/SIMETH 30 ML, HYOSCYAMINE ELIXIR 10 ML, LIDOCAINE VISCOUS 2% 10 ML PO ONE ×3 (18:30)
--- NOTE | 2021-01-23 18:34 | HP ---
HISTORY AND PHYSICAL This is a 60-year-old white female with history hypertension, nicotine addiction, chronic abdominal and lower chest discomfort for the past 2 weeks. Since she has an ulcer she has dysphagia and difficulty swallowing any liquids or solids, severe epigastric pain. She had normal lipase. CT scan of her chest was normal on admission. Cardiology saw her. She has a history heart disease, but they cleared her for she has severe anxiety over her granddaughter getting taken from her. Home medicines include omeprazole, Remeron, Seroquel, Ambien, tramadol, Synthroid, Motrin, Lasix, Voltaren cream, Parafon Forte, ProAir, Xanax. REVIEW OF SYSTEMS: Fourteen-point review of systems positive for chronic nicotine addiction, chronic constipation, epigastric pain, possible ulcer. Otherwise negative. SOCIAL HISTORY: She denies any alcohol intake. Continues to smoke. PHYSICAL EXAMINATION: A 60-year-old white female. She is apparently hysterical, very anxious, nervous, rapid speech. Blood pressure 150 over 90s, heart rate 70s to 90s. HEAD: Normocephalic, atraumatic. Pupils equal, round, reactive. Eyes: no scleral icterus. Lungs are clear. HEART: Regular rate, rhythm. ABDOMEN: Soft. Tenderness to palpation, epigastric. Mild guarding. EXTREMITIES: No cyanosis, clubbing, edema. LABS: Potassium 4.1, BUN is 12, creatinine 0.8. Troponin less than 0.012. Hemoglobin is 14.5, white count 9.6. EKG sinus rhythm but bilateral ventricular ectopy. Chest x-ray is negative. Thoracic CT scans show some mild calcific plaques. ASSESSMENT: 1. Abdominal chest discomfort. I think she has possibly a peptic ulcer versus severe esophagitis. 2. History of cardiomyopathy. 3. Nicotine addiction. 4. Hypertension. 5. Possible diastolic heart failure. 6. Chronic musculoskeletal pain. Echo, EGD will be ordered. She will need an EGD. Cardiology started her on metoprolol. That should help with her anxiety also. Protonix IV for her stomach. Please see further orders. Wait for endoscopy. MMODL / IJN: [id number] /
[2021-01-23] MEDS: NYSTATIN 100,000 UNIT/ML SUSP 500,000 UNIT/5 ML CUP PO SCH ×3 (18:46→20:57)
[2021-01-23] MEDS: SODIUM CHLORIDE 0.9% 1,000 ML IV SCH (18:46)
[2021-01-23] MEDS ORDERED: ONDANSETRON 4 MG/2 ML VIAL IVP PRN (20:35)
[2021-01-23] MEDS: CYCLOBENZAPRINE 5 MG TAB PO SCH (20:56)
[2021-01-23] MEDS: MIRTAZAPINE 15 MG TAB PO SCH (20:56)
[2021-01-23] MEDS: ZOLPIDEM 10 MG TAB PO SCH (20:56)
[2021-01-23] MEDS: QUEtiapine 50 MG TAB PO SCH (20:56)
[2021-01-23] MEDS ORDERED: NON FORMULARY DRUG (Omeprazole [Omeprazole] 20 MG Capsule.Dr) PO SCH (21:00)
[2021-01-24] MEDS: traMADol 50 MG TAB PO PRN ×3 (04:57→17:59)
[2021-01-24] MEDS: LEVOTHYROXINE 75 MCG TAB PO SCH (06:12)
[2021-01-24 07:50] LABS: Calcium 9.6 mg/dL (8.4-10.2); Cholesterol 292 mg/dL (<200); HDL Cholesterol 72 mg/dL (40-60); LDL Cholesterol,Calculated 196 mg/dL (0-99); Potassium 4.2 mmol/L (3.5-5.1); Triglycerides 120 mg/dL (<150)
[2021-01-24] MEDS: ASPIRIN 81 MG PO SCH (08:30)
[2021-01-24] MEDS: FUROSEMIDE 20 MG TAB PO SCH (08:30)
[2021-01-24] MEDS: CYCLOBENZAPRINE 5 MG TAB PO SCH ×2 (08:30→20:47)
[2021-01-24] MEDS: ALPRAZolam 1 MG TAB PO SCH ×4 (08:30→20:49)
[2021-01-24] MEDS: METOPROLOL TARTRATE 25 MG TAB PO SCH ×2 (08:30→20:46)
[2021-01-24] MEDS: PANTOPRAZOLE 40 MG/10 ML VIAL IVP SCH ×2 (08:30→20:46)
[2021-01-24] MEDS: NYSTATIN 100,000 UNIT/ML SUSP 500,000 UNIT/5 ML CUP PO SCH ×4 (08:31→20:49)
[2021-01-24] MEDS ORDERED: ASPIRIN 325 MG TAB PO SCH (09:00)
--- NOTE | 2021-01-24 13:50 | P.PN ---
Subjective This is a pleasant 60-year-old female past medical history significant for hypertension, tobacco use. She presented to the hospital with symptoms of abdominal and lower chest discomfort going on for 2 weeks. Patient is resting in bed comfortably, in no apparent distress. Endorses epigastric pain, burning from the throat epigastric abdomen. Yesterday when eating without like food was getting stuck. States pain is consistent and now eating/drinking does not improve or worsen the pain. Patient denies shortness of breath and lightheadedness dizziness. Patient is scheduled for an EGD today. Laboratory data reviewed, sodium 141, potassium 4.2, serum creatinine 0.96, triglycerides 120, cholesterol 92, LDL 16, HDL 72. Vital signs blood pressure 101/66 heart rate 68, 98% on room air, afebrile PHYSICAL EXAMINATION CONSTITUTIONAL: No apparent distress. CHEST EXAMINATION: Lungs are clear to auscultation. HEART EXAMINATION: Regular rate and rhythm. S1, S2 heard. No murmurs, gallops or rub. ABDOMEN: Epigastric tender to palpation, Soft, Positive bowel sounds. EXTREMITIES: 2+ peripheral pulses, no lower extremity edema and no calf tenderness. NEUROLOGIC EXAMINATION: Patient is awake, alert and oriented x3. ASSESSMENT -Abdominal and chest discomfort- appears GI in origin, unlikely to be cardiac in etiology. Patient scheduled for EGD today. -Prior history of cardiomyopathy in 2019. -Hyperlipidemia -History of chronic tobacco use -History of hypertension -History of musculoskeletal arthritic pain PLAN -TTE completed- will await read before signing off, if no acute changes and patient will follow up in clinic in 2-3 weeks. -Patient's lipid panel results available, will start atorvastatin 40mg daily -Continue metoprolol 25mg BID, ASA 81mg daily, Lasix 20mg daily Nurse Practitioner note has been reviewed, I agree with a documented findings and plan of care. Patient was seen and examined. Objective - Vital Signs Vital signs: Vital Signs Temp 97.6 F 01/24/21 08:00 Pulse 53 L 01/24/21 08:00 Resp 18 01/24/21 08:00 BP 101/66 01/24/21 08:00 Pulse Ox 97 01/24/21 08:00 Intake & Output 01/23/21 01/24/21 01/24/21 18:59 06:59 18:59 Intake Total 275 Balance 275 Weight 75.75 kg 77.2 kg Intake: Oral 275 Other: Voiding Method Toilet # Voids 1 - Labs CBC & Chem 7: 01/23/21 09:41 01/24/21 06:52 Labs: Abnormal Lab Results - Last 24 Hours (Table) 01/23/21 01/24/21 Range/Units 10:32 06:52 Cholesterol 292 H (<200) mg/dL LDL Cholesterol, Calc 196 H (0-99) mg/dL HDL Cholesterol 72 H (40-60) mg/dL Urine Nitrite Positive H (Negative) Ur Leukocyte Esterase Small H (Negative) Urine Bacteria Few H (None) /hpf
[2021-01-24] MEDS ORDERED: IV FLUID CONTINUATION 1,000 ML IV ONE (14:47)
[2021-01-24] MEDS ORDERED: PROPOFOL 10 MG/ML 20 ML VIAL IV ONE (14:47)
[2021-01-24] MEDS ORDERED: LIDOCAINE 1% INJ 10MG/ML (20 ML MDV) ONE (14:47)
--- NOTE | 2021-01-24 14:57 | P.PCN ---
Date of Procedure: 01/24/21 Procedure(s) Performed: BRIEF HISTORY: Patient is a 60-year-old, pleasant, white female, admitted hospital with chest pain, epigastric pain and difficulty swallowing for the last few weeks duration.. PROCEDURE PERFORMED: Esophagogastroduodenoscopy with biopsy. PREOPERATIVE DIAGNOSIS: Chest pain/epigastric pain and dysphagia for few weeks duration. IV sedation per anesthesia. PROCEDURE: After informed consent was obtained, the patient was brought into the endoscopy unit. IV sedation was administered by Anesthesia under continuous monitoring. Initially the Olympus GIF-140 video endoscope was inserted into the mouth. Esophagus intubated without any difficulty. It was gradually advanced into the stomach and duodenum and carefully examined. The bulb and the second part of the duodenum appeared normal. The scope at this time was withdrawn to the stomach, adequately insufflated with air, and upon careful examination, mucosa of the antrum, mild gastritis and biopsies were done from this area. The body, cardia and the fundus appeared normal. The scope was then withdrawn into the esophagus. The GE junction was located at 39 cm from the incisors. The esophagus appeared normal. There was circumferential erythema of the GE junction consistent with LA grade a reflux esophagitis. There were no erosions or ulcerations seen and the patient tolerated the procedure well. IMPRESSION: 1. Mild antral gastritis. 2. Normal-appearing esophagus with no evidence of esophageal stricture.. Mild distal esophagitis seen RECOMMENDATIONS: The findings of this examination were discussed with the patient. She was advised to follow with the biopsy results. She will continue with Carafate 1 g 4 times daily and Protonix 40 mg twice daily.
[2021-01-24] MEDS: ATORVASTATIN 40 MG TAB PO SCH (15:29)
--- NOTE | 2021-01-24 15:35 | CONS ---
CONSULTATION DATE OF DICTATION: January 24, 2021 REASON FOR CONSULTATION: Atypical chest pain and dysphagia. HISTORY OF PRESENT ILLNESS: The patient is a 60-year-old pleasant white female with history of hypertension, admitted to the hospital with atypical chest pain, difficulty swallowing, severe burning epigastric pain for the last 3-4 weeks duration. Her symptoms are progressively getting worse lately. She denies any nausea, vomiting. She states that she has been having some diaphoresis with the pain and sometimes the pain radiates into her neck and into the upper extremities. She came to the emergency room and had a CT angiogram done that was negative. She was also seen by Cardiology and because of atypical symptoms, GI is consulted for possible upper endoscopy. The patient states that she does have longstanding history of GERD, while in the hospital was started on Protonix and Carafate with no help. PAST MEDICAL HISTORY: Significant for hypertension, anxiety, depression, hypothyroidism, gastroesophageal reflux disease. MEDICATIONS: Medications at home include Remeron, Synthroid, Motrin, Voltaren, albuterol, omeprazole, quetiapine, Ultram, Xanax Ambien, and Lasix. ALLERGIES: CODEINE, PENICILLIN. PAST SURGICAL HISTORY: Cholecystectomy, hysterectomy, back surgery, adenoidectomy, and clavicle surgery, left knee replacement, SOCIAL HISTORY: Chronic smoker, no alcohol use. FAMILY HISTORY: Mother had brain cancer. Father had liver cancer. REVIEW OF SYSTEMS: CARDIOPULMONARY: She does complain chest pain but no shortness of breath. GENITOURINARY: No dysuria or hematuria. MUSCULOSKELETAL: Chronic back pain and neck pain. NEUROLOGY: Unremarkable. PSYCHIATRIC: Unremarkable. ENT/VISION: Unremarkable. CONSTITUTIONAL: No recent weight loss. No fever, chills, night sweats. HEMATOLOGY: Unremarkable. PHYSICAL EXAMINATION: VITAL SIGNS: Blood pressure 99/65, pulse rate 68, temperature 97.7. HEENT EXAMINATION: Unremarkable. Conjunctivae pink. Sclerae anicteric. Oral cavity no lesions. NECK: No JVD or lymph node enlargement. CHEST: Was clear to auscultation. HEART: Regular rate and rhythm. ABDOMEN: Soft. Bowel sounds are positive. No organomegaly. EXTREMITIES: No pedal edema. NEURO: She is alert and oriented x3. No focal deficits. LABS: WBC 9.6, hemoglobin 14, platelets normal. Basic metabolic panel is within normal limits. BUN and creatinine are normal. ALT, AST, T bilirubin and alkaline phosphatase are normal. Coronavirus PCR is negative. IMPRESSION: 1. This lady presents to the hospital with atypical chest pain, severe epigastric burning pain radiating to the neck and upper extremity and severe dysphagia to liquids and solids for the last 2-[address] angiogram negative. Rule out upper GI pathology. 2. History of gastroesophageal reflux disease. 3. History of anxiety and depression. 4. History of hypothyroidism. RECOMMENDATIONS: 1. We will proceed with EGD today. 2. Continue with Protonix 40 mg twice daily. 3. Continue Carafate 1 gram 4 times daily. 4. Further recommendations to follow based on the endoscopy results. Thank you for this consultation. MMODL / IJN: [id number] /
--- NOTE | 2021-01-24 17:28 | PN ---
PROGRESS NOTE [id number] white female who had an EGD done today by Dr. Jamil for severe epigastric pain, burning with any food or liquid intake. Procedure was done. She was found to have mild antral gastritis. No evidence of esophageal stricture. Mild esophagitis. Continue with Carafate and Protonix. Possibly be discharged home. She has no ride today. She will probably be discharged home tomorrow. CARDIOVASCULAR: S1, S2. LUNGS: Clear. GI: Soft. HEMATOLOGY: Negative Homans. PSYCH: Fair mood and affect. She also has hypercholesterolemia, for which treatment will have to be initiated as an outpatient. Please see further orders. Will order cholesterol medication, Carafate, Protonix twice a day. Possible discharge in the morning. MMODL / IJN: [id number] /
--- NOTE | 2021-01-24 17:35 | ECHOF ---
Referral Reason:cp MEASUREMENTS -------- HEIGHT: 152.4 cm WEIGHT: 75.7 kg BP: IVSd: 1.0 cm (0.6 - 1.1) LVIDd: 4.9 cm (3.9 - 5.3) LVPWd: 1.2 cm (0.6 - 1.1) IVSs: 1.1 cm LVIDs: 3.6 cm LVPWs: 1.4 cm LA Diam: 3.9 cm (2.7 - 3.8) MV EXCURSION: 17.701 mm (> 18.000) MV EF SLOPE: 58 mm/s (70 - 150) EPSS: 2.0 cm MV E Jaciel: 0.47 m/s MV DecT: 287 ms MV A Jaciel: 0.73 m/s MV E/A Ratio: 0.65 RAP: 5.00 mmHg RVSP: 12.93 mmHg FINDINGS -------- Atrial fibrillation. This was a techncally difficult study with suboptimal views, , Lumason utilized for enhancement of im ages. LV size, wall thickness and systolic function are normal, with an EF greater than 55%. The left andrew tricular size is normal. Overall left ventricular systolic function is low-normal with, an EF betwe en 50 - 55 %. The right ventricle is normal in size. The left atrial size is normal. The right atrial size is normal. 5.0mg OF Lumason UTLIZED: 2 OR MORE WALL SEGMENTS NOT VISUALIZED. There is mild aortic valve sclerosis. Mild mitral regurgitation is present. Mild tricuspid regurgitation present. Right ventricular systolic pressure is normal at < 35 mmHg. The pulmonic valve was not well visualized. The aortic root size is normal. There is no pericardial effusion. CONCLUSIONS -------- 1. This was a techncally difficult study with suboptimal views, , Lumason utilized for enhancement of images. 2. LV size, wall thickness and systolic function are normal, with an EF greater than 55%. 3. The left ventricular size is normal. 4. Overall left ventricular systolic function is low-normal with, an EF between 50 - 55 %. 5. The right ventricle is normal in size. 6. The left atrial size is normal. 7. The right atrial size is normal. 8. 5.0mg OF Lumason UTLIZED: 2 OR MORE WALL SEGMENTS NOT VISUALIZED. 9. There is mild aortic valve sclerosis. 10. Mild mitral regurgitation is present. 11. Mild tricuspid regurgitation present. 12. The pulmonic valve was not well visualized. 13. The aortic root size is normal. 14. There is no pericardial effusion. SENIOR GAMES TECHNICIAN: Barb Redd RDCS
[2021-01-24] MEDS: SODIUM CHLORIDE 0.9% 1,000 ML IV SCH (18:07)
[2021-01-24] MEDS: ZOLPIDEM 10 MG TAB PO SCH (20:46)
[2021-01-24] MEDS: MIRTAZAPINE 15 MG TAB PO SCH (20:46)
[2021-01-24] MEDS: QUEtiapine 50 MG TAB PO SCH (20:46)
[2021-01-25] MEDS: traMADol 50 MG TAB PO PRN ×2 (05:08→08:21)
[2021-01-25] MEDS: LEVOTHYROXINE 75 MCG TAB PO SCH (05:09)
[2021-01-25 08:13] VITALS: RESP 18
[2021-01-25] MEDS: CYCLOBENZAPRINE 5 MG TAB PO SCH (08:13)
[2021-01-25] MEDS: ALPRAZolam 1 MG TAB PO SCH ×2 (08:13→12:04)
[2021-01-25] MEDS: ASPIRIN 81 MG PO SCH (08:13)
[2021-01-25] MEDS: FUROSEMIDE 20 MG TAB PO SCH (08:13)
[2021-01-25] MEDS: NYSTATIN 100,000 UNIT/ML SUSP 500,000 UNIT/5 ML CUP PO SCH ×2 (08:13→12:04)
[2021-01-25] MEDS: ATORVASTATIN 40 MG TAB PO SCH (08:13)
[2021-01-25] MEDS: METOPROLOL TARTRATE 25 MG TAB PO SCH (08:13)
[2021-01-25] MEDS: PANTOPRAZOLE 40 MG/10 ML VIAL IVP SCH (08:13)
[2021-01-25 11:56] VITALS: BP 93/58; PULSE 58; TEMP 98
[2021-01-25] MEDS ORDERED: PANTOPRAZOLE 40 MG TABLET PO SCH (12:15)
[2021-01-25] MEDS ORDERED: SUCRALFATE 1 GM TAB PO SCH (12:30)
--- NOTE | 2021-01-25 14:04 | DS ---
DISCHARGE SUMMARY A 60-year-old white female who was admitted with atypical chest pain, near syncope, acute GI distress and acute severe abdominal pain. EGD showed esophagitis, gastritis, at which time she was placed on Carafate and Protonix. Cleared by Cardiology for discharge. MEDICATIONS: Will include Xanax 1 mg q.i.d., aspirin 81 daily, Lipitor 40 daily, Flexeril 5 b.i.d., Voltaren gel topically daily, Lasix 20 mg daily, Synthroid 150 daily, Lopressor 25 b.i.d., Remeron 30 q.h.s., nystatin suspension q.i.d. 5 mL, Protonix 40 p.o. b.i.d., Seroquel 50 q.h.s., Carafate 1 g t.i.d., Ultram 100 t.i.d., Ambien 10 q.h.s. She will follow up in office in a week. CONDITION: Stable. PROGNOSIS: Guarded. Cleared from Cardiology and GI doctor for discharge. MMODL / IJN: [id number] /
== END 2021-01-25 12:52 | disposition home or self-care (01) | DRG 392 ==
LOC: EC 08:57 → 3SCARD 11:44
PROVIDERS: ADMIT Family Medicine; ATTEND Family Medicine
PROC: 0DB78ZX Excision of Stomach, Pylorus, Via Natural or Artificial Opening Endoscopic, Diagnostic (ICD-10-PCS; principal; 2021-01-24 08:50)
PROC: 0DB98ZX Excision of Duodenum, Via Natural or Artificial Opening Endoscopic, Diagnostic (ICD-10-PCS; principal; 2021-01-24 08:50)
PROC: 0DB58ZX Excision of Esophagus, Via Natural or Artificial Opening Endoscopic, Diagnostic (ICD-10-PCS; principal; 2021-01-24 08:50)
DX: K21.00 Gastro-esophageal reflux disease with esophagitis, without bleeding (principal); I42.9 Cardiomyopathy, unspecified; I50.30 Unspecified diastolic (congestive) heart failure; K29.70 Gastritis, unspecified, without bleeding; K44.9 Diaphragmatic hernia without obstruction or gangrene; M06.9 Rheumatoid arthritis, unspecified; R13.10 Dysphagia, unspecified; I77.810 Thoracic aortic ectasia; I49.3 Ventricular premature depolarization; Z20.822 Contact with and (suspected) exposure to COVID-19; E03.9 Hypothyroidism, unspecified; E78.00 Pure hypercholesterolemia, unspecified; E78.5 Hyperlipidemia, unspecified; F17.210 Nicotine dependence, cigarettes, uncomplicated; F41.9 Anxiety disorder, unspecified; F32.9 Major depressive disorder, single episode, unspecified; G89.29 Other chronic pain; M54.2 Cervicalgia; M54.9 Dorsalgia, unspecified; I08.1 Rheumatic disorders of both mitral and tricuspid valves; I11.0 Hypertensive heart disease with heart failure; Z79.890 Hormone replacement therapy; Z79.899 Other long term (current) drug therapy; Z80.0 Family history of malignant neoplasm of digestive organs; Z80.8 Family history of malignant neoplasm of other organs or systems; Z90.710 Acquired absence of both cervix and uterus; Z90.49 Acquired absence of other specified parts of digestive tract; Z96.652 Presence of left artificial knee joint; Z98.1 Arthrodesis status
CPT/HCPCS: 36415; 43239; 70450; 71046; 71275; 74174; 80048; 80053; 80061; 81001; 83690; 83735; 84484; 85025; 85610; 85730; 87635; 88305; 88342; 93005; 93306; 96374; 96375; 96376; 99285

== ENCOUNTER 2021-03-15 23:11 | Inpatient (IN) | payer OTHER ==
[2021-03-16] MEDS ORDERED: SODIUM CHLORIDE 0.9% 500 ML 500 ML IV STA (00:10)
[2021-03-16 00:41] LABS: Basophils # (A) 0.1 k/uL (0-0.2); Basophils % (A) 0 %; Eosinophils # (A) 0.2 k/uL (0-0.7); Eosinophils % (A) 1 %; HCT 40.3 % (34.0-46.0); HGB 13.7 gm/dL (11.4-16.0); Lymphocytes % (A) 7 %; MCH 30.6 pg (25.0-35.0); MCHC 34.1 g/dL (31.0-37.0); MCV 89.9 fL (80.0-100.0); Mean Platelet Volume 7.5; Monocytes # (A) 0.4 k/uL (0-1.0); Monocytes % (A) 3 %; Neutrophils # (A) 12.4 k/uL (1.3-7.7); Neutrophils % (A) 88 %; Platelet Count 262 k/uL (150-450); RBC 4.48 m/uL (3.80-5.40); WBC 14.1 k/uL (3.8-10.6)
--- NOTE | 2021-03-16 00:45 | ED ---
General Adult HPI <Dani Montesinos - Last Filed: 03/16/21 22:46> <Rafa Land - Last Filed: 03/18/21 06:28> - General Stated complaint: Mental Health Time Seen by Provider: 03/15/21 23:39 - History of Present Illness Initial comments: 60-year-old female presents emergency Department with the chief complaint of possible overdose. Patient is present with her and brought to the ED via EMS. states the patient has been battling depression for the last several months due to family circumstances. Patient has been contemplated suicide. states that when he came home today, he noticed her laying on the kitchen floor. He also reported the car was turned down in the garage door closed. He also states the patient supposedly got a pillow in the garage floor. states she contacted the ambulance who were able to speak with the patient. States the patient was still able to converse a but this has gradually decreased. states the patient could have overdosed on her home medications as well. States she takes Ambien and tramadol and Xanax. However, I did not find any open bottles lying around. (Dani Montesinos) - Related Data Home Medications Medication Instructions Recorded Confirmed traMADol HCL [Ultram] 100 mg PO TID PRN 02/22/17 03/16/21 Albuterol Sulfate [Proair Hfa] 1 - 2 puff INHALATION RT-Q6H PRN 01/23/21 03/16/21 Levothyroxine Sodium [Synthroid] 150 mcg PO DAILY 01/23/21 03/16/21 Omeprazole 20 mg PO BID 03/16/21 03/16/21 Previous Rx's Medication Instructions Recorded Aspirin 81 mg PO DAILY 90 Days #90 chew 01/25/21 Atorvastatin [Lipitor] 40 mg PO DAILY 90 Days #90 tab 01/25/21 Metoprolol Tartrate [Lopressor] 25 mg PO BID 90 Days #180 tab 01/25/21 Azithromycin [Zithromax] 500 mg PO DAILY@1200 tab 03/17/21 Calcium Carbonate [Tums] 1,000 mg PO QID PRN chew 03/17/21 Chlorhexidine Gluconate [Peridex] 15 ml MUCOUS MEM BID ml 03/17/21 chlordiazePOXIDE HCl [Librium] 50 mg PO TID cap 03/17/21 Allergies Allergy/AdvReac Type Severity Reaction Status Date / Time codeine Allergy Rash/Hives Verified 03/16/21 07:59 Penicillins Allergy Rash/Hives Verified 03/16/21 07:59 hydrocodone [From [place]] AdvReac Severe Abdominal Verified 03/16/21 07:59 Pain,vomiting Review of Systems ROS Other: All systems not noted in ROS Statement are negative. <aDni Montesinos - Last Filed: 03/16/21 22:46> ROS Other: All systems not noted in ROS Statement are negative. <Rafa Land - Last Filed: 03/18/21 06:28> ROS Statement: Those systems with pertinent positive or pertinent negative responses have been documented in the HPI. Past Medical History Past Medical History: Chest Pain / Angina, GERD/Reflux, GI Bleed, Hyperlipidemia, Liver Disease, Osteoarthritis (OA), Pneumonia, Rheumatoid Arthritis (RA), Thyroid Disorder Additional Past Medical History / Comment(s): Liver problem with gallbladder disease and was septic/had cholecystectom and biliary drainage tube, chronic cervical pain/chronic low back and L knee pain, colitis, diverticulitis, gastritis, lower GI bleed, constipation, orthostatic hypotention, bilateral lower leg edema, hypothyroid History of Any Multi-Drug Resistant Organisms: None Reported Past Surgical History: Adenoidectomy, Back Surgery, Cholecystectomy, Hys terectomy, Joint Replacement, Tonsillectomy Additional Past Surgical History / Comment(s): EGD, colonosocpy, cadavar bone placed in c-4 through C-7 with titanium jarod, left knee replacement, lower back epidural injections/ablation. Past Anesthesia/Blood Transfusion Reactions: Postoperative Nausea & Vomiting (PONV) Smoking Status: Current every day smoker - Past Family History Mother Family Medical History: Cancer Additional Family Medical History / Comment(s): Brain CA Father Family Medical History: Cancer Additional Family Medical History / Comment(s): liver CA <Dani Montesinos - Last Filed: 03/16/21 22:46> General Exam Limitations: no limitations General appearance: other (Drowsy) Head exam: Present: atraumatic, normocephalic, normal inspection Eye exam: Present: normal appearance ENT exam: Present: normal exam, mucous membranes dry Neck exam: Present: normal inspection Respiratory exam: Present: normal lung sounds bilaterally. Absent: respiratory distress, wheezes, rales, rhonchi, stridor, chest wall tenderness Cardiovascular Exam: Present: regular rate, normal rhythm, normal heart sounds Extremities exam: Present: normal inspection, normal capillary refill Back exam: Present: normal inspection Neurological exam: Present: altered Expanded Cranial nerves: Gag Reflex: Abnormal Left, Abnormal Right Skin exam: Present: warm, dry, intact, normal color <Dani Montesinos - Last Filed: 03/16/21 22:46> Course Vital Signs 03/15/21 03/16/21 03/16/21 23:11 00:10 00:46 Temperature 97.7 F Pulse Rate 65 68 64 Respiratory 14 14 12 Rate Blood Pressure 126/65 96/62 96/62 O2 Sat by Pulse 94 L 99 98 Oximetry 03/16/21 03/16/21 03/16/21 01:34 02:35 03:30 Temperature Pulse Rate 66 64 66 Respiratory 18 20 20 Rate Blood Pressure 151/93 150/96 148/93 O2 Sat by Pulse 100 100 100 Oximetry Procedures - Intubation Sedative: Etomidate Mg Given: 20 Laryngoscope: Gail Size: 3 ET Tube Size: 7.5 ET Tube Uncuffed: No Tube Secured Depth (cm): 23 Tube Secured Location: lips Tube Placement Confirmation: visualized tube passing through cords, equal breath sounds bilaterally, no breath sounds over epigastrium, confirmation by capnometry Patient Tolerated Procedure: well Intubation Complications: none <Rafa Land - Last Filed: 03/18/21 06:28> Medical Decision Making - Lab Data Result diagrams: 03/16/21 04:20 03/16/21 04:00 <Dani Montesinos - Last Filed: 03/16/21 22:46> - Lab Data Result diagrams: 03/17/21 06:51 03/17/21 06:51 <Rafa Land - Last Filed: 03/18/21 06:28> - Medical Decision Making 60-year-old female presenting to the emergency department for a possible overdose. On physical examination, patient is quite drowsy but is arousable with sternal rub. She does have a gag reflex. Laboratory workup was started. Patient was not able to answer questions. On reevaluation, patient continued to appear more sedated. Her gag reflex diminished. The decision was made to intubate the patient. CBC revealed leukocytosis of 14.1 K.creatinine 1.2. Mild transaminitis. CK 1075. Troponin within normal limits. Urine drug screen p ositive for TCAs and benzodiazapines. Negative salicylates, acetaminophen and alcohol. At this time, patient care signed off to (Dani Montesinos) I saw this patient in conjunction with the physician fire assistant. I performed independent history and physical exam. Agree with case management. (Rafa Land) - Lab Data Lab Results 03/16/21 03/16/21 03/16/21 Range/Units 00:34 00:34 00:34 WBC 14.1 H (3.8-10.6) k/uL RBC 4.48 (3.80-5.40) m/uL Hgb 13.7 (11.4-16.0) gm/dL Hct 40.3 (34.0-46.0) % MCV 89.9 (80.0-100.0) fL MCH 30.6 (25.0-35.0) pg MCHC 34.1 (31.0-37.0) g/dL RDW 13.0 (11.5-15.5) % Plt Count 262 (150-450) k/uL MPV 7.5 Neutrophils % 88 % Lymphocytes % 7 % Monocytes % 3 % Eosinophils % 1 % Basophils % 0 % Neutrophils # 12.4 H (1.3-7.7) k/uL Lymphocytes # 1.0 (1.0-4.8) k/uL Monocytes # 0.4 (0-1.0) k/uL Eosinophils # 0.2 (0-0.7) k/uL Basophils # 0.1 (0-0.2) k/uL Sample Site ABG pH (7.35-7.45) ABG pCO2 (35-45) mmHg ABG pO2 (83-108) mmHg ABG HCO3 (21-25) mmol/L ABG Total CO2 (19-24) mmol/L ABG O2 Saturation (94-97) % ABG Base Excess mmol/L Les Test Carbon Monoxide, Quant (<10.0) % FiO2 % Sodium 133 L (137-145) mmol/L Potassium 4.3 (3.5-5.1) mmol/L Chloride 100 (98-107) mmol/L Carbon Dioxide 25 (22-30) mmol/L Anion Gap 8 mmol/L BUN 12 (7-17) mg/dL Creatinine 1.20 H (0.52-1.04) mg/dL Est GFR (CKD-EPI)AfAm 57 (>60 ml/min/1.73 sqM) Est GFR (CKD-EPI)NonAf 49 (>60 ml/min/1.73 sqM) Glucose 103 H (74-99) mg/dL Plasma Lactic Acid Tae (0.7-2.0) mmol/L Calcium 9.1 (8.4-10.2) mg/dL Total Bilirubin 0.5 (0.2-1.3) mg/dL AST 84 H (14-36) U/L ALT 46 H (4-34) U/L Alkaline Phosphatase 123 (38-126) U/L Creatine Kinase 1075 H* (30-135) U/L Troponin I (0.000-0.034) ng/mL Total Protein 6.8 (6.3-8.2) g/dL Albumin 4.1 (3.5-5.0) g/dL Urine HCG, Qual Not Detected (Not Detectd) Salicylates <1.0 mg/dL Urine Opiates Screen (NotDetected) Ur Oxycodone Screen (NotDetected) Urine Methadone Screen (NotDetected) Ur Propoxyphene Screen (NotDetected) Acetaminophen <10.0 ug/mL Ur Barbiturates Screen (NotDetected) U Tricyclic Antidepress (NotDetected) Ur Phencyclidine Scrn (NotDetected) Ur Amphetamines Screen (NotDetected) U Methamphetamines Scrn (NotDetected) U Benzodiazepines Scrn (NotDetected) Urine Cocaine Screen (NotDetected) U Marijuana (THC) Screen (NotDetected) Serum Alcohol <10 mg/dL Coronavirus (PCR) (Not Detectd) 03/16/21 03/16/21 03/16/21 Range/Units 00:34 01:11 01:29 WBC (3.8-10.6) k/uL RBC (3.80-5.40) m/uL Hgb (11.4-16.0) gm/dL Hct (34.0-46.0) % MCV (80.0-100.0) fL MCH (25.0-35.0) pg MCHC (31.0-37.0) g/dL RDW (11.5-15.5) % Plt Count (150-450) k/uL MPV Neutrophils % % Lymphocytes % % Monocytes % % Eosinophils % % Basophils % % Neutrophils # (1.3-7.7) k/uL Lymphocytes # (1.0-4.8) k/uL Monocytes # (0-1.0) k/uL Eosinophils # (0-0.7) k/uL Basophils # (0-0.2) k/uL Sample Site ABG pH (7.35-7.45) ABG pCO2 (35-45) mmHg ABG pO2 (83-108) mmHg ABG HCO3 (21-25) mmol/L ABG Total CO2 (19-24) mmol/L ABG O2 Saturation (94-97) % ABG Base Excess mmol/L Les Test Carbon Monoxide, Quant 4.0 (<10.0) % FiO2 % Sodium (137-145) mmol/L Potassium (3.5-5.1) mmol/L Chloride (98-107) mmol/L Carbon Dioxide (22-30) mmol/L Anion Gap mmol/L BUN (7-17) mg/dL Creatinine (0.52-1.04) mg/dL Est GFR (CKD-EPI)AfAm (>60 ml/min/1.73 sqM) Est GFR (CKD-EPI)NonAf (>60 ml/min/1.73 sqM) Glucose (74-99) mg/dL Plasma Lactic Acid Tae (0.7-2.0) mmol/L Calcium (8.4-10.2) mg/dL Total Bilirubin (0.2-1.3) mg/dL AST (14-36) U/L ALT (4-34) U/L Alkaline Phosphatase (38-126) U/L Creatine Kinase (30-135) U/L Troponin I 0.013 (0.000-0.034) ng/mL Total Protein (6.3-8.2) g/dL Albumin (3.5-5.0) g/dL Urine HCG, Qual (Not Detectd) Salicylates mg/dL Urine Opiates Screen Not Detected (NotDetected) Ur Oxycodone Screen Not Detected (NotDetected) Urine Methadone Screen Not Detected (NotDetected) Ur Propoxyphene Screen Not Detected (NotDetected) Acetaminophen ug/mL Ur Barbiturates Screen Not Detected (NotDetected) U Tricyclic Antidepress Detected H (NotDetected) Ur Phencyclidine Scrn Not Detected (NotDetected) Ur Amphetamines Screen Not Detected (NotDetected) U Methamphetamines Scrn Not Detected (NotDetected) U Benzodiazepines Scrn Detected H (NotDetected) Urine Cocaine Screen Not Detected (NotDetected) U Marijuana (THC) Screen Not Detected (NotDetected) Serum Alcohol mg/dL Coronavirus (PCR) (Not Detectd) 03/16/21 03/16/21 03/16/21 Range/Units 01:29 02:16 02:39 WBC (3.8-10.6) k/uL RBC (3.80-5.40) m/uL Hgb (11.4-16.0) gm/dL Hct (34.0-46.0) % MCV (80.0-100.0) fL MCH (25.0-35.0) pg MCHC (31.0-37.0) g/dL RDW (11.5-15.5) % Plt Count (150-450) k/uL MPV Neutrophils % % Lymphocytes % % Monocytes % % Eosinophils % % Basophils % % Neutrophils # (1.3-7.7) k/uL Lymphocytes # (1.0-4.8) k/uL Monocytes # (0-1.0) k/uL Eosinophils # (0-0.7) k/uL Basophils # (0-0.2) k/uL Sample Site rbrach ABG pH 7.31 L (7.35-7.45) ABG pCO2 49 H (35-45) mmHg ABG pO2 194 H (83-108) mmHg ABG HCO3 25 (21-25) mmol/L ABG Total CO2 26 H (19-24) mmol/L ABG O2 Saturation 99.1 H (94-97) % ABG Base Excess -1.7 mmol/L Les Test Yes Carbon Monoxide, Quant (<10.0) % FiO2 60 % Sodium (137-145) mmol/L Potassium (3.5-5.1) mmol/L Chloride (98-107) mmol/L Carbon Dioxide (22-30) mmol/L Anion Gap mmol/L BUN (7-17) mg/dL Creatinine (0.52-1.04) mg/dL Est GFR (CKD-EPI)AfAm (>60 ml/min/1.73 sqM) Est GFR (CKD-EPI)NonAf (>60 ml/min/1.73 sqM) Glucose (74-99) mg/dL Plasma Lactic Acid Tae 1.2 (0.7-2.0) mmol/L Calcium (8.4-10.2) mg/dL Total Bilirubin (0.2-1.3) mg/dL AST (14-36) U/L ALT (4-34) U/L Alkaline Phosphatase (38-126) U/L Creatine Kinase (30-135) U/L Troponin I (0.000-0.034) ng/mL Total Protein (6.3-8.2) g/dL Albumin (3.5-5.0) g/dL Urine HCG, Qual (Not Detectd) Salicylates mg/dL Urine Opiates Screen (NotDetected) Ur Oxycodone Screen (NotDetected) Urine Methadone Screen (NotDetected) Ur Propoxyphene Screen (NotDetected) Acetaminophen ug/mL Ur Barbiturates Screen (NotDetected) U Tricyclic Antidepress (NotDetected) Ur Phencyclidine Scrn (NotDetected) Ur Amphetamines Screen (NotDetected) U Methamphetamines Scrn (NotDetected) U Benzodiazepines Scrn (NotDetected) Urine Cocaine Screen (NotDetected) U Marijuana (THC) Screen (NotDetected) Serum Alcohol mg/dL Coronavirus (PCR) Not Detected (Not Detectd) Disposition <Dani Montesinos - Last Filed: 03/16/21 22:46> <Rafa Land - Last Filed: 03/18/21 06:28> Clinical Impression: Accidental drug overdose Disposition: ADMITTED IP TO THIS [facility] Condition: Fair
[2021-03-16 00:55] LABS: ALT 46 U/L (4-34); AST 84 U/L (14-36); Acetaminophen <10.0 ug/mL; African American GFR (CKD) 57 (>60 ml/min/1.73 sqM); Albumin 4.1 g/dL (3.5-5.0); Alcohol <10 mg/dL; Alkaline Phosphatase 123 U/L (38-126); Anion Gap 8 mmol/L; Blood Urea Nitrogen 12 mg/dL (7-17); Calcium 9.1 mg/dL (8.4-10.2); Carbon Dioxide 25 mmol/L (22-30); Chloride 100 mmol/L (98-107); Glucose 103 mg/dL (74-99); Non-African American GFR(CKD) 49 (>60 ml/min/1.73 sqM); Potassium 4.3 mmol/L (3.5-5.1); Salicylate <1.0 mg/dL; Sodium 133 mmol/L (137-145); Total Bilirubin 0.5 mg/dL (0.2-1.3); Total Protein 6.8 g/dL (6.3-8.2)
[2021-03-16] MEDS ORDERED: ETOMIDATE 2 MG/ML 10 ML VIAL IVP STA (00:59)
[2021-03-16] MEDS ORDERED: LORazepam 2 MG/ML INJ IV STA (01:05)
[2021-03-16 01:14] LABS: Creatine Kinase 1075 U/L (30-135)
--- NOTE | 2021-03-16 01:28 | XR ---
EXAM: XR Chest, 1 View CLINICAL HISTORY: ITS.REASON XR Reason: INTUBATION TECHNIQUE: Frontal view of the chest. COMPARISON: No relevant prior studies available. FINDINGS: Lungs: Low lung volumes and patchy left base opacity. No consolidation. Pleural space: Unremarkable. No pneumothorax. Heart: Unremarkable. No cardiomegaly. Mediastinum: Unremarkable. Bones/joints: Unremarkable. Lines and tubes: Endotracheal tube terminates 1.0 cm above the level of the susie. IMPRESSION: 1. Endotracheal tube terminates 1.0 cm above the level of the susie. 2. Low lung volumes and patchy left base opacity which may be due to atelectasis, aspiration or infection.
[2021-03-16 01:52] LABS: Amphetamine Screen,Urine Not Detected (NotDetected); Cocaine Screen,Urine Not Detected (NotDetected); Opiate Screen,Urine Not Detected (NotDetected); Phencyclidine Screen,Urine Not Detected (NotDetected); Urn Cannabinoid Scrn Not Detected (NotDetected)
[2021-03-16 01:53] LABS: Barbiturate Screen,Urine Not Detected (NotDetected); Benzodiazepines Screen,Urine Detected (NotDetected); Methadone Screen, Urine Not Detected (NotDetected); Oxycodone Screen, Urine Not Detected (NotDetected); Tricyclic Antidepressant,Urine Detected (NotDetected)
[2021-03-16 02:22] LABS: ABG Base Excess -1.7 mmol/L; ABG HCO3 25 mmol/L (21-25); ABG Oxygen Saturation 99.1 % (94-97); ABG PCO2 49 mmHg (35-45); ABG PH 7.31 (7.35-7.45); ABG PO2 194 mmHg (83-108); ABG TCO2 26 mmol/L (19-24); Allen Test Performed? Yes
--- NOTE | 2021-03-16 02:28 | XR ---
EXAM: XR Chest, 1 View CLINICAL HISTORY: ITS.REASON XR Reason: Tube placement TECHNIQUE: Frontal view of the chest. COMPARISON: No relevant prior studies available. FINDINGS: Lines and tubes: Endotracheal tube terminates 1.2 cm above the level of the susie. Nasogastric tube is kinked in the distal esophagus with tip at the level of the midesophagus. Lungs: Unchanged streaky left base opacity. IMPRESSION: 1. Endotracheal tube terminates 1.2 cm above the level of the susie. 2. Nasogastric tube is kinked in the distal esophagus with tip at the level of the midesophagus.
--- NOTE | 2021-03-16 02:31 | XR ---
EXAM: XR Chest, 1 View CLINICAL HISTORY: ITS.REASON XR Reason: Tube placement TECHNIQUE: Frontal view of the chest. COMPARISON: 03/16/2021 at 1:37am FINDINGS: See impression IMPRESSION: 1. Unchanged position of nasogastric tube which is kinked within the distal esophagus. 2. Stable position of endotracheal tube.
[2021-03-16] MEDS ORDERED: ARTIFICIAL TEARS OINTMENT 3.5 GM TUBE BOTH EYES PRN (02:59)
[2021-03-16] MEDS ORDERED: NALOXONE 0.4 MG/ML 1 ML VIAL IV PRN (02:59)
[2021-03-16 04:17] LABS: Glucose,Whole Blood 106 mg/dL (75-99)
[2021-03-16 05:06] LABS: Basophils % (A) 0 %; Eosinophils # (A) 0.1 k/uL (0-0.7); Eosinophils % (A) 1 %; HCT 41.4 % (34.0-46.0); HGB 13.9 gm/dL (11.4-16.0); Lymphocytes # (A) 1.4 k/uL (1.0-4.8); Lymphocytes % (A) 11 %; MCH 30.4 pg (25.0-35.0); MCHC 33.7 g/dL (31.0-37.0); MCV 90.3 fL (80.0-100.0); Mean Platelet Volume 8.6; Monocytes # (A) 0.4 k/uL (0-1.0); Monocytes % (A) 3 %; Neutrophils # (A) 9.9 k/uL (1.3-7.7); Neutrophils % (A) 84 %; Platelet Count 270 k/uL (150-450); RBC 4.58 m/uL (3.80-5.40); WBC 11.8 k/uL (3.8-10.6)
[2021-03-16 05:15] LABS: Calcium 8.5 mg/dL (8.4-10.2); Magnesium 1.9 mg/dL (1.6-2.3); Potassium 5.4 mmol/L (3.5-5.1)
--- NOTE | 2021-03-16 05:47 | XR ---
EXAMINATION TYPE: XR chest 1V portable DATE OF EXAM: 03/16/2021 CLINICAL HISTORY: Difficulty breathing progress study. TECHNIQUE: Single AP portable semiupright view of the chest is obtained. COMPARISON: Chest x-rays from earlier today and older studies. CTA chest January 23, 2021 FINDINGS: Orogastric tube adjusted and now projects below diaphragm. Endotracheal tube retracted now at aortic knob level approximately 2 to 3 cm above susie. Persistent low lung volumes and patchy left basilar opacity. Right lung remains clear. Cardiac silhou ette size stable and within normal limits. Osseous structures are intact. IMPRESSION: 1. Improved satisfactory positioning of endotracheal and orogastric tubes after repositioning. 2. Stable patchy left basilar atelectasis and/or early infiltrate
[2021-03-16 06:09] LABS: Appearance,Urine Clear (Clear); Bilirubin,Urine Negative (Negative); Blood,Urine Trace (Negative); Color,Urine Colorless; Glucose,Urine (UA) Negative (Negative); Ketones,Urine Negative (Negative); Leukocyte Esterase,Urine Negative (Negative); Mucus,Urine Rare /hpf; Nitrite,Urine Negative (Negative); PH, Urine 6.5 (5.0-8.0); Protein,Urine Negative (Negative); RBC,Urine 2 /hpf (0-5); Specific Gravity,Urine 1.003 (1.001-1.035); Urobilinogen,Urine <2.0 mg/dL (<2.0); WBC,Urine 1 /hpf (0-5)
[2021-03-16] MEDS ORDERED: FAMOTIDINE 20 MG/2 ML VIAL IV SCH (09:00)
[2021-03-16] MEDS: SODIUM CHLORIDE 0.9% 1,000 ML IV SCH ×4 (10:04→21:43)
[2021-03-16] MEDS: CHLORHEXIDINE GLUCONATE 15 ML CUP MUCOUS MEM SCH ×2 (10:05→20:39)
[2021-03-16 10:12] LABS: ABG Base Excess -0.9 mmol/L; ABG HCO3 24 mmol/L (21-25); ABG Oxygen Saturation 99.8 % (94-97); ABG PCO2 40 mmHg (35-45); ABG PH 7.39 (7.35-7.45); ABG PO2 216 mmHg (83-108); ABG TCO2 25 mmol/L (19-24); Allen Test Performed? Yes
--- NOTE | 2021-03-16 10:43 | P.CNPUL ---
History of Present Illness Consult date: 03/16/21 Reason for consult: hypoxemia, pneumonia Chief complaint: Overdose with altered mental status mechanically ventilated History of present illness: Patient is a 60-year-old female with a history of major depression, patient presented to the emergency department with suspicion of overdose brought in by her , she has a long-standing history of severe depression and has been contemplating suicide, yesterday it appears that patient overdose on her medicine and then turned the motor vehicle open the garage door she was in kitchen where she was found unresponsive, at home patient takes Ambien tramadol and Xanax, patient was intubated for airway protection, during my evaluation patient is opening her eyes following simple commands, she however remains on ventilator with setting of 14 over 14 assist control tidal volume of 400 with 5 of PEEP and 50% oxygen, labs are significant for a leukocytosis mild hyponatr emia and hyperkalemia, COVID-19 testing has been negative urine analysis unremarkable, Review of Systems ROS unobtainable: due to endotracheal tube Past Medical History Past Medical History: Chest Pain / Angina, GERD/Reflux, GI Bleed, Hyperlipidemia, Liver Disease, Osteoarthritis (OA), Pneumonia, Rheumatoid Arthritis (RA), Thyroid Disorder Additional Past Medical History / Comment(s): Liver problem with gallbladder disease and was septic/had cholecystectom and biliary drainage tube, chronic cervical pain/chronic low back and L knee pain, colitis, diverticulitis, gastritis, lower GI bleed, constipation, orthostatic hypotention, bilateral lower leg edema, hypothyroid History of Any Multi-Drug Resistant Organisms: None Reported Past Surgical History: Adenoidectomy, Back Surgery, Cholecystectomy, Hysterectomy, Joint Replacement, Tonsillectomy Additional Past Surgical History / Comment(s): EGD, colonosocpy, cadavar bone placed in c-4 through C-7 with titanium jarod, left knee replacement, lower back epidural injections/ablation. Past Anesthesia/Blood Transfusion Reactions: Postoperative Nausea & Vomiting (PONV) Past Psychological History: Anxiety, Depression Additional Psychological History / Comment(s): Pt resides with her spouse. She uses no assistive device. She can drive. Smoking Status: Current every day smoker Past Alcohol Use History: None Reported Additional Past Alcohol Use History / Comment(s): Pt started smoking in 1974. She was a ppd smoker years ago then a pack will last about 5 days. Past Drug Use History: None Reported - Past Family History Mother Family Medical History: Cancer Additional Family Medical History / Comment(s): Brain CA Father Family Medical History: Cancer Additional Family Medical History / Comment(s): liver CA Medications and Allergies Home Medications Medication Instructions Recorded Confirmed Type traMADol HCL [Ultram] 100 mg PO TID PRN 02/22/17 03/16/21 History ALPRAZolam [Xanax] 1 mg PO QID 01/05/19 03/16/21 History QUEtiapine FUMARATE [QUEtiapine 50 mg PO HS 01/05/19 03/16/21 History FUMARATE ER] Zolpidem Tartrate [Ambien] 10 mg PO HS 01/05/19 03/16/21 History Furosemide [Lasix] 20 mg PO DAILY 07/22/19 03/16/21 History Albuterol Sulfate [Proair Hfa] 1 - 2 puff INHALATION RT-Q6H PRN 01/23/21 03/16/21 History Chlorzoxazone [Parafon Forte DSC] 250 mg PO BID 01/23/21 03/16/21 History Diclofenac Sodium Gel [Voltaren 1 gm TOPICAL QID PRN 01/23/21 03/16/21 History Gel] Levothyroxine Sodium [Synthroid] 150 mcg PO DAILY 01/23/21 03/16/21 History Mirtazapine [Remeron Soluspan] 30 mg PO HS 01/23/21 03/16/21 History Aspirin 81 mg PO DAILY 90 Days #90 chew 01/25/21 03/16/21 Rx Atorvastatin [Lipitor] 40 mg PO DAILY 90 Days #90 tab 01/25/21 03/16/21 Rx Metoprolol Tartrate [Lopressor] 25 mg PO BID 90 Days #180 tab 01/25/21 03/16/21 Rx Sucralfate [Carafate] 1 gm PO AC-TID 30 Days #90 tab 01/25/21 03/16/21 Rx Omeprazole 20 mg PO BID 03/16/21 03/16/21 History Allergies Allergy/AdvReac Type Severity Reaction Status Date / Time codeine Allergy Rash/Hives Verified 03/16/21 07:59 Penicillins Allergy Rash/Hives Verified 03/16/21 07:59 hydrocodone [From [place]] AdvReac Severe Abdominal Verified 03/16/21 07:59 Pain,vomiting Physical Exam Vitals: Vital Signs Temp Pulse Pulse Resp BP BP Pulse Ox 03/16/21 10:30 64 19 150/93 98 03/16/21 10:00 64 15 106/71 98 03/16/21 09:30 56 L 14 100/67 99 03/16/21 09:00 56 L 14 111/71 99 03/16/21 08:30 56 L 14 103/71 99 03/16/21 08:00 56 L 14 108/72 100 03/16/21 07:30 57 L 14 107/74 99 03/16/21 07:00 57 L 14 122/80 100 03/16/21 06:30 58 L 14 101/69 99 03/16/21 06:00 59 L 14 104/72 100 03/16/21 05:30 60 14 108/75 99 03/16/21 05:00 63 14 132/87 100 03/16/21 04:30 66 14 151/97 100 03/16/21 04:15 66 14 155/97 99 03/16/21 04:10 98.3 F 71 14 165/139 99 03/16/21 03:50 97.4 F L 64 20 143/94 100 03/16/21 03:30 66 20 148/93 100 03/16/21 02:35 64 20 150/96 100 03/16/21 01:34 66 18 151/93 100 03/16/21 00:46 64 12 96/62 98 03/16/21 00:10 68 14 96/62 99 03/15/21 23:11 97.7 F 65 14 126/65 94 L Intake and Output 03/15/21 03/16/21 03/16/21 22:59 06:59 14:59 Intake Total 250 500 Output Total 1285 370 Balance -1035 130 Intake: IV 250 500 0.9 NS 250 500 Output: Urine 1285 370 Other: Voiding Method Indwelling Catheter Indwelling Catheter Weight 117.934 kg - Constitutional General appearance: average body habitus - EENT Eyes: PERRLA Ears: bilateral: normal - Neck Carotids: bilateral: upstroke normal Thyroid: bilateral: normal size - Respiratory Respiratory: bilateral: CTA - Cardiovascular Rhythm: regular Heart sounds: normal: S1, S2 - Integumentary Integumentary: normal turgor - Musculoskeletal Musculoskeletal: generalized weakness - Psychiatric Psychiatric: A&O x's 3, appropriate affect Results - Laboratory Findings CBC and BMP: 03/16/21 04:20 03/16/21 04:00 ABG ABG pH 7.39 (7.35-7.45) 03/16/21 10:11 ABG pCO2 40 mmHg (35-45) 03/16/21 10:11 ABG pO2 216 mmHg (83-108) H 03/16/21 10:11 ABG O2 Saturation 99.8 % (94-97) H 03/16/21 10:11 Abnormal lab findings: Abnormal Labs 03/16/21 03/16/21 03/16/21 00:34 00:34 01:11 WBC 14.1 H Neutrophils # 12.4 H ABG pH ABG pCO2 ABG pO2 ABG Total CO2 ABG O2 Saturation Sodium 133 L Potassium Creatinine 1.20 H Glucose 103 H POC Glucose (mg/dL) AST 84 H ALT 46 H Creatine Kinase 1075 H* Urine Blood Urine Mucus U Tricyclic Antidepress Detected H U Benzodiazepines Scrn Detected H 03/16/21 03/16/21 03/16/21 02:16 04:00 04:14 WBC Neutrophils # ABG pH 7.31 L ABG pCO2 49 H ABG pO2 194 H ABG Total CO2 26 H ABG O2 Saturation 99.1 H Sodium 133 L Potassium 5.4 H Creatinine Glucose 100 H POC Glucose (mg/dL) 106 H AST ALT Creatine Kinase Urine Blood Urine Mucus U Tricyclic Antidepress U Benzodiazepines Scrn 03/16/21 03/16/21 03/16/21 04:20 05:20 10:11 WBC 11.8 H Neutrophils # 9.9 H ABG pH ABG pCO2 ABG pO2 216 H ABG Total CO2 25 H ABG O2 Saturation 99.8 H Sodium Potassium Creatinine Glucose POC Glucose (mg/dL) AST ALT Creatine Kinase Urine Blood Trace H Urine Mucus Rare H U Tricyclic Antidepress U Benzodiazepines Scrn - Diagnostic Findings Chest x-ray: report reviewed, image reviewed Assessment and Plan Assessment: Left lower lobe pneumonia aspiration versus community-acquired Drug overdose Altered mental status likely related to above versus pneumonia versus COPD exacerbation Major depression Suicidal gesture Plan: We'll put patient on CPAP 5 and pressure support of 5 and obtain weaning parameters and arterial blood gas if patient remains stable consider extubation Broad-spectrum antibiotics like Rocephin 1 g daily along with Zithromax 500 mg daily IV steroids 40 mg every 12 Bronchodilators as needed and 3 times a day Suicidal precautions and evaluation DVT and peptic ulcer disease prophylaxis Further plan of care as per clinical response of the patient Time with Patient: Greater than 30
[2021-03-16 11:37] LABS: Glucose,Whole Blood 87 mg/dL (75-99)
[2021-03-16] MEDS: CALCIUM CARBONATE 500 MG CHEWABLE PO PRN ×2 (19:16→20:54)
[2021-03-16] MEDS: METOPROLOL TARTRATE 25 MG TAB PO SCH (20:52)
[2021-03-17] MEDS: PANTOPRAZOLE 40 MG TABLET PO SCH (07:37)
[2021-03-17] MEDS: CHLORHEXIDINE GLUCONATE 15 ML CUP MUCOUS MEM SCH ×2 (07:37→22:23)
[2021-03-17] MEDS: METOPROLOL TARTRATE 25 MG TAB PO SCH ×2 (07:37→22:23)
[2021-03-17] MEDS: SODIUM CHLORIDE 0.9% 1,000 ML IV SCH ×2 (07:37→17:16)
[2021-03-17] MEDS: ATORVASTATIN 40 MG TAB PO SCH (07:37)
[2021-03-17] MEDS: ASPIRIN 81 MG PO SCH (07:38)
[2021-03-17] MEDS: CALCIUM CARBONATE 500 MG CHEWABLE PO PRN (08:05)
[2021-03-17 10:30] LABS: Basophils # (A) 0.07 X 10*3/uL (0.00-0.10); Basophils % (A) 0.5 %; Eosinophils # (A) 0.03 X 10*3/uL (0.04-0.35); Eosinophils % (A) 0.2 %; HCT 40.1 % (37.2-46.3); Lymphocytes # (A) 1.34 X 10*3/uL (0.90-5.00); Lymphocytes % (A) 10.3 %; MCH 29.5 pg (27.0-32.0); MCHC 32.4 g/dL (32.0-37.0); MCV 91.1 fL (80.0-97.0); Mean Platelet Volume 11.1 fL (9.5-12.2); Monocytes # (A) 0.76 X 10*3/uL (0.20-1.00); Monocytes % (A) 5.8 %; Neutrophils % (A) 82.8 %; Platelet Count 276 X 10*3/uL (140-440); RDW 13.4 % (11.5-14.5); WBC 13.05 X 10*3/uL (4.50-10.00)
[2021-03-17 10:49] LABS: African American GFR (CKD) 70.9 (60.0-200.0); Anion Gap 7.9 mmol/L (4.00-12.00); Carbon Dioxide 25.1 mmol/L (21.6-31.8); Non-African American GFR(CKD) 61.2 (60.0-200.0); Potassium 3.6 mmol/L (3.5-5.5)
--- NOTE | 2021-03-17 11:05 | P.PN ---
Subjective Progress Note Date: 03/17/21 Principal diagnosis: Left lower lobe pneumonia aspiration versus community-acquired Drug overdose Altered mental status likely related to above versus pneumonia versus COPD exacerbation Major depression Suicidal gesture 03/17/2021, patient seen eval examined during the rounds respiratory status stable patient is room air intermittent dry nonproductive cough is present reva es any chest pain, patient has been admitted suicidal attempt secondary due to severe depression, psych service and evaluation pending this time, patient has a bedside sitter, patient to be started on antibiotics, Patient is a 60-year-old female with a history of major depression, patient presented to the emergency department with suspicion of overdose brought in by her , she has a long-standing history of severe depression and has been contemplating suicide, yesterday it appears that patient overdose on her medicine and then turned the motor vehicle open the garage door she was in [facility] where she was found unresponsive, at home patient takes Ambien tramadol and Xanax, patient was intubated for airway protection, during my evaluation patient is opening her eyes following simple commands, she however remains on ventilator with setting of 14 over 14 assist control tidal volume of 400 with 5 of PEEP and 50% oxygen, labs are significant for a leukocytosis mild hyponatremia and hy perkalemia, COVID-19 testing has been negative urine analysis unremarkable, Objective - Vital Signs Vital signs: Vital Signs Temp 98.9 F 03/17/21 08:17 Pulse 80 03/17/21 08:17 Resp 18 03/17/21 08:17 BP 142/89 03/17/21 08:17 Pulse Ox 98 03/17/21 08:17 Intake & Output 03/16/21 03/17/21 03/17/21 18:59 06:59 18:59 Intake Total 625 Output Total 570 Balance 55 Weight 80.3 kg Intake: IV 625 0.9 NS 625 Output: Urine 570 Other: Voiding Method Indwelling Catheter Toilet Toilet # Voids 1 - Exam - Constitutional General appearance: average body habitus - EENT Eyes: PERRLA Ears: bilateral: normal - Neck Carotids: bilateral: upstroke normal Thyroid: bilateral: normal size - Respiratory Respiratory: bilateral: CTA - Cardiovascular Rhythm: regular Heart sounds: normal: S1, S2 - Integumentary Integumentary: normal turgor - Musculoskeletal Musculoskeletal: generalized weakness - Psychiatric Psychiatric: A&O x's 3, appropriate affect - Labs CBC & Chem 7: 03/17/21 06:51 03/17/21 06:51 Labs: Abnormal Lab Results - Last 24 Hours (Table) 03/17/21 03/17/21 Range/Units 06:51 06:51 WBC 13.05 H (4.50-10.00) X 10*3/uL Immature Gran # 0.05 H (0.00-0.04) X 10*3/uL Neutrophils # 10.80 H (1.80-7.70) X 10*3/uL Eosinophils # 0.03 L (0.04-0.35) X 10*3/uL BUN/Creatinine Ratio 10.00 L (12.00-20.00) Ratio Assessment and Plan Assessment: Left lower lobe pneumonia aspiration versus community-acquired Drug overdose Altered mental status likely related to above versus pneumonia versus COPD exacerbation Major depression Suicidal gesture Plan: successfully weaned and extubated Broad-spectrum antibiotics like Rocephin 1 g daily along with Zithromax 500 mg daily IV steroids 40 mg every 12 Bronchodilators as needed and 3 times a day Suicidal precautions and evaluation DVT and peptic ulcer disease prophylaxis Further plan of care as per clinical response of the patient Time with Patient: Greater than 30
--- NOTE | 2021-03-17 11:09 | HP ---
HISTORY AND PHYSICAL DATE OF SERVICE: 03/16/2021 This 60-year-old white female came with possible overdose or suicide attempt, possibly starting a car in a garage and closing the garage door and was going to sleep out there. Apparently she passed out in the kitchen. She was found hypoxemic and pneumonia. She is on the ventilator, date of service 03/16/2021, in the ICU. She is opening her eyes. Following commands. They are going to wean her off the vent later today. She has mild hyponatremia, hyperkalemia. COVID-19 was pending, but has been negative. REVIEW OF SYSTEMS: Fourteen-point review of systems negative. She is on the vent. PAST MEDICAL HISTORY: Angina, GI bleed, dyslipidemia, liver disease, osteoarthritis, pneumonia, rheumatoid arthritis, severe depression, anxiety, hypothyroidism. She has had gallbladder disease, knee replacement, cholecystectomy with sepsis, chronic cervical pain, lumbar degenerative disc disease, hypothyroid, orthostatic hypotension. PAST SURGICAL HISTORY: Adenoidectomy, back surgery, cholecystectomy, hysterectomy, joint replacement, tonsillectomy. SOCIAL HISTORY: Current everyday smoker. Lives with her . Her found her lying on the floor in the kitchen. She has history of anxiety and depression. FAMILY HISTORY: Mother with brain cancer. Father cancer of the liver. MEDICATIONS: 1. Tramadol 100 mg t.i.d. 2. Xanax 1 mg q.i.d. 3. Seroquel 50 daily. 4. Ambien 10 daily. 5. Lasix 20 daily. 6. ProAir HFA 2 puffs q.4 p.r.n. 7. Voltaren gel topically daily. 8. Levothyroxine 150 daily. 9. Remeron 30 at bedtime. 10.Aspirin 81 daily. 11.Lipitor 40 daily. 12.Metoprolol 25 b.i.d. 13.Carafate 1 gram a.c. t.i.d. ALLERGIES: CODEINE, PENICILLIN, NORCO. PHYSICAL EXAMINATION: She is resting comfortably on the vent. She is opening her eyes. Shaking head to our questions. VITAL SIGNS: Temperature 98, blood pressure is 130 to 160s over 70s, pulse 50s to 60s, respiratory rate 12 to 18. She is overweight. BMI is over 40 CARDIOVASCULAR: S1, S2. LUNGS: Transmitted upper airway sounds. HEMATOLOGY: Negative Homans. PSYCH: Fair mood and affect. NEUROLOGIC: Alert and oriented x3. ABDOMEN: Distended, obesity noted. Nontender. No mass. Sodium 133, potassium 5.4, white count . ASSESSMENT: 1. Left lower lobe aspiration pneumonia versus community-acquired. 2. Possible near suicide attempt, not sure if she took any medicines or not. 3. Chronic obstructive pulmonary disease exacerbation. 4. Suicidal gesture. 5. Major depression. She is on the vent, broad-spectrum antibiotics, steroids, antibiotics, suicide precautions, psych consult. MMODL / IJN: [id number] /
[2021-03-17] MEDS: AZITHROMYCIN 500 MG TAB PO SCH (12:29)
[2021-03-17] MEDS: methylPREDNISolone SOD SUCCI 40 MG/ML 1 ML VIAL IV SCH ×2 (12:31→22:22)
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
[2021-03-17] MEDS: chlordiazePOXIDE 25 MG CAP PO SCH ×2 (13:54→22:23)
--- NOTE | 2021-03-17 14:01 | PN ---
PROGRESS NOTE A 60-year-old white female, status post ventilator, successfully weaned. She is giving appropriate answers. She is admitted for possible suicide attempt. Psych is pending. CARDIOVASCULAR: S1, S2. LUNGS: Clear. GI: Soft. ASSESSMENT: 1. Possible drug overdose. 2. Altered mental status secondary to pneumonia versus chronic obstructive pulmonary disease. 3. Major depression. 4. Suicidal gesture. Wait for psych consult. Continue on broad-spectrum antibiotics and steroids. Suicide precautions. Wait for psych consult to take her to the floor, possibly take her to [address] [place] [address], etc. MMODL / IJN: [id number] /
[2021-03-17] MEDS ORDERED: LORazepam 2 MG/ML INJ IM STA (14:06)
[2021-03-17] MEDS ORDERED: LORazepam 2 MG/ML INJ IV PRN (14:07)
[2021-03-17 14:30] VITALS: BMI 33.4
[2021-03-18] MEDS: SODIUM CHLORIDE 0.9% 1,000 ML IV SCH ×2 (04:28→12:36)
[2021-03-18] MEDS: ATORVASTATIN 40 MG TAB PO SCH (08:22)
[2021-03-18] MEDS: ASPIRIN 81 MG PO SCH (08:22)
[2021-03-18] MEDS: chlordiazePOXIDE 25 MG CAP PO SCH (08:22)
[2021-03-18] MEDS: METOPROLOL TARTRATE 25 MG TAB PO SCH (08:22)
[2021-03-18] MEDS: methylPREDNISolone SOD SUCCI 40 MG/ML 1 ML VIAL IV SCH (08:23)
[2021-03-18] MEDS: PANTOPRAZOLE 40 MG TABLET PO SCH (08:23)
[2021-03-18] MEDS: CHLORHEXIDINE GLUCONATE 15 ML CUP MUCOUS MEM SCH (08:23)
[2021-03-18 08:58] VITALS: BP 114/78; PULSE 74; RESP 16; TEMP 98.6
[2021-03-18 09:01] LABS: Basophils # (A) 0.03 X 10*3/uL (0.00-0.10); Basophils % (A) 0.2 %; Eosinophils # (A) 0 X 10*3/uL (0.04-0.35); Eosinophils % (A) 0 %; HCT 38.8 % (37.2-46.3); HGB 12.5 g/dL (12.0-15.0); Lymphocytes # (A) 1.31 X 10*3/uL (0.90-5.00); Lymphocytes % (A) 10.7 %; MCH 29.1 pg (27.0-32.0); MCHC 32.2 g/dL (32.0-37.0); MCV 90.4 fL (80.0-97.0); Mean Platelet Volume 10.9 fL (9.5-12.2); Monocytes # (A) 0.33 X 10*3/uL (0.20-1.00); Monocytes % (A) 2.7 %; Neutrophils # (A) 10.56 X 10*3/uL (1.80-7.70); Neutrophils % (A) 85.9 %; Platelet Count 287 X 10*3/uL (140-440); RBC 4.29 X 10*6/uL (4.10-5.20); RDW 13.4 % (11.5-14.5); WBC 12.29 X 10*3/uL (4.50-10.00)
[2021-03-18 10:23] LABS: African American GFR (CKD) 70.9 (60.0-200.0); Anion Gap 10.6 mmol/L (4.00-12.00); Calcium 9.1 mg/dL (8.7-10.3); Carbon Dioxide 22.4 mmol/L (21.6-31.8); Non-African American GFR(CKD) 61.2 (60.0-200.0); Potassium 3.6 mmol/L (3.5-5.5)
[2021-03-18] MEDS: AZITHROMYCIN 500 MG TAB PO SCH (11:52)
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
== END 2021-03-18 15:40 | DRG 917 ==
LOC: EC 23:11 → 2SICU 03-16 02:59 → 4SSUR 03-16 17:12
PROVIDERS: ADMIT Family Medicine; ATTEND Family Medicine
PROC: 0BH17EZ Insertion of Endotracheal Airway into Trachea, Via Natural or Artificial Opening (ICD-10-PCS; principal; 2021-03-16)
PROC: 5A1935Z Respiratory Ventilation, Less than 24 Consecutive Hours (ICD-10-PCS; principal; 2021-03-16)
DX: T42.4X2A Poisoning by benzodiazepines, intentional self-harm, initial encounter (principal); J69.0 Pneumonitis due to inhalation of food and vomit; E87.1 Hypo-osmolality and hyponatremia; F13.20 Sedative, hypnotic or anxiolytic dependence, uncomplicated; J44.1 Chronic obstructive pulmonary disease with (acute) exacerbation; T40.422A Poisoning by tramadol, intentional self-harm, initial encounter; Y92.000 Kitchen of unspecified non-institutional (private) residence as the place of occurrence of the external cause; E87.5 Hyperkalemia; E03.9 Hypothyroidism, unspecified; E78.5 Hyperlipidemia, unspecified; F17.210 Nicotine dependence, cigarettes, uncomplicated; K59.00 Constipation, unspecified; F32.9 Major depressive disorder, single episode, unspecified; M06.9 Rheumatoid arthritis, unspecified; I95.1 Orthostatic hypotension; R09.02 Hypoxemia; M51.36 Other intervertebral disc degeneration, lumbar region; Z79.82 Long term (current) use of aspirin; Z79.890 Hormone replacement therapy; Z79.899 Other long term (current) drug therapy; Z80.0 Family history of malignant neoplasm of digestive organs; Z80.8 Family history of malignant neoplasm of other organs or systems; Z20.822 Contact with and (suspected) exposure to COVID-19; Z90.710 Acquired absence of both cervix and uterus; Z96.652 Presence of left artificial knee joint; Z87.01 Personal history of pneumonia (recurrent); Z87.19 Personal history of other diseases of the digestive system; Z90.49 Acquired absence of other specified parts of digestive tract; Z90.89 Acquired absence of other organs; Z88.5 Allergy status to narcotic agent; Z88.0 Allergy status to penicillin
CPT/HCPCS: 36415; 36600; 71045; 80048; 80053; 80143; 80179; 80306; 80320; 81001; 81025; 82375; 82550; 82805; 83605; 83735; 84484; 85025; 87635; 93005; 94002; 96374; 96375; 99285

== ENCOUNTER 2021-03-18 14:23 | Inpatient (IN) | payer MEDICAID ==
[2021-03-18] MEDS ORDERED: ALBUTEROL HFA INHALER INHALATION PRN (15:51)
[2021-03-18] MEDS ORDERED: CALCIUM CARBONATE 500 MG CHEWABLE PO PRN (15:51)
[2021-03-18] MEDS ORDERED: MAG HYDROX/AL HYDROX/SIMETH 30 ML CUP PO PRN (15:56)
[2021-03-18] MEDS ORDERED: LORazepam 1 MG TAB PO PRN (15:56)
[2021-03-18] MEDS ORDERED: MAGNESIUM HYDROXIDE 2,400 MG/10 ML CUP PO PRN (15:56)
[2021-03-18] MEDS ORDERED: ACETAMINOPHEN TAB 325 MG TAB PO PRN (15:56)
[2021-03-18] MEDS ORDERED: HALOPERIDOL LACTATE 5 MG/ML 1 ML VIAL IM PRN (16:01)
[2021-03-18] MEDS ORDERED: LORazepam 2 MG/ML INJ IM PRN (16:01)
[2021-03-18] MEDS: chlordiazePOXIDE 25 MG CAP PO SCH ×2 (17:07→22:19)
[2021-03-18] MEDS: traMADol 50 MG TAB PO PRN (17:12)
[2021-03-18] MEDS: CHLORHEXIDINE GLUCONATE 15 ML CUP MUCOUS MEM SCH (22:19)
[2021-03-18] MEDS: METOPROLOL TARTRATE 25 MG TAB PO SCH (22:19)
[2021-03-19] MEDS: LEVOTHYROXINE 75 MCG TAB PO SCH (06:40)
[2021-03-19] MEDS: traMADol 50 MG TAB PO PRN ×2 (06:55→15:35)
[2021-03-19] MEDS: ATORVASTATIN 40 MG TAB PO SCH (07:54)
[2021-03-19] MEDS: chlordiazePOXIDE 25 MG CAP PO SCH ×2 (07:54→21:15)
[2021-03-19] MEDS: ASPIRIN 81 MG PO SCH (07:54)
[2021-03-19] MEDS: PANTOPRAZOLE 40 MG TABLET PO SCH (07:54)
[2021-03-19] MEDS: METOPROLOL TARTRATE 25 MG TAB PO SCH ×2 (09:52→21:18)
[2021-03-19] MEDS: CHLORHEXIDINE GLUCONATE 15 ML CUP MUCOUS MEM SCH ×2 (10:37→21:16)
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
[2021-03-19] MEDS: AZITHROMYCIN 500 MG TAB PO SCH (12:06)
[2021-03-19 15:02] LABS: T4, Free (Free Thyroxine) 0.17 ng/dL (0.78-2.19)
[2021-03-19] MEDS ORDERED: SERTRALINE 50 MG TAB PO SCH (21:00)
[2021-03-19] MEDS ORDERED: MIRTAZAPINE 15 MG TAB PO SCH (21:00)
[2021-03-19] MEDS: MIRTAZAPINE 15 MG TAB PO SCH (21:14)
[2021-03-20] MEDS: LEVOTHYROXINE 75 MCG TAB PO SCH (06:45)
[2021-03-20] MEDS: ATORVASTATIN 40 MG TAB PO SCH (07:45)
[2021-03-20] MEDS: PANTOPRAZOLE 40 MG TABLET PO SCH (07:45)
[2021-03-20] MEDS: ASPIRIN 81 MG PO SCH (07:45)
[2021-03-20] MEDS: CHLORHEXIDINE GLUCONATE 15 ML CUP MUCOUS MEM SCH ×2 (07:46→21:46)
[2021-03-20] MEDS: METOPROLOL TARTRATE 25 MG TAB PO SCH ×2 (07:47→21:52)
[2021-03-20] MEDS: chlordiazePOXIDE 25 MG CAP PO SCH (07:47)
[2021-03-20] MEDS: traMADol 50 MG TAB PO PRN (07:48)
[2021-03-20] MEDS ORDERED: SERTRALINE 50 MG TAB PO STA (09:08)
--- NOTE | 2021-03-20 11:01 | P.PN ---
Progress Note - Text Progress Note Date: 03/20/21 Interval History: Patient was seen wandering the hallways and was directable and agreeable to speak with junior underwriter in the office. The patient reports that she is feeling better. She continues to report elevated anxiety but states that she has not been expressing any significant panic attacks. She describes anxiety as feeling "an easy and jittery inside." She does appear to be anxious, especially regarding her home medications of Xanax and Ambien. The patient is expressing significant concern for withdrawal from these medications despite much redirection and education on her current medication regimen which has been designed to slowly taper her benzodiazepine medications. At this time, she is not reporting any suicidal or homicidal ideation, intention, and/or plan. She is denying any auditory or visual hallucinations. She denies any paranoia or other delusions. She's been adherent to the medications and is not reporting any significant side effects at this time. She does report some difficulty sleeping. She states that she only slept for about 3-4 hours last night. She denies any issues with appetite. Mental Status Exam: General Appearance: Patient appears to be stated age is alert, directable, and cooperative. Elderly female, dressed in a hospital gown and has a blanket around her due to feeling cold. Behavior: Patient is calmly seated without any agitated behavior. Eye contact is appropriate. Psychomotor activity is normal. Speech: Patient's speech is fluent and nonpressured. Mood/Affect: Mood is described as very nervous, affect is incongruent and appears to be euthymic with appropriate range. Suicidality/Homicidality: Patient denies having any suicidal or homicidal ideation intent or plan. Perceptions: Patient denies any visual hallucinations and denies any auditory hallucinations Though content/process: There is no evidence of any delusional thought content and thought process is linear and goal-directed. Strong fixation on anxiety and benzodiazepine medications. Memory and concentration: AOX3, grossly intact for the purposes of this session Judgment and insight: Improving mildly Assessment Major depressive disorder Anxiety disorder, unspecified Rule out posttraumatic stress disorder Benzodiazepine dependence Plan: -Patient continues to meet criteria for inpatient psychiatric admission for symptom stabilization and safety. Patient has signed adult voluntary form and medication consent and was placed in patient's chart. -Medications: Discontinue Librium. Start Klonopin 1 mg by mouth twice a day. We'll continue this medication as the patient is discharged tomorrow. The patient is recommended to gradually taper off this medication over the next few months. Increase Zoloft to 100 mg by mouth at bedtime for depression/anxiety/panic disorder Continue Remeron 7.5 mg by mouth at bedtime for depression/insomnia Start melatonin 5 mg daily at bedtime for insomnia -When necessary Haldol for agitation/aggression. -SW on board for discharge planning. Encouraged the patient to participate in milieu.
[2021-03-20] MEDS: AZITHROMYCIN 500 MG TAB PO SCH (11:03)
--- NOTE | 2021-03-20 12:12 | CONS ---
CONSULTATION A 60-year-old white female who had a syncopal episode at home, during a suicide attempt for which she had started her car in the garage with the garage door shut. She passed out before she was taken. We reviewed all her home medications and medicines per psych medications and psychiatry at their recommendations. She apparently tried this. She has had this depression for a long time secondary to raising her grand kid for 12 years and then granddaughter was taken away from her by an estranged mother and she has no contact to the patient , which made the patient suicidal. Due to weakness, fatigue, she had a low T4, T3, started her on Synthroid. She is up. REVIEW OF SYSTEMS: Fourteen-point review of systems, she is much more calm now. She is walking in the hallway. Giving appropriate answers. CARDIOVASCULAR: S1, S2. LUNGS: Clear. PSYCH: Fair mood and affect. NEUROLOGIC: Alert and oriented x3. She says she wants to go home. MEDICATIONS: Medications include for blood pressure, GERD, Her severe anxiety is being treated with Klonopin now instead of Xanax. She is on Ventolin for her asthma. Lipitor for dyslipidemia and aspirin. Prognosis extremely guarded, but she is doing much better from psych standpoint. She should be able to be discharged home soon. MMCELYL / IJN: [id number] /
[2021-03-20] MEDS ORDERED: MELATONIN 5 MG TABLET PO SCH (21:00)
[2021-03-20] MEDS ORDERED: clonazePAM 0.5 MG TAB PO SCH (21:00)
[2021-03-20] MEDS: MIRTAZAPINE 15 MG TAB PO SCH (21:43)
[2021-03-20] MEDS: clonazePAM 1 MG TAB PO SCH (21:46)
[2021-03-21] MEDS: LEVOTHYROXINE 75 MCG TAB PO SCH (06:25)
[2021-03-21 06:36] VITALS: BP 112/68; PULSE 76; RESP 14; TEMP 97.8
[2021-03-21] MEDS: ASPIRIN 81 MG PO SCH (07:57)
[2021-03-21] MEDS: PANTOPRAZOLE 40 MG TABLET PO SCH (07:57)
[2021-03-21] MEDS: CHLORHEXIDINE GLUCONATE 15 ML CUP MUCOUS MEM SCH (07:57)
[2021-03-21] MEDS: ATORVASTATIN 40 MG TAB PO SCH (07:57)
[2021-03-21] MEDS: clonazePAM 1 MG TAB PO SCH (07:58)
[2021-03-21] MEDS: METOPROLOL TARTRATE 25 MG TAB PO SCH (07:58)
[2021-03-21] MEDS: traMADol 50 MG TAB PO PRN (08:26)
[2021-03-21] MEDS ORDERED: SERTRALINE 100 MG TAB PO SCH ×2 (09:00→21:00)
[2021-03-21] MEDS ORDERED: clonazePAM 1 MG TAB PO SCH (09:00)
[2021-03-21] MEDS ORDERED: clonazePAM 1 MG TAB PO STA (09:05)
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
== END 2021-03-21 11:10 | disposition home or self-care (01) | DRG 881 ==
LOC: 3MHU 15:50
PROVIDERS: ADMIT Psychiatry & Neurology Psychiatry; ATTEND Psychiatry & Neurology Psychiatry
DX: F32.9 Major depressive disorder, single episode, unspecified (principal); F13.239 Sedative, hypnotic or anxiolytic dependence with withdrawal, unspecified; E03.9 Hypothyroidism, unspecified; E78.5 Hyperlipidemia, unspecified; F17.200 Nicotine dependence, unspecified, uncomplicated; F41.0 Panic disorder [episodic paroxysmal anxiety]; F41.1 Generalized anxiety disorder; F79 Unspecified intellectual disabilities; F80.81 Childhood onset fluency disorder; G47.00 Insomnia, unspecified; M06.9 Rheumatoid arthritis, unspecified; T42.4X2A Poisoning by benzodiazepines, intentional self-harm, initial encounter; Z63.8 Other specified problems related to primary support group; Z79.899 Other long term (current) drug therapy; Z90.710 Acquired absence of both cervix and uterus; Z96.652 Presence of left artificial knee joint
CPT/HCPCS: 84439; 84481; 93005

== ENCOUNTER 2022-03-10 10:56 | Inpatient (IN) | payer OTHER ==
[2022-03-10] MEDS ORDERED: SODIUM CHLORIDE 0.9% 500 ML 500 ML IV STA (11:31)
[2022-03-10] MEDS ORDERED: KETOROLAC 15 MG/ML 1 ML VIAL IVP STA (11:31)
[2022-03-10] MEDS ORDERED: LORazepam 2 MG/ML INJ IV STA (11:32)
[2022-03-10] MEDS ORDERED: MAG HYDROX/AL HYDROX/SIMETH 30 ML, HYOSCYAMINE ELIXIR 10 ML, LIDOCAINE VISCOUS 2% 10 ML PO STA ×3 (11:37)
[2022-03-10] MEDS ORDERED: PANTOPRAZOLE 40 MG/10 ML VIAL IVP STA (11:37)
[2022-03-10 11:42] LABS: Basophils # (A) 0.1 k/uL (0-0.2); Basophils % (A) 1 %; Eosinophils # (A) 0.2 k/uL (0-0.7); Eosinophils % (A) 2 %; HCT 46.9 % (34.0-46.0); HGB 15.2 gm/dL (11.4-16.0); Lymphocytes # (A) 1.8 k/uL (1.0-4.8); Lymphocytes % (A) 19 %; MCH 28.3 pg (25.0-35.0); MCHC 32.4 g/dL (31.0-37.0); MCV 87.5 fL (80.0-100.0); Mean Platelet Volume 8.6; Monocytes # (A) 0.4 k/uL (0-1.0); Monocytes % (A) 4 %; Neutrophils # (A) 7.2 k/uL (1.3-7.7); Neutrophils % (A) 73 %; Platelet Count 354 k/uL (150-450); RBC 5.36 m/uL (3.80-5.40); RDW 12.9 % (11.5-15.5); WBC 9.9 k/uL (3.8-10.6)
[2022-03-10 11:50] LABS: Appearance,Urine Cloudy (Clear); Bacteria,Urine Rare /hpf; Bilirubin,Urine Negative (Negative); Blood,Urine Negative (Negative); Color,Urine Yellow; Glucose,Urine (UA) Negative (Negative); Hyaline Casts,Urine 9 /lpf (0-2); Ketones,Urine Negative (Negative); Leukocyte Esterase,Urine Small (Negative); Mucus,Urine Few /hpf; Nitrite,Urine Negative (Negative); Protein,Urine 1+ (Negative); RBC,Urine 1 /hpf (0-5); Specific Gravity,Urine 1.026 (1.001-1.035); Squamous Epithelial Cell,Urine 52 /hpf (0-4); Urobilinogen,Urine <2.0 mg/dL (<2.0); WBC,Urine 7 /hpf (0-5)
[2022-03-10 11:53] LABS: Albumin 4.6 g/dL (3.5-5.0); Calcium 9.7 mg/dL (8.4-10.2); Potassium 4.1 mmol/L (3.5-5.1); Total Bilirubin 0.5 mg/dL (0.2-1.3)
--- NOTE | 2022-03-10 12:12 | ED ---
General Adult HPI - General Chief complaint: Arrhythmia/Palpitations Stated complaint: Abnormal Labs Time Seen by Provider: 03/10/22 11:10 Source: patient, RN notes reviewed, old records reviewed Mode of arrival: wheelchair - History of Present Illness Initial comments: This is a 61-year-old female presents emergency Department with an extensive past medical history of abdominal pain and gastric reflux. Patient comes in today stating she's been having epigastric abdominal pain and radius to her back for at least 6 months if not longer. Patient denies any fever chills per patient denies any vomiting or diarrhea. Patient states she has occasionally been nauseated. Patient denies any diarrhea. Patient denies any chest pain difficulty breathing shortness of breath. Patient states she has an extensive history of anxiety. Patient also states she can put her finger down her throat feel him see inside her throat and her argues this point stating that she can get her fingers down past her tongue but she insists she can. Patient seems extremely anxious. - Related Data Home Medications Medication Instructions Recorded Confirmed Albuterol Sulfate [Proair Hfa] 1 - 2 puff INHALATION RT-Q6H PRN 01/23/21 03/18/21 Omeprazole 20 mg PO BID 03/16/21 03/18/21 Previous Rx's Medication Instructions Recorded Atorvastatin [Lipitor] 40 mg PO DAILY 90 Days #90 tab 01/25/21 Metoprolol Tartrate [Lopressor] 25 mg PO BID 90 Days #180 tab 01/25/21 Calcium Carbonate [Tums] 1,000 mg PO QID PRN chew 03/17/21 Chlorhexidine Gluconate [Peridex] 15 ml MUCOUS MEM BID ml 03/17/21 Aspirin 81 mg PO DAILY 30 Days chew 03/21/21 Azithromycin [Zithromax] 500 mg PO DAILY@1200 3 Days tab 03/21/21 Levothyroxine Sodium [Synthroid] 150 mcg PO DAILY@0630 30 Days tab 03/21/21 Melatonin 5 mg PO HS 30 Days tablet 03/21/21 Mirtazapine [Remeron] 7.5 mg PO HS 30 Days tab 03/21/21 Sertraline [Zoloft] 100 mg PO DAILY 30 Days tab 03/21/21 clonazePAM [KlonoPIN] 1 mg PO TID 30 Days tab 03/21/21 Allergies Allergy/AdvReac Type Severity Reaction Status Date / Time codeine Allergy Rash/Hives Verified 03/10/22 11:11 Penicillins Allergy Rash/Hives Verified 03/10/22 11:11 hydrocodone [From [facility]] AdvReac Severe Abdominal Verified 03/10/22 11:11 Pain,vomiting Review of Systems ROS Statement: Those systems with pertinent positive or pertinent negative responses have been documented in the HPI. ROS Other: All systems not noted in ROS Statement are negative. Past Medical History Past Medical History: Chest Pain / Angina, GERD/Reflux, GI Bleed, Hyperlipidemia, Liver Disease, Osteoarthritis (OA), Pneumonia, Rheumatoid Arthritis (RA), Thyroid Disorder Additional Past Medical History / Comment(s): Liver problem with gallbladder disease and was septic/had cholecystectom and biliary drainage tube, chronic cervical pain/chronic low back and L knee pain, colitis, diverticulitis, gastritis, lower GI bleed, constipation, orthostatic hypotention, bilateral lower leg edema, hypothyroid History of Any Multi-Drug Resistant Organisms: None Reported Past Surgical History: Adenoidectomy, Back Surgery, Cholecystectomy, Hysterectomy, Joint Replacement, Tonsillectomy Additional Past Surgical History / Comment(s): EGD, colonosocpy, cadavar bone placed in c-4 through C-7 with titanium jarod, left knee replacement, lower back epidural injections/ablation. Past Anesthesia/Blood Transfusion Reactions: Postoperative Nausea & Vomiting (PONV) Past Psychological History: Anxiety, Depression Smoking Status: Current every day smoker Past Alcohol Use History: None Reported Past Drug Use History: None Reported - Past Family History Mother Family Medical History: Cancer Additional Family Medical History / Comment(s): Brain CA Father Family Medical History: Cancer Additional Family Medical History / Comment(s): liver CA General Exam - General Exam Comments Initial Comments: GENERAL: Patient is well-developed and well-nourished. Patient is nontoxic and well- hydrated and is in mild distress. ENT: Neck is soft and supple. No significant lymphadenopathy is noted. Oropharynx is clear. Moist mucous membranes. Neck has full range of motion without eliciting any pain. EYES: The sclera were anicteric and conjunctiva were pink and moist. Extraocular movements were intact and pupils were equal round and reactive to light. Eyelids were unremarkable. PULMONARY: Unlabored respirations. Good breath sounds bilaterally. No audible rales rhonchi or wheezing was noted. CARDIOVASCULAR: There is a regular rate and rhythm without any murmurs gallops or rubs. ABDOMEN: Mild epigastric and right upper quadrant abdominal pain SKIN: Skin is clear with no lesions or rashes and otherwise unremarkable. NEUROLOGIC: Patient is alert and oriented x3. Cranial nerves II through XII are grossly intact. Motor and sensory are also intact. Normal speech, volume and content. Symmetrical smile. MUSCULOSKELETAL: Normal extremities with adequate strength and full range of motion. No lower extremity swelling or edema. No calf tenderness. LYMPHATICS: No significant lymphadenopathy is noted PSYCHIATRIC: Very anxious Course Vital Signs 03/10/22 03/10/22 03/10/22 11:09 11:22 11:56 Temperature 97.5 F L Pulse Rate 36 L 89 Pulse Rate [ 102 H Inspector Multifocal Lens ] Respiratory 18 22 Rate Blood Pressure 156/71 162/96 O2 Sat by Pulse 97 95 Oximetry Medical Decision Making - Medical Decision Making EKG shows sinus tachycardia 111 bpm FL interval 183 QRS is 88 QT interval 348 QTC is 414. Patient's EKG shows multiple PVCs. Patient was given Ativan and she became more relaxed heart rate came down but she still stated her epigastrium was better but not gone. I spoke with Dr. Samayoa he agreed to admit the patient admitted the patient wrote admitting or epigastric abdominal pain - Lab Data Result diagrams: 03/10/22 11:33 03/10/22 11:33 Lab Results 03/10/22 03/10/22 03/10/22 Range/Units 11:33 11:33 11:33 WBC 9.9 (3.8-10.6) k/uL RBC 5.36 (3.80-5.40) m/uL Hgb 15.2 (11.4-16.0) gm/dL Hct 46.9 H (34.0-46.0) % MCV 87.5 (80.0-100.0) fL MCH 28.3 (25.0-35.0) pg MCHC 32.4 (31.0-37.0) g/dL RDW 12.9 (11.5-15.5) % Plt Count 354 (150-450) k/uL MPV 8.6 Neutrophils % 73 % Lymphocytes % 19 % Monocytes % 4 % Eosinophils % 2 % Basophils % 1 % Neutrophils # 7.2 (1.3-7.7) k/uL Lymphocytes # 1.8 (1.0-4.8) k/uL Monocytes # 0.4 (0-1.0) k/uL Eosinophils # 0.2 (0-0.7) k/uL Basophils # 0.1 (0-0.2) k/uL Sodium 137 (137-145) mmol/L Potassium 4.1 (3.5-5.1) mmol/L Chloride 106 (98-107) mmol/L Carbon Dioxide 20 L (22-30) mmol/L Anion Gap 11 mmol/L BUN 13 (7-17) mg/dL Creatinine 0.88 (0.52-1.04) mg/dL Est GFR (CKD-EPI)AfAm 83 (>60 ml/min/1.73 sqM) Est GFR (CKD-EPI)NonAf 72 (>60 ml/min/1.73 sqM) Glucose 131 H (74-99) mg/dL Plasma Lactic Acid Tae (0.7-2.0) mmol/L Calcium 9.7 (8.4-10.2) mg/dL Total Bilirubin 0.5 (0.2-1.3) mg/dL AST 23 (14-36) U/L ALT 20 (4-34) U/L Alkaline Phosphatase 123 (38-126) U/L Troponin I (0.000-0.034) ng/mL Total Protein 8.0 (6.3-8.2) g/dL Albumin 4.6 (3.5-5.0) g/dL Amylase 52 (30-110) U/L Lipase 49 (23-300) U/L Urine Color Yellow Urine Appearance Cloudy H (Clear) Urine pH 6.0 (5.0-8.0) Ur Specific [place] 1.026 (1.001-1.035) Urine Protein 1+ H (Negative) Urine Glucose (UA) Negative (Negative) Urine Ketones Negative (Negative) Urine Blood Negative (Negative) Urine Nitrite Negative (Negative) Urine Bilirubin Negative (Negative) Urine Urobilinogen <2.0 (<2.0) mg/dL Ur Leukocyte Esterase Small H (Negative) Urine RBC 1 (0-5) /hpf Urine WBC 7 H (0-5) /hpf Ur Squamous Epith Cells 52 H (0-4) /hpf Urine Bacteria Rare H (None) /hpf Hyaline Casts 9 H (0-2) /lpf Urine Mucus Few H (None) /hpf 03/10/22 03/10/22 Range/Units 11:33 11:37 WBC (3.8-10.6) k/uL RBC (3.80-5.40) m/uL Hgb (11.4-16.0) gm/dL Hct (34.0-46.0) % MCV (80.0-100.0) fL MCH (25.0-35.0) pg MCHC (31.0-37.0) g/dL RDW (11.5-15.5) % Plt Count (150-450) k/uL MPV Neutrophils % % Lymphocytes % % Monocytes % % Eosinophils % % Basophils % % Neutrophils # (1.3-7.7) k/uL Lymphocytes # (1.0-4.8) k/uL Monocytes # (0-1.0) k/uL Eosinophils # (0-0.7) k/uL Basophils # (0-0.2) k/uL Sodium (137-145) mmol/L Potassium (3.5-5.1) mmol/L Chloride (98-107) mmol/L Carbon Dioxide (22-30) mmol/L Anion Gap mmol/L BUN (7-17) mg/dL Creatinine (0.52-1.04) mg/dL Est GFR (CKD-EPI)AfAm (>60 ml/min/1.73 sqM) Est GFR (CKD-EPI)NonAf (>60 ml/min/1.73 sqM) Glucose (74-99) mg/dL Plasma Lactic Acid Tae 1.5 (0.7-2.0) mmol/L Calcium (8.4-10.2) mg/dL Total Bilirubin (0.2-1.3) mg/dL AST (14-36) U/L ALT (4-34) U/L Alkaline Phosphatase (38-126) U/L Troponin I <0.012 (0.000-0.034) ng/mL Total Protein (6.3-8.2) g/dL Albumin (3.5-5.0) g/dL Amylase (30-110) U/L Lipase (23-300) U/L Urine Color Urine Appearance (Clear) Urine pH (5.0-8.0) Ur Specific [place] (1.001-1.035) Urine Protein (Negative) Urine Glucose (UA) (Negative) Urine Ketones (Negative) Urine Blood (Negative) Urine Nitrite (Negative) Urine Bilirubin (Negative) Urine Urobilinogen (<2.0) mg/dL Ur Leukocyte Esterase (Negative) Urine RBC (0-5) /hpf Urine WBC (0-5) /hpf Ur Squamous Epith Cells (0-4) /hpf Urine Bacteria (None) /hpf Hyaline Casts (0-2) /lpf Urine Mucus (None) /hpf Disposition Clinical Impression: Abdominal pain, Anxiety Disposition: ADMITTED IP TO THIS HOSP Referrals: Elmer Samayao MD [Primary Care Provider] - 1-2 days Time of Disposition: 12:45
[2022-03-10] MEDS ORDERED: SODIUM CHLORIDE 0.9% 1,000 ML IV ONE (12:45)
--- NOTE | 2022-03-10 13:40 | P.CN ---
Psychiatric Consult - . Consult date: 03/10/22 Consult:: 03/10/22 13:04 IDENTIFYING DATA: Patient is a , on disability, 61-year-old female, has 1 son. Reason for consultation: Anxiety HPI: Patient presented to the emergency department from her PCPs office. Currently patient was complaining of abdominal pain and "epigastric burning" for the past 6 months or so. She states that she has a significant history of anxiety. Patient does not have a psychiatrist progress following up with her PCP for her medications. Her last psychiatric admission was February 2021. She was approached by web content writer today to speak. Patient appeared to be laying on her side and states that she is still having the pain. She claims that "I don't need a psychiatrist" to web content writer when he introduced himself. She states that she has been doing okay with her medications and denied any complaints. She states that she is taking Zoloft and Xanax. She claims that she is able to sleep throughout the night. She states that she has always had "anxiety" since she was little. She claims that she also has a history of panic attacks however has been doing well with her medications. She states that "I've always been a worrier". She is denying any depression at this time. She denies any problems with appetite. She states that she stopped taking her Zoloft about one week ago because it was giving her side effects such as dizziness and palpitations. In regards to bipolar symptoms, the patient denies any significant history of shilo. She denies any periods of excessive energy, mood swings, or increased goal directed behavior. She reports no history of any psychotic symptoms. She denies any auditory or visual hallucinations. She denies any paranoia or other delusions. She is denying any suicidal or homicidal ideations intent or plan. Denying any auditory or visual hallucinations. PAST PSYCHIATRIC HISTORY: Patient states that She has a history of anxiety and depression. prior to this admission, she has been on her prescribed regimen of Seroquel, Xanax, Remeron. Patient did have 1 psychiatric hospitalization one year ago on the mental health unit. she is prescribed her psychotropic medications through her outpatient primary care physician. Patient states that she did have 1 overdose suicide attempt one year ago. PMH: Past Medical History: Chest Pain / Angina, GERD/Reflux, GI Bleed, Hyperlipidemia, Liver Disease, Osteoarthritis (OA), Pneumonia, Rheumatoid Arthritis (RA), Thyroid Disorder Additional Past Medical History / Comment(s): Liver problem with gallbladder disease and was septic/had cholecystectom and biliary drainage tube, chronic cervical pain/chronic low back and L knee pain, colitis, diverticulitis, gastritis, lower GI bleed, constipation, orthostatic hypotention, bilateral lower leg edema, hypothyroid ALLERGIES: Codeine, penicillin, hydrocodone CHEMICAL DEPENDENCY HISTORY: patient reports experimenting with marijuana when she was 17 years old. She denies any use since then. She currently denies any tobacco, alcohol, or illicit drug use. FAMILY PSYCHIATRIC/SUBSTANCE USE HISTORY: denies SOCIAL HISTORY: Patient was born and raised in [place], [place]. She was living in [place] but moved back to [place] in 2009. She has been for 20+ years with her current spouse. She has 1 adult son who is 43 years of age. She has a 12-year-old granddaughter was previously in the house but is now currently living with her mother as of November 20. She is currently on disability for intellectual disability. She reports the Hinduism zoroastrianism. She denies any legal issues or history. MENTAL STATUS EXAM: General Appearance: Patient appears to be stated age is alert, directable, and attempts to cooperate. Patient appears to have fair hygiene and grooming. Behavior: Patient is laying on her bed on her side. Attempts to cooperate. Speech: Patient's speech is fluent and nonpressured. Hyperverbal and repetitive, somewhat circumstantial. Mood/Affect: Patient reports their mood is "okay", affect is slightly expansive and nervous. Suicidality/Homicidality: Patient denies having any homicidal ideation intent or plan. Denies any suicidal ideations intent or plan Perceptions: Patient denies any visual hallucinations and denies any auditory hallucinations Though content/process: There is no evidence of any delusional thought content and thought process is linear and goal-directed. Rambles. Memory and concentration: AOX3, grossly intact for the purposes of this session. Can spell "WORLD" backwards Judgment and insight: Fair IMPRESSIONS: Generalized anxiety disorder PLAN: -At this time patient DOES NOT meet criteria for inpatient psychiatric admission. -Would recommend the following medication changes/additions: We'll resume patient's home medications including Seroquel, 50 mg daily at bedtime and Remeron 7.5 mg daily at bedtime. Discontinue Zoloft at this time and replaced with Cymbalta 30 mg daily for mood/anxiety. BuSpar added 10 mg 3 times a day for anxiety. -picking table worker to provide patient with outpatient mental health/psychiatry resources for appropriate follow up upon discharge -Communicated plan to patient's nurse -Will continue to follow along tomorrow. -Please contact with any questions.
[2022-03-10] MEDS: DULoxetine HCL 30 MG CAPSULE.DR PO SCH (14:00)
[2022-03-10] MEDS: busPIRone HCl 10 MG TAB PO SCH ×2 (16:18→21:35)
[2022-03-10] MEDS ORDERED: IOPAMIDOL CONTRAST (ORAL USE) VIAL PO PRN (16:52)
[2022-03-10] MEDS: ALPRAZolam 0.5 MG TAB PO PRN ×2 (17:18→23:38)
--- NOTE | 2022-03-10 19:39 | CT ---
EXAMINATION TYPE: CT abdomen pelvis wo con DATE OF EXAM: 03/10/2022 COMPARISON: 01/23/2021 HISTORY: Generalized abdominal pain. CT DLP: 1258.4 mGycm Automated exposure control for dose reduction was used. The lung bases are clear. There is no pleural effusion. Heart size is normal. There is no pericardial effusion. Liver spleen and stomach pancreas appear intact. The bile ducts are not dilated. There are clips from cholecystectomy. There is no adrenal mass. Kidneys have fairly normal size and contour. There is no hydronephrosis. Th e ureters are not dilated. There is no retroperitoneal adenopathy. The bladder distends smoothly. The re is no inguinal hernia. No free fluid in the pelvis. There is no mesenteric edema. No ascites or free air. No sign of a bowel obstruction. Terminal ileum appears normal. Appendix is medial and best seen on coronal image 66 and appears normal. There is mild atheromatous change in the abdominal aorta. There is no evidence of a mass. The lumbar vertebrae are fairly normal spacing and alignment. There is a minimal degenerative first-degree L4-5 spondylolisthesis. No compression fracture. The bony pelvis appears intact. The hip joints appear int act. Small bowel pattern is normal. IMPRESSION: Normal appendix. No evidence of acute abdomen and pelvis.
[2022-03-10] MEDS: MIRTAZAPINE 15 MG TAB PO SCH (21:34)
[2022-03-10] MEDS: QUEtiapine 50 MG TAB PO SCH (21:35)
[2022-03-10] MEDS: KETOROLAC 15 MG/ML 1 ML VIAL IVP PRN (21:42)
[2022-03-11] MEDS: ALPRAZolam 0.5 MG TAB PO PRN ×3 (08:35→23:48)
[2022-03-11] MEDS: busPIRone HCl 10 MG TAB PO SCH ×3 (08:35→21:00)
[2022-03-11] MEDS: DULoxetine HCL 30 MG CAPSULE.DR PO SCH (08:35)
--- NOTE | 2022-03-11 13:36 | P.PN ---
Progress Note - Text Progress Note Date: 03/11/22 Interval History: Patient was seen today for psychiatric follow-up. Patient was agreeable to sp jaimek to mortgage or loan underwriter today at the bedside. Patient claims that she is doing better today with regards her anxiety. She is denying any depression adamantly today. She states that she never feels depressed and states that "I have a lot to look forward to". She spoke about grieving her son's as he earlier this year. She states that she has been tolerating the Cymbalta well and wants to remain on the specifics of Zoloft. She has 4 questions about her medications. She states that she is able to sleep fairly last night. At this time patient denies any suicidal or homical ideations, intent or plan. Patient denies any auditory, visual hallucinations and denies any paranoia or delusions. Patient denies any side effects from the medications and has been compliant with meds. Mental Status Exam: General Appearance: Patient appears to be stated age is alert, directable, and attempts to cooperate. Patient appears to have fair hygiene and grooming. Behavior: Patient is laying on her bed on her side. Attempts to cooperate. Speech: Patient's speech is fluent and nonpressured. somewhat circumstantial. Mood/Affect: Patient reports their mood is "better", affect is appropriate yet constricted. Suicidality/Homicidality: Patient denies having any homicidal ideation intent or plan. Denies any suicidal ideations intent or plan Perceptions: Patient denies any visual hallucinations and denies any auditory hallucinations Though content/process: There is no evidence of any delusional thought content and thought process is linear and goal-directed. Memory and concentration: AOX3, grossly intact for the purposes of this session Judgment and insight: Fair IMPRESSIONS: Generalized anxiety disorder PLAN: -At this time patient DOES NOT meet criteria for inpatient psychiatric admission. -Would recommend the following medication changes/additions: Seroquel, 50 mg daily at bedtime, Remeron 7.5 mg daily at bedtime, Cymbalta 30 mg daily for mood/anxiety. BuSpar 10 mg 3 times a day for anxiety. -sand worker to provide patient with outpatient mental health/psychiatry resources for appropriate follow up upon discharge -Communicated plan to patient's nurse -at this time psychiatry will sign off -Please contact with any questions.
--- NOTE | 2022-03-11 14:24 | P.GSCN ---
History of Present Illness Consult date: 03/11/22 History of present illness: CHIEF COMPLAINT: Abdominal pain HISTORY OF PRESENT ILLNESS: This is a 61-year-old female presented to the hospital with complaints of epigastric abdominal pain and right upper quadrant pain with nausea. She reported that this is an ongoing issue for her at least for 6 months. She reports that the food sticks in the lower esophagus and in the epigastric area. She denies vomiting. She reports having a history of cholecystectomy with biliary drainage tube over 30 years ago. She does report occasional blood in her stools and the last episode of bloody stool was this morning. She reports that this is not new. She does have a history of hemorrhoids and issues with constipation. She does report history of constipation. Last EGD was in 01/18/2021 with evidence of gastritis. She had a computed tomography scan abdomen and pelvis which was negative. PAST MEDICAL HISTORY: Anxiety, Chest Pain / Angina, GERD/Reflux, GI Bleed, Hyperlipidemia, Liver Disease, Osteoarthritis (OA), Pneumonia, Rheumatoid Arthritis (RA), Thyroid Disorder, Liver problem with gallbladder disease and was septic/had cholecystect om and biliary drainage tube, chronic cervical pain/chronic low back and L knee pain, colitis, diverticulitis, gastritis, lower GI bleed, constipation, orthostatic hypotention, bilateral lower leg edema, hypothyroid PAST SURGICAL HISTORY: See list. MEDICATIONS: See list. ALLERGIES: See list. SOCIAL HISTORY: No illicit drug use. REVIEW OF SYSTEMS: CONSTITUTIONAL: Denies fever or chills. HEENT: Denies blurred vision, vision changes, or eye pain. Denies hemoptysis CARDIOVASCULAR: Denies chest pain or pressure. RESPIRATORY: No shortness of breath. GASTROINTESTINAL: See HPI for pertinent findings HEMATOLOGIC: Denies bleeding disorders. GENITOURINARY: Denies any blood in urine or increased urinary frequency. SKIN: Denies pruitis. Denies rash. PHYSICAL EXAM: VITAL SIGNS: Reviewed GENERAL: Well-developed in no acute distress. HEENT: No sclera icterus. Extraocular movements grossly intact. Moist buccal mucosa. Head is atraumatic, normocephalic. No nasal drainage. ABDOMEN: Soft. Nondistended. Tenderness to palpation of the epigastric area NEUROLOGIC: Alert and oriented. Cranial nerves II through XII grossly intact. LABORATORY DATA: WBC is 9.9 hemoglobin 15.2 platelets 354 Sodium 137 potassium 4.1 creatinine 0.88 Lactic acid 1.5 LFTs normal Lipase 49 IMAGING: Computed tomography scan abdomen and pelvis normal appendix. No acute abdomen and pelvis ASSESSMENT: 1. Epigastric abdominal pain 2. Dysphagia 3. Nausea PLAN: -Patient is scheduled for upper GI with small bowel follow-through tomorrow -She can have full liquid diet today -Recommend EGD in the outpatient setting -Continue supportive care -Continue PPI Thank you for this consultation Physician Hoisting Engineer Pile Driving note has been reviewed by physician. Signing provider agrees with the documented findings, assessment, and plan of care. Past Medical History Past Medical History: Chest Pain / Angina, GERD/Reflux, GI Bleed, Hyperlipidemia, Liver Disease, Osteoarthritis (OA), Pneumonia, Rheumatoid Arthritis (RA), Thyroid Disorder Additional Past Medical History / Comment(s): Liver problem with gallbladder disease and was septic/had cholecystectom and biliary drainage tube, chronic cervical pain/chronic low back, colitis, diverticulitis, gastritis, lower GI bleed, constipation, orthostatic hypotention, bilateral lower leg edema, hyp othyroid, recent vertigo History of Any Multi-Drug Resistant Organisms: None Reported Past Surgical History: Adenoidectomy, Back Surgery, Cholecystectomy, Hysterectomy, Joint Replacement, Tonsillectomy Additional Past Surgical History / Comment(s): EGD, colonosocpy, cadavar bone placed in c-4 through C-7 with titanium jarod, left knee replacement, lower back epidural injections/ablation. Past Anesthesia/Blood Transfusion Reactions: Postoperative Nausea & Vomiting (PONV) Past Psychological History: Anxiety, Depression Additional Psychological History / Comment(s): Pt resides with her spouse. She uses no assistive device. She has not driven for the past year, her spouse drives. Smoking Status: Former smoker Past Alcohol Use History: None Reported Additional Past Alcohol Use History / Comment(s): Pt started smoking in 1974 and quit 6 months ago. Past Drug Use History: None Reported - Past Family History Mother Family Medical History: Cancer Additional Family Medical History / Comment(s): Brain CA Father Family Medical History: Cancer Additional Family Medical History / Comment(s): liver CA Medications and Allergies Home Medications Medication Instructions Recorded Confirmed Type Omeprazole 20 mg PO BID 03/16/21 03/10/22 History ALPRAZolam [Xanax] 0.5 mg PO QID 03/10/22 03/10/22 History Furosemide [Lasix] 20 mg PO DAILY 03/10/22 03/10/22 History Lactobacillus Acidophilus 1 tab PO DAILY 03/10/22 03/10/22 History [Acidophilus] Levothyroxine Sodium [Synthroid] 150 mcg PO DAILY 03/10/22 03/10/22 History Linaclotide [Linzess] 290 mcg PO DAILY 03/10/22 03/10/22 History Mirtazapine [Remeron Soluspan] 30 mg PO HS 03/10/22 03/10/22 History QUEtiapine FUMARATE [SEROquel XR] 50 mg PO HS 03/10/22 03/10/22 History Sertraline [Zoloft] 50 mg PO BID 03/10/22 03/10/22 History Allergies Allergy/AdvReac Type Severity Reaction Status Date / Time codeine Allergy Rash/Hives Verified 03/10/22 12:57 hydrocodone [From [place]] AdvReac Severe Abdominal Verified 03/10/22 12:57 Pain,vomiting Penicillins AdvReac Nausea & Verified 03/10/22 12:57 Vomiting & Diarrhea Surgical - Exam Vital Signs Temp Pulse Resp BP Pulse Ox 97.5 F L 36 L 18 156/71 97 03/10/22 11:09 03/10/22 11:09 03/10/22 11:09 03/10/22 11:09 03/10/22 11:09 Results - Labs 03/10/22 11:33 03/10/22 11:33
[2022-03-11] MEDS ORDERED: PANTOPRAZOLE 40 MG/10 ML VIAL IVP SCH (14:30)
[2022-03-11] MEDS: PANTOPRAZOLE 40 MG TABLET PO SCH (14:35)
--- NOTE | 2022-03-11 17:48 | PN ---
PROGRESS NOTE This 61-year-old white female has progressive nausea and vomiting, abdominal pain with severe anxiety, for which Psychiatry had seen her. She is scheduled for an EGD tomorrow. Her CT scan of the abdomen and pelvis shows some L4 spondylolisthesis but nothing that is causing any abdominal blockages. Due to progressive nausea and vomiting, she is set up for EGD tomorrow. Wait for further orders. Possibly a barium swallow to check for GI blockages causing chronic abdominal pain. MMODL / IJN: [id number] /
[2022-03-11] MEDS: QUEtiapine 50 MG TAB PO SCH (21:00)
[2022-03-11] MEDS: MIRTAZAPINE 15 MG TAB PO SCH (21:01)
[2022-03-11] MEDS: FUROSEMIDE 20 MG TAB PO SCH (21:23)
[2022-03-12] MEDS: LEVOTHYROXINE 75 MCG TAB PO SCH (05:26)
[2022-03-12] MEDS: KETOROLAC 15 MG/ML 1 ML VIAL IVP PRN ×2 (05:29→17:42)
[2022-03-12] MEDS: busPIRone HCl 10 MG TAB PO SCH ×3 (08:01→23:40)
[2022-03-12] MEDS: PANTOPRAZOLE 40 MG TABLET PO SCH (08:01)
[2022-03-12] MEDS: DULoxetine HCL 30 MG CAPSULE.DR PO SCH (08:01)
[2022-03-12] MEDS: FUROSEMIDE 20 MG TAB PO SCH (08:01)
[2022-03-12] MEDS: ALPRAZolam 0.5 MG TAB PO PRN ×3 (08:11→23:40)
--- NOTE | 2022-03-12 15:39 | P.PN ---
Subjective Progress Note Date: 03/12/22 CHIEF COMPLAINT: Abdominal pain HISTORY OF PRESENT ILLNESS: Patient reports some improvement in her upper abdominal pain. She does complain of upset stomach. Denies any nausea or vomiting. Patient scheduled for upper GI today. Results are pending. Patient did report having loose stools. She did have 2 stools this morning with a small amount of blood. PHYSICAL EXAM: VITAL SIGNS: Reviewed. GENERAL: Well-developed in no acute distress. HEENT: No sclera icterus. Extraocular movements grossly intact. Moist buccal mucosa. Head is atraumatic, normocephalic. ABDOMEN: Soft. Nondistended. Mild tenderness in the epigastric area NEUROLOGIC: Alert and oriented. Cranial nerves II through XII grossly intact. ASSESSMENT: 1. Epigastric abdominal pain 2. Dysphagia 3. Nausea 4. Blood in stools PLAN: -Follow up on upper GI results -Recommend EGD in the outpatient setting -Continue supportive care -Continue PPI -Check stool for occult blood -Check CBC Physician Mobile Product Manager note has been reviewed by physician. Signing provider agrees with the documented findings, assessment, and plan of care. Objective - Vital Signs Vital signs: Vital Signs Temp 98.3 F 03/12/22 07:00 Pulse 71 03/12/22 13:14 Resp 20 03/12/22 13:14 BP 105/67 03/12/22 07:00 Pulse Ox 97 03/12/22 07:00 Intake & Output 03/11/22 03/12/22 03/12/22 18:59 06:59 18:59 Intake Total 330 Balance 330 Intake: Oral 330 Other: Voiding Method Toilet # Voids 1 1 3 - Labs CBC & Chem 7: 03/10/22 11:33 03/10/22 11:33
--- NOTE | 2022-03-12 17:52 | PN ---
PROGRESS NOTE This 61-year-old white female had upper GI bleeding. Small-bowel follow-through to be read. Results are pending. She has had some GI bleeding today with two bloody stools. Waiting for Surgery to clear her for discharge. Waiting for the bowel study to be read. Cardiovascular S1-S2. Lungs clear. Psych anxious and nervous. Abdomen mild tenderness, epigastric. ASSESSMENT: 1. Epigastric abdominal pain. 2. Dysphagia. 3. Nausea. 4. Blood in stools. EGD outpatient. Waiting for upper GI results. Continue supportive care. Psych was seeing her for anxiety and depression. Continue proton pump inhibitor. Prognosis guarded. MMODL / IJN: [id number] /
--- NOTE | 2022-03-12 18:22 | FL ---
EXAMINATION TYPE: FL UGI w esophagus w sm bowel DATE OF EXAM: 03/12/2022 COMPARISON: Correlation CT 03/10/2022 HISTORY: 61-year-old female dysphagia, epigastric pain. TECHNIQUE: A double contrast contrast esophagram and UGI study is performed with small bowel follow through. A total of 2 minutes of fluoroscopic time was utilized during procedure and 68 images obtai aissatou. FINDINGS: Animal Pathologist image of the abdomen shows nonobstructive bowel gas pattern. There is C3-C6 posterior cervical fusion hardware. There is an episode of deep penetration with coating of the vocal folds. Otherwise, the swallowing me chanism is normal. There is moderate hypertrophy of the cricopharyngeus. The thoracic portion has a normal course and caliber. Mild tertiary peristaltic waves are demonstrate d. There is a small to moderate-sized hiatal hernia with moderate gastroesophageal reflux to the upper t hird chest. The stomach shows normal distensibility, peristalsis, and mucosal folds. A couple small round smooth filling defects probably represent air bubbles relating to the effervescent granules. In the setting of epigastric pain, mild gastritis with small hyperplastic polyps are also possible. No evidence of any mass or ulcer disease. The duodenal bulb and sweep are unremarkable. The small bowel study shows normal transit to the colon in less than one hour. There is normal mucosa l fold pattern throughout the small bowel. There is no evidence of any stricture or filling defect n oted. The terminal ileum is unremarkable. IMPRESSION: 1. An episode of deep penetration with coating of the vocal folds. Correlate for any complaints of re current episodes of aspiration. Speech pathology referral for further evaluation of the swallowing me chanism if clinically indicated. 2. Moderate CP muscle hypertrophy. This may be a protective mechanism to guard against chronic gastro esophageal reflux. 3. There is a small to moderate-sized hiatal hernia with at least moderate gastroesophageal reflux to the upper third chest. 4. The stomach may contain a couple small hyperplastic polyps that may be an indicator of some chroni c gastritis. 5. Unremarkable small bowel follow-through
[2022-03-12] MEDS: MIRTAZAPINE 15 MG TAB PO SCH (23:40)
[2022-03-12] MEDS: QUEtiapine 50 MG TAB PO SCH (23:40)
[2022-03-13] MEDS: LEVOTHYROXINE 75 MCG TAB PO SCH (05:31)
[2022-03-13] MEDS: PANTOPRAZOLE 40 MG TABLET PO SCH (07:35)
[2022-03-13] MEDS: busPIRone HCl 10 MG TAB PO SCH ×3 (07:35→23:16)
[2022-03-13] MEDS: DULoxetine HCL 30 MG CAPSULE.DR PO SCH (07:36)
[2022-03-13] MEDS: FUROSEMIDE 20 MG TAB PO SCH (07:36)
[2022-03-13] MEDS: KETOROLAC 15 MG/ML 1 ML VIAL IVP PRN ×2 (07:38→19:53)
[2022-03-13] MEDS: ALPRAZolam 0.5 MG TAB PO PRN ×3 (07:38→23:15)
[2022-03-13 10:27] LABS: Basophils # (A) 0.06 X 10*3/uL (0.00-0.10); Basophils % (A) 0.8 %; Eosinophils # (A) 0.22 X 10*3/uL (0.04-0.35); HCT 40.3 % (37.2-46.3); HGB 12.4 g/dL (12.0-15.0); Immature Grans, Automated 0.3 %; Lymphocytes # (A) 1.98 X 10*3/uL (0.90-5.00); MCH 27.8 pg (27.0-32.0); MCHC 30.8 g/dL (32.0-37.0); MCV 90.4 fL (80.0-97.0); Mean Platelet Volume 11.3 fL (9.5-12.2); Monocytes # (A) 0.49 X 10*3/uL (0.20-1.00); Monocytes % (A) 6.7 %; NRBC Per 100 WBC 0 /100 WBCS (0.0-0.0); Neutrophils # (A) 4.55 X 10*3/uL (1.80-7.70); Neutrophils % (A) 62.2 %; Platelet Count 294 X 10*3/uL (140-440); RBC 4.46 X 10*6/uL (4.10-5.20); RDW 13.6 % (11.5-14.5); WBC 7.32 X 10*3/uL (4.50-10.00)
[2022-03-13] MEDS: MECLIZINE 12.5 MG TAB PO SCH ×2 (13:31→19:57)
--- NOTE | 2022-03-13 18:52 | P.PN ---
Progress Note - Text Progress Note Date: 03/13/22 Presenting complaint: Dizziness Hospital course: I'm rounding for Dr. Elmer Samayoa. Patient presented upper abdominal pain present for at least 6 months and reflux symptoms.. March 13: Patient had undergone upper GI and small bowel follow-through. No specific findings. No further intervention per surgery. Patient does complain of dizziness that she's had for some time. Also complains of ringing in the ear. And like a thumping. Patient is being prescribed Antivert. Patient was negative for orthostatic this morning. Eating close to 100%. Encouraged to be out of bed. Had a BM Active Medications Alprazolam (Alprazolam 0.5 Mg Tab) 0.5 mg PO QID PRN PRN Reason: Anxiety Last Admin: 03/13/22 15:57 Dose: 0.5 mg Documented by: Buspirone HCl (Buspirone Hcl 10 Mg Tab) 10 mg PO TID [facility] Last Admin: 03/13/22 15:57 Dose: 10 mg Documented by: Duloxetine HCl (Duloxetine Hcl 30 Mg Capsule.Dr) 30 mg PO DAILY [facility] Last Admin: 03/13/22 07:36 Dose: 30 mg Documented by: Ketorolac Tromethamine (Ketorolac 15 Mg/Ml 1 Ml Vial) 15 mg IVP Q6HR PRN PRN Reason: Moderate to Severe Pain Stop: 03/13/22 20:43 Last Admin: 03/13/22 07:38 Dose: 15 mg Documented by: Levothyroxine Sodium (Levothyroxine 75 Mcg Tab) 150 mcg PO DAILY@0630 [facility] Last Admin: 03/13/22 05:31 Dose: 150 mcg Documented by: Meclizine HCl (Meclizine 12.5 Mg Tab) 12.5 mg PO QID [facility] Last Admin: 03/13/22 13:31 Dose: 12.5 mg Documented by: Mirtazapine (Mirtazapine 15 Mg Tab) 7.5 mg PO [facility] Last Admin: 03/12/22 23:40 Dose: 7.5 mg Documented by: Pantoprazole Sodium (Pantoprazole 40 Mg Tablet) 40 mg PO -BRKFST [facility] Last Admin: 03/13/22 07:35 Dose: 40 mg Documented by: Quetiapine Fumarate (Quetiapine 50 Mg Tab) 50 mg PO [facility] Last Admin: 03/12/22 23:40 Dose: 50 mg Documented by: On examination: VITAL SIGNS: [Negative orthostatic. 97.6, 67, 16, 127/77, 96% room air] GENERAL APPEARANCE: Reclining in bed, awake, comfortable. HEENT: Normal external appearance of nose and ear. Oral cavity normal EYES: Pupils equal. Conjunctiva normal. NECK: JVD not raised. Mass not palpable. RESPIRATORY: Respiratory effort normal. Lungs clear to auscultation. CARDIOVASCULAR: First and second sounds normal. No edema. ABDOMEN: Soft. Liver and spleen not palpable. No tenderness. No mass palpable. PSYCHIATRY: Alert and oriented x3. Mood and affect anxious INVESTIGATIONS, reviewed in the clinical context: White count 7.3 hemoglobin 12.4 platelets 294 EKG tracing: Sinus rhythm. PVC. Upper GI and small bowel follow-through. Nonspecific findings. CT abdomen pelvis: Unremarkable Assessment and plan: -Abdominal pain present present for at least 6 months duration. Patient's small bowel follow-through and computed tomography scan abdomen both unremarkable. Patient tolerating a diet. Bowel movements are good. Note patient had EGD by Dr. Mary Carmen Jamil and felt be 2020. Unremarkable. Possible nonulcer dyspepsia. -Obesity BMI 34 Weight loss measures -Chronic tinnitus Follow-up with ENT outpatient -Chronic dizziness. Relevant patient follow-up with ENT. Negative for orthostatic. Try a course of Antivert -GERD Omeprazole 20 mg twice a day -Hyperlipidemia -Osteoarthritis and rheumatoid arthritis -Hypothyroid Synthroid 1 g a -Nonpitting edema MERARY stockings -Anxiety not otherwise specified Xanax 0.5 when necessary -Chronic insomnia Remeron 30 mg daily at bedtime Try Antivert 12.5 by mouth 4 times a day. Stop Lasix. Fluid restriction. Increase activity. Discussed with patient. Hopefully home tomorrow. Total time spent about 40 minutes with over 25 minutes of discussion.
[2022-03-13] MEDS: QUEtiapine 50 MG TAB PO SCH (23:16)
[2022-03-13] MEDS: MIRTAZAPINE 15 MG TAB PO SCH (23:16)
[2022-03-14] MEDS: LEVOTHYROXINE 75 MCG TAB PO SCH (05:30)
[2022-03-14] MEDS: ALPRAZolam 0.5 MG TAB PO PRN ×2 (07:03→13:12)
[2022-03-14] MEDS: PANTOPRAZOLE 40 MG TABLET PO SCH (07:03)
[2022-03-14] MEDS: DULoxetine HCL 30 MG CAPSULE.DR PO SCH (07:03)
[2022-03-14] MEDS: busPIRone HCl 10 MG TAB PO SCH (07:03)
[2022-03-14 07:10] VITALS: TEMP 98.1
[2022-03-14] MEDS: MECLIZINE 12.5 MG TAB PO SCH ×2 (07:19→11:54)
[2022-03-14 12:31] VITALS: BP 123/74; PULSE 74; RESP 18
--- NOTE | 2022-03-14 20:49 | P.DS ---
Providers Date of admission: 03/13/22 12:17 Expected date of discharge: 03/14/22 Attending physician: Elmer Samayoa Consults: 03/10/22 12:45 Consult Physician Urgent Consulting Provider: Ant Dash Consult Reason/Comments: Anxiety Do you want consulting provider notified?: Yes 03/10/22 16:54 Consult Physician Routine Consulting Provider: Germán Verma Consult Reason/Comments: egd/nausea/abd pain Do you want consulting provider notified?: Yes Primary care physician: Elmer Samayoa [facility] Course: Presenting complaint: Dizziness Hospital course: I'm rounding for Dr. Elmer Samayoa. Patient presented upper abdominal pain present for at least 6 months and reflux symptoms.. March 13: Patient had undergone upper GI and small bowel follow-through. No specific findings. No further intervention per surgery. Patient does complain of dizziness that she's had for some time. Also complains of ringing in the ear. And like a thumping. Patient is being prescribed Antivert. Patient was negative for orthostatic this morning. Eating close to 100%. Encouraged to be out of bed. Had a BM March 14: Patient did not want to take Antivert.. Beta feel funny. Doing better. Eating well. Keen to go home. Patient follow-up with ENT outpatient for her tinnitus. On examination: VITAL SIGNS: 98.1, 74, 18, 123 / 74, 97% room air GENERAL APPEARANCE: Reclining in bed, awake, comfortable. HEENT: Normal external appearance of nose and ear. Oral cavity normal EYES: Pupils equal. Conjunctiva normal. NECK: JVD not raised. Mass not palpable. RESPIRATORY: Respiratory effort normal. Lungs clear to auscultation. CARDIOVASCULAR: First and second sounds normal. No edema. ABDOMEN: Soft. Liver and spleen not palpable. No tenderness. No mass palpable. PSYCHIATRY: Alert and oriented x3. Mood and affect anxious INVESTIGATIONS, reviewed in the clinical context: White count 7.3 hemoglobin 12.4 platelets 294 EKG tracing: Sinus rhythm. PVC. Upper GI and small bowel follow-through. Nonspecific findings. CT abdomen pelvis: Unremarkable Assessment and plan: -Abdominal pain present present for at least 6 months duration. Patient's small bowel follow-through and computed tomography scan abdomen both unremarkable. Patient tolerating a diet. Bowel movements are good. Note patient had EGD by Dr. Mary Carmen Jamil and felt be 2020. Unremarkable. Possible nonulcer dyspepsia. -Obesity BMI 34 Weight loss measures -Chronic tinnitus Follow-up with ENT outpatient -Chronic dizziness. Relevant patient follow-up with ENT. Negative for orthostatic. Try a course of Antivert -GERD Omeprazole 20 mg twice a day -Hyperlipidemia -Osteoarthritis and rheumatoid arthritis -Hypothyroid Synthroid 1 g a -Nonpitting edema MERARY stockings -Anxiety not otherwise specified Xanax 0.5 when necessary -Chronic insomnia Remeron 30 mg daily at bedtime Disposition: Home Plan - Discharge Summary Discharge Rx Participant: No New Discharge Prescriptions: New busPIRone HCl [Buspar] 10 mg PO TID #90 tab DULoxetine HCL [Cymbalta] 30 mg PO DAILY #30 Mirtazapine [Remeron] 7.5 mg PO HS #30 tab DULoxetine HCL [Cymbalta] 30 mg PO DAILY #30 cap Continue Levothyroxine Sodium [Synthroid] 150 mcg PO DAILY Omeprazole 20 mg PO BID QUEtiapine FUMARATE [SEROquel XR] 50 mg PO HS Linaclotide [Linzess] 290 mcg PO DAILY Lactobacillus Acidophilus [Acidophilus] 1 tab PO DAILY ALPRAZolam [Xanax] 0.5 mg PO QID Discontinued Mirtazapine [Remeron Soluspan] 30 mg PO HS Sertraline [Zoloft] 50 mg PO BID No Action Furosemide [Lasix] 20 mg PO DAILY Discharge Medication List Omeprazole 20 mg PO BID 03/16/21 [History] ALPRAZolam [Xanax] 0.5 mg PO QID 03/10/22 [History] Furosemide [Lasix] 20 mg PO DAILY 03/10/22 [History] Lactobacillus Acidophilus [Acidophilus] 1 tab PO DAILY 03/10/22 [History] Levothyroxine Sodium [Synthroid] 150 mcg PO DAILY 03/10/22 [History] Linaclotide [Linzess] 290 mcg PO DAILY 03/10/22 [History] QUEtiapine FUMARATE [SEROquel XR] 50 mg PO HS 03/10/22 [History] DULoxetine HCL [Cymbalta] 30 mg PO DAILY #30 03/14/22 [Rx] DULoxetine HCL [Cymbalta] 30 mg PO DAILY #30 cap 03/14/22 [Rx] Mirtazapine [Remeron] 7.5 mg PO HS #30 tab 03/14/22 [Rx] busPIRone HCl [Buspar] 10 mg PO TID #90 tab 03/14/22 [Rx] Follow up Appointment(s)/Referral(s): psychiatry, [Other] - 2 Weeks Adama Chavez DO [Doctor of Osteopathic Medicine] - 1 Week Elmer Samayoa MD [Primary Care Provider] - 1-2 days Germán Verma MD [STAFF PHYSICIAN] - 1 Week Activity/Diet/Wound Care/Special Instructions: hold lasix till f/u with dr son follow up as directed fluid restrict 2000 cc/day Call your DR with return or worsening of the symptoms that brought you here or any concerns. Discharge/Stand Alone Forms: Community Resources, Outpatient Counseling Discharge Disposition: HOME SELF-CARE
== END 2022-03-14 13:43 | disposition home or self-care (01) | DRG 392 ==
LOC: EC 10:56 → 6NMEDSUR 12:46 → UNDODISOB 22:46 → OBSVTOIN 03-13 12:17
PROVIDERS: ADMIT Family Medicine; ATTEND Family Medicine
DX: R10.13 Epigastric pain (principal); K92.1 Melena; E03.9 Hypothyroidism, unspecified; E66.9 Obesity, unspecified; E78.5 Hyperlipidemia, unspecified; F17.210 Nicotine dependence, cigarettes, uncomplicated; F32.A Depression, unspecified; F41.1 Generalized anxiety disorder; F51.04 Psychophysiologic insomnia; H93.19 Tinnitus, unspecified ear; I49.3 Ventricular premature depolarization; K21.9 Gastro-esophageal reflux disease without esophagitis; M06.9 Rheumatoid arthritis, unspecified; M19.90 Unspecified osteoarthritis, unspecified site; M43.16 Spondylolisthesis, lumbar region; R13.10 Dysphagia, unspecified; Z68.34 Body mass index [BMI] 34.0-34.9, adult; Z79.82 Long term (current) use of aspirin; Z79.890 Hormone replacement therapy; Z79.899 Other long term (current) drug therapy; Z80.0 Family history of malignant neoplasm of digestive organs; Z80.8 Family history of malignant neoplasm of other organs or systems; Z90.49 Acquired absence of other specified parts of digestive tract; Z90.710 Acquired absence of both cervix and uterus; Z96.652 Presence of left artificial knee joint; Z88.5 Allergy status to narcotic agent; Z88.0 Allergy status to penicillin; Z87.19 Personal history of other diseases of the digestive system
CPT/HCPCS: 36415; 74176; 74240; 74248; 80053; 81001; 82150; 83605; 83690; 84484; 85025; 93005; 96361; 96374; 96375; 99285

== ENCOUNTER → 2022-09-18 | Outpatient (CLI) | payer OTHER ==
--- NOTE | 2022-09-18 23:09 | CT ---
EXAMINATION TYPE: CT brain wo con DATE OF EXAM: 09/18/2022 COMPARISON: 01/23/2021 HISTORY: 62-year-old female G45.9, TIA, chronic sinusitis, change in memory, blacking out x3 months. TECHNIQUE: Examination was done in axial plane without intravenous contrast. Coronal and sagittal r econstructions performed. CT DLP: 1844.2 mGycm Automated exposure control for dose reduction was used. FINDINGS: There is no evidence of acute intracranial hemorrhage, acute ischemic changes, mass, mass-effect, or extra-axial fluid collection. There is no effacement of cerebral sulci or basal subarachnoid cister ns. There is no hydrocephalus. There is no midline shift. Parker-white matter distinction is preserv ed. Partially empty sella. Mastoid air cells well pneumatized. Facial bones reported separately. IMPRESSION: No acute intracranial abnormality seen. Facial bones reported separately.
--- NOTE | 2022-09-18 23:14 | CT ---
EXAMINATION TYPE: CT facial bones wo con DATE OF EXAM: 09/18/2022 COMPARISON: None HISTORY: 62-year-old female G45.9, TIA, chronic sinusitis, change in memory, blacking out x3 months. CT DLP: 1844.2 mGycm Automated exposure control for dose reduction was used. TECHNIQUE: Noncontrast axial views of the paranasal sinuses were obtained. Coronal and sagittal refor matted images were obtained. FINDINGS: PARANASAL SINUSES: Trace mucosal thickening ethmoid air cells. Hypoplastic right frontal sinus. The frontal, maxillary, and sphenoid sinuses are well pneumatized. There is no air-fluid level. Reactive idania- osteogenesis is not seen. There is no destruction of the osseous ferrell of the paranasal sinuses. THE NASAL CAVITY: The osteomeatal complexes are patent. Rightward nasal septal deviation. Brain is reported separately. Visualized orbits appear intact. There is a dental carry involving the left maxillary first incisor. Partially visualized posterior cervical fusion hardware from C3 extending down beyond the field-of-vi ew. Reformatted images confirm above findings. IMPRESSION: Only trace mucosal thickening in the ethmoid air cells. Rightward nasal septal deviation. Otherwise, no significant paranasal sinus disease. Incidental dental caries involving the left maxillary first i ncisor.
== END | disposition home or self-care (01) ==
LOC: RADCTMAIN 14:33
PROVIDERS: ATTEND Family Medicine
DX: J34.2 Deviated nasal septum (principal); K02.9 Dental caries, unspecified; G45.9 Transient cerebral ischemic attack, unspecified
CPT/HCPCS: 70450; 70486

== ENCOUNTER 2023-02-16 05:43 | Day surgery (SDC) | payer OTHER ==
[2023-02-04 23:02] LABS: Basophils # (A) 0.07 X 10*3/uL (0.00-0.10); Basophils % (A) 0.9 %; Eosinophils # (A) 0.16 X 10*3/uL (0.04-0.35); Eosinophils % (A) 2.1 %; HCT 45.4 % (37.2-46.3); Immature Grans, Automated 0.3 %; Lymphocytes # (A) 2.24 X 10*3/uL (0.90-5.00); Lymphocytes % (A) 29.4 %; MCH 28.7 pg (27.0-32.0); MCHC 30.8 g/dL (32.0-37.0); MCV 93.2 fL (80.0-97.0); Mean Platelet Volume 11.2 fL (9.5-12.2); Monocytes # (A) 0.68 X 10*3/uL (0.20-1.00); Monocytes % (A) 8.9 %; NRBC Per 100 WBC 0 /100 WBCS (0.0-0.0); Neutrophils # (A) 4.44 X 10*3/uL (1.80-7.70); Neutrophils % (A) 58.4 %; Platelet Count 310 X 10*3/uL (140-440); RBC 4.87 X 10*6/uL (4.10-5.20); RDW 13.6 % (11.5-14.5); WBC 7.61 X 10*3/uL (4.50-10.00)
[2023-02-10 15:07] VITALS: BMI 30.2
[~2023-02-16 05:43] MED LIST: ACETAMINOPHEN TAB 500 MG TAB PO PRN; HEPARIN SODIUM,PORCINE/PF 5,000 UNIT/0.5 ML SYRINGE SQ PRN
[2023-02-16] MEDS ORDERED: ONDANSETRON 4 MG/2 ML VIAL ONE (06:32)
[2023-02-16] MEDS ORDERED: LIDOCAINE 1% (10MG/ML) FOR IV START INTRADERMA ONE (06:45)
[2023-02-16] MEDS ORDERED: LACTATED RINGERS 1,000 ML IV ONE ×3 (06:45→10:58)
[2023-02-16] MEDS ORDERED: DEXAMETHASONE SOD PHOSPHATE 4 MG/ML 1 ML VIAL IV ONE (06:55)
[2023-02-16 07:09] LABS: Glucose,Whole Blood 97 mg/dL (70-110)
[2023-02-16] MEDS ORDERED: SUGAMMADEX SODIUM 200 MG/2 ML SDV IV ONE (07:38)
[2023-02-16] MEDS ORDERED: ROCURONIUM 10 MG/ML (5 ML VIAL) IV ONE (07:38)
[2023-02-16] MEDS ORDERED: KETAMINE 10 MG/ML 20 ML VIAL ONE (07:38)
[2023-02-16] MEDS ORDERED: HYDROmorphone (PF) 1 MG/ML ONE (07:38)
[2023-02-16] MEDS ORDERED: MIDAZOLAM 2 MG/2 ML VIAL ONE (07:38)
[2023-02-16] MEDS ORDERED: fentaNYL (PF) 50 MCG/ML 2 ML AMP ONE (07:38)
[2023-02-16] MEDS ORDERED: LIDOCAINE 2% INJ 20 MG/ML (2 ML VIAL) ONE (07:38)
[2023-02-16] MEDS ORDERED: ePHEDrine 50 MG/ML 1 ML VIAL ONE (07:38)
[2023-02-16] MEDS ORDERED: PROPOFOL 10 MG/ML 20 ML VIAL IV ONE (07:38)
[2023-02-16] MEDS ORDERED: GLYCOPYRROLATE 0.2 MG/ML 2 ML VIAL ONE (07:38)
[2023-02-16] MEDS ORDERED: NEOSTIGMINE 1 MG/ML 10 ML VIAL ONE (07:38)
[2023-02-16] MEDS ORDERED: SUCCINYLCHOLINE CHLORIDE 200 MG/10 ML VIAL IV ONE (07:38)
[2023-02-16] MEDS ORDERED: KETOROLAC 30 MG/ML 1 ML VIAL ONE (07:38)
--- NOTE | 2023-02-16 07:46 | P.GSHP ---
History of Present Illness H&P Date: 02/16/23 Chief Complaint: Ventral hernia This 60-year-old female who's developed a ventral hernia. Patient presents today for laparoscopic robotic-assisted repair. Past Medical History Past Medical History: Chest Pain / Angina, GERD/Reflux, GI Bleed, Hyperlipidemia, Hypertension, Liver Disease, Musculoskeletal Disorder, Osteoarthritis (OA), Pneumonia, Rheumatoid Arthritis (RA), Thyroid Disorder Additional Past Medical History / Comment(s): Hx liver problem, gallbladder disease, septis, had cholecystectomy and biliary drainage tube. Chronic neck and low back. Colitis, diverticulitis, gastritis, lower GI bleed, constipation. Orthostatic hypotention, dizziness, recent falls. Bilateral lower leg edema. Trouble swallowing, feels like food getting stuck in espogagus, causes pain, unable to eat much, feels dehydrated, muscle weakness, very dry skin, sore throat and dry/sore lips. Has thickening of vocal cords. Sore throat, cough, wheezing for months. "Gum disease, bad teeth that need to be removed but no Marceline ist will take out because they WERE infected, WAS on 3 antibiotics, CAN ONLY EAT LIQUID FOODS R/T TO MOUTH/TEETH PROBLEMS." Spurs on spine, frequent headaches. History of Any Multi-Drug Resistant Organisms: None Reported Past Surgical History: Back Surgery, Cholecystectomy, Hysterectomy, Joint Replacement, Tonsillectomy Additional Past Surgical History / Comment(s): EGD, colonosocpy, cadavar bone placed in C4 through C7 with titanium jarod, left knee replacement, lower back epidural injections/ablation. Past Anesthesia/Blood Transfusion Reactions: No Reported Reaction Smoking Status: Former smoker - Past Family History Mother Family Medical History: Cancer Additional Family Medical History / Comment(s): Brain Cancer. Father Family Medical History: Cancer Additional Family Medical History / Comment(s): Liver Cancer. Sister(s) Family Medical History: Cancer Additional Family Medical History / Comment(s): Breast cancer. Medications and Allergies Home Medications Medication Instructions Recorded Confirmed Type Furosemide [Lasix] 20 mg PO DAILY PRN 03/10/22 02/10/23 History Levothyroxine Sodium [Synthroid] 150 mcg PO DAILY 03/10/22 02/10/23 History QUEtiapine FUMARATE [SEROquel XR] 50 mg PO HS 03/10/22 02/10/23 History ALPRAZolam [Xanax] 1 mg PO QID 10/19/22 02/10/23 History Metoprolol Tartrate [Lopressor] 50 mg PO BID 10/19/22 02/10/23 History Multivitamins, Thera [Multivitamin 1 tab PO DAILY 10/19/22 02/10/23 History (formulary)] Omeprazole 40 mg PO BID 10/19/22 02/10/23 History Zolpidem Tartrate [Ambien] 10 mg PO HS 10/19/22 02/10/23 History traMADol HCL 50 mg PO Q12H 12/31/22 02/10/23 History Omeprazole 40 mg PO DAILY PRN 01/12/23 02/10/23 History Acetaminophen/Diphenhydramine 1 tab PO HS 02/10/23 02/10/23 History [Tylenol PM 500-25mg] Aspirin [Adult Low Dose Aspirin EC] 81 mg PO DAILY 02/10/23 02/10/23 History Allergies Allergy/AdvReac Type Severity Reaction Status Date / Time codeine Allergy Rash/Hives Verified 02/16/23 06:42 hydrocodone [From [place]] AdvReac Severe Abdominal Verified 02/16/23 06:42 Pain,vomiting Penicillins AdvReac Nausea & Verified 02/16/23 06:42 Vomiting & Diarrhea Surgical - Exam Vital Signs Temp Pulse Resp BP Pulse Ox 97.4 F L 65 16 104/54 97 02/16/23 06:40 02/16/23 06:40 02/16/23 06:40 02/16/23 06:40 02/16/23 06:40 - General well developed, well nourished, no distress - Eyes PERRL - ENT normal pinna - Neck no masses - Respiratory normal expansion - Cardiovascular Rhythm: regular - Abdomen Patient's ventral hernia located above the umbilicus. Abdomen: soft, non tender Results - Labs 02/04/23 16:38 Assessment and Plan Assessment: Ventral hernia. We'll perform laparoscopic robotic-assisted repair.
[2023-02-16 07:50] LABS: African American GFR (CKD) >90 (>60 ml/min/1.73 sqM); Anion Gap 8 mmol/L; Blood Urea Nitrogen 6 mg/dL (7-17); Calcium 9.4 mg/dL (8.4-10.2); Carbon Dioxide 24 mmol/L (22-30); Chloride 108 mmol/L (98-107); Glucose 90 mg/dL (74-99); Non-African American GFR(CKD) 89 (>60 ml/min/1.73 sqM); Potassium 4.3 mmol/L (3.5-5.1); Sodium 140 mmol/L (137-145)
[2023-02-16] MEDS ORDERED: BUPIVACAIN-EPI 0.25%-1:200,000 30 ML VIAL SQ ONE (08:19)
[2023-02-16 09:29] VITALS: TEMP 96.8
[2023-02-16] MEDS: HYDROmorphone 0.5 MG/0.5 ML SYRINGE IVP ONE ×2 (10:37→11:22)
[2023-02-16] MEDS ORDERED: ACETAMINOPHEN IV (For NPO) 1,000 MG/100 ML VIAL IVPB ONE (13:59)
[2023-02-16 14:04] VITALS: RESP 16
[2023-02-16 14:54] VITALS: BP 105/69; PULSE 91
--- NOTE | 2023-02-26 09:15 | P.OP ---
Date of Procedure: 02/16/23 Preoperative Diagnosis: incisional hernia Postoperative Diagnosis: incarcerated incisional hernia with incarcerated omentum Procedure(s) Performed: Laparoscopic robot-assisted pair of incarcerated incisional hernia Partial omentectomy Anesthesia: LOLI Surgeon: Germán Verma Estimated Blood Loss (ml): 5 Pathology: other (omentum) Condition: stable Disposition: PACU Description of Procedure: Her abdomen was prepped draped in sterile fashion. The patient had a incisional hernia located above the umbilicus. The skin incision sites on the left abdominal wall were anesthetized 1% local Xylocaine. Using a 5 mm optical trocar at the left upper trocar was position. Under direct visualization. The abdomen is insufflated. After adequate insufflation this trocar was exchanged for a 8 mm robotic trocar. Next a 8 mm robotic trocars placed in the left lower quadrant. And then a 12 mm robotic trocar was placed in the left lateral mid position. The sutures and mesh were placed in the intraperitoneal position. And then the patient was docked to the robot. The patient had incarcerated omentum within the hernia. The entire cement was dissected using a combination of the hook cautery and gentle traction. The incarcerated antrum was sent to pathology. The fascial defect was then closed using #1 STRATAFIX suture. And then the Ventralight ST mesh was placed over top repair and secured with 2 OV lock suture. The needles were retrieved. The patient was then undocked from the robot.Intermittent epigastric abdominal pain which radiates to the right left side. Patient states the pain is exacerbated by eating greasy and fried foods. His recent HIDA scan shows a diminished ejection fraction consistent with biliary dysfunction and chronic cholecystitis. the 12 mm trocar site was closed with a Benny Gordon suture passer under direct vision. The skin was then closed in after 3-0 Monocryl suture. Dermabond dressing was applied. Patient tolerated well. She was sent to recovery in stable condition.
== END 2023-02-16 15:20 | disposition home or self-care (01) ==
LOC: OR 05:43
PROVIDERS: ATTEND Surgery
DX: K43.0 Incisional hernia with obstruction, without gangrene (principal); K81.1 Chronic cholecystitis; I20.9 Angina pectoris, unspecified; I10 Essential (primary) hypertension; E78.5 Hyperlipidemia, unspecified; F17.200 Nicotine dependence, unspecified, uncomplicated; K21.9 Gastro-esophageal reflux disease without esophagitis; Z87.19 Personal history of other diseases of the digestive system; E03.9 Hypothyroidism, unspecified; K76.9 Liver disease, unspecified; M19.90 Unspecified osteoarthritis, unspecified site; M06.9 Rheumatoid arthritis, unspecified; Z90.49 Acquired absence of other specified parts of digestive tract; Z96.652 Presence of left artificial knee joint; Z98.890 Other specified postprocedural states; Z80.8 Family history of malignant neoplasm of other organs or systems; Z80.0 Family history of malignant neoplasm of digestive organs; Z80.3 Family history of malignant neoplasm of breast; Z79.82 Long term (current) use of aspirin; Z79.899 Other long term (current) drug therapy; Z88.5 Allergy status to narcotic agent; Z88.0 Allergy status to penicillin; Z79.890 Hormone replacement therapy; Z98.1 Arthrodesis status
CPT/HCPCS: 49592; 86900; 86901; 88305; 80048; 85025; 86850; 93005; J2250; J0330; J1100; J2710; J0690; J2405; J3010; J1885; J1170 ×2; J0131; J2704; J1644; J2001

== ENCOUNTER → 2023-04-08 | Outpatient (CLI) | payer OTHER ==
[~2023-04-08] MED LIST changes: -ACETAMINOPHEN TAB 500 MG TAB PO PRN; -HEPARIN SODIUM,PORCINE/PF 5,000 UNIT/0.5 ML SYRINGE SQ PRN; +REGADENOSON 0.4 MG/5 ML SYRINGE IV PRN
--- NOTE | 2023-04-08 11:55 | NM ---
EXAMINATION TYPE: NM stress lexiscan cardiolite DATE OF EXAM: 04/08/2023 COMPARISON: NONE CLINICAL INDICATION: Female, 62 years old with history of R94.31; TECHNIQUE: After the intravenous administration of 9.8 mCi Tc 99m Sestamibi - Cardiolite resting SPE CT images acquired 45 minutes post injection. The patient received 0.4mg Lexiscan, 26.4 mCi Tc 99m Sestamibi - Stress images obtained [address] injection FINDINGS: Review of stress and rest SPECT images demonstrates no evidence of stress-induced reversible perfusio n defect. Gated analysis shows normal wall motion with an estimated left ventricular ejection fracti on of 60 %. IMPRESSION: No scintigraphic evidence for reversible ischemia.
--- NOTE | 2023-04-08 12:24 | CA ---
Lexiscan Nuclear Stress Test Report Name: Ava Gaston Exam Date: 04/08/2023 10:17 Exam Location: [place] Stress Ht (in): 61 Wt (lb): 165 BSA: 1.74 Ordering Phys: Elmer Samayoa MD Referring Phys: Elmer Samayoa MD Technologist: Surya Stewart Age: 62 Gender: F : 1960 Procedure CPT: Indications: R94.31 ICD-10 Codes: Patient History: CHEST PAIN, PALPITATIONS, NUMBNESS IN FACE/NECK, HTN, FAMILY HX OF HEART DISEASE, PRIOR SMOKER (QUIT 2 YEARS) 1 PPD X 40 YEARS Medications: Meds past 24 hrs: Pretest Chest Pain: STRESS TEST Lexiscan Protocol Exercise Duration (min:sec): 01:[address] Depressions (mm): Angina Score: Gonzalez Score: Resting HR (bpm): 55 Peak HR (bpm): 79 Resting BP (mmHg): 96 / 62 Peak BP (mmHg): 96 / 62 MPHR: 158 Target HR: 134 % MPHR: 50 METS: 1.0 Total Dose: Peak Dose: Atropine: Double Product: 7584 BP Response: Stress Termination: INFUSION COMPLETE Stress Symptoms: CHEST PAIN Stress Summary: ECG ANALYSIS Resting ECG: Stress ECG: CONCLUSIONS At baseline EKG showed normal sinus rhythm, normal axis, nonspecific lateral ST depressions. Patient recieved IV infusion of Lexiscan 0.4mg and at peak infusion EKG showed no significant change from baseline Conclusions: 1. Nonspecific stress EKG portion secondary baseline EKG abnormalities 2. Nuclear imaging to be reported separately. 3. Incidental chest pain noted with Lexiscan infusion, clinical correlation recommended. Dr. eBn Hall DO (Electronically Signed) Final Date: 08 Apr 2023 12:23
== END | disposition home or self-care (01) ==
LOC: RADNMMAIN 08:22
PROVIDERS: ATTEND Family Medicine
DX: R94.31 Abnormal electrocardiogram [ECG] [EKG] (principal)
CPT/HCPCS: 93017; 78452; A9500; J2785

== ENCOUNTER 2023-04-16 13:29 | Inpatient (IN) | payer OTHER ==
[2023-04-16] MEDS ORDERED: SODIUM CHLORIDE 0.9% 1,000 ML IV STA (16:03)
--- NOTE | 2023-04-16 16:03 | ED ---
Weakness HPI - General Chief complaint: Weakness Stated complaint: AMS/Hypothyrodism Time Seen by Provider: 04/16/23 15:38 Source: patient, RN notes reviewed Mode of arrival: wheelchair Limitations: no limitations - History of Present Illness Initial comments: 63-year-old female who states she's had progressive weakness at least last 5 months her neighbor states for about a year who presents to the emergency department today because of generalized weakness decreased urine output she states she's not urinated yet today although she states she drinks about a gallon water day. She denies any overt fevers chills sweats she states anytime she tries to swallow she has some discomfort to the lower chest and upper abdomen area. She states she saw her doctor earlier in the week and had lab work done which apparently showed that her thyroid was off. No history of GERD or hiatal hernia that she recalls she did have a local hernia repaired recently. MD Complaint: generalized weakness - Related Data Home Medications Medication Instructions Recorded Confirmed Furosemide [Lasix] 20 mg PO DAILY PRN 03/10/22 04/16/23 Levothyroxine Sodium [Synthroid] 150 mcg PO DAILY 03/10/22 04/16/23 QUEtiapine FUMARATE [SEROquel XR] 50 mg PO HS 03/10/22 04/16/23 ALPRAZolam [Xanax] 1 mg PO QID 10/19/22 04/16/23 Multivitamins, Thera [Multivitamin 1 tab PO DAILY 10/19/22 04/16/23 (formulary)] Zolpidem Tartrate [Ambien] 10 mg PO HS 10/19/22 04/16/23 traMADol HCL 50 mg PO TID PRN 12/31/22 04/16/23 Acetaminophen/Diphenhydramine 1 tab PO HS 02/10/23 04/16/23 [Tylenol PM 500-25mg] Aspirin [Adult Low Dose Aspirin EC] 81 mg PO DAILY 02/10/23 04/16/23 Acetaminophen Tab [Tylenol] 650 mg PO Q6H PRN 04/16/23 04/16/23 Budesonide/Formoterol Fumarate 2 puff INHALATION RT-BID PRN 04/16/23 04/16/23 [Symbicort 160-4.5 Mcg Inhaler] Docusate [Colace] 100 mg PO BID PRN 04/16/23 04/16/23 Metoprolol Tartrate [Lopressor] 12.5 mg PO BID 04/16/23 04/16/23 Midodrine [ProAmatine] 5 mg PO TID 04/16/23 04/16/23 Omeprazole [PriLOSEC] 20 mg PO BID 04/16/23 04/16/23 clindamycin HCL [Cleocin] 300 mg PO BID 04/16/23 04/16/23 Previous Rx's Medication Instructions Recorded Ibuprofen [Motrin] 600 mg PO Q6HR PRN #40 tab 02/16/23 Allergies Allergy/AdvReac Type Severity Reaction Status Date / Time codeine Allergy Rash/Hives Verified 04/16/23 16:47 hydrocodone [From [place]] AdvReac Severe Abdominal Verified 04/16/23 16:47 Pain,vomiting Penicillins AdvReac Nausea & Verified 04/16/23 16:47 Vomiting & Diarrhea Review of Systems ROS Statement: Those systems with pertinent positive or pertinent negative responses have been documented in the HPI. ROS Other: All systems not noted in ROS Statement are negative. Past Medical History Past Medical History: Chest Pain / Angina, GERD/Reflux, GI Bleed, Hyperlipidemia, Hypertension, Liver Disease, Musculoskeletal Disorder, Osteoarthritis (OA), Pneumonia, Rheumatoid Arthritis (RA), Thyroid Disorder Additional Past Medical History / Comment(s): Hx liver problem, gallbladder disease, septis, had cholecystectomy and biliary drainage tube. Chronic neck and low back. Colitis, diverticulitis, gastritis, lower GI bleed, constipation. Orthostatic hypotention, dizziness, recent falls. Bilateral lower leg edema. Trouble swallowing, feels like food getting stuck in espogagus, causes pain, unable to eat much, feels dehydrated, muscle weakness, very dry skin, sore throat and dry/sore lips. Has thickening of vocal cords. Sore throat, cough, wheezing for months. "Gum disease, bad teeth that need to be removed but no Dentist will take out because they WERE infected, WAS on 3 antibiotics, CAN ONLY EAT LIQUID FOODS R/T TO MOUTH/TEETH PROBLEMS." Spurs on spine, frequent headaches. History of Any Multi-Drug Resistant Organisms: None Reported Past Surgical History: Back Surgery, Cholecystectomy, Hysterectomy, Joint Replacement, Tonsillectomy Additional Past Surgical History / Comment(s): EGD, colonosocpy, cadavar bone placed in C4 through C7 with titanium jarod, left knee replacement, lower back epidural injections/ablation. Past Anesthesia/Blood Transfusion Reactions: No Reported Reaction Past Psychological History: Anxiety, Panic Disorder Smoking Status: Former smoker Past Alcohol Use History: None Reported Past Drug Use History: None Reported - Past Family History Mother Family Medical History: Cancer Additional Family Medical History / Comment(s): Brain Cancer. Father Family Medical History: Cancer Additional Family Medical History / Comment(s): Liver Cancer. Sister(s) Family Medical History: Cancer Additional Family Medical History / Comment(s): Breast cancer. General Exam - General Exam Comments Initial Comments: This is a well-developed well-nourished awake alert oriented 4 female Limitations: no limitations General appearance: alert, in no apparent distress Head exam: Present: atraumatic, normocephalic, normal inspection Eye exam: Present: normal appearance, PERRL, EOMI. Absent: scleral icterus, conjunctival injection, periorbital swelling ENT exam: Present: mucous membranes dry Neck exam: Present: normal inspection, full ROM, other (No stridor JVD or bruits). Absent: tenderness, meningismus, lymphadenopathy Respiratory exam: Present: normal lung sounds bilaterally. Absent: respiratory distress, wheezes, rales, rhonchi, stridor Cardiovascular Exam: Present: regular rate, normal rhythm, normal heart sounds. Absent: systolic murmur, diastolic murmur, rubs, gallop, clicks GI/Abdominal exam: Present: soft, normal bowel sounds. Absent: distended, tenderness, guarding, rebound, rigid, bruit, pulsatile mass Extremities exam: Present: normal inspection, full ROM, normal capillary refill. Absent: tenderness, pedal edema, joint swelling, calf tenderness Back exam: Present: normal inspection Neurological exam: Present: alert, oriented X3, CN II-XII intact Psychiatric exam: Present: normal affect, normal mood Skin exam: Present: warm, dry, intact, normal color. Absent: rash Course Vital Signs 04/16/23 13:38 Temperature 97.4 F L Pulse Rate 57 L Respiratory 20 Rate Blood Pressure 101/79 O2 Sat by Pulse 96 Oximetry - Reevaluation(s) Reevaluation #1: 04/16/23 20:23 Patient is demonstrated and lab work marginal potassium and magnesium levels she will get some supplementation EKG Findings - EKG Results: EKG: interpreted by NIKA (EKG interpreted by me sinus bradycardia of 47 ME inte rval 207 QRS duration 94 QT since QTC 436/397 possible left atrial enlargement low-voltage QRS nonspecific ST configuration) Medical Decision Making - Medical Decision Making I did discuss [employer] the patient and with Dr. Nicolas patient does demonstrate evidence of hypothyroidism also dehydration failure to thrive patient be admittedWas pt. sent in by a medical professional or institution (, FAUSITNO, LANDSCAPE DESIGNER, urgent care, hospital, or usp...) When possible be specific @ -No Did you speak to anyone other than the patient for history (EMS, parent, family, police, friend...)? What history was obtained from this source @ -A neighbor that brought her in Did you review nursing and triage notes (agree or disagree)? Why? @ -I reviewed and agree with nursing and triage notes Were old charts reviewed (outside hosp., previous admission, EMS record, old EKG, old radiological studies, urgent care reports/EKG's, usp records)? Report findings @ -No old charts were reviewed Differential Diagnosis (chest pain, altered mental status, abdominal pain women, abdominal pain men, vaginal bleeding, weakness, fever, dyspnea, syncope, headache, dizziness, GI bleed, back pain, seizure, CVA, palpatations, mental health, musculoskeletal)? @ -Weakness, dehydration, hypothyroidism EKG interpreted by me (3pts min.). @ -As above X-rays interpreted by me (1pt min.). @ -As above CT interpreted by me (1pt min.). @ -None done U/S interpreted by me (1pt. min.). @ -None done What testing was considered but not performed or refused? (CT, X-rays, U/S, labs)? Why? @ -None What meds were considered but not given or refused? Why? @ -None Did you discuss the management of the patient with other professionals (pr ofessionals i.e. FAUSTINO Restrepo, LANDSCAPE DESIGNER, lab, RT, psych nurse, social security specialist, aluminum welder, teacher, parcel post officer, catalytic case operator)? Give summary @ -Dr. Samayoa Was smoking cessation discussed for >3mins.? @ -No Was critical care preformed (if so, how long)? @ -No Were there social determinants of health that impacted care today? How? (Homelessness, low income, unemployed, alcoholism, drug addiction, transportation, low edu. Level, literacy, decrease access to med. care, [facility] [facility], rehab)? @ -No Was there de-escalation of care discussed even if they declined (Discuss DNR or withdrawal of care, Hospice)? DNR status @ -No What co-morbidities impacted this encounter? (DM, HTN, Smoking, COPD, CAD, Cancer, CVA, ARF, Chemo, Hep., AIDS, mental health diagnosis, sleep apnea, morbid obesity)? @ -Coronary artery disease, hypertension, hypothyroidism, osteoarthritis or rheumatoid arthritis Was patient admitted / discharged? Hospital course, mention meds given and route, prescriptions, significant lab abnormalities, going to OR and other pertinent info. @ -Patient was admitted for further treatment inpatient Undiagnosed new problem with uncertain prognosis? @ -No Drug Therapy requiring intensive monitoring for toxicity (Heparin, Nitro, Insulin, Cardizem)? @ -No Were any procedures done? @ -No Diagnosis/symptom? @ -Hypothyroidism, weakness, dehydration, palpation treatment failure, failure to thrive Acute, or Chronic, or Acute on Chronic? @ -Acute on chronic Uncomplicated (without systemic symptoms) or Complicated (systemic symptoms)? @ -Complicated Side effects of treatment? @ -No Exacerbation, Progression, or Severe Exacerbation? @ -No Poses a threat to life or bodily function? How? (Chest pain, [place], [place], pneumonia, PE, COPD, DKA, ARF, appy, cholecystitis, CVA, Diverticulitis, Homicidal, Suicidal, threat to staff... and all critical care pts) @ -No - Lab Data Result diagrams: 04/16/23 16:36 04/16/23 16:36 Lab Results 04/16/23 04/16/23 04/16/23 Range/Units 16:36 16:36 16:36 WBC 7.8 (3.8-10.6) k/uL RBC 5.30 (3.80-5.40) m/uL Hgb 15.3 (11.4-16.0) gm/dL Hct 47.9 H (34.0-46.0) % MCV 90.4 (80.0-100.0) fL MCH 28.9 (25.0-35.0) pg MCHC 31.9 (31.0-37.0) g/dL RDW 15.2 (11.5-15.5) % Plt Count 268 (150-450) k/uL MPV 8.6 Neutrophils % 61 % Lymphocytes % 30 % Monocytes % 5 % Eosinophils % 2 % Basophils % 1 % Neutrophils # 4.8 (1.3-7.7) k/uL Lymphocytes # 2.3 (1.0-4.8) k/uL Monocytes # 0.4 (0-1.0) k/uL Eosinophils # 0.2 (0-0.7) k/uL Basophils # 0.1 (0-0.2) k/uL Sodium 138 (137-145) mmol/L Potassium 3.5 (3.5-5.1) mmol/L Chloride 104 (98-107) mmol/L Carbon Dioxide 23 (22-30) mmol/L Anion Gap 11 mmol/L BUN 17 (7-17) mg/dL Creatinine 1.40 H (0.52-1.04) mg/dL Est GFR (CKD-EPI)AfAm 46 (>60 ml/min/1.73 sqM) Est GFR (CKD-EPI)NonAf 40 (>60 ml/min/1.73 sqM) Glucose 75 (74-99) mg/dL Calcium 8.7 (8.4-10.2) mg/dL Magnesium 1.7 (1.6-2.3) mg/dL Total Bilirubin 0.7 (0.2-1.3) mg/dL AST 30 (14-36) U/L ALT 19 (4-34) U/L Alkaline Phosphatase 83 (38-126) U/L Creatine Kinase 135 (30-135) U/L Total Protein 7.2 (6.3-8.2) g/dL Albumin 4.3 (3.5-5.0) g/dL TSH 91.200 H (0.465-4.680) mIU/L Free T4 0.14 L (0.78-2.19) ng/dL Urine Color Yellow Urine Appearance Clear (Clear) Urine pH 6.0 (5.0-8.0) Ur Specific [place] 1.013 (1.001-1.035) Urine Protein Negative (Negative) Urine Glucose (UA) Negative (Negative) Urine Ketones Negative (Negative) Urine Blood Negative (Negative) Urine Nitrite Negative (Negative) Urine Bilirubin Negative (Negative) Urine Urobilinogen <2.0 (<2.0) mg/dL Ur Leukocyte Esterase Small H (Negative) Urine RBC 1 (0-5) /hpf Urine WBC 3 (0-5) /hpf Ur Squamous Epith Cells 1 (0-4) /hpf Urine Bacteria Occasional H (None) /hpf Hyaline Casts 13 H (0-2) /lpf Urine Mucus Rare H (None) /hpf - Radiology Data Interpreted by me: Imaging interpreted by me no acute process. Disposition Clinical Impression: Hypothyroidism, Dehydration, Weakness, Failure to thrive Disposition: ADMITTED IP TO THIS [facility] Condition: Stable Referrals: Elmer Samayoa MD [Primary Care Provider] - 1-2 days Decision Date: 04/16/23 Decision Time: 19:40
[2023-04-16 16:50] LABS: Basophils # (A) 0.1 k/uL (0-0.2); Basophils % (A) 1 %; Eosinophils # (A) 0.2 k/uL (0-0.7); Eosinophils % (A) 2 %; HCT 47.9 % (34.0-46.0); HGB 15.3 gm/dL (11.4-16.0); Lymphocytes # (A) 2.3 k/uL (1.0-4.8); Lymphocytes % (A) 30 %; MCH 28.9 pg (25.0-35.0); MCHC 31.9 g/dL (31.0-37.0); MCV 90.4 fL (80.0-100.0); Mean Platelet Volume 8.6; Monocytes # (A) 0.4 k/uL (0-1.0); Monocytes % (A) 5 %; Neutrophils # (A) 4.8 k/uL (1.3-7.7); Neutrophils % (A) 61 %; Platelet Count 268 k/uL (150-450); RDW 15.2 % (11.5-15.5); WBC 7.8 k/uL (3.8-10.6)
[2023-04-16 17:02] LABS: ALT 19 U/L (4-34); AST 30 U/L (14-36); African American GFR (CKD) 46 (>60 ml/min/1.73 sqM); Albumin 4.3 g/dL (3.5-5.0); Alkaline Phosphatase 83 U/L (38-126); Anion Gap 11 mmol/L; Blood Urea Nitrogen 17 mg/dL (7-17); Calcium 8.7 mg/dL (8.4-10.2); Carbon Dioxide 23 mmol/L (22-30); Chloride 104 mmol/L (98-107); Creatine Kinase 135 U/L (30-135); Glucose 75 mg/dL (74-99); Magnesium 1.7 mg/dL (1.6-2.3); Non-African American GFR(CKD) 40 (>60 ml/min/1.73 sqM); Potassium 3.5 mmol/L (3.5-5.1); Sodium 138 mmol/L (137-145); Total Bilirubin 0.7 mg/dL (0.2-1.3); Total Protein 7.2 g/dL (6.3-8.2)
--- NOTE | 2023-04-16 17:36 | XR ---
EXAMINATION TYPE: XR chest 2V DATE OF EXAM: 04/16/2023 5:03 PM COMPARISON: Chest radiographs from 03/16/2021 TECHNIQUE: XR chest 2V Frontal and lateral views of the chest. CLINICAL INDICATION:Female, 63 years old with history of Weakness, epigastric discomfort; FINDINGS: Lungs/Pleura: Low lung volumes are present. There is no evidence of pleural effusion, focal consolida tion, or pneumothorax. Pulmonary vascularity: Unremarkable. Heart/mediastinum: Cardiomediastinal silhouette is unremarkable. Musculoskeletal: No acute osseous pathology. Fixation hardware in the lower cervical spine partially visualized on lateral view. IMPRESSION: No acute cardiopulmonary disease/process.
--- NOTE | 2023-04-16 17:39 | XR ---
EXAMINATION TYPE: XR KUB DATE OF EXAM: 04/16/2023 5:06 PM INDICATION: Patient age:Female; 63 years old; Reason for study: Weakness, epigastric discomfort; COMPARISON: None. TECHNIQUE: One radiographic view of the abdomen was obtained. FINDINGS: The bowel gas pattern is nonspecific without dilated loops of small or large bowel. There i s no evidence for organomegaly or pneumoperitoneum. The osseous structures are intact. No abnormal calcifications are present. Fecal material and gas are demonstrated throughout the colon and rectum. IMPRESSION: Nonspecific bowel gas pattern without radiographic evidence for acute process.
[2023-04-16 17:59] LABS: T4, Free (Free Thyroxine) 0.14 ng/dL (0.78-2.19)
[2023-04-16] MEDS ORDERED: traMADol 50 MG TAB PO STA (18:34)
[2023-04-16 18:56] LABS: Appearance,Urine Clear (Clear); Bacteria,Urine Occasional /hpf; Bilirubin,Urine Negative (Negative); Blood,Urine Negative (Negative); Color,Urine Yellow; Glucose,Urine (UA) Negative (Negative); Hyaline Casts,Urine 13 /lpf (0-2); Ketones,Urine Negative (Negative); Leukocyte Esterase,Urine Small (Negative); Mucus,Urine Rare /hpf; Nitrite,Urine Negative (Negative); Protein,Urine Negative (Negative); RBC,Urine 1 /hpf (0-5); Specific Gravity,Urine 1.013 (1.001-1.035); Squamous Epithelial Cell,Urine 1 /hpf (0-4); Urobilinogen,Urine <2.0 mg/dL (<2.0); WBC,Urine 3 /hpf (0-5)
[2023-04-16] MEDS ORDERED: NALOXONE 0.4 MG/ML 1 ML VIAL IV PRN (20:24)
[2023-04-16] MEDS ORDERED: IBUPROFEN 600 MG TAB PO PRN (20:26)
[2023-04-16] MEDS ORDERED: SYMBICORT 160-4.5 MCG INHALER INHALATION PRN (20:26)
[2023-04-16] MEDS ORDERED: ACETAMINOPHEN TAB 325 MG TAB PO PRN (20:26)
[2023-04-16] MEDS ORDERED: FUROSEMIDE 20 MG TAB PO PRN (20:26)
[2023-04-16] MEDS ORDERED: DOCUSATE 100 MG CAP PO PRN (20:26)
[2023-04-16] MEDS ORDERED: POTASSIUM CHLORIDE ER 20 MEQ TAB.ER PO STA (20:27)
[2023-04-16] MEDS ORDERED: LEVOTHYROXINE IVP 100 MCG/5 ML VIAL IV STA (20:27)
[2023-04-16] MEDS ORDERED: MAGNESIUM SULFATE-D5W PMX 1 GM in DEXTROSE/WATER 1 100ML.BAG IVPB ONE (20:27)
[2023-04-16] MEDS ORDERED: NON FORMULARY DRUG (Acetaminophen/Diphenhydramine [Tylenol Pm 500-25mg] 1 EACH Tablet) PO SCH (21:00)
[2023-04-16] MEDS ORDERED: POTASSIUM CHLORIDE 20 MEQ in WATER FOR INJECTION 1 100ML.BAG IVPB STA (21:45)
[2023-04-16] MEDS: SODIUM CHLORIDE 0.9% 1,000 ML IV STA ×2 (22:18→23:19)
[2023-04-16] MEDS: MIDODRINE 5 MG TAB PO SCH (22:36)
[2023-04-16] MEDS: METOPROLOL TARTRATE 12.5 MG TAB PO SCH (22:37)
[2023-04-16] MEDS: PANTOPRAZOLE 40 MG TABLET PO SCH (22:38)
[2023-04-16] MEDS: CLINDAMYCIN 150 MG CAP PO SCH (22:39)
[2023-04-16] MEDS: ACETAMINOPHEN TAB 500 MG TAB PO SCH (22:39)
[2023-04-16] MEDS: diphenhydrAMINE 25 MG CAP PO SCH (22:39)
[2023-04-16] MEDS: SODIUM CHLORIDE 0.9% 1,000 ML IV SCH (23:20)
[2023-04-17] MEDS: ZOLPIDEM 5 MG TAB PO SCH (01:56)
[2023-04-17] MEDS: QUEtiapine 25 MG TAB PO SCH ×2 (01:56→09:23)
[2023-04-17] MEDS: ALPRAZolam 1 MG TAB PO SCH ×4 (01:56→18:10)
[2023-04-17] MEDS: SODIUM CHLORIDE 0.9% 1,000 ML IV SCH ×3 (02:08→21:03)
[2023-04-17] MEDS ORDERED: LEVOTHYROXINE 75 MCG TAB PO SCH (06:30)
[2023-04-17] MEDS: PANTOPRAZOLE 40 MG TABLET PO SCH ×2 (09:23→21:02)
[2023-04-17] MEDS: CLINDAMYCIN 150 MG CAP PO SCH ×2 (09:23→21:02)
[2023-04-17] MEDS: MULTIVITAMINS, THERA 1 EACH TAB PO SCH (09:23)
[2023-04-17] MEDS: ASPIRIN 81 MG PO SCH (09:23)
[2023-04-17] MEDS: METOPROLOL TARTRATE 12.5 MG TAB PO SCH ×2 (09:23→21:02)
[2023-04-17] MEDS: MIDODRINE 5 MG TAB PO SCH ×3 (09:23→21:13)
[2023-04-17] MEDS: traMADol 50 MG TAB PO PRN ×2 (12:51→21:15)
--- NOTE | 2023-04-17 13:01 | HP ---
HISTORY AND PHYSICAL HISTORY OF PRESENT ILLNESS: This is a 63-year-old white female came to the hospital for progressive weakness for the last 5 or 6 months, severe fatigue and weakness and muscle aches diffusely. She feels terrible. She is severely hypothyroid at this time, difficulty with her swallowing and she has trouble with her teeth and pain in her teeth. Her thyroid is severely , history of GERD. She is supposed to be on thyroid pills at home, but apparently she does not look like she has been taking them. Home medicines have been reviewed. ALLERGIES: Hydrocodone, penicillin. PAST MEDICAL HISTORY: GERD, chest pain, GI bleed, hypertension, dyslipidemia, liver disease, musculoskeletal disorder, osteoarthritis, pneumonia, rheumatoid arthritis, hypothyroidism, difficulty with swallowing surgery, back surgery, cholecystectomy, hysterectomy, joint replacement, and tonsillectomy. FAMILY HISTORY: Cancer of the brain father. Mother, sister, with breast cancer. PHYSICAL EXAMINATION: VITAL SIGNS: Stable. Temperature 97.4, pulse is low 50s, respiratory rate 18 to 20, blood pressure 101/79, and O2 96-93. CARDIOVASCULAR: S1, S2. GI: Soft. EXTREMITIES: 2+ edema throughout. BACK: Normal inspection. NEUROLOGIC: Cranial nerves intact. PSYCH: Fair mood and affect. EKG, sinus bradycardia. ASSESSMENT: Profound hypothyroidism with severe dehydration, failure to thrive. We will give IV thyroid for few days and send home on oral, replace electrolytes. Give her some IV fluids. Prognosis guarded. Please see further orders. MMODL / IJN: [id number] /
[2023-04-17] MEDS: LEVOTHYROXINE IVP 100 MCG/5 ML VIAL IV SCH (13:15)
[2023-04-17] MEDS: diphenhydrAMINE 25 MG CAP PO SCH (21:03)
[2023-04-17] MEDS: ACETAMINOPHEN TAB 500 MG TAB PO SCH (21:10)
[2023-04-18] MEDS: ALPRAZolam 1 MG TAB PO SCH ×5 (01:42→17:31)
[2023-04-18] MEDS: QUEtiapine 25 MG TAB PO SCH ×2 (01:42→08:16)
[2023-04-18] MEDS: ZOLPIDEM 5 MG TAB PO SCH (01:42)
[2023-04-18] MEDS: SODIUM CHLORIDE 0.9% 1,000 ML IV SCH ×3 (03:37→22:07)
[2023-04-18] MEDS: ASPIRIN 81 MG PO SCH (08:16)
[2023-04-18] MEDS: PANTOPRAZOLE 40 MG TABLET PO SCH ×2 (08:16→22:07)
[2023-04-18] MEDS: METOPROLOL TARTRATE 12.5 MG TAB PO SCH ×2 (08:16→22:06)
[2023-04-18] MEDS: MIDODRINE 5 MG TAB PO SCH ×3 (08:16→22:07)
[2023-04-18] MEDS: MULTIVITAMINS, THERA 1 EACH TAB PO SCH (08:16)
[2023-04-18] MEDS: CLINDAMYCIN 150 MG CAP PO SCH ×2 (08:16→22:06)
[2023-04-18] MEDS: LEVOTHYROXINE IVP 100 MCG/5 ML VIAL IV SCH (08:17)
[2023-04-18] MEDS: traMADol 50 MG TAB PO PRN ×2 (08:21→17:34)
[2023-04-18] MEDS: ACETAMINOPHEN TAB 500 MG TAB PO SCH (22:06)
[2023-04-18] MEDS: diphenhydrAMINE 25 MG CAP PO SCH (22:07)
[2023-04-19] MEDS: QUEtiapine 25 MG TAB PO SCH ×2 (00:54→09:50)
[2023-04-19] MEDS: ALPRAZolam 1 MG TAB PO SCH ×4 (00:55→18:41)
[2023-04-19] MEDS: ZOLPIDEM 5 MG TAB PO SCH (00:55)
[2023-04-19] MEDS: SODIUM CHLORIDE 0.9% 1,000 ML IV SCH ×3 (02:26→13:02)
[2023-04-19] MEDS: MIDODRINE 5 MG TAB PO SCH ×3 (09:50→22:25)
[2023-04-19] MEDS: PANTOPRAZOLE 40 MG TABLET PO SCH ×2 (09:50→20:28)
[2023-04-19] MEDS: MULTIVITAMINS, THERA 1 EACH TAB PO SCH (09:50)
[2023-04-19] MEDS: METOPROLOL TARTRATE 12.5 MG TAB PO SCH ×2 (09:50→20:28)
[2023-04-19] MEDS: ASPIRIN 81 MG PO SCH (09:50)
[2023-04-19] MEDS: CLINDAMYCIN 150 MG CAP PO SCH ×2 (10:42→20:28)
[2023-04-19] MEDS: LEVOTHYROXINE IVP 100 MCG/5 ML VIAL IV SCH (10:43)
[2023-04-19] MEDS: traMADol 50 MG TAB PO PRN (16:22)
[2023-04-19] MEDS: ACETAMINOPHEN TAB 500 MG TAB PO SCH (20:28)
[2023-04-19] MEDS: diphenhydrAMINE 25 MG CAP PO SCH (20:28)
[2023-04-20] MEDS: QUEtiapine 25 MG TAB PO SCH ×3 (01:52→20:54)
[2023-04-20] MEDS: ALPRAZolam 1 MG TAB PO SCH ×4 (01:52→18:20)
[2023-04-20] MEDS: ZOLPIDEM 5 MG TAB PO SCH (01:52)
[2023-04-20] MEDS: SODIUM CHLORIDE 0.9% 1,000 ML IV SCH ×3 (01:53→16:29)
--- NOTE | 2023-04-20 04:01 | PN ---
PROGRESS NOTE SUBJECTIVE: This is a 63-year-old white female, continues on Synthroid IV daily and oral Synthroid 150 mg mcg orally. The patient is feeling little bit better. OBJECTIVE: CARDIOVASCULAR: S1, S2. LUNGS: Clear. GI: Soft. HEMATOLOGY: Negative Homans. ASSESSMENT: Profound hypothyroidism, anxiety, mood disorder, depression. Continue current treatment. Follow up in next 24 to 48 hours for discharge. MMODL / IJN: [id number] /
[2023-04-20] MEDS: METOPROLOL TARTRATE 12.5 MG TAB PO SCH ×2 (08:09→20:54)
[2023-04-20] MEDS: ASPIRIN 81 MG PO SCH (08:09)
[2023-04-20] MEDS: MULTIVITAMINS, THERA 1 EACH TAB PO SCH (08:09)
[2023-04-20] MEDS: MIDODRINE 5 MG TAB PO SCH ×3 (08:09→20:53)
[2023-04-20] MEDS: CLINDAMYCIN 150 MG CAP PO SCH ×2 (08:10→21:20)
[2023-04-20] MEDS: LEVOTHYROXINE IVP 100 MCG/5 ML VIAL IV SCH (08:10)
[2023-04-20] MEDS: PANTOPRAZOLE 40 MG TABLET PO SCH ×2 (08:10→20:53)
[2023-04-20] MEDS: ACETAMINOPHEN TAB 500 MG TAB PO SCH (20:53)
[2023-04-20] MEDS: traMADol 50 MG TAB PO PRN (20:53)
[2023-04-20] MEDS: diphenhydrAMINE 25 MG CAP PO SCH (20:54)
[2023-04-21] MEDS: ZOLPIDEM 5 MG TAB PO SCH (01:58)
[2023-04-21] MEDS: ALPRAZolam 1 MG TAB PO SCH ×3 (01:58→12:04)
--- NOTE | 2023-04-21 04:11 | PN ---
PROGRESS NOTE SUBJECTIVE: A 63-year-old white female, who is improving. She is getting up ambulating. She will possibly be discharged home tomorrow. She wants to be a DNR today. Creatinine is 1.4. Repeat TSH is 48, which is improved. We will switch her back over to oral Synthroid over the next day or so on discharge to home. OBJECTIVE: CARDIOVASCULAR: S1, S2. LUNGS: Clear. GI: Soft. HEMATOLOGY: Negative Homans. PSYCH: Fair mood and affect. PLAN: Continue current treatment. Follow up in the next 24 to 48 hours for discharge. MMODL / IJN: [id number] /
[2023-04-21 07:58] VITALS: TEMP 98
[2023-04-21] MEDS: CLINDAMYCIN 150 MG CAP PO SCH (08:31)
[2023-04-21] MEDS: MIDODRINE 5 MG TAB PO SCH (08:31)
[2023-04-21] MEDS: LEVOTHYROXINE IVP 100 MCG/5 ML VIAL IV SCH (08:31)
[2023-04-21] MEDS: METOPROLOL TARTRATE 12.5 MG TAB PO SCH (08:31)
[2023-04-21] MEDS: MULTIVITAMINS, THERA 1 EACH TAB PO SCH (08:31)
[2023-04-21] MEDS: QUEtiapine 25 MG TAB PO SCH (08:31)
[2023-04-21] MEDS: ASPIRIN 81 MG PO SCH (08:31)
[2023-04-21] MEDS: PANTOPRAZOLE 40 MG TABLET PO SCH (08:32)
[2023-04-21] MEDS: traMADol 50 MG TAB PO PRN ×2 (08:37→16:09)
[2023-04-21 13:48] VITALS: BMI 31.4
[2023-04-21 15:27] VITALS: BP 137/87; PULSE 78; RESP 19
[2023-04-22] MEDS ORDERED: LEVOTHYROXINE 100 MCG TAB PO SCH (06:30)
== END 2023-04-21 16:45 | disposition home or self-care (01) | DRG 427 ==
LOC: EC 13:29 → 5NMEDONC 20:25 → 4SSUR 20:39
PROVIDERS: ADMIT Family Medicine; ATTEND Family Medicine
DX: E03.9 Hypothyroidism, unspecified (principal); E86.0 Dehydration; R62.7 Adult failure to thrive; Z68.31 Body mass index [BMI] 31.0-31.9, adult; K46.9 Unspecified abdominal hernia without obstruction or gangrene; Z66 Do not resuscitate; K21.9 Gastro-esophageal reflux disease without esophagitis; M19.90 Unspecified osteoarthritis, unspecified site; M06.9 Rheumatoid arthritis, unspecified; T38.1X6A Underdosing of thyroid hormones and substitutes, initial encounter; I10 Essential (primary) hypertension; F39 Unspecified mood [affective] disorder; E78.5 Hyperlipidemia, unspecified; F41.0 Panic disorder [episodic paroxysmal anxiety]; F32.A Depression, unspecified; K76.9 Liver disease, unspecified; K08.89 Other specified disorders of teeth and supporting structures; Z96.652 Presence of left artificial knee joint; Z87.01 Personal history of pneumonia (recurrent); Z88.5 Allergy status to narcotic agent; Z88.0 Allergy status to penicillin; Z79.890 Hormone replacement therapy; Z79.82 Long term (current) use of aspirin; Z79.51 Long term (current) use of inhaled steroids; Z87.891 Personal history of nicotine dependence; Z71.3 Dietary counseling and surveillance
CPT/HCPCS: 36415; 71046; 74018; 80053; 81001; 82550; 83735; 84439; 84443; 85025; 93005; 96365; 96375; 99285

== ENCOUNTER → 2024-11-15 | Outpatient (CLI) | payer OTHER ==
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
== END | disposition home or self-care (01) ==
LOC: RADMRIMAIN 13:51
PROVIDERS: ATTEND Family Medicine
DX: M50.30 Other cervical disc degeneration, unspecified cervical region (principal); G43.009 Migraine without aura, not intractable, without status migrainosus; M47.812 Spondylosis without myelopathy or radiculopathy, cervical region; H74.8X2 Other specified disorders of left middle ear and mastoid; R90.82 White matter disease, unspecified; Z98.890 Other specified postprocedural states
CPT/HCPCS: 70553; 72156; A9585

== ENCOUNTER → 2025-01-25 | Outpatient (CLI) | payer OTHER ==
--- NOTE | 2025-01-27 15:47 | MR ---
EXAMINATION TYPE: MR lumbar spine wo/w con DATE OF EXAM: 01/25/2025 4:07 PM COMPARISON: None. CLINICAL INDICATION: Female, 64 years old with history of M48.06 Lumbar stenosis, lumbar stenosis TECHNIQUE: Multiplanar, multisequence images of the lumbar spine were acquired. IV Contrast: 8ml mL Gadobutrol (None, if empty) FINDINGS: Cord ends at the L1 level. L5-S1: No focal disc herniation or significant disc bulge. No spinal canal stenosis. Neural foramen are patent. Some facet hypertrophy is present. L4-L5: There is a grade 1 spondylolisthesis of L4 anterior on L5. Disc uncovering is present with mil d anterior thecal sac flattening. Facet hypertrophy and ligamentum flavum laxity is mild posterior la teral thecal sac compression. No spinal canal stenosis is present. Neural foramen have moderate [place]ol[place] inal narrowing. L3-L4: No focal disc herniation or significant disc bulge. No spinal canal stenosis. Neural foramen are patent. L2-L3: No focal disc herniation or significant disc bulge. No spinal canal stenosis. Neural foramen are patent. L1-L2: No focal disc herniation or significant disc bulge. No spinal canal stenosis. Neural foramen are patent. T12-L1: No focal disc herniation or significant disc bulge. No spinal canal stenosis. Neural forame n are patent. IMPRESSION: 1. Grade 1 spondylolisthesis of L4 anterior on L5. Disc uncovering and facet hypertrophy with ligamen elana flavum laxity has thecal sac impression without spinal canal stenosis. Moderate foraminal narrowi ng is present. [facility], , 01/27/2025 3:45 PM
== END | disposition home or self-care (01) ==
LOC: RADMRIMAIN 14:45
PROVIDERS: ATTEND Family Medicine
DX: M43.16 Spondylolisthesis, lumbar region (principal); M48.061 Spinal stenosis, lumbar region without neurogenic claudication; M51.26 Other intervertebral disc displacement, lumbar region; M99.73 Connective tissue and disc stenosis of intervertebral foramina of lumbar region
CPT/HCPCS: 72158; A9585

== ENCOUNTER → 2025-02-14 | Outpatient (CLI) | payer OTHER ==
[2025-02-14 13:13] VITALS: BP 135/88; PULSE 85; RESP 19; TEMP 96.9
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
== END ==
LOC: PNWHC3 12:53
PROVIDERS: ATTEND Specialist
DX: M96.1 Postlaminectomy syndrome, not elsewhere classified (principal); M43.16 Spondylolisthesis, lumbar region; G44.86 Cervicogenic headache; Z87.891 Personal history of nicotine dependence; Z88.5 Allergy status to narcotic agent; Z88.0 Allergy status to penicillin
CPT/HCPCS: 99211

== ENCOUNTER 2025-03-23 01:14 | Inpatient (IN) | payer OTHER ==
[2025-03-23] MEDS: SODIUM CHLORIDE 0.9% 2,000 ML IV STA (01:16)
[2025-03-23] MEDS: ONDANSETRON 4 MG/2 ML VIAL IVP STA (01:16)
[2025-03-23 01:18] LABS: Glucose,Whole Blood 152 mg/dL (70-110)
[2025-03-23] MEDS: NALOXONE 0.4 MG/ML 1 ML VIAL IVP STA (01:20)
[2025-03-23] MEDS: ETOMIDATE 2 MG/ML 10 ML VIAL IVP STA (01:21)
[2025-03-23] MEDS: ROCURONIUM 10 MG/ML (5 ML VIAL) IV STA (01:22)
[2025-03-23] MEDS ORDERED: fentaNYL (PF) 50 MCG/ML 2 ML AMP IVP PRN (01:34)
[2025-03-23 01:36] LABS: Basophils # (A) 0.05 10*3/uL (0.00-0.10); Basophils % (A) 0.3 %; HCT 44.2 % (37.2-46.3); HGB 14.5 g/dL (12.0-15.0); Lymphocytes # (A) 1.45 10*3/uL (0.90-5.00); Lymphocytes % (A) 8.9 %; MCH 30.3 pg (27.0-32.0); MCHC 32.8 g/dL (32.0-37.0); MCV 92.3 fL (80.0-97.0); Mean Platelet Volume 9.7 fL (9.5-12.2); Monocytes # (A) 0.54 10*3/uL (0.20-1.00); Monocytes % (A) 3.3 %; Neutrophils # (A) 14.14 10*3/uL (1.80-7.70); Neutrophils % (A) 86.9 %; Platelet Count 313 10*3/uL (140-440); RBC 4.79 10*6/uL (4.10-5.20); RDW 13.5 % (11.5-14.5); WBC 16.28 10*3/uL (4.50-10.00)
--- NOTE | 2025-03-23 01:45 | ED ---
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 (NotDetected) Serum Alcohol mg/dL Blood Type Blood Type Recheck Bld Type Recheck Status Antibody Screen Spec Expiration Date 03/23/25 03/23/25 Range/Units 02:53 03:10 WBC (4.50-10.00) 10*3/uL RBC (4.10-5.20) 10*6/uL Hgb (12.0-15.0) g/dL Hct (37.2-46.3) % MCV (80.0-97.0) fL MCH (27.0-32.0) pg MCHC (32.0-37.0) g/dL Plt Count (140-440) 10*3/uL MPV (9.5-12.2) fL Immature Gran % (Auto) % Neutrophils % % Lymphocytes % % Monocytes % % Eosinophils % % Basophils % % Immature Gran # (0.00-0.04) 10*3/uL Neutrophils # (1.80-7.70) 10*3/uL Lymphocytes # (0.90-5.00) 10*3/uL Monocytes # (0.20-1.00) 10*3/uL Eosinophils # (0.04-0.35) 10*3/uL Basophils # (0.00-0.10) 10*3/uL PT (10.0-12.5) sec INR (<1.2) APTT (22.0-30.0) sec Sample Site ABG pH (7.35-7.45) ABG pCO2 (35-45) mmHg ABG pO2 (83-108) mmHg ABG HCO3 (21-25) mmol/L ABG Total CO2 (19-24) mmol/L ABG O2 Saturation (94-97) % ABG Base Excess mmol/L Les Test Hemoglobin (11.4-16.0) gm/dL FiO2 % Sodium (137-145) mmol/L Potassium (3.5-5.1) mmol/L Chloride (98-107) mmol/L Carbon Dioxide (22-30) mmol/L Anion Gap mmol/L BUN (7-17) mg/dL Creatinine (0.52-1.04) mg/dL Est GFR (CKD-EPI)AfAm (>60 ml/min/1.73 sqM) Est GFR (CKD-EPI)NonAf (>60 ml/min/1.73 sqM) Glucose (74-99) mg/dL POC Glucose (mg/dL) (70-110) mg/dL POC Glu Software Business Analyst ID Plasma Lactic Acid Tae (0.7-2.0) mmol/L Calcium (8.4-10.2) mg/dL Total Bilirubin (0.2-1.3) mg/dL AST (14-36) U/L ALT (4-34) U/L Alkaline Phosphatase (38-126) U/L Ammonia (<30) umol/L Creatine Kinase (30-135) U/L Troponin I (0.000-0.034) ng/mL NT-Pro-B Natriuret Pep pg/mL Total Protein (6.3-8.2) g/dL Albumin (3.5-5.0) g/dL TSH (0.465-4.680) mIU/L Free T4 (0.78-2.19) ng/dL Urine Color Urine Appearance (Clear) Urine pH (5.0-8.0) Ur Specific [place] (1.001-1.035) Urine Protein (Negative) Urine Glucose (UA) (Negative) Urine Ketones (Negative) Urine Blood (Negative) Urine Nitrite (Negative) Urine Bilirubin (Negative) Urine Urobilinogen (<2.0) mg/dL Ur Leukocyte Esterase (Negative) Urine RBC (0-5) /hpf Urine WBC (0-5) /hpf Ur Squamous Epith Cells (0-4) /hpf Amorphous Sediment (None) /hpf Hyaline Casts (0-2) /lpf Urine Mucus (None) /hpf Stool Occult Blood Positive H (Negative) Salicylates mg/dL Urine Opiates Screen (NotDetected) Ur Oxycodone Screen (NotDetected) Urine Methadone Screen (NotDetected) Acetaminophen ug/mL Ur Barbiturates Screen (NotDetected) U Tricyclic Antidepress (NotDetected) Ur Phencyclidine Scrn (NotDetected) Ur Amphetamines Screen (NotDetected) U Methamphetamines Scrn (NotDetected) U Benzodiazepines Scrn (NotDetected) Urine Cocaine Screen (NotDetected) U Marijuana (THC) Screen (NotDetected) Serum Alcohol mg/dL Blood Type O Positive Blood Type Recheck O Pos Bld Type Recheck Status No Antibody Screen NEGATIVE Spec Expiration Date 03/26/20252352 Disposition Clinical Impression: Acute encephalopathy Disposition: ADMITTED IP TO THIS [facility] Condition: Serious
[2025-03-23 01:53] LABS: Partial Thromboplastin Time 25.8 sec (22.0-30.0); Prothrombin Time 11.4 sec (10.0-12.5)
--- NOTE | 2025-03-23 01:55 | CT ---
EXAM: CT Head Without Intravenous Contrast CLINICAL HISTORY: Neuro deficit, acute, stroke suspected TECHNIQUE: Axial computed tomography images of the head/brain without intravenous contrast. CTDI is 49.9 mGy and DLP is 1271 mGy-cm. This CT exam was performed using one or more of the following dose reduction techniques: automated exposure control, adjustment of the mA and/or kV according to patient size, and/or use of iterative reconstruction technique. COMPARISON: CT head without contrast dated 09/18/2022 FINDINGS: Brain: No intracranial hemorrhage. No significant mass-effect. No cortical infarct or appreciable alteration from the prior examination. No significant white matter disease. Ventricles: Unremarkable. No ventriculomegaly. Bones/joints: Unremarkable. No acute fracture. Soft tissues: Unremarkable. Sinuses: Unremarkable as visualized. No acute sinusitis. Mastoid air cells: Unremarkable as visualized. No mastoid effusion. Tubes, lines and devices: An orogastric tube and endotracheal tube are noted in the oropharynx. IMPRESSION: No acute intracranial process identified.
[2025-03-23] MEDS: fentaNYL (PF) 50 MCG/ML 2 ML AMP IVP STA (02:00)
--- NOTE | 2025-03-23 02:07 | CT ---
EXAM: CT Angiography Head With Intravenous Contrast CLINICAL HISTORY: Neuro deficit, acute, stroke suspected TECHNIQUE: Axial computed tomographic angiography images of the head with intravenous contrast. CTDI is 23.75 mGy and DLP is 411.5 mGy-cm. This CT exam was performed using one or more of the following dose reduction techniques: automated exposure control, adjustment of the mA and/or kV according to patient size, and/or use of iterative reconstruction technique. MIP reconstructed images were created and reviewed. COMPARISON: No relevant prior studies available. FINDINGS: Right internal carotid artery: No acute findings. Intracranial segment is patent with no significant stenosis. No aneurysm. Right anterior cerebral artery: Unremarkable. No occlusion or significant stenosis. No aneurysm. Right middle cerebral artery: Unremarkable. No occlusion or significant stenosis. No aneurysm. Right posterior cerebral artery: Unremarkable. No occlusion or significant stenosis. No aneurysm. Right vertebral artery: Unremarkable as visualized. Left internal carotid artery: No acute findings. Intracranial segment is patent with no significant stenosis. No aneurysm. Left anterior cerebral artery: Unremarkable. No occlusion or significant stenosis. No aneurysm. Left middle cerebral artery: Unremarkable. No occlusion or significant stenosis. No aneurysm. Left posterior cerebral artery: Unremarkable. No occlusion or significant stenosis. No aneurysm. Left vertebral artery: Unremarkable as visualized. Basilar artery: Unremarkable. No occlusion or significant stenosis. No aneurysm. Brain: No abnormal parenchymal enhancement. IMPRESSION: Negative intracranial CTA examination. EXAM: CT Angiography Neck With Intravenous Contrast CLINICAL HISTORY: Neuro deficit, acute, stroke suspected TECHNIQUE: Routine carotid CT angiography protocol was performed with intravenous contrast. NASCET criteria using the distal ICAs for comparison were used for evaluation of stenoses. CTDI is 23.75 mGy and DLP is 411.5 mGy-cm. This CT exam was performed using one or more of the following dose reduction techniques: automated exposure control, adjustment of the mA and/or kV according to patient size, and/or use of iterative reconstruction technique. MIP reconstructed images were created and reviewed. COMPARISON: None. FINDINGS: VASCULATURE: Right common carotid artery: Unremarkable. No occlusion or significant stenosis. No dissection. Right internal carotid artery: Focal atherosclerotic disease involving the proximal right internal carotid artery at the carotid bifurcation with approximately 50% luminal stenosis by NASCET criteria. The right internal carotid artery is diffusely smaller in caliber when compared to the contralateral artery. However, no other significant stenosis identified. No dissection. Right external carotid artery: Unremarkable. No occlusion. Right vertebral artery: Right vertebral artery is small in caliber measuring only 1-2 mm. No focal stenosis or occlusion. Left common carotid artery: Unremarkable. No occlusion or significant stenosis. No dissection. Left internal carotid artery: Atherosclerotic disease involving the proximal left internal carotid artery at the carotid bifurcation without significant stenosis by NASCET criteria. The mid to distal internal carotid artery is patent. No dissection. Left external carotid artery: Unremarkable. No occlusion. Left vertebral artery: The left vertebral artery is dominant in size and is widely patent. No occlusion or significant stenosis. No dissection. Brachiocephalic and subclavian arteries: The proximal great vessels are patent without significant ostial stenosis. Aorta: The aortic arch is patent. No dissection or aneurysm. NECK: Bones/joints: No acute osseous abnormality. Posterior fusion with pedicle screws and paraspinal rods noted from C3-C6 levels with laminectomies noted. Soft tissues: Unremarkable. Lung apices: Nonspecific subsegmental changes involving the posterior aspect of the right upper lobe with subtle patchy ground-glass opacities noted.. Tubes, lines and devices: Incidental endotracheal tube and orogastric tube in position. CAROTID STENOSIS REFERENCE USING NASCET CRITERIA: % ICA stenosis = (1 - narrowest ICA diameter/diameter of distal cervical ICA) x 100. Mild - <50% stenosis. Moderate - 50-69% stenosis. Severe - 70-94% stenosis. Near occlusion - 95-99% stenosis. Occluded - 100% stenosis. IMPRESSION: Focal atherosclerotic disease involving the proximal right internal carotid artery at the carotid bifurcation with approximately 50% luminal stenosis by NASCET criteria. The right internal carotid artery is diffusely smaller in caliber when compared to the contralateral artery. However, no other significant stenosis identified. The right common carotid artery is patent. 2. There are atherosclerotic changes involving the left carotid bifurcation without significant stenosis by NASCET criteria. The left common carotid artery is patent. 3. The vertebral arteries are patent bilaterally with the left vertebral artery dominant in size. 3. Subsegmental changes involving the right upper lobe may represent atelectasis or atypical infection.
[2025-03-23 02:17] LABS: ALT 18 U/L (4-34); AST 26 U/L (14-36); Acetaminophen <10.0 ug/mL; African American GFR (CKD) 65 (>60 ml/min/1.73 sqM); Albumin 4.3 g/dL (3.5-5.0); Alcohol <10 mg/dL; Alkaline Phosphatase 105 U/L (38-126); Anion Gap 14 mmol/L; Blood Urea Nitrogen 11 mg/dL (7-17); Calcium 9.2 mg/dL (8.4-10.2); Carbon Dioxide 22 mmol/L (22-30); Chloride 98 mmol/L (98-107); Creatine Kinase 112 U/L (30-135); Glucose 152 mg/dL (74-99); Non-African American GFR(CKD) 56 (>60 ml/min/1.73 sqM); Salicylate <1.0 mg/dL; Sodium 134 mmol/L (137-145); Total Bilirubin 0.7 mg/dL (0.2-1.3); Total Protein 7.4 g/dL (6.3-8.2)
[2025-03-23 02:21] LABS: ABG Base Excess -3.4 mmol/L; ABG HCO3 22 mmol/L (21-25); ABG Oxygen Saturation >100.0 % (94-97); ABG PCO2 38 mmHg (35-45); ABG PH 7.37 (7.35-7.45); ABG TCO2 23 mmol/L (19-24); Allen Test Performed? Yes
[2025-03-23 02:24] LABS: NT-Pro-B-Type Natriuretic Pept 178 pg/mL
[2025-03-23] MEDS: fentaNYL (PF). 1,000 MCG in SODIUM CHLORIDE 0.9% 80 ML IV SCH (02:30)
[2025-03-23 02:32] LABS: ABG PO2 >420 mmHg (83-108)
[2025-03-23 02:37] LABS: Potassium 4.4 mmol/L (3.5-5.1)
[2025-03-23] MEDS: PIPERACILLIN-TAZOBACTAM 3.375 GM in SODIUM CHLORIDE 0.9% 100 ML IVPB STA (02:42)
--- NOTE | 2025-03-23 02:45 | XR ---
EXAM: XR Chest, 1 View CLINICAL HISTORY: altered mental status, intubated TECHNIQUE: Frontal view of the chest. COMPARISON: Chest 2 views dated 04/16/2023 FINDINGS: Lungs: No pulmonary contusive injury. No focal consolidation. Pleural space: No definite large pleural effusion or pneumothorax, accounting for limitations with supine technique. Heart: Unremarkable. No cardiomegaly. Mediastinum: The mediastinal contours are stable, accounting for technique. No tracheal deviation. Bones/joints: Unremarkable. No acute fracture. Tubes, lines and devices: The endotracheal tube (ETT) is in satisfactory position with tip 2.6 cm above the susie. Nasogastric tube tip cannot be seen but is below the diaphragm. IMPRESSION: 1. The endotracheal tube is 2.6 cm from the susie. The nasogastric tube extends into the stomach. 2. No acute cardiopulmonary process or appreciable alteration from the prior examination.
[2025-03-23 02:52] LABS: Amorphous Sediment,Urine Rare /hpf; Appearance,Urine Cloudy (Clear); Bilirubin,Urine Negative (Negative); Blood,Urine Negative (Negative); Color,Urine Yellow; Glucose,Urine (UA) Negative (Negative); Hyaline Casts,Urine 23 /lpf (0-2); Ketones,Urine Negative (Negative); Leukocyte Esterase,Urine Negative (Negative); Mucus,Urine Rare /hpf; Nitrite,Urine Negative (Negative); PH, Urine 5.5 (5.0-8.0); Protein,Urine Trace (Negative); RBC,Urine 1 /hpf (0-5); Specific Gravity,Urine 1.025 (1.001-1.035); Squamous Epithelial Cell,Urine 1 /hpf (0-4); Urobilinogen,Urine <2.0 mg/dL (<2.0); WBC,Urine <1 /hpf (0-5)
[2025-03-23 02:53] LABS: Amphetamine Screen,Urine Not Detected (NotDetected); Barbiturate Screen,Urine Not Detected (NotDetected); Benzodiazepines Screen,Urine Detected (NotDetected); Cocaine Screen,Urine Not Detected (NotDetected); Methadone Screen, Urine Not Detected (NotDetected); Opiate Screen,Urine Not Detected (NotDetected); Oxycodone Screen, Urine Not Detected (NotDetected); Phencyclidine Screen,Urine Not Detected (NotDetected); Tricyclic Antidepressant,Urine Detected (NotDetected); Urn Cannabinoid Scrn Not Detected (NotDetected)
[2025-03-23] MEDS ORDERED: NALOXONE 0.4 MG/ML 1 ML VIAL IV PRN (03:16)
[2025-03-23] MEDS ORDERED: Magnesium Replacement Protocol 1 EACH MISC MISCELLANE PRN (03:16)
[2025-03-23] MEDS ORDERED: Potassium Replacement Protocol 1 EACH MISC MISCELLANE PRN (03:16)
[2025-03-23] MEDS ORDERED: Phosphorus Replacement Protoco 1 EACH MISC MISCELLANE PRN (03:16)
[2025-03-23 03:21] LABS: Lactic Acid, Venous 3.3 mmol/L (0.7-2.0)
[2025-03-23] MEDS: IPRATROPIUM-ALBUTEROL 3 ML NEB INHALATION SCH (03:35)
[2025-03-23 03:47] LABS: T4, Free (Free Thyroxine) 0.36 ng/dL (0.78-2.19)
[2025-03-23] MEDS: SODIUM CHLORIDE 0.9% 1,000 ML IV SCH (04:18)
[2025-03-23] MEDS: HYDROCORTISONE SUCCINATE 100 MG/2 ML VIAL IV STA (04:20)
[2025-03-23] MEDS: PANTOPRAZOLE 40 MG/10 ML VIAL IVP ONE (04:20)
[2025-03-23] MEDS: LEVOTHYROXINE IVP 100 MCG/5 ML VIAL IV SCH (04:41)
[2025-03-23 04:49] LABS: Basophils # (A) 0.04 10*3/uL (0.00-0.10); Basophils % (A) 0.2 %; HGB 13.4 g/dL (12.0-15.0); Lymphocytes # (A) 1.03 10*3/uL (0.90-5.00); Lymphocytes % (A) 5.9 %; MCHC 32.7 g/dL (32.0-37.0); MCV 91.7 fL (80.0-97.0); Mean Platelet Volume 9.6 fL (9.5-12.2); Monocytes # (A) 0.51 10*3/uL (0.20-1.00); Monocytes % (A) 2.9 %; Neutrophils # (A) 15.91 10*3/uL (1.80-7.70); Neutrophils % (A) 90.4 %; Platelet Count 267 10*3/uL (140-440); RBC 4.47 10*6/uL (4.10-5.20); RDW 13.3 % (11.5-14.5); WBC 17.59 10*3/uL (4.50-10.00)
[2025-03-23 05:04] LABS: African American GFR (CKD) 89 (>60 ml/min/1.73 sqM); Anion Gap 14 mmol/L; Blood Urea Nitrogen 9 mg/dL (7-17); Calcium 8.3 mg/dL (8.4-10.2); Carbon Dioxide 19 mmol/L (22-30); Chloride 103 mmol/L (98-107); Glucose 120 mg/dL (74-99); Non-African American GFR(CKD) 78 (>60 ml/min/1.73 sqM); Potassium 3.6 mmol/L (3.5-5.1); Sodium 136 mmol/L (137-145)
--- NOTE | 2025-03-23 05:49 | P.CNPUL ---
History of Present Illness Consult date: 03/23/25 Requesting physician: Jennifer Salazar Reason for consult: other (ICU and ventilator management) Chief complaint: Altered mental status History of present illness: Patient is a 64-year-old female with past medical history significant for major depression, previous suicide attempt, hypothyroidism. She is brought in by EMS early this morning, last known well was around 1630 yesterday evening. Reports of a phone conversation with her , states that she was feeling unwell, was going to try to make dinner. When came home, she was found on the ground with abnormal breathing pattern. EMS was called, they administered Narcan, with no response. EMS attempted intubation in the field, however, they were unable to secure the airway. Patient did have a large dark brown emesis, likely aspirated. Transferred to our emergency department on a nonrebreather. ER provider did intubate the patient on arrival. Workup including a CT of the brain without contrast which did not show any intracranial hemorrhage or mass effect. Brain CTA remarkable for approximately 50% luminal stenosis at the right internal carotid bifurcation. There was a patent right common carotid artery stent. No significant stenosis on the left with a patent left common carotid artery stent. Vertebral arteries were patent. Intubation chest x-ray showing the endotracheal tube approximately 2.6 cm above the susie. Enteric tube projects below the diaphragm. No obvious acute cardiopulmonary process. P atient did aspirate and brown gastric content appearing secretions are within the ET tube and being suctioned. CBC: WBC count 1 17.6, hemoglobin 13.4, platelets 267. BMP: Sodium 136, potassium 3.6, chloride 103, serum bicarb 19, BUN 9, creatinine 0.81, glucose 120. Urinalysis unremarkable for infection. Lactic was 3.3. Troponin less than 0.012. NT proBNP not elevated. TSH 47.6 and free T4 low at 0.36. She does have history of hypothyroidism, questionable medication compliance. Urine toxicology screen positive for TCAs and benzodiazepines. Serum alcohol less than 10. Acetaminophen less than 10. Patient currently being evaluated in the emergency department. Currently intubated to the mechanical ventilator, with settings assist-control, respiratory rate 20, tidal volume 500, FiO2 100%, PEEP of 5. ABGs done on these settings include a PaO2 greater than 420, pCO2 of 38, pH of 7.37. Peak pressures were elevated around 37 and static airway pressures around 24. Continuing to suction brown GI contents from ET tube. Placed on Zosyn in the ED for aspiration. Patient is currently sedated on a combination of propofol at 15 mics per kilogram per minute, as well as, IV fentanyl at 0.5 mcg/kg/h. She is unresponsive, does not withdraw to painful stimuli. Normal saline is infusing at 130 mL/h. Patient also hypothermic, with a current temperature of 35 C, external warming blanket is.. Not bradycardic or hypotensive. Code status previously addressed by the ED provider, apparently DO NOT RESUSCITATE. Review of Systems ROS unobtainable: due to endotracheal tube, due to mental status Past Medical History Past Medical History: Chest Pain / Angina, GERD/Reflux, GI Bleed, Hyperlipidemia, Hypertension, Liver Disease, Musculoskeletal Disorder, Osteoarthritis (OA), Pneumonia, Rheumatoid Arthritis (RA), Thyroid Disorder Additional Past Medical History / Comment(s): Hx liver problem, gallbladder disease, septis, had cholecystectomy and biliary drainage tube. Chronic neck and low back. Colitis, diverticulitis, gastritis, lower GI bleed, constipation. Orthostatic hypotention, dizziness, recent falls. Bilateral lower leg edema. Trouble swallowing, feels like food getting stuck in espogagus, causes pain, unable to eat much, feels dehydrated, muscle weakness, very dry skin, sore throat and dry/sore lips. Has thickening of vocal cords. Sore throat, cough, wheezing for months. "Gum disease, bad teeth that need to be removed but no Dentist will take out because they WERE infected, WAS on 3 antibiotics, CAN ONLY EAT LIQUID FOODS R/T TO MOUTH/TEETH PROBLEMS." Spurs on spine, frequent headaches. History of Any Multi-Drug Resistant Organisms: None Reported Past Surgical History: Back Surgery, Cholecystectomy, Hysterectomy, Joint Replacement, Tonsillectomy Additional Past Surgical History / Comment(s): EGD, colonosocpy, cadavar bone placed in C4 through C7 with titanium jarod, left knee replacement, lower back epidural injections/ablation. Past Anesthesia/Blood Transfusion Reactions: No Reported Reaction Past Psychological History: Anxiety, Panic Disorder Smoking Status: Former smoker Past Alcohol Use History: None Reported Past Drug Use History: None Reported - Past Family History Mother Family Medical History: Cancer Additional Family Medical History / Comment(s): Brain Cancer. Father Family Medical History: Cancer Additional Family Medical History / Comment(s): Liver Cancer. Sister(s) Family Medical History: Cancer Additional Family Medical History / Comment(s): Breast cancer. Medications and Allergies Home Medications Medication Instructions Recorded Confirmed Type Furosemide [Lasix] 20 mg PO DAILY 03/10/22 03/23/25 History QUEtiapine FUMARATE [SEROquel XR] 50 mg PO HS 03/10/22 03/23/25 History ALPRAZolam [Xanax] 1 mg PO QID 10/19/22 03/23/25 History Zolpidem Tartrate [Ambien] 10 mg PO HS 10/19/22 03/23/25 History traMADol HCL 100 mg PO TID 12/31/22 03/23/25 History Budesonide/Formoterol Fumarate 2 puff INHALATION RT-BID 04/16/23 03/23/25 History [Symbicort 160-4.5 Mcg Inhaler] Metoprolol Tartrate [Lopressor] 25 mg PO BID 04/16/23 03/23/25 History Omeprazole [PriLOSEC] 20 mg PO BID 04/16/23 03/23/25 History Levothyroxine Sodium [Synthroid] 200 mcg PO DAILY 03/23/25 03/23/25 History Potassium Chloride ER [K-Dur 10] 10 meq PO DAILY 03/23/25 03/23/25 History Allergies Allergy/AdvReac Type Severity Reaction Status Date / Time codeine Allergy Rash/Hives Verified 03/23/25 09:39 hydrocodone [From [place]] AdvReac Severe Abdominal Verified 03/23/25 09:39 Pain,vomiting Penicillins AdvReac Nausea & Verified 03/23/25 09:39 Vomiting & Diarrhea Physical Exam Vitals: Vital Signs Temp Pulse Resp BP Pulse Ox FiO2 03/23/25 03:00 94.6 F L 76 20 163/106 99 03/23/25 02:45 94.6 F L 77 20 177/113 100 03/23/25 02:30 94.6 F L 78 22 179/115 100 50 03/23/25 02:15 94.8 F L 80 16 192/124 100 03/23/25 02:00 94.8 F L 84 16 190/126 100 100 03/23/25 01:48 93.4 F L 76 16 204/130 100 03/23/25 01:35 100 03/23/25 01:20 8 L 03/23/25 01:17 97.7 F 107 H 6 L 95/68 96 Intake and Output 03/22/25 03/22/25 03/23/25 14:59 22:59 06:59 Other: Weight 106.322 kg GENERAL EXAM: Unresponsive, sedated, 64-year-old female intubated to mechanical ventilator, synchronous with set rate. Dried brown gastric secretions on chin and neck HEAD: Normocephalic and atraumatic EYES: Equal nonreactive pupils, midline, no corneal reflex, no nystagmus, nonicteric NOSE: Clear with pink turbinates. THROAT: No erythema or exudates. Orogastric tube with coffee-ground output NECK: No masses, no JVD. CHEST: No chest wall deformity. LUNGS: Equal air entry wit diffuse coarse rhonchi heard bilaterally throughout. Elevated peak airway pressures. Brown secretions within the ET tube requiring suctioning CVS: S1 and S2 normal with no audible murmur, regular rhythm. No extra heart sounds ABDOMEN: Obese abdomen, active bowel sounds, soft, no hepatosplenomegaly, no guarding or rigidity. SPINE: No scoliosis or deformity SKIN: No rashes CENTRAL NERVOUS SYSTEM sedated, no gag reflex, unresponsive to painful stimuli, flaccid extremities, hyporeactive DTRs, neutral Babinski EXTREMITIES: There is no peripheral edema, clubbing, or cyanosis. Peripheral pulses are intact. Results - Laboratory Findings CBC and BMP: 03/23/25 04:37 03/23/25 04:37 ABG ABG pH 7.37 (7.35-7.45) 03/23/25 02:20 ABG pCO2 38 mmHg (35-45) 03/23/25 02:20 ABG pO2 >420 mmHg (83-108) H 03/23/25 02:20 ABG O2 Saturation >100.0 % (94-97) H 03/23/25 02:20 PT/INR, D-dimer PT 11.4 sec (10.0-12.5) 03/23/25 01:19 INR 1.0 (<1.2) 03/23/25 01:19 Abnormal lab findings: Abnormal Labs 03/23/25 03/23/25 03/23/25 01:16 01:19 01:19 WBC 16.28 H Immature Gran # 0.10 H Neutrophils # 14.14 H Eosinophils # 0.00 L ABG pO2 ABG O2 Saturation Sodium 134 L Carbon Dioxide Creatinine 1.05 H Glucose 152 H POC Glucose (mg/dL) 152 H Plasma Lactic Acid Tae Calcium TSH 47.600 H Free T4 0.36 L Urine Appearance Urine Protein Amorphous Sediment Hyaline Casts Urine Mucus Stool Occult Blood U Tricyclic Antidepress U Benzodiazepines Scrn 03/23/25 03/23/25 03/23/25 01:30 01:30 01:31 WBC Immature Gran # Neutrophils # Eosinophils # ABG pO2 ABG O2 Saturation Sodium Carbon Dioxide Creatinine Glucose POC Glucose (mg/dL) Plasma Lactic Acid Tae 3.3 H* Calcium TSH Free T4 Urine Appearance Cloudy H Urine Protein Trace H Amorphous Sediment Rare H Hyaline Casts 23 H Urine Mucus Rare H Stool Occult Blood U Tricyclic Antidepress Detected H U Benzodiazepines Scrn Detected H 03/23/25 03/23/25 03/23/25 02:20 03:10 04:37 WBC 17.59 H Immature Gran # 0.10 H Neutrophils # 15.91 H Eosinophils # 0.00 L ABG pO2 >420 H ABG O2 Saturation >100.0 H Sodium Carbon Dioxide Creatinine Glucose POC Glucose (mg/dL) Plasma Lactic Acid Tae Calcium TSH Free T4 Urine Appearance Urine Protein Amorphous Sediment Hyaline Casts Urine Mucus Stool Occult Blood Positive H U Tricyclic Antidepress U Benzodiazepines Scrn 03/23/25 04:37 WBC Immature Gran # Neutrophils # Eosinophils # ABG pO2 ABG O2 Saturation Sodium 136 L Carbon Dioxide 19 L Creatinine Glucose 120 H POC Glucose (mg/dL) Plasma Lactic Acid Tae Calcium 8.3 L TSH Free T4 Urine Appearance Urine Protein Amorphous Sediment Hyaline Casts Urine Mucus Stool Occult Blood U Tricyclic Antidepress U Benzodiazepines Scrn - Diagnostic Findings Chest x-ray: image reviewed Assessment and Plan Assessment: Altered mental status, under investigation Mechanical ventilator management, intubated for airway protection, patient had witnessed aspiration episode. Probable aspiration Acute leukocytosis Hypothyroidism Hypothermia, with external warming blanket History of GERD History of gastritis History of major depression History of previous suicide attempt Plan: Patient intubated in the emergency department chiefly for airway protection Chest x-ray showing endotracheal tube in good position, no obvious acute cardiopulmonary process noted. ABGs postintubation, PO2 greater than 420, pCO2 38, pH of 7.37 Reduce tidal volume 400 and continue to wean FiO2 as tolerated Covered on Zosyn for aspiration Propofol is being used for IV sedation, wean for appropriate RASS Discontinue IV fentanyl Patient's brain CT and CT angio unremarkable for acute process Obtain EEG Urine toxicology positive for TCAs and benzodiazepines serum alcohol less than 10, Tylenol less than 10 Urinalysis unremarkable for infection TSH 47.6, free T4 0.36 Obtained random serum cortisol Give dose of Solu-Cortef followed by IV push Synthroid Continue rewarming with external warming blanket Fecal occult was positive, hemoglobin stable, IV Protonix added Prognosis is obviously guarded. CODE STATUS was previously addressed by ER provider, DO NOT RESUSCITATE status. Patient will be admitted to the intensive care unit once bed available. I have personally seen and examined the patient, performed the documentation and the assessment and plan as written. Number of minutes spent on the visit:20 This is a joint evaluation done with the SUPERVISOR FINISHING. This was done in 33 min. Suspect drug overdose. Clinically and hemodynamically stable. Wean off the sadation and assess the mental status. She is off propofol for now and will monitor mentation. Drop Fio2 to 40 and keep IV Zosyn and will follow up the patient Time with Patient: Greater than 30
[2025-03-23] MEDS ORDERED: ACETAMINOPHEN IV (For NPO) 1,000 MG in SALINE 1 100ML.BAG IVPB PRN (06:00)
[2025-03-23 06:33] LABS: Glucose,Whole Blood 118 mg/dL (70-110)
[2025-03-23] MEDS ORDERED: ARTIFICIAL TEARS OINTMENT 3.5 GM TUBE BOTH EYES PRN (08:00)
[2025-03-23] MEDS: PANTOPRAZOLE 40 MG/10 ML VIAL IV SCH (08:16)
[2025-03-23] MEDS: POTASSIUM BICARBONATE/CIT AC 20 MEQ TABLET.EFF NG-TUBE SCH (08:18)
[2025-03-23] MEDS: DOCUSATE ORAL SOLN 100 MG/10 ML CUP NG-TUBE SCH (08:22)
[2025-03-23] MEDS ORDERED: PANTOPRAZOLE 40 MG/10 ML VIAL IV SCH (09:00)
[2025-03-23] MEDS: PIPERACILLIN-TAZOBACTAM 3.375 GM in SODIUM CHLORIDE 0.9% 100 ML IVPB SCH (11:42)
[2025-03-23] MEDS: HYDROCORTISONE SUCCINATE 100 MG/2 ML VIAL IV SCH (11:42)
[2025-03-23 12:17] LABS: Glucose,Whole Blood 129 mg/dL (70-110)
--- NOTE | 2025-03-23 13:00 | P.HPIM ---
History of Present Illness H&P Date: 03/23/25 Chief Complaint: Altered mental status 64-year-old female seen evaluate examined in ICU patient intubated not much data cannot be obtained from her most of the data has been obtained from the chart. Patient was found to be unresponsive EMS was notified, patient does have prior suicidal attempts. Bedside patient was given Narcan with minimal improvement in mental status intubation was attempted however unsuccessful patient has dark brown emesis patient was placed on nonrebreather mask transferred to emergency department patient was intubated in the emergency department. On arrival patient was hypertensive with blood pressure of 200/130 and hypothermic patient probably aspirated as well during intubation process has been placed on IV Zosyn. Significant labs include CBC: WBC count 1 17.6, hemoglobin 13.4, platelets 267. BMP: Sodium 136, potassium 3.6, chloride 103, serum bicarb 19, BUN 9, creatinine 0.81, glucose 120. Urinalysis unremarkable for infection. Lactic was 3.3. Troponin less than 0.012. NT proBNP not elevated. TSH 47.6 and free T4 low at 0.36. She does have history of hypothyroidism, questionable medication compliance. Urine toxicology screen positive for TCAs and benzodiazepines. Serum alcohol less than 10. Acetaminophen less than 10. Patient currently being evaluated in the emergency department. Currently intubated to the mechanical ventilator, with settings assist-control, respiratory rate 20, tidal volume 500, FiO2 100%, PEEP of 5. ABGs done on these settings include a PaO2 greater than 420, pCO2 of 38, pH of 7.37. Peak pressures were elevated around 37 and static airway pressures around 24. Continuing to suction brown GI contents from ET tube. Placed on Zosyn in the ED for aspiration. Patient is currently sedated on a combination of propofol at 15 mics per kilogram per minute, as well as, IV fentanyl at 0.5 mcg/kg/h. She is unresponsive, does not withdraw to painful stimuli. Normal saline is infusing at 130 mL/h. Prior medical problem issues associated with congestive heart failure, major depression, generalized anxiety disorder, chronic insomnia, chronic pain syndrome, COPD, hypertension hypertensive cardiovascular disease, GERD, history of GI bleed, rheumatoid arthritis, history of C-spine surgery with bone graft and titanium jarod, Past Medical History Past Medical History: Chest Pain / Angina, GERD/Reflux, GI Bleed, Hyperlipidemia, Hypertension, Liver Disease, Musculoskeletal Disorder, Osteoarthritis (OA), Pneumonia, Rheumatoid Arthritis (RA), Thyroid Disorder Additional Past Medical History / Comment(s): Hx liver problem, gallbladder disease, septis, had cholecystectomy and biliary drainage tube. Chronic neck and low back. Colitis, diverticulitis, gastritis, lower GI bleed, constipation. Orthostatic hypotention, dizziness, recent falls. Bilateral lower leg edema. In the past difficulty swallowing, sore mouth, Has thickening of vocal cords. Sore throat, cough, wheezing for months. Gum disease, difficulty with some foods, better if mashed or pureed, Spurs on spine, frequent headaches. History of Any Multi-Drug Resistant Organisms: None Reported Past Surgical History: Back Surgery, Cholecystectomy, Hysterectomy, Joint Replacement, Tonsillectomy Additional Past Surgical History / Comment(s): EGD, colonosocpy, cadavar bone placed in C4 through C7 with titanium jarod, left knee replacement, lower back epidural injections/ablation, were "burning the nerves in her back" at the pain clinic at one point Past Anesthesia/Blood Transfusion Reactions: No Reported Reaction Smoking Status: Former smoker - Past Family History Mother Family Medical History: Cancer Additional Family Medical History / Comment(s): Brain Cancer. Father Family Medical History: Cancer Additional Family Medical History / Comment(s): Liver Cancer. Sister(s) Family Medical History: Cancer Additional Family Medical History / Comment(s): Breast cancer. Medications and Allergies Home Medications Medication Instructions Recorded Confirmed Type Furosemide [Lasix] 20 mg PO DAILY 03/10/22 03/23/25 History QUEtiapine FUMARATE [SEROquel XR] 50 mg PO HS 03/10/22 03/23/25 History ALPRAZolam [Xanax] 1 mg PO QID 10/19/22 03/23/25 History Zolpidem Tartrate [Ambien] 10 mg PO HS 10/19/22 03/23/25 History traMADol HCL 100 mg PO TID 12/31/22 03/23/25 History Budesonide/Formoterol Fumarate 2 puff INHALATION RT-BID 04/16/23 03/23/25 History [Symbicort 160-4.5 Mcg Inhaler] Metoprolol Tartrate [Lopressor] 25 mg PO BID 04/16/23 03/23/25 History Omeprazole [PriLOSEC] 20 mg PO BID 04/16/23 03/23/25 History Levothyroxine Sodium [Synthroid] 200 mcg PO DAILY 03/23/25 03/23/25 History Potassium Chloride ER [K-Dur 10] 10 meq PO DAILY 03/23/25 03/23/25 History Allergies Allergy/AdvReac Type Severity Reaction Status Date / Time codeine Allergy Rash/Hives Verified 03/23/25 09:39 hydrocodone [From [place]] AdvReac Severe Abdominal Verified 03/23/25 09:39 Pain,vomiting Penicillins AdvReac Nausea & Verified 03/23/25 09:39 Vomiting & Diarrhea Physical Exam Vitals: Vital Signs Temp Pulse Pulse Resp BP BP Pulse Ox 03/23/25 12:00 90 20 134/88 98 03/23/25 11:30 84 20 105/78 99 03/23/25 11:27 80 03/23/25 11:20 03/23/25 11:18 82 03/23/25 11:00 77 20 108/68 98 03/23/25 10:30 80 20 124/75 98 03/23/25 10:19 81 20 124/75 99 03/23/25 10:00 82 20 124/75 99 03/23/25 09:00 82 20 155/87 100 03/23/25 08:50 88 03/23/25 08:36 03/23/25 08:30 81 20 149/93 100 03/23/25 08:00 98.4 F 82 20 132/81 100 03/23/25 07:30 82 20 145/92 99 03/23/25 07:00 87 0 L 148/98 99 03/23/25 06:30 97.1 F L 86 14 142/92 99 03/23/25 06:00 97.7 F 87 20 134/85 99 03/23/25 05:30 97.2 F L 86 20 135/85 99 03/23/25 05:00 96.4 F L 81 20 126/86 99 03/23/25 04:30 95.9 F L 79 20 141/87 99 03/23/25 04:00 95.4 F L 76 20 144/95 99 03/23/25 03:30 95 F L 76 20 148/96 100 03/23/25 03:00 94.6 F L 76 20 163/106 99 03/23/25 02:45 94.6 F L 77 20 177/113 100 03/23/25 02:30 94.6 F L 78 22 179/115 100 03/23/25 02:15 94.8 F L 80 16 192/124 100 03/23/25 02:00 94.8 F L 84 16 190/126 100 03/23/25 01:48 93.4 F L 76 16 204/130 100 03/23/25 01:35 03/23/25 01:20 8 L 03/23/25 01:17 97.7 F 107 H 6 L 95/68 96 FiO2 03/23/25 12:00 40 03/23/25 11:30 03/23/25 11:27 03/23/25 11:20 40 03/23/25 11:18 03/23/25 11:00 03/23/25 10:30 03/23/25 10:19 03/23/25 10:00 40 03/23/25 09:00 03/23/25 08:50 03/23/25 08:36 50 03/23/25 08:30 03/23/25 08:00 50 03/23/25 07:30 50 03/23/25 07:00 03/23/25 06:30 50 03/23/25 06:00 03/23/25 05:30 03/23/25 05:00 03/23/25 04:30 03/23/25 04:00 03/23/25 03:30 03/23/25 03:00 03/23/25 02:45 03/23/25 02:30 50 03/23/25 02:15 03/23/25 02:00 100 03/23/25 01:48 03/23/25 01:35 100 03/23/25 01:20 03/23/25 01:17 Intake and Output 03/22/25 03/23/25 03/23/25 22:59 06:59 14:59 Intake Total 18.66 653.722 Output Total 100 315 Balance -81.34 338.722 Intake: IV 650 Sodium Chloride 0.9% 1, 650 000 ml @ 130 mls/hr IV . [id number] [facility] Rx#:[id number] Intake, IV Titration 18.66 3.722 Amount propofoL 1,000 mg In 18.66 3.722 Empty Bag 1 bag @ 15 MCG/ KG/MIN 9.569 mls/hr IV . [id number] [facility] Rx#:[id number] Output: Urine 100 315 Uretheral ([place]) 100 Other: Voiding Method Indwelling Catheter Weight 106.322 kg 106.322 kg - Constitutional General appearance: average body habitus, disheveled - EENT Eyes: PERRLA Ears: bilateral: normal - Neck Carotids: bilateral: upstroke normal Thyroid: bilateral: normal size - Respiratory Respiratory: bilateral: rales - Cardiovascular Rhythm: regular Heart sounds: normal: S1, S2 - Gastrointestinal General gastrointestinal: decreased bowel sounds, soft - Integumentary Integumentary: normal turgor Patient intubated and sedated on full ventilator support Results CBC & Chem 7: 03/23/25 04:37 03/23/25 04:37 Labs: Abnormal Lab Results - Last 24 Hours (Table) 03/23/25 03/23/25 03/23/25 Range/Units 01:16 01:19 01:19 WBC 16.28 H (4.50-10.00) 10*3/uL Immature Gran # 0.10 H (0.00-0.04) 10*3/uL Neutrophils # 14.14 H (1.80-7.70) 10*3/uL Eosinophils # 0.00 L (0.04-0.35) 10*3/uL ABG pO2 (83-108) mmHg ABG O2 Saturation (94-97) % Sodium 134 L (137-145) mmol/L Carbon Dioxide (22-30) mmol/L Creatinine 1.05 H (0.52-1.04) mg/dL Glucose 152 H (74-99) mg/dL POC Glucose (mg/dL) 152 H (70-110) mg/dL Plasma Lactic Acid Tae (0.7-2.0) mmol/L Calcium (8.4-10.2) mg/dL TSH 47.600 H (0.465-4.680) mIU/L Free T4 0.36 L (0.78-2.19) ng/dL Free T3 pg/mL (2.30-4.20) pg/mL Cortisol (3.1-22.4) UG/DL Urine Appearance (Clear) Urine Protein (Negative) Amorphous Sediment (None) /hpf Hyaline Casts (0-2) /lpf Urine Mucus (None) /hpf Stool Occult Blood (Negative) U Tricyclic Antidepress (NotDetected) U Benzodiazepines Scrn (NotDetected) 03/23/25 03/23/25 03/23/25 Range/Units 01:30 01:30 01:31 WBC (4.50-10.00) 10*3/uL Immature Gran # (0.00-0.04) 10*3/uL Neutrophils # (1.80-7.70) 10*3/uL Eosinophils # (0.04-0.35) 10*3/uL ABG pO2 (83-108) mmHg ABG O2 Saturation (94-97) % Sodium (137-145) mmol/L Carbon Dioxide (22-30) mmol/L Creatinine (0.52-1.04) mg/dL Glucose (74-99) mg/dL POC Glucose (mg/dL) (70-110) mg/dL Plasma Lactic Acid Tae 3.3 H* (0.7-2.0) mmol/L Calcium (8.4-10.2) mg/dL TSH (0.465-4.680) mIU/L Free T4 (0.78-2.19) ng/dL Free T3 pg/mL (2.30-4.20) pg/mL Cortisol (3.1-22.4) UG/DL Urine Appearance Cloudy H (Clear) Urine Protein Trace H (Negative) Amorphous Sediment Rare H (None) /hpf Hyaline Casts 23 H (0-2) /lpf Urine Mucus Rare H (None) /hpf Stool Occult Blood (Negative) U Tricyclic Antidepress Detected H (NotDetected) U Benzodiazepines Scrn Detected H (NotDetected) 03/23/25 03/23/25 03/23/25 Range/Units 02:20 03:10 03:30 WBC (4.50-10.00) 10*3/uL Immature Gran # (0.00-0.04) 10*3/uL Neutrophils # (1.80-7.70) 10*3/uL Eosinophils # (0.04-0.35) 10*3/uL ABG pO2 >420 H (83-108) mmHg ABG O2 Saturation >100.0 H (94-97) % Sodium (137-145) mmol/L Carbon Dioxide (22-30) mmol/L Creatinine (0.52-1.04) mg/dL Glucose (74-99) mg/dL POC Glucose (mg/dL) (70-110) mg/dL Plasma Lactic Acid Tae (0.7-2.0) mmol/L Calcium (8.4-10.2) mg/dL TSH (0.465-4.680) mIU/L Free T4 (0.78-2.19) ng/dL Free T3 pg/mL (2.30-4.20) pg/mL Cortisol 29.3 H (3.1-22.4) UG/DL Urine Appearance (Clear) Urine Protein (Negative) Amorphous Sediment (None) /hpf Hyaline Casts (0-2) /lpf Urine Mucus (None) /hpf Stool Occult Blood Positive H (Negative) U Tricyclic Antidepress (NotDetected) U Benzodiazepines Scrn (NotDetected) 03/23/25 03/23/25 03/23/25 Range/Units 04:37 04:37 06:32 WBC 17.59 H (4.50-10.00) 10*3/uL Immature Gran # 0.10 H (0.00-0.04) 10*3/uL Neutrophils # 15.91 H (1.80-7.70) 10*3/uL Eosinophils # 0.00 L (0.04-0.35) 10*3/uL ABG pO2 (83-108) mmHg ABG O2 Saturation (94-97) % Sodium 136 L (137-145) mmol/L Carbon Dioxide 19 L (22-30) mmol/L Creatinine (0.52-1.04) mg/dL Glucose 120 H (74-99) mg/dL POC Glucose (mg/dL) 118 H (70-110) mg/dL Plasma Lactic Acid Tae (0.7-2.0) mmol/L Calcium 8.3 L (8.4-10.2) mg/dL TSH (0.465-4.680) mIU/L Free T4 (0.78-2.19) ng/dL Free T3 pg/mL (2.30-4.20) pg/mL Cortisol (3.1-22.4) UG/DL Urine Appearance (Clear) Urine Protein (Negative) Amorphous Sediment (None) /hpf Hyaline Casts (0-2) /lpf Urine Mucus (None) /hpf Stool Occult Blood (Negative) U Tricyclic Antidepress (NotDetected) U Benzodiazepines Scrn (NotDetected) 03/23/25 03/23/25 03/23/25 Range/Units 06:48 06:48 11:23 WBC (4.50-10.00) 10*3/uL Immature Gran # (0.00-0.04) 10*3/uL Neutrophils # (1.80-7.70) 10*3/uL Eosinophils # (0.04-0.35) 10*3/uL ABG pO2 (83-108) mmHg ABG O2 Saturation (94-97) % Sodium (137-145) mmol/L Carbon Dioxide (22-30) mmol/L Creatinine (0.52-1.04) mg/dL Glucose (74-99) mg/dL POC Glucose (mg/dL) (70-110) mg/dL Plasma Lactic Acid Tae 2.8 H* 3.2 H* (0.7-2.0) mmol/L Calcium (8.4-10.2) mg/dL TSH (0.465-4.680) mIU/L Free T4 (0.78-2.19) ng/dL Free T3 pg/mL 0.50 L (2.30-4.20) pg/mL Cortisol (3.1-22.4) UG/DL Urine Appearance (Clear) Urine Protein (Negative) Amorphous Sediment (None) /hpf Hyaline Casts (0-2) /lpf Urine Mucus (None) /hpf Stool Occult Blood (Negative) U Tricyclic Antidepress (NotDetected) U Benzodiazepines Scrn (NotDetected) 03/23/25 Range/Units 12:15 WBC (4.50-10.00) 10*3/uL Immature Gran # (0.00-0.04) 10*3/uL Neutrophils # (1.80-7.70) 10*3/uL Eosinophils # (0.04-0.35) 10*3/uL ABG pO2 (83-108) mmHg ABG O2 Saturation (94-97) % Sodium (137-145) mmol/L Carbon Dioxide (22-30) mmol/L Creatinine (0.52-1.04) mg/dL Glucose (74-99) mg/dL POC Glucose (mg/dL) 129 H (70-110) mg/dL Plasma Lactic Acid Tae (0.7-2.0) mmol/L Calcium (8.4-10.2) mg/dL TSH (0.465-4.680) mIU/L Free T4 (0.78-2.19) ng/dL Free T3 pg/mL (2.30-4.20) pg/mL Cortisol (3.1-22.4) UG/DL Urine Appearance (Clear) Urine Protein (Negative) Amorphous Sediment (None) /hpf Hyaline Casts (0-2) /lpf Urine Mucus (None) /hpf Stool Occult Blood (Negative) U Tricyclic Antidepress (NotDetected) U Benzodiazepines Scrn (NotDetected) Chest x-ray: report reviewed, image reviewed CT Scan - head: report reviewed, image reviewed Assessment and Plan Assessment: Acute hypoxic respiratory failure Altered mental status Hypothyroidism probable myxedema, Aspiration pneumonitis Hypothyroidism Sepsis related to above GERD and gastritis History of prior suicidal attempts Major depression and chronic pain syndrome Plan: Continue broad-spectrum antibiotic Ventilator support titrate as tolerated Workup for altered mental status as per critical care service and neurology Patient is DNR by advance directive IV Synthroid along with Solu-Cortef PPI DVT prophylaxis Time with Patient: Greater than 30
[2025-03-23] MEDS ORDERED: DEXTROSE 50% SYRINGE 50 ML IVP PRN ×2 (13:29)
--- NOTE | 2025-03-23 13:50 | P.PCN ---
Date of Procedure: 03/23/25 Preoperative Diagnosis: Acute hypoxic respiratory failure Postoperative Diagnosis: Acute hypoxic respiratory failure Procedure(s) Performed: Arterial Line insertion Anesthesia: local Surgeon: Wojciech Mg Estimated Blood Loss (ml): 0 Pathology: other Condition: critical Disposition: ICU Operative Findings: indication: Hemodynamic monitoring. A time-out was completed verifying correct patient, procedure, site, positioning, and implant(s) or special equipment if applicable. Allens test was performed to ensure adequate perfusion. The patients left wrist was prepped and draped in sterile fashion. 1% Lidocaine was used to anesthetize the area. An 18G Arrow arterial line was introduced into the radial artery. The catheter was threaded over the guide wire and the needle was removed with appropriate pulsatile blood return. Blood loss was minimal. The catheter was then sutured in place to the skin and a sterile dressing applied. Perfusion to the extremity distal to the point of catheter insertion was checked and found to be adequate. The patient tolerated the procedure well and there were no complications.
[2025-03-23] MEDS: INSULIN LISPRO (HumaLOG) 100 UNIT/ML 10 mL VL SQ SCH (14:18)
[2025-03-23 14:22] LABS: African American GFR (CKD) >90 (>60 ml/min/1.73 sqM); Anion Gap 11 mmol/L; Blood Urea Nitrogen 6 mg/dL (7-17); Calcium 7.9 mg/dL (8.4-10.2); Carbon Dioxide 20 mmol/L (22-30); Chloride 106 mmol/L (98-107); Glucose 136 mg/dL (74-99); Non-African American GFR(CKD) 84 (>60 ml/min/1.73 sqM); Potassium 4.1 mmol/L (3.5-5.1); Sodium 137 mmol/L (137-145)
--- NOTE | 2025-03-23 16:26 | P.CNNES ---
History of Present Illness Consult date: 03/23/25 Requesting physician: Minesh Ferrera Reason for Consult: ams, minimal responsiveness History of Present Illness: This is a 64-year-old gentleman with history of depression, previous suicide attempt, hypothyroidism who presents to the emergency department on 03/23/2025 for altered mental status. History is obtained from medical record as well as the patient nurse. It seems notified the medical staff that the patient was not feeling well phone conversation and she was going to make him dinner then when the came home, he found the patient on the ground with abnormal breathing. EMS was called and the patient received Narcan with no response. Patient was intubated on the ventilator and initially she was on fentanyl and currently on IV propofol. Fentanyl was discontinued. According to the nurse today patient was responding and following commands. Some of the workup during this hospital visit consisted of: Patient is afebrile. White blood cell is 16,000 and repeated 17,000 Initial plasma lactic acid vein is 3.3 and repeated most recent 1 is 1.7. Ammonia Level 17. TSH is 47.6 and free T4 is T3 is 0.50 Stool Occult blood is positive. CT of the head is reported as no acute intracranial process. I personally reviewed the CT and agree with the report CT angiography of the head and neck is reported as focal atherosclerotic disease involving proximal right internal carotid artery approximately 50%. However no other significant stenosis identified. No significant atherosclerotic disease over the left carotid. Review of Systems As per HPI. Past Medical History Past Medical History: Chest Pain / Angina, GERD/Reflux, GI Bleed, Hyperlipidemia, Hypertension, Liver Disease, Musculoskeletal Disorder, Osteoarthritis (OA), Pneumonia, Rheumatoid Arthritis (RA), Thyroid Disorder Additional Past Medical History / Comment(s): Hx liver problem, gallbladder disease, septis, had cholecystectomy and biliary drainage tube. Chronic neck and low back. Colitis, diverticulitis, gastritis, lower GI bleed, constipation. Orthostatic hypotention, dizziness, recent falls. Bilateral lower leg edema. In the past difficulty swallowing, sore mouth, Has thickening of vocal cords. Sore throat, cough, wheezing for months. Gum disease, difficulty with some foods, better if mashed or pureed, Spurs on spine, frequent headaches. History of Any Multi-Drug Resistant Organisms: None Reported Past Surgical History: Back Surgery, Cholecystectomy, Hysterectomy, Joint Replacement, Tonsillectomy Additional Past Surgical History / Comment(s): EGD, colonosocpy, cadavar bone placed in C4 through C7 with titanium jarod, left knee replacement, lower back epidural injections/ablation, were "burning the nerves in her back" at the pain clinic at one point Past Anesthesia/Blood Transfusion Reactions: No Reported Reaction Smoking Status: Former smoker - Past Family History Mother Family Medical History: Cancer Additional Family Medical History / Comment(s): Brain Cancer. Father Family Medical History: Cancer Additional Family Medical History / Comment(s): Liver Cancer. Sister(s) Family Medical History: Cancer Additional Family Medical History / Comment(s): Breast cancer. Medications and Allergies Home Medications Medication Instructions Recorded Confirmed Type Furosemide [Lasix] 20 mg PO DAILY 03/10/22 03/23/25 History QUEtiapine FUMARATE [SEROquel XR] 50 mg PO HS 03/10/22 03/23/25 History ALPRAZolam [Xanax] 1 mg PO QID 10/19/22 03/23/25 History Zolpidem Tartrate [Ambien] 10 mg PO HS 10/19/22 03/23/25 History traMADol HCL 100 mg PO TID 12/31/22 03/23/25 History Budesonide/Formoterol Fumarate 2 puff INHALATION RT-BID 04/16/23 03/23/25 History [Symbicort 160-4.5 Mcg Inhaler] Metoprolol Tartrate [Lopressor] 25 mg PO BID 04/16/23 03/23/25 History Omeprazole [PriLOSEC] 20 mg PO BID 04/16/23 03/23/25 History Levothyroxine Sodium [Synthroid] 200 mcg PO DAILY 03/23/25 03/23/25 History Potassium Chloride ER [K-Dur 10] 10 meq PO DAILY 03/23/25 03/23/25 History Allergies Allergy/AdvReac Type Severity Reaction Status Date / Time codeine Allergy Rash/Hives Verified 03/23/25 09:39 hydrocodone [From Thomas] AdvReac Severe Abdominal Verified 03/23/25 09:39 Pain,vomiting Penicillins AdvReac Nausea & Verified 03/23/25 09:39 Vomiting & Diarrhea Physical Examination - Vital Signs Vital Signs: Vital Signs Temp Pulse Pulse Resp BP BP Pulse Ox 03/23/25 15:54 90 03/23/25 15:45 03/23/25 15:37 95 03/23/25 15:35 03/23/25 15:00 87 20 117/67 99 03/23/25 14:30 89 20 132/78 99 03/23/25 14:00 94 20 144/77 99 03/23/25 13:30 96 20 99 03/23/25 13:00 98.5 F 94 20 150/89 99 03/23/25 12:30 96 23 134/88 99 03/23/25 12:00 90 20 134/88 98 03/23/25 11:30 84 20 105/78 99 03/23/25 11:27 80 03/23/25 11:20 03/23/25 11:18 82 03/23/25 11:00 77 20 108/68 98 03/23/25 10:30 80 20 124/75 98 03/23/25 10:19 81 20 124/75 99 03/23/25 10:00 82 20 124/75 99 03/23/25 09:00 82 20 155/87 100 03/23/25 08:50 88 03/23/25 08:36 03/23/25 08:30 81 20 149/93 100 03/23/25 08:00 98.4 F 82 20 132/81 100 03/23/25 07:30 82 20 145/92 99 03/23/25 07:00 87 0 L 148/98 99 03/23/25 06:30 97.1 F L 86 14 142/92 99 03/23/25 06:00 97.7 F 87 20 134/85 99 03/23/25 05:30 97.2 F L 86 20 135/85 99 03/23/25 05:00 96.4 F L 81 20 126/86 99 03/23/25 04:30 95.9 F L 79 20 141/87 99 03/23/25 04:00 95.4 F L 76 20 144/95 99 03/23/25 03:30 95 F L 76 20 148/96 100 03/23/25 03:00 94.6 F L 76 20 163/106 99 03/23/25 02:45 94.6 F L 77 20 177/113 100 03/23/25 02:30 94.6 F L 78 22 179/115 100 03/23/25 02:15 94.8 F L 80 16 192/124 100 03/23/25 02:00 94.8 F L 84 16 190/126 100 03/23/25 01:48 93.4 F L 76 16 204/130 100 03/23/25 01:35 03/23/25 01:20 8 L 03/23/25 01:17 97.7 F 107 H 6 L 95/68 96 FiO2 03/23/25 15:54 03/23/25 15:45 40 03/23/25 15:37 03/23/25 15:35 40 03/23/25 15:00 03/23/25 14:30 03/23/25 14:00 03/23/25 13:30 03/23/25 13:00 03/23/25 12:30 40 03/23/25 12:00 40 03/23/25 11:30 03/23/25 11:27 03/23/25 11:20 40 03/23/25 11:18 03/23/25 11:00 03/23/25 10:30 03/23/25 10:19 03/23/25 10:00 40 03/23/25 09:00 03/23/25 08:50 03/23/25 08:36 50 03/23/25 08:30 03/23/25 08:00 50 03/23/25 07:30 50 03/23/25 07:00 03/23/25 06:30 50 03/23/25 06:00 03/23/25 05:30 03/23/25 05:00 03/23/25 04:30 03/23/25 04:00 03/23/25 03:30 03/23/25 03:00 03/23/25 02:45 03/23/25 02:30 50 03/23/25 02:15 03/23/25 02:00 100 03/23/25 01:48 03/23/25 01:35 100 03/23/25 01:20 03/23/25 01:17 Intake and Output 03/23/25 03/23/25 03/23/25 06:59 14:59 22:59 Intake Total 18.66 1043.722 260 Output Total 100 550 100 Balance -81.34 493.722 160 Intake: IV 1040 260 Sodium Chloride 0.9% 1, 1040 260 000 ml @ 130 mls/hr IV . [id number] [facility] Rx#:[id number] Intake, IV Titration 18.66 3.722 0 Amount propofoL 1,000 mg In 18.66 3.722 0 Empty Bag 1 bag @ 15 MCG/ KG/MIN 9.569 mls/hr IV . [id number] [facility] Rx#:[id number] Output: Urine 100 550 100 Uretheral (Christiansen) 100 Other: Voiding Method Indwelling Catheter Indwelling Catheter Weight 106.322 kg 106.322 kg ABP, PAP, CO, CI - Last 8 Hours Arterial Blood Pressure 101/54 Arterial Blood Pressure 119/62 Arterial Blood Pressure 140/73 Arterial Blood Pressure 150/85 Arterial Blood Pressure 157/80 General: Lying in bed and is not in acute distress. HENT: Supple neck. Lung: Intubated on a ventilator. Neuro: Limited. On a very low dose of IV propofol Patient is drowsy but is awake able to voice. She was following simple commands such as showing a thumbs up wiggling her toes opening her eyes and closing her eyes to command. Pupils are round about 4 mm and reactive to light. No facial weakness or limitation of examination Motor the strength is limited in assessing individual muscle strength but she will able to move upper extremity above gravity briefly as well as wiggling her toes. Results - Laboratory Findings CBC and BMP: 03/23/25 04:37 03/23/25 13:30 Abnormal Lab Findings: Abnormal Labs 03/23/25 03/23/25 03/23/25 01:16 01:19 01:19 WBC 16.28 H Immature Gran # 0.10 H Neutrophils # 14.14 H Eosinophils # 0.00 L ABG pO2 ABG O2 Saturation Sodium 134 L Carbon Dioxide BUN Creatinine 1.05 H Glucose 152 H POC Glucose (mg/dL) 152 H Plasma Lactic Acid Tae Calcium TSH 47.600 H Free T4 0.36 L Free T3 pg/mL Cortisol Urine Appearance Urine Protein Amorphous Sediment Hyaline Casts Urine Mucus Stool Occult Blood U Tricyclic Antidepress U Benzodiazepines Scrn 03/23/25 03/23/25 03/23/25 01:30 01:30 01:31 WBC Immature Gran # Neutrophils # Eosinophils # ABG pO2 ABG O2 Saturation Sodium Carbon Dioxide BUN Creatinine Glucose POC Glucose (mg/dL) Plasma Lactic Acid Tae 3.3 H* Calcium TSH Free T4 Free T3 pg/mL Cortisol Urine Appearance Cloudy H Urine Protein Trace H Amorphous Sediment Rare H Hyaline Casts 23 H Urine Mucus Rare H Stool Occult Blood U Tricyclic Antidepress Detected H U Benzodiazepines Scrn Detected H 03/23/25 03/23/25 03/23/25 02:20 03:10 03:30 WBC Immature Gran # Neutrophils # Eosinophils # ABG pO2 >420 H ABG O2 Saturation >100.0 H Sodium Carbon Dioxide BUN Creatinine Glucose POC Glucose (mg/dL) Plasma Lactic Acid Tae Calcium TSH Free T4 Free T3 pg/mL Cortisol 29.3 H Urine Appearance Urine Protein Amorphous Sediment Hyaline Casts Urine Mucus Stool Occult Blood Positive H U Tricyclic Antidepress U Benzodiazepines Scrn 03/23/25 03/23/25 03/23/25 04:37 04:37 06:32 WBC 17.59 H Immature Gran # 0.10 H Neutrophils # 15.91 H Eosinophils # 0.00 L ABG pO2 ABG O2 Saturation Sodium 136 L Carbon Dioxide 19 L BUN Creatinine Glucose 120 H POC Glucose (mg/dL) 118 H Plasma Lactic Acid Tae Calcium 8.3 L TSH Free T4 Free T3 pg/mL Cortisol Urine Appearance Urine Protein Amorphous Sediment Hyaline Casts Urine Mucus Stool Occult Blood U Tricyclic Antidepress U Benzodiazepines Scrn 03/23/25 03/23/25 03/23/25 06:48 06:48 11:23 WBC Immature Gran # Neutrophils # Eosinophils # ABG pO2 ABG O2 Saturation Sodium Carbon Dioxide BUN Creatinine Glucose POC Glucose (mg/dL) Plasma Lactic Acid Tea 2.8 H* 3.2 H* Calcium TSH Free T4 Free T3 pg/mL 0.50 L Cortisol Urine Appearance Urine Protein Amorphous Sediment Hyaline Casts Urine Mucus Stool Occult Blood U Tricyclic Antidepress U Benzodiazepines Scrn 03/23/25 03/23/25 12:15 13:30 WBC Immature Gran # Neutrophils # Eosinophils # ABG pO2 ABG O2 Saturation Sodium Carbon Dioxide 20 L BUN 6 L Creatinine Glucose 136 H POC Glucose (mg/dL) 129 H Plasma Lactic Acid Tae Calcium 7.9 L TSH Free T4 Free T3 pg/mL Cortisol Urine Appearance Urine Protein Amorphous Sediment Hyaline Casts Urine Mucus Stool Occult Blood U Tricyclic Antidepress U Benzodiazepines Scrn Assessment and Plan Assessment: This is a 64-year-old woman with history of hypothyroidism, suicidal attempt who presents the emergency department because she was found on the ground u nresponsive by her . Altered mental status and possibly due to her uncontrolled hypothyroidism and component of metabolic encephalopathy. CT head is unremarkable. EEG preliminary is negative for seizure. The patient is more awake and following commands appropriately Underlying hypothyroidism and continues to have uncontrolled hypothyroidism with high TSH and low T4 and T3 Positive fecal occult blood test History of suicidal attempt History of depression Plan: I ordered vitamin B12, folate level and antithyroid peroxidase Recommend better control of her thyroid level and will defer that to her primary care Once the patient is more awake responsive then we will get a better neurological examination and will assess if she needs further imaging of the brain Defer the rest of the medical management to the primary and other specialist. The plan discussed with the patient's nurse. Thank you for the consultation. Time with Patient: Greater than 30
[2025-03-23 18:13] LABS: Glucose,Whole Blood 131 mg/dL (70-110)
[2025-03-23] MEDS: HEPARIN SODIUM,PORCINE 5,000 UNIT/ML 1 ML VIAL SQ SCH (20:12)
[2025-03-23] MEDS: CHLORHEXIDINE GLUCONATE 15 ML CUP MUCOUS MEM SCH (20:12)
[2025-03-23] MEDS: SODIUM CHLORIDE 0.9% 1,000 ML IV ONE (21:10)
[2025-03-23] MEDS: NOREPINEPHRINE 4 MG in SODIUM CHLORIDE 0.9% 250 ML IV SCH (21:54)
[2025-03-24 00:10] LABS: Glucose,Whole Blood 170 mg/dL (70-110)
[2025-03-24 04:20] LABS: Basophils # (A) 0.02 10*3/uL (0.00-0.10); Basophils % (A) 0.1 %; Eosinophils # (A) 0.02 10*3/uL (0.04-0.35); Eosinophils % (A) 0.1 %; HCT 36.3 % (37.2-46.3); HGB 11.9 g/dL (12.0-15.0); Lymphocytes # (A) 0.79 10*3/uL (0.90-5.00); Lymphocytes % (A) 4.7 %; MCH 30.1 pg (27.0-32.0); MCHC 32.8 g/dL (32.0-37.0); MCV 91.9 fL (80.0-97.0); Mean Platelet Volume 9.7 fL (9.5-12.2); Monocytes # (A) 0.49 10*3/uL (0.20-1.00); Monocytes % (A) 2.9 %; Neutrophils # (A) 15.11 10*3/uL (1.80-7.70); Neutrophils % (A) 90.8 %; Platelet Count 279 10*3/uL (140-440); RBC 3.95 10*6/uL (4.10-5.20); RDW 14.1 % (11.5-14.5); WBC 16.67 10*3/uL (4.50-10.00)
[2025-03-24 04:30] LABS: African American GFR (CKD) >90 (>60 ml/min/1.73 sqM); Anion Gap 13 mmol/L; Blood Urea Nitrogen 4 mg/dL (7-17); Calcium 7.6 mg/dL (8.4-10.2); Carbon Dioxide 17 mmol/L (22-30); Chloride 110 mmol/L (98-107); Glucose 155 mg/dL (74-99); Non-African American GFR(CKD) 80 (>60 ml/min/1.73 sqM); Potassium 3.2 mmol/L (3.5-5.1); Sodium 140 mmol/L (137-145)
[2025-03-24 04:41] LABS: ABG Base Excess -6.8 mmol/L; ABG HCO3 17 mmol/L (21-25); ABG Oxygen Saturation 99.6 % (94-97); ABG PCO2 29 mmHg (35-45); ABG PH 7.38 (7.35-7.45); ABG PO2 144 mmHg (83-108); ABG TCO2 18 mmol/L (19-24)
[2025-03-24 04:42] LABS: Allen Test Performed? No
[2025-03-24] MEDS: POTASSIUM BICARBONATE/CIT AC 20 MEQ TABLET.EFF NG-TUBE SCH (04:55)
[2025-03-24 06:19] LABS: Glucose,Whole Blood 161 mg/dL (70-110)
--- NOTE | 2025-03-24 08:39 | XR ---
EXAMINATION TYPE: XR chest 1V portable DATE OF EXAM: 03/24/2025 5:32 AM COMPARISON: Chest radiographs from 03/23/2025 TECHNIQUE: XR chest 1V portable Portable AP radiograph o f the chest. CLINICAL INDICATION:Female, 64 years old with history of Tube placement; FINDINGS: Lungs/Pleura: There is no evidence of pleural effusion, focal consolidation, or pneumothorax. Pulmonary vascularity: Unremarkable. Heart/mediastinum: Cardiomediastinal silhouette is unremarkable. Musculoskeletal: No acute osseous pathology. Cervical hardware identified. Dextroconvex curvature of the thoracic spine. Other findings: None Lines/Tubes: Endotracheal tube with distal tip 2.3 cm above the susie Nasogastric tube with its distal tip in the stomach however the sidehole is at the GE junction. IMPRESSION: 1. Nasogastric tube with its distal tip in the stomach however the sidehole is at the GE junction. R ecommend advancement 6 cm. 2. Endotracheal tube in appropriate position. [facility], , 03/24/2025 8:36 AM
--- NOTE | 2025-03-24 10:11 | P.PN ---
Subjective Progress Note Date: 03/24/25 Principal diagnosis: Acute hypoxic respiratory failure Altered mental status Hypothyroidism probable myxedema, Aspiration pneumonitis Hypothyroidism Sepsis related to above GERD and gastritis History of prior suicidal attempts Major depression and chronic pain syndrome March 24, 2025, patient seen eval examined patient currently undergoing CPAP pressure support trial breathing more stable, awake makes eye contact no obvious distress present, labs from today reviewed WBC count slightly decreased to 16.6 down from 17.5 yesterday hemoglobin also slightly decreased to 11.9 from 13.4 yesterday. Arterial blood gas on CPAP pressure support 7 point 02/24/144. Chemistry hyponatremia improve now sodium is normal 140 potassium is 3.6 CO2 is 17, BUN/creatinine 4/0.7. Chest x-ray stable and G-tube and ET tube no pneumonia or infiltrate identified 64-year-old female seen evaluate examined in ICU patient intubated not much data cannot be obtained from her most of the data has been obtained from the chart. Patient was found to be unresponsive EMS was notified, patient does have prior suicidal attempts. Bedside patient was given Narcan with minimal improvement in mental status intubation was attempted however unsuccessful patient has dark brown emesis patient was placed on nonrebreather mask transferred to emergency department patient was intubated in the emergency department. On arrival patient was hypertensive with blood pressure of 200/130 and hypothermic patient probably aspirated as well during intubation process has been placed on IV Zosyn. Significant labs include CBC: WBC count 1 17.6, hemoglobin 13.4, platelets 267. BMP: Sodium 136, potassium 3.6, chloride 103, serum bicarb 19, BUN 9, creatinine 0.81, glucose 120. Urinalysis unremarkable for infection. Lactic was 3.3. Troponin less than 0.012. NT proBNP not elevated. TSH 47.6 and free T4 low at 0.36. She does have history of hypothyroidism, questionable medication compliance. Urine toxicology screen positive for TCAs and benzodiazepines. Serum alcohol less than 10. Acetaminophen less than 10. Patient currently being evaluated in the emergency department. Currently intubated to the mechanical ventilator, with settings assist-control, respiratory rate 20, tidal volume 500, FiO2 100%, PEEP of 5. ABGs done on these settings include a PaO2 greater than 420, pCO2 of 38, pH of 7.37. Peak pressures were elevated around 37 and static airway pressures around 24. Continuing to suction brown GI contents from ET tube. Placed on Zosyn in the ED for aspiration. Patient is currently sedated on a combination of propofol at 15 mics per kilogram per minute, as well as, IV fentanyl at 0.5 mcg/kg/h. She is unresponsive, does not withdraw to painful stimuli. Normal saline is infusing at 130 mL/h. Prior medical problem issues associated with congestive heart failure, major depression, generalized anxiety disorder, chronic insomnia, chronic pain syndrome, COPD, hypertension hypertensive cardiovascular disease, GERD, history of GI bleed, rheumatoid arthritis, history of C-spine surgery with bone graft and titanium jarod, Objective - Vital Signs Vital signs: Vital Signs Temp 98.2 F 03/24/25 08:00 Pulse 126 H 03/24/25 10:00 Resp 21 03/24/25 10:00 BP 133/71 03/24/25 10:00 Pulse Ox 99 03/24/25 10:00 FiO2 35 03/24/25 09:25 Intake & Output 03/23/25 03/24/25 03/24/25 18:59 06:59 18:59 Intake Total 7762.985 3797.160 478.171 Output Total 760 1300 780 Balance 9772.139 6514.160 -301.829 Weight 106.322 kg 113.7 kg Intake: IV 1930 2430 440 Sodium Chloride 0.9% 1, 1930 1430 440 000 ml @ 50 mls/hr IV . Q20H [facility] Rx#:[id number] Sodium Chloride 0.9% 1, 1000 000 ml @ 999 mls/hr IV . Q1H1M [facility] Rx#:[id number] Intake, IV Titration 19.032 97.160 38.171 Amount Norepinephrine 4 mg In 51.175 Sodium Chloride 0.9% 250 ml @ 0.03 MCG/KG/MIN 12. 153 mls/hr IV .[id number] [facility] Rx#:[id number] propofoL 1,000 mg In 19.032 45.985 38.171 Empty Bag 1 bag @ 15 MCG/ KG/MIN 9.569 mls/hr IV . [id number] [facility] Rx#:[id number] Output: Gastric Drainage 200 Urine 760 1300 580 Other: Voiding Method Indwelling Catheter Indwelling Catheter ABP, PAP, CO, CI - Last Documented Arterial Blood Pressure 140/75 - Exam - Constitutional General appearance: average body habitus, disheveled - EENT Eyes: PERRLA Ears: bilateral: normal - Neck Carotids: bilateral: upstroke normal Thyroid: bilateral: normal size - Respiratory Respiratory: bilateral: rales - Cardiovascular Rhythm: regular Heart sounds: normal: S1, S2 - Gastrointestinal General gastrointestinal: decreased bowel sounds, soft - Integumentary Integumentary: normal turgor Patient intubated and sedated on full ventilator support - Labs CBC & Chem 7: 03/24/25 04:01 03/24/25 09:40 Labs: Abnormal Lab Results - Last 24 Hours (Table) 03/23/25 03/23/25 03/23/25 Range/Units 04:37 04:56 06:48 WBC (4.50-10.00) 10*3/uL RBC (4.10-5.20) 10*6/uL Hgb (12.0-15.0) g/dL Hct (37.2-46.3) % Immature Gran # (0.00-0.04) 10*3/uL Neutrophils # (1.80-7.70) 10*3/uL Lymphocytes # (0.90-5.00) 10*3/uL Eosinophils # (0.04-0.35) 10*3/uL ABG pCO2 (35-45) mmHg ABG pO2 (83-108) mmHg ABG HCO3 (21-25) mmol/L ABG Total CO2 (19-24) mmol/L ABG O2 Saturation (94-97) % Potassium (3.5-5.1) mmol/L Chloride (98-107) mmol/L Carbon Dioxide (22-30) mmol/L BUN (7-17) mg/dL Glucose (74-99) mg/dL POC Glucose (mg/dL) (70-110) mg/dL Hemoglobin A1c 6.1 H (<=6.0) % Plasma Lactic Acid Tae (0.7-2.0) mmol/L Calcium (8.4-10.2) mg/dL Free T3 pg/mL 0.50 L (2.30-4.20) pg/mL Thyroid Peroxidase Ab 98.8 H (0.0-33.0) U/mL 03/23/25 03/23/25 03/23/25 Range/Units 11:23 12:15 13:30 WBC (4.50-10.00) 10*3/uL RBC (4.10-5.20) 10*6/uL Hgb (12.0-15.0) g/dL Hct (37.2-46.3) % Immature Gran # (0.00-0.04) 10*3/uL Neutrophils # (1.80-7.70) 10*3/uL Lymphocytes # (0.90-5.00) 10*3/uL Eosinophils # (0.04-0.35) 10*3/uL ABG pCO2 (35-45) mmHg ABG pO2 (83-108) mmHg ABG HCO3 (21-25) mmol/L ABG Total CO2 (19-24) mmol/L ABG O2 Saturation (94-97) % Potassium (3.5-5.1) mmol/L Chloride (98-107) mmol/L Carbon Dioxide 20 L (22-30) mmol/L BUN 6 L (7-17) mg/dL Glucose 136 H (74-99) mg/dL POC Glucose (mg/dL) 129 H (70-110) mg/dL Hemoglobin A1c (<=6.0) % Plasma Lactic Acid Tae 3.2 H* (0.7-2.0) mmol/L Calcium 7.9 L (8.4-10.2) mg/dL Free T3 pg/mL (2.30-4.20) pg/mL Thyroid Peroxidase Ab (0.0-33.0) U/mL 03/23/25 03/24/25 03/24/25 Range/Units 18:12 00:10 04:01 WBC 16.67 H (4.50-10.00) 10*3/uL RBC 3.95 L (4.10-5.20) 10*6/uL Hgb 11.9 L (12.0-15.0) g/dL Hct 36.3 L (37.2-46.3) % Immature Gran # 0.24 H (0.00-0.04) 10*3/uL Neutrophils # 15.11 H (1.80-7.70) 10*3/uL Lymphocytes # 0.79 L (0.90-5.00) 10*3/uL Eosinophils # 0.02 L (0.04-0.35) 10*3/uL ABG pCO2 (35-45) mmHg ABG pO2 (83-108) mmHg ABG HCO3 (21-25) mmol/L ABG Total CO2 (19-24) mmol/L ABG O2 Saturation (94-97) % Potassium (3.5-5.1) mmol/L Chloride (98-107) mmol/L Carbon Dioxide (22-30) mmol/L BUN (7-17) mg/dL Glucose (74-99) mg/dL POC Glucose (mg/dL) 131 H 170 H (70-110) mg/dL Hemoglobin A1c (<=6.0) % Plasma Lactic Acid Tae (0.7-2.0) mmol/L Calcium (8.4-10.2) mg/dL Free T3 pg/mL (2.30-4.20) pg/mL Thyroid Peroxidase Ab (0.0-33.0) U/mL 03/24/25 03/24/25 03/24/25 Range/Units 04:01 04:29 06:17 WBC (4.50-10.00) 10*3/uL RBC (4.10-5.20) 10*6/uL Hgb (12.0-15.0) g/dL Hct (37.2-46.3) % Immature Gran # (0.00-0.04) 10*3/uL Neutrophils # (1.80-7.70) 10*3/uL Lymphocytes # (0.90-5.00) 10*3/uL Eosinophils # (0.04-0.35) 10*3/uL ABG pCO2 29 L (35-45) mmHg ABG pO2 144 H (83-108) mmHg ABG HCO3 17 L (21-25) mmol/L ABG Total CO2 18 L (19-24) mmol/L ABG O2 Saturation 99.6 H (94-97) % Potassium 3.2 L (3.5-5.1) mmol/L Chloride 110 H (98-107) mmol/L Carbon Dioxide 17 L (22-30) mmol/L BUN 4 L (7-17) mg/dL Glucose 155 H (74-99) mg/dL POC Glucose (mg/dL) 161 H (70-110) mg/dL Hemoglobin A1c (<=6.0) % Plasma Lactic Acid Tae (0.7-2.0) mmol/L Calcium 7.6 L (8.4-10.2) mg/dL Free T3 pg/mL (2.30-4.20) pg/mL Thyroid Peroxidase Ab (0.0-33.0) U/mL Assessment and Plan Assessment: Acute hypoxic respiratory failure Altered mental status, significantly improved Hypothyroidism probable myxedema, Aspiration pneumonitis Hypothyroidism Sepsis related to above GERD and gastritis History of prior suicidal attempts Major depression and chronic pain syndrome Plan: Continue broad-spectrum antibiotic Ventilator support titrate as tolerated, patient likely will be extubated Workup for altered mental status as per critical care service and neurology Patient is DNR by advance directive IV Synthroid along with Solu-Cortef, once extubated Synthroid can be changed to oral PPI continue monitor hemoglobin closely DVT prophylaxis Time with Patient: Greater than 30
[2025-03-24 11:46] LABS: Glucose,Whole Blood 119 mg/dL (70-110)
[2025-03-24] MEDS: traMADol 50 MG TAB PO SCH (12:53)
--- NOTE | 2025-03-24 13:18 | P.PN ---
Subjective Progress Note Date: 03/24/25 Patient is a 64-year-old female with past medical history significant for major depression, previous suicide attempt, hypothyroidism. She is brought in by EMS early this morning, last known well was around 1630 yesterday evening. Reports of a phone conversation with her , states that she was feeling unwell, was going to try to make dinner. When came home, she was found on the ground with abnormal breathing pattern. EMS was called, they administered Narcan, with no response. EMS attempted intubation in the field, however, they were unable to secure the airway. Patient did have a large dark brown emesis, likely aspirated. Transferred to our emergency department on a nonrebreather. ER provider did intubate the patient on arrival. Workup including a CT of the brain without contrast which did not show any intracranial hemorrhage or mass effect. Brain CTA remarkable for approximately 50% luminal stenosis at the right internal carotid bifurcation. There was a patent right common carotid artery stent. No significant stenosis on the left with a patent left common carotid artery stent. Vertebral arteries were patent. Intubation chest x-ray showing the endotracheal tube approximately 2.6 cm above the susie. Enteric tube projects below the diaphragm. No obvious acute cardiopulmonary process. Patient did aspirate and brown gastric content appearing secretions are within the ET tube and being suctioned. CBC: WBC count 1 17.6, hemoglobin 13.4, platelets 267. BMP: Sodium 136, potassium 3.6, chloride 103, serum bicarb 19, BUN 9, creatinine 0.81, glucose 120. Urinalysis unremarkable for infection. Lactic was 3.3. Troponin less than 0.012. NT proBNP not elevated. TSH 47.6 and free T4 low at 0.36. She does have history of hypothyroidism, questionable medication compliance. Urine toxicology screen positive for TCAs and benzodiazepines. Serum alcohol less than 10. Acetaminophen less than 10. Patient currently being evaluated in the emergency department. Currently intubated to the mechanical ventilator, with settings assist-control, respiratory rate 20, tidal volume 500, FiO2 100%, PEEP of 5. ABGs done on these settings include a PaO2 greater than 420, pCO2 of 38, pH of 7.37. Peak pressures were elevated around 37 and static airway pressures around 24. Continuing to suction brown GI contents from ET tube. Placed on Zosyn in the ED for aspiration. Patient is currently sedated on a combination of propofol at 15 mics per kilogram per minute, as well as, IV fentanyl at 0.5 mcg/kg/h. She is unresponsive, does not withdraw to painful stimuli. Normal saline is infusing at 130 mL/h. Patient also hypothermic, with a current temperature of 35 C, external warming blanket is.. Not bradycardic or hypotensive. Code status previously addressed by the ED provider, apparently DO NOT RESUSCITATE. On 03/24/2025, the patient was taken off the propofol. The patient was given a sedation holiday and the patient was wide-awake and alert. She was on assist- control mode with rate of 20, tidal volume of 400, FiO2 35% with a PEEP of 5. Blood gas showed a pH of 7.38 with a pCO2 of 29 and pO2 of 144. Remains on normal saline at rate of 130 cc an hour. The patient had a follow-up chest x- ray that showed no significant abnormalities. No airspace disease. No consolidation. The white cell count is 16.7 with hemoglobin 11.9 and platelet count of 279. The sodium is at 140, potassium is at 3.2, bicarb is at 70, BUN is at 4 with a creatinine of 0.7. The patient is on IV Zosyn as an empiric antibiotic coverage post aspiration. Based on significant recovery and mental status, the patient was given a brief spontaneous breathing trial and following that the patient was extubated and the patient is currently on nasal cannula. She is awake and alert and she is also communicating. She was placed on 2 L of O2 nasal cannula. Hemodynamically stable. No other significant events overnight. Objective - Vital Signs Vital signs: Vital Signs Temp 97.4 F L 03/24/25 04:00 Pulse 115 H 03/24/25 08:03 Resp 29 H 03/24/25 08:03 BP 113/58 03/24/25 07:00 Pulse Ox 100 03/24/25 07:00 FiO2 35 03/24/25 08:05 Intake & Output 03/23/25 03/24/25 03/24/25 18:59 06:59 18:59 Intake Total 4150.041 2523.160 130 Output Total 760 1300 185 Balance 3516.197 1344.160 -55 Weight 106.322 kg 113.7 kg Intake: IV 1930 2430 130 Sodium Chloride 0.9% 1, 1930 1430 130 000 ml @ 130 mls/hr IV . Q7H42M [facility]LY Rx#:[id number] Sodium Chloride 0.9% 1, 1000 000 ml @ 999 mls/hr IV . Q1H1M ONE Rx#:[id number] Intake, IV Titration 19.032 97.160 Amount Norepinephrine 4 mg In 51.175 Sodium Chloride 0.9% 250 ml @ 0.03 MCG/KG/MIN 12. 153 mls/hr IV .[id number] CHARLY Rx#:[id number] propofoL 1,000 mg In 19.032 45.985 Empty Bag 1 bag @ 15 MCG/ KG/MIN 9.569 mls/hr IV . [id number] CHARLY Rx#:[id number] Output: Urine 760 1300 185 Other: Voiding Method Indwelling Catheter Indwelling Catheter ABP, PAP, CO, CI - Last Documented Arterial Blood Pressure 136/69 - Exam GENERAL EXAM: Unresponsive, sedated, 64-year-old female extubated to 2 L of oxygen by nasal cannula HEAD: Normocephalic and atraumatic EYES: Equal nonreactive pupils, midline, no corneal reflex, no nystagmus, nonicteric NOSE: Clear with pink turbinates. THROAT: No erythema or exudates. Orogastric tube with coffee-ground output NECK: No masses, no JVD. CHEST: No chest wall deformity. LUNGS: Equal air entry wit diffuse coarse rhonchi heard bilaterally throughout. CVS: S1 and S2 normal with no audible murmur, regular rhythm. No extra heart sounds ABDOMEN: Obese abdomen, active bowel sounds, soft, no hepatosplenomegaly, no guarding or rigidity. SPINE: No scoliosis or deformity SKIN: No rashes CENTRAL NERVOUS SYSTEM neurologically, the patient is awake and alert and the patient does not have any focal neurological deficit. Cranial nerves are essentially intact. EXTREMITIES: There is no peripheral edema, clubbing, or cyanosis. Peripheral pulses are intact. - Labs CBC & Chem 7: 03/24/25 04:01 03/24/25 09:40 Labs: Abnormal Lab Results - Last 24 Hours (Table) 03/23/25 03/23/25 03/23/25 Range/Units 04:37 04:56 06:48 WBC (4.50-10.00) 10*3/uL RBC (4.10-5.20) 10*6/uL Hgb (12.0-15.0) g/dL Hct (37.2-46.3) % Immature Gran # (0.00-0.04) 10*3/uL Neutrophils # (1.80-7.70) 10*3/uL Lymphocytes # (0.90-5.00) 10*3/uL Eosinophils # (0.04-0.35) 10*3/uL ABG pCO2 (35-45) mmHg ABG pO2 (83-108) mmHg ABG HCO3 (21-25) mmol/L ABG Total CO2 (19-24) mmol/L ABG O2 Saturation (94-97) % Potassium (3.5-5.1) mmol/L Chloride (98-107) mmol/L Carbon Dioxide (22-30) mmol/L BUN (7-17) mg/dL Glucose (74-99) mg/dL POC Glucose (mg/dL) (70-110) mg/dL Hemoglobin A1c 6.1 H (<=6.0) % Plasma Lactic Acid Tae (0.7-2.0) mmol/L Calcium (8.4-10.2) mg/dL Free T3 pg/mL 0.50 L (2.30-4.20) pg/mL Thyroid Peroxidase Ab 98.8 H (0.0-33.0) U/mL 03/23/25 03/23/25 03/23/25 Range/Units 11:23 12:15 13:30 WBC (4.50-10.00) 10*3/uL RBC (4.10-5.20) 10*6/uL Hgb (12.0-15.0) g/dL Hct (37.2-46.3) % Immature Gran # (0.00-0.04) 10*3/uL Neutrophils # (1.80-7.70) 10*3/uL Lymphocytes # (0.90-5.00) 10*3/uL Eosinophils # (0.04-0.35) 10*3/uL ABG pCO2 (35-45) mmHg ABG pO2 (83-108) mmHg ABG HCO3 (21-25) mmol/L ABG Total CO2 (19-24) mmol/L ABG O2 Saturation (94-97) % Potassium (3.5-5.1) mmol/L Chloride (98-107) mmol/L Carbon Dioxide 20 L (22-30) mmol/L BUN 6 L (7-17) mg/dL Glucose 136 H (74-99) mg/dL POC Glucose (mg/dL) 129 H (70-110) mg/dL Hemoglobin A1c (<=6.0) % Plasma Lactic Acid Tae 3.2 H* (0.7-2.0) mmol/L Calcium 7.9 L (8.4-10.2) mg/dL Free T3 pg/mL (2.30-4.20) pg/mL Thyroid Peroxidase Ab (0.0-33.0) U/mL 03/23/25 03/24/25 03/24/25 Range/Units 18:12 00:10 04:01 WBC 16.67 H (4.50-10.00) 10*3/uL RBC 3.95 L (4.10-5.20) 10*6/uL Hgb 11.9 L (12.0-15.0) g/dL Hct 36.3 L (37.2-46.3) % Immature Gran # 0.24 H (0.00-0.04) 10*3/uL Neutrophils # 15.11 H (1.80-7.70) 10*3/uL Lymphocytes # 0.79 L (0.90-5.00) 10*3/uL Eosinophils # 0.02 L (0.04-0.35) 10*3/uL ABG pCO2 (35-45) mmHg ABG pO2 (83-108) mmHg ABG HCO3 (21-25) mmol/L ABG Total CO2 (19-24) mmol/L ABG O2 Saturation (94-97) % Potassium (3.5-5.1) mmol/L Chloride (98-107) mmol/L Carbon Dioxide (22-30) mmol/L BUN (7-17) mg/dL Glucose (74-99) mg/dL POC Glucose (mg/dL) 131 H 170 H (70-110) mg/dL Hemoglobin A1c (<=6.0) % Plasma Lactic Acid Tae (0.7-2.0) mmol/L Calcium (8.4-10.2) mg/dL Free T3 pg/mL (2.30-4.20) pg/mL Thyroid Peroxidase Ab (0.0-33.0) U/mL 03/24/25 03/24/25 03/24/25 Range/Units 04:01 04:29 06:17 WBC (4.50-10.00) 10*3/uL RBC (4.10-5.20) 10*6/uL Hgb (12.0-15.0) g/dL Hct (37.2-46.3) % Immature Gran # (0.00-0.04) 10*3/uL Neutrophils # (1.80-7.70) 10*3/uL Lymphocytes # (0.90-5.00) 10*3/uL Eosinophils # (0.04-0.35) 10*3/uL ABG pCO2 29 L (35-45) mmHg ABG pO2 144 H (83-108) mmHg ABG HCO3 17 L (21-25) mmol/L ABG Total CO2 18 L (19-24) mmol/L ABG O2 Saturation 99.6 H (94-97) % Potassium 3.2 L (3.5-5.1) mmol/L Chloride 110 H (98-107) mmol/L Carbon Dioxide 17 L (22-30) mmol/L BUN 4 L (7-17) mg/dL Glucose 155 H (74-99) mg/dL POC Glucose (mg/dL) 161 H (70-110) mg/dL Hemoglobin A1c (<=6.0) % Plasma Lactic Acid Tae (0.7-2.0) mmol/L Calcium 7.6 L (8.4-10.2) mg/dL Free T3 pg/mL (2.30-4.20) pg/mL Thyroid Peroxidase Ab (0.0-33.0) U/mL Assessment and Plan Assessment: Altered mental status, recovered, probably drug-induced. Consider polypharmacy versus acute drug intoxication and narcotic medication. The patient was weaned off sedation and the patient is alert and awake and oriented x 3 without any focal neurological deficits. The patient was extubated. Acute hypoxic respiratory failure, possible aspiration, possible hypoventilation due to drug effect/polypharmacy antibiotics. Mechanical ventilator management, intubated for airway protection, patient had witnessed aspiration episode. No evidence of any acute pneumonia based on today's chest x-ray the patient remains on IV Zosyn. The patient was extubated to 2 L of oxygen by nasal cannula. Probable aspiration Acute leukocytosis Hypothyroidism Hypothermia, with external warming blanket History of GERD History of gastritis History of major depression History of previous suicide attempt Plan: Extubated to 2 liters/min 02 Continue IV Zosyn for aspiration Patient's brain CT and CT angio unremarkable for acute process Obtain EEG Urine toxicology positive for TCAs and benzodiazepines serum alcohol less than 10, Tylenol less than 10 Urinalysis unremarkable for infection TSH 47.6, free T4 0.36 DC hydrocortisone IV push Synthroid Fecal occult was positive, hemoglobin stable, IV Protonix added Restart Seroquel and Ultram Critical care evaluation . This was done in 33 min. Time with Patient: Greater than 30
--- NOTE | 2025-03-24 14:06 | P.PN ---
Subjective Progress Note Date: 03/24/25 I am following-up with patient and she is accompanied with her sister who states patient is confused. Per sister, patient does not have history of seizures. She was extubated today in A.M. Objective - Vital Signs Vital signs: Vital Signs Temp 97.4 F L 03/24/25 12:00 Pulse 135 H 03/24/25 13:00 Resp 17 03/24/25 13:00 BP 145/83 03/24/25 12:00 Pulse Ox 95 03/24/25 13:00 FiO2 35 03/24/25 09:25 Intake & Output 03/23/25 03/24/25 03/24/25 18:59 06:59 18:59 Intake Total 0866.953 3983.160 628.171 Output Total 760 1300 1130 Balance 7523.964 1331.160 -501.829 Weight 106.322 kg 113.7 kg 113.7 kg Intake: IV 1930 2430 590 Sodium Chloride 0.9% 1, 1930 1430 590 000 ml @ 50 mls/hr IV . Q20H [facility] Rx#:[id number] Sodium Chloride 0.9% 1, 1000 000 ml @ 999 mls/hr IV . Q1H1M ONE Rx#:[id number] Intake, IV Titration 19.032 97.160 38.171 Amount Norepinephrine 4 mg In 51.175 Sodium Chloride 0.9% 250 ml @ 0.03 MCG/KG/MIN 12. 153 mls/hr IV .[id number] [facility] Rx#:[id number] propofoL 1,000 mg In 19.032 45.985 38.171 Empty Bag 1 bag @ 15 MCG/ KG/MIN 9.569 mls/hr IV . [id number] [facility]LY Rx#:[id number] Output: Gastric Drainage 200 Urine 760 1300 930 Other: Voiding Method Indwelling Catheter Indwelling Catheter ABP, PAP, CO, CI - Last Documented Arterial Blood Pressure 146/94 - Exam General: Lying in bed and is not in acute distress. Neuro: Limited because of patient's confusion. The patient is drowsy but is awakeable to voice. Is oriented to self and year. Is talking tangential and seems very confusion. She would follow simple commands. No facial weakness. No dysarthria. Some of the workup during this hospital visit consisted of: Patient is afebrile. White blood cell is 16,000 and repeated 17,000 Initial plasma lactic acid vein is 3.3 and repeated most recent 1 is 1.7. Ammonia Level 17. TSH is 47.6 and free T4 is T3 is 0.50 B12: 526 Folate: 10.2 Thyroid peroxidase: 98.8 Stool Occult blood is positive. CT of the head is reported as no acute intracranial process. I personally reviewed the CT and agree with the report CT angiography of the head and neck is reported as focal atherosclerotic disease involving proximal right internal carotid artery approximately 50%. However no other significant stenosis identified. No significant atherosclerotic disease over the left carotid. - Labs CBC & Chem 7: 03/24/25 04:01 03/24/25 09:40 Labs: Abnormal Lab Results - Last 24 Hours (Table) 03/23/25 03/23/25 03/23/25 Range/Units 04:37 04:56 13:30 WBC (4.50-10.00) 10*3/uL RBC (4.10-5.20) 10*6/uL Hgb (12.0-15.0) g/dL Hct (37.2-46.3) % Immature Gran # (0.00-0.04) 10*3/uL Neutrophils # (1.80-7.70) 10*3/uL Lymphocytes # (0.90-5.00) 10*3/uL Eosinophils # (0.04-0.35) 10*3/uL ABG pCO2 (35-45) mmHg ABG pO2 (83-108) mmHg ABG HCO3 (21-25) mmol/L ABG Total CO2 (19-24) mmol/L ABG O2 Saturation (94-97) % Potassium (3.5-5.1) mmol/L Chloride (98-107) mmol/L Carbon Dioxide 20 L (22-30) mmol/L BUN 6 L (7-17) mg/dL Glucose 136 H (74-99) mg/dL POC Glucose (mg/dL) (70-110) mg/dL Hemoglobin A1c 6.1 H (<=6.0) % Calcium 7.9 L (8.4-10.2) mg/dL Thyroid Peroxidase Ab 98.8 H (0.0-33.0) U/mL 03/23/25 03/24/25 03/24/25 Range/Units 18:12 00:10 04:01 WBC 16.67 H (4.50-10.00) 10*3/uL RBC 3.95 L (4.10-5.20) 10*6/uL Hgb 11.9 L (12.0-15.0) g/dL Hct 36.3 L (37.2-46.3) % Immature Gran # 0.24 H (0.00-0.04) 10*3/uL Neutrophils # 15.11 H (1.80-7.70) 10*3/uL Lymphocytes # 0.79 L (0.90-5.00) 10*3/uL Eosinophils # 0.02 L (0.04-0.35) 10*3/uL ABG pCO2 (35-45) mmHg ABG pO2 (83-108) mmHg ABG HCO3 (21-25) mmol/L ABG Total CO2 (19-24) mmol/L ABG O2 Saturation (94-97) % Potassium (3.5-5.1) mmol/L Chloride (98-107) mmol/L Carbon Dioxide (22-30) mmol/L BUN (7-17) mg/dL Glucose (74-99) mg/dL POC Glucose (mg/dL) 131 H 170 H (70-110) mg/dL Hemoglobin A1c (<=6.0) % Calcium (8.4-10.2) mg/dL Thyroid Peroxidase Ab (0.0-33.0) U/mL 03/24/25 03/24/25 03/24/25 Range/Units 04:01 04:29 06:17 WBC (4.50-10.00) 10*3/uL RBC (4.10-5.20) 10*6/uL Hgb (12.0-15.0) g/dL Hct (37.2-46.3) % Immature Gran # (0.00-0.04) 10*3/uL Neutrophils # (1.80-7.70) 10*3/uL Lymphocytes # (0.90-5.00) 10*3/uL Eosinophils # (0.04-0.35) 10*3/uL ABG pCO2 29 L (35-45) mmHg ABG pO2 144 H (83-108) mmHg ABG HCO3 17 L (21-25) mmol/L ABG Total CO2 18 L (19-24) mmol/L ABG O2 Saturation 99.6 H (94-97) % Potassium 3.2 L (3.5-5.1) mmol/L Chloride 110 H (98-107) mmol/L Carbon Dioxide 17 L (22-30) mmol/L BUN 4 L (7-17) mg/dL Glucose 155 H (74-99) mg/dL POC Glucose (mg/dL) 161 H (70-110) mg/dL Hemoglobin A1c (<=6.0) % Calcium 7.6 L (8.4-10.2) mg/dL Thyroid Peroxidase Ab (0.0-33.0) U/mL 03/24/25 Range/Units 11:44 WBC (4.50-10.00) 10*3/uL RBC (4.10-5.20) 10*6/uL Hgb (12.0-15.0) g/dL Hct (37.2-46.3) % Immature Gran # (0.00-0.04) 10*3/uL Neutrophils # (1.80-7.70) 10*3/uL Lymphocytes # (0.90-5.00) 10*3/uL Eosinophils # (0.04-0.35) 10*3/uL ABG pCO2 (35-45) mmHg ABG pO2 (83-108) mmHg ABG HCO3 (21-25) mmol/L ABG Total CO2 (19-24) mmol/L ABG O2 Saturation (94-97) % Potassium (3.5-5.1) mmol/L Chloride (98-107) mmol/L Carbon Dioxide (22-30) mmol/L BUN (7-17) mg/dL Glucose (74-99) mg/dL POC Glucose (mg/dL) 119 H (70-110) mg/dL Hemoglobin A1c (<=6.0) % Calcium (8.4-10.2) mg/dL Thyroid Peroxidase Ab (0.0-33.0) U/mL Assessment and Plan Assessment: This is a 64-year-old woman with history of hypothyroidism, suicidal attempt who presents the emergency department because she was found on the ground unresponsive by her . Altered mental status and possibly due to her uncontrolled hypothyroidism and component of metabolic encephalopathy. CT head is unremarkable. EEG preli minary is negative for seizure but had one episode of sharply contoured activity that can increase risk for cortical irritability. Underlying hypothyroidism and continues to have uncontrolled hypothyroidism with high TSH and low T4 and T3 with elevated thryroid peroxidase Positive fecal occult blood test History of suicidal attempt History of depression Plan: Recommend better control of her thyroid level and will defer that to her primary care I will get a repeat EEG for this Wednesday since continues to have confused with one sharply contoured activity seen on EEG yesterday to assess if any further sharply contoured activity or discharges or seizures. Once the patient is more awake responsive then we will get a better neurological examination and will assess if she needs further imaging of the brain Defer the rest of the medical management to the primary and other specialist. The plan discussed with the patient's sister who is at bedside and her nurse. Time with Patient: Less than 30
[2025-03-24] MEDS: INSULIN LISPRO (HumaLOG) 100 UNIT/ML 10 mL VL SQ SCH (18:38)
[2025-03-24] MEDS ORDERED: ACETAMINOPHEN ORAL SUSP 160 MG/5 ML CUP PO PRN (20:29)
[2025-03-24] MEDS: diphenhydrAMINE 50 MG/ML 1 ML VIAL IVP STA (20:49)
[2025-03-24] MEDS: METOPROLOL TARTRATE 25 MG TAB PO SCH (20:50)
[2025-03-24] MEDS: QUEtiapine 25 MG TAB PO SCH (20:50)
[2025-03-24 21:35] LABS: Glucose,Whole Blood 114 mg/dL (70-110)
[2025-03-24] MEDS: ACETAMINOPHEN ORAL SUSP (PEDS) 3,840 MG/120 ML BOTTLE PO PRN (22:09)
[2025-03-24] MEDS: LORazepam 2 MG/ML INJ IV PRN (22:18)
[2025-03-25] MEDS: MORPHINE SULFATE 2 MG/ML SYRINGE IV PRN (05:20)
[2025-03-25 06:43] LABS: Glucose,Whole Blood 119 mg/dL (70-110)
[2025-03-25 06:56] LABS: Basophils # (A) 0.09 10*3/uL (0.00-0.10); Basophils % (A) 0.5 %; Eosinophils # (A) 0.02 10*3/uL (0.04-0.35); Eosinophils % (A) 0.1 %; HCT 36.9 % (37.2-46.3); HGB 12.4 g/dL (12.0-15.0); Lymphocytes # (A) 1.86 10*3/uL (0.90-5.00); Lymphocytes % (A) 10.1 %; MCH 30.5 pg (27.0-32.0); MCHC 33.6 g/dL (32.0-37.0); MCV 90.9 fL (80.0-97.0); Monocytes # (A) 1.11 10*3/uL (0.20-1.00); Neutrophils # (A) 15.09 10*3/uL (1.80-7.70); Neutrophils % (A) 82.1 %; Platelet Count 301 10*3/uL (140-440); RBC 4.06 10*6/uL (4.10-5.20); RDW 14.7 % (11.5-14.5); WBC 18.39 10*3/uL (4.50-10.00)
[2025-03-25 07:07] LABS: African American GFR (CKD) >90 (>60 ml/min/1.73 sqM); Anion Gap 7 mmol/L; Blood Urea Nitrogen <2 mg/dL (7-17); Calcium 8.7 mg/dL (8.4-10.2); Carbon Dioxide 26 mmol/L (22-30); Chloride 109 mmol/L (98-107); Glucose 120 mg/dL (74-99); Non-African American GFR(CKD) 78 (>60 ml/min/1.73 sqM); Sodium 142 mmol/L (137-145)
[2025-03-25] MEDS: IPRATROPIUM-ALBUTEROL 3 ML NEB INHALATION PRN (08:15)
--- NOTE | 2025-03-25 08:22 | XR ---
EXAMINATION TYPE: XR chest 1V portable DATE OF EXAM: 03/25/2025 5:57 AM COMPARISON: Chest radiographs from 03/24/2025 TECHNIQUE: XR chest 1V portable Portable AP radiograph of the chest. CLINICAL INDICATION:Female, 64 years old with history of Tube placement; FINDINGS: Lungs/Pleura: There is no evidence of pleural effusion, focal consolidation, or pneumothorax. Pulmonary vascularity: Mild central pulmonary vascular congestion. Heart/mediastinum: Cardiomediastinal silhouette is enlarged and stable. Musculoskeletal: No acute osseous pathology. Other findings: None Lines/Tubes: Interval removal of endotracheal and NG tubes. IMPRESSION: 1. Cardiomegaly with mild central pulmonary vascular congestion. 2. Interval removal of endotracheal and NG tubes. [facility], , 03/25/2025 8:19 AM
[2025-03-25] MEDS: POTASSIUM BICARBONATE/CIT AC 20 MEQ TABLET.EFF NG-TUBE SCH (08:29)
--- NOTE | 2025-03-25 10:31 | P.PN ---
Subjective Progress Note Date: 03/25/25 Principal diagnosis: Acute hypoxic respiratory failure Altered mental status Hypothyroidism probable myxedema, Aspiration pneumonitis Hypothyroidism Sepsis related to above GERD and gastritis History of prior suicidal attempts Major depression and chronic pain syndrome March 25, 2025 patient seen eval examined during rounds successfully weaned and extubated, on supplemental oxygen, blood pressure slightly high 165/95, saturation 96%, heart rate is 115, improved to 88 patient to be started on as needed hydralazine IV, will review home medicine, continue Lopressor, blood culture and sputum cultures so far has been negative. Patient remains on IV Zosyn for aspiration pneumonitis, chest x-ray Done earlier this morning reviewed, cardiomegaly interstitial edema. Labs from today reviewed BBC count 18.39, hemoglobin hematocrit 12/36 platelet count of 301 chemistry reviewed potassium is 3 BUN/creatinine within normal limit lactic acid is normalized March 24, 2025, patient seen eval examined patient currently undergoing CPAP pressure support trial breathing more stable, awake makes eye contact no obvious distress present, labs from today reviewed WBC count slightly decreased to 16.6 down from 17.5 yesterday hemoglobin also slightly decreased to 11.9 from 13.4 yesterday. Arterial blood gas on CPAP pressure support 7 point 02/24/144. C hemistry hyponatremia improve now sodium is normal 140 potassium is 3.6 CO2 is 17, BUN/creatinine 4/0.7. Chest x-ray stable and G-tube and ET tube no pneumonia or infiltrate identified 64-year-old female seen evaluate examined in ICU patient intubated not much data cannot be obtained from her most of the data has been obtained from the chart. Patient was found to be unresponsive EMS was notified, patient does have prior suicidal attempts. Bedside patient was given Narcan with minimal improvement in mental status intubation was attempted however unsuccessful patient has dark brown emesis patient was placed on nonrebreather mask transferred to emergency department patient was intubated in the emergency department. On arrival patient was hypertensive with blood pressure of 200/130 and hypothermic patient probably aspirated as well during intubation process has been placed on IV Zosyn. Significant labs include CBC: WBC count 1 17.6, hemoglobin 13.4, platelets 267. BMP: Sodium 136, potassium 3.6, chloride 103, serum bicarb 19, BUN 9, creatinine 0.81, glucose 120. Urinalysis unremarkable for infection. Lactic was 3.3. Troponin less than 0.012. NT proBNP not elevated. TSH 47.6 and free T4 low at 0.36. She does have history of hypothyroidism, questionable medication compliance. Urine toxicology screen positive for TCAs and benzodiazepines. Serum alcohol less than 10. Acetaminophen less than 10. Patient currently being evaluated in the emergency department. Currently intubated to the mechanical ventilator, with settings assist-control, respiratory rate 20, tidal volume 500, FiO2 100%, PEEP of 5. ABGs done on these settings include a PaO2 greater than 420, pCO2 of 38, pH of 7.37. Peak pressures were elevated around 37 and static airway pressures around 24. Co ntinuing to suction brown GI contents from ET tube. Placed on Zosyn in the ED for aspiration. Patient is currently sedated on a combination of propofol at 15 mics per kilogram per minute, as well as, IV fentanyl at 0.5 mcg/kg/h. She is unresponsive, does not withdraw to painful stimuli. Normal saline is infusing at 130 mL/h. Prior medical problem issues associated with congestive heart failure, major depression, generalized anxiety disorder, chronic insomnia, chronic pain syndrome, COPD, hypertension hypertensive cardiovascular disease, GERD, history of GI bleed, rheumatoid arthritis, history of C-spine surgery with bone graft and titanium jarod, Objective - Vital Signs Vital signs: Vital Signs Temp 98.5 F 03/25/25 08:00 Pulse 88 03/25/25 08:27 Resp 22 03/25/25 08:27 BP 165/95 03/25/25 08:00 Pulse Ox 95 03/25/25 08:17 FiO2 35 03/24/25 09:25 Intake & Output 03/24/25 03/25/25 03/25/25 18:59 06:59 18:59 Intake Total 678.171 100 Output Total 1380 1999 400 Balance -701.829 -1900 -400 Weight 113.7 kg 106.8 kg Intake: IV 640 100 Sodium Chloride 0.9% 1, 640 100 000 ml @ 50 mls/hr IV . Q20H CHARLY Rx#:[id number] Intake, IV Titration 38.171 Amount propofoL 1,000 mg In 38.171 Empty Bag 1 bag @ 15 MCG/ KG/MIN 9.569 mls/hr IV . [id number] CHARLY Rx#:[id number] Output: Gastric Drainage 200 Urine 1180 2000 400 Female - External 400 Other: Voiding Method Indwelling Catheter External Catheter External Catheter # Voids 1 # Bowel Movements 1 ABP, PAP, CO, CI - Last Documented Arterial Blood Pressure 155/89 - Exam - Constitutional General appearance: average body habitus, disheveled - EENT Eyes: PERRLA Ears: bilateral: normal - Neck Carotids: bilateral: upstroke normal Thyroid: bilateral: normal size - Respiratory Respiratory: bilateral: rales - Cardiovascular Rhythm: regular Heart sounds: normal: S1, S2 - Gastrointestinal General gastrointestinal: decreased bowel sounds, soft - Integumentary Integumentary: normal turgor - Labs CBC & Chem 7: 03/25/25 06:33 03/25/25 06:33 Labs: Abnormal Lab Results - Last 24 Hours (Table) 03/24/25 03/24/25 03/25/25 Range/Units 11:44 21:33 06:33 WBC 18.39 H (4.50-10.00) 10*3/uL RBC 4.06 L (4.10-5.20) 10*6/uL Hct 36.9 L (37.2-46.3) % Immature Gran # 0.22 H (0.00-0.04) 10*3/uL Neutrophils # 15.09 H (1.80-7.70) 10*3/uL Monocytes # 1.11 H (0.20-1.00) 10*3/uL Eosinophils # 0.02 L (0.04-0.35) 10*3/uL Potassium (3.5-5.1) mmol/L Chloride (98-107) mmol/L BUN (7-17) mg/dL Glucose (74-99) mg/dL POC Glucose (mg/dL) 119 H 114 H (70-110) mg/dL 03/25/25 03/25/25 Range/Units 06:33 06:41 WBC (4.50-10.00) 10*3/uL RBC (4.10-5.20) 10*6/uL Hct (37.2-46.3) % Immature Gran # (0.00-0.04) 10*3/uL Neutrophils # (1.80-7.70) 10*3/uL Monocytes # (0.20-1.00) 10*3/uL Eosinophils # (0.04-0.35) 10*3/uL Potassium 3.0 L (3.5-5.1) mmol/L Chloride 109 H (98-107) mmol/L BUN <2 L (7-17) mg/dL Glucose 120 H (74-99) mg/dL POC Glucose (mg/dL) 119 H (70-110) mg/dL Microbiology - Last 24 Hours (Table) 03/23/25 03:35 Gram Stain - Preliminary Sputum 03/23/25 11:29 Blood Culture - Preliminary Blood Assessment and Plan Assessment: Acute hypoxic respiratory failure successfully weaned and extubated Uncontrolled hypertension Hypokalemia Altered mental status, significantly improved Hypothyroidism probable myxedema, Aspiration pneumonitis Hypothyroidism Sepsis related to above GERD and gastritis History of prior suicidal attempts Major depression and chronic pain syndrome Plan: Replace potassium Continue broad-spectrum antibiotic Titrate oxygen down as tolerated Pressure control with higher dose of Lopressor and IV hydralazine as needed Workup for altered mental status as per critical care service and neurology Patient is DNR by advance directive Synthroid can be switched to oral PPI continue monitor hemoglobin closely DVT prophylaxis Increase activity as tolerated Time with Patient: Greater than 30
[2025-03-25 11:36] LABS: Glucose,Whole Blood 122 mg/dL (70-110)
[2025-03-25] MEDS: ALPRAZolam 1 MG TAB PO SCH (13:32)
[2025-03-25] MEDS: PANTOPRAZOLE 40 MG TABLET PO SCH (16:21)
[2025-03-25] MEDS: methylPREDNISolone SOD SUCCI 40 MG/ML 1 ML VIAL IV SCH (16:22)
[2025-03-25 16:24] LABS: Glucose,Whole Blood 124 mg/dL (70-110)
--- NOTE | 2025-03-25 18:15 | P.PN ---
Subjective Progress Note Date: 03/25/25 Patient is a 64-year-old female with past medical history significant for major depression, previous suicide attempt, hypothyroidism. She is brought in by EMS early this morning, last known well was around 1630 yesterday evening. Reports of a phone conversation with her , states that she was feeling unwell, was going to try to make dinner. When came home, she was found on the ground with abnormal breathing pattern. EMS was called, they administered Narcan, with no response. EMS attempted intubation in the field, however, they were unable to secure the airway. Patient did have a large dark brown emesis, likely aspirated. Transferred to our emergency department on a nonrebreather. ER provider did intubate the patient on arrival. Workup including a CT of the brain without contrast which did not show any intracranial hemorrhage or mass effect. Brain CTA remarkable for approximately 50% luminal stenosis at the right internal carotid bifurcation. There was a patent right common carotid artery stent. No significant stenosis on the left with a patent left common carotid artery stent. Vertebral arteries were patent. Intubation chest x-ray showing the endotracheal tube approximately 2.6 cm above the susie. Enteric tube projects below the diaphragm. No obvious acute cardiopulmonary process. Patient did aspirate and brown gastric content appearing secretions are within the ET tube and being suctioned. CBC: WBC count 1 17.6, hemoglobin 13.4, platelets 267. BMP: Sodium 136, potassium 3.6, chloride 103, serum bicarb 19, BUN 9, creatinine 0.81, glucose 120. Urinalysis unremarkable for infection. Lactic was 3.3. Troponin less than 0.012. NT proBNP not elevated. TSH 47.6 and free T4 low at 0.36. She does have history of hypothyroidism, questionable medication compliance. Urine toxicology screen positive for TCAs and benzodiazepines. Serum alcohol less than 10. Acetaminophen less than 10. Patient currently being evaluated in the emergency department. Currently intubated to the mechanical ventilator, with settings assist-control, respiratory rate 20, tidal volume 500, FiO2 100%, PEEP of 5. ABGs done on these settings include a PaO2 greater than 420, pCO2 of 38, pH of 7.37. Peak pressures were elevated around 37 and static airway pressures around 24. Continuing to suction brown GI contents from ET tube. Placed on Zosyn in the ED for aspiration. Patient is currently sedated on a combination of propofol at 15 mics per kilogram per minute, as well as, IV fentanyl at 0.5 mcg/kg/h. She is unresponsive, does not withdraw to painful stimuli. Normal saline is infusing at 130 mL/h. Patient also hypothermic, with a current temperature of 35 C, external warming blanket is.. Not bradycardic or hypotensive. Code status previously addressed by the ED provider, apparently DO NOT RESUSCITATE. On 03/24/2025, the patient was taken off the propofol. The patient was given a sedation holiday and the patient was wide-awake and alert. She was on assist- control mode with rate of 20, tidal volume of 400, FiO2 35% with a PEEP of 5. Blood gas showed a pH of 7.38 with a pCO2 of 29 and pO2 of 144. Remains on normal saline at rate of 130 cc an hour. The patient had a follow-up chest x- ray that showed no significant abnormalities. No airspace disease. No consolidation. The white cell count is 16.7 with hemoglobin 11.9 and platelet count of 279. The sodium is at 140, potassium is at 3.2, bicarb is at 70, BUN is at 4 with a creatinine of 0.7. The patient is on IV Zosyn as an empiric antibiotic coverage post aspiration. Based on significant recovery and mental status, the patient was given a brief spontaneous breathing trial and following that the patient was extubated and the patient is currently on nasal cannula. She is awake and alert and she is also communicating. She was placed on 2 L of O2 nasal cannula. Hemodynamically stable. No other significant events overnight. 03/25/2025, the patient admits to take excessive number of painkillers probably Ultram. She is currently extubated. She is on room air oxygen. The purpose for the overutilization of encounter was to control her pain more effectively. She has no suicidal ideation. She was extubated yesterday and the patient denies having any significant respiratory distress. She is on normal saline at rate of 50 cc an hour. No cough. No sputum production. She does have some increased wheezing. The patient was started on DuoNeb updrafts. She is also on IV Zosyn regarding witnessed aspiration that occurred at the time of her intubation. The white cell count of 18.3 with a hemoglobin of 12.4 and a platelet count of 301. Sodium is at 142, BUN is 2 with a creatinine of 0.8. Potassium levels at 3.0 replaced at 3.8. Bicarb is at 26. Blood sugars at 124. Tolerating diet. No focal neurological deficits. No other significant events overnight. Objective - Vital Signs Vital signs: Vital Signs Temp 98.5 F 03/25/25 08:00 Pulse 88 03/25/25 08:27 Resp 22 03/25/25 08:27 BP 165/95 03/25/25 08:00 Pulse Ox 95 03/25/25 08:17 FiO2 35 03/24/25 09:25 Intake & Output 03/24/25 03/25/25 03/25/25 18:59 06:59 18:59 Intake Total 678.171 100 Output Total 1380 2000 400 Balance -701.829 -1900 -400 Weight 113.7 kg 106.8 kg Intake: IV 640 100 Sodium Chloride 0.9% 1, 640 100 000 ml @ 50 mls/hr IV . Q20H CHAR[facility] Rx#:[id number] Intake, IV Titration 38.171 Amount propofoL 1,000 mg In 38.171 Empty Bag 1 bag @ 15 MCG/ KG/MIN 9.569 mls/hr IV . [id number] CHARLY Rx#:[id number] Output: Gastric Drainage 200 Urine 1180 2000 400 Female - External 400 Other: Voiding Method Indwelling Catheter External Catheter External Catheter # Voids 1 # Bowel Movements 1 ABP, PAP, CO, CI - Last Documented Arterial Blood Pressure 155/89 - Exam GENERAL EXAM: Unresponsive, sedated, 64-year-old female, comfortable on room air oxygen HEAD: Normocephalic and atraumatic EYES: Equal nonreactive pupils, midline, no corneal reflex, no nystagmus, nonicteric NOSE: Clear with pink turbinates. THROAT: No erythema or exudates. Orogastric tube with coffee-ground output NECK: No masses, no JVD. CHEST: No chest wall deformity. LUNGS: Equal air entry wit diffuse coarse rhonchi heard bilaterally throughout. Scattered expiratory wheezes throughout the lung craft bilaterally CVS: S1 and S2 normal with no audible murmur, regular rhythm. No extra heart sounds ABDOMEN: Obese abdomen, active bowel sounds, soft, no hepatosplenomegaly, no guarding or rigidity. SPINE: No scoliosis or deformity SKIN: No rashes CENTRAL NERVOUS SYSTEM neurologically, the patient is awake and alert and the patient does not have any focal neurological deficit. Cranial nerves are essentially intact. EXTREMITIES: There is no peripheral edema, clubbing, or cyanosis. Peripheral pulses are intact. - Labs CBC & Chem 7: 03/25/25 06:33 03/25/25 14:06 Labs: Abnormal Lab Results - Last 24 Hours (Table) 03/24/25 03/24/25 03/25/25 Range/Units 11:44 21:33 06:33 WBC 18.39 H (4.50-10.00) 10*3/uL RBC 4.06 L (4.10-5.20) 10*6/uL Hct 36.9 L (37.2-46.3) % Immature Gran # 0.22 H (0.00-0.04) 10*3/uL Neutrophils # 15.09 H (1.80-7.70) 10*3/uL Monocytes # 1.11 H (0.20-1.00) 10*3/uL Eosinophils # 0.02 L (0.04-0.35) 10*3/uL Potassium (3.5-5.1) mmol/L Chloride (98-107) mmol/L BUN (7-17) mg/dL Glucose (74-99) mg/dL POC Glucose (mg/dL) 119 H 114 H (70-110) mg/dL 03/25/25 03/25/25 Range/Units 06:33 06:41 WBC (4.50-10.00) 10*3/uL RBC (4.10-5.20) 10*6/uL Hct (37.2-46.3) % Immature Gran # (0.00-0.04) 10*3/uL Neutrophils # (1.80-7.70) 10*3/uL Monocytes # (0.20-1.00) 10*3/uL Eosinophils # (0.04-0.35) 10*3/uL Potassium 3.0 L (3.5-5.1) mmol/L Chloride 109 H (98-107) mmol/L BUN <2 L (7-17) mg/dL Glucose 120 H (74-99) mg/dL POC Glucose (mg/dL) 119 H (70-110) mg/dL Microbiology - Last 24 Hours (Table) 03/23/25 03:35 Gram Stain - Preliminary Sputum 03/23/25 11:29 Blood Culture - Preliminary Blood Assessment and Plan Assessment: Altered mental status, recovered, probably drug-induced. Consider polypharmacy versus acute drug intoxication and narcotic medication. The patient was weaned off sedation and the patient is alert and awake and oriented x 3 without any focal neurological deficits. The patient was extubated. Patient admits to take large number of painkillers probably Ultram. History is still not clear, nevertheless, strongly suspect drug overdose Acute hypoxic respiratory failure, possible aspiration, possible hypoventilation due to drug effect/polypharmacy antibiotics. Mechanical ventilator management, intubated for airway protection, patient had witnessed aspiration episode. No evidence of any acute pneumonia based on today's chest x-ray the patient remains on IV Zosyn. The patient was extubated and the patient is currently on room air oxygen Aspiration, during the time of intubation. Remains bronchospastic and wheezy Acute leukocytosis Hypothyroidism Hypothermia, with external warming blanket History of GERD History of gastritis History of major depression History of previous suicide attempt Plan: Patient is currently on room air oxygen Continue IV Zosyn for aspiration Will give 3 dose of IV Solu-Medrol 60 mg IV push every 8 hours [facility] [id number] Patient's brain CT and CT angio unremarkable for acute process Urine toxicology positive for TCAs and benzodiazepines serum alcohol less than 10, Tylenol less than 10 Urinalysis unremarkable for infection TSH 47.6, free T4 0.36 IV push Synthroid Fecal occult was positive, hemoglobin stable, IV Protonix Continue Seroquel Restart Ultram for pain control Will downgrade the patient to the medical floor.
[2025-03-25 20:16] LABS: Glucose,Whole Blood 131 mg/dL (70-110)
[2025-03-25] MEDS: SYMBICORT 160-4.5 MCG INHALER INHALATION SCH (21:26)
--- NOTE | 2025-03-25 23:25 | P.CONS ---
History of Present Illness - Reason for Consult Consult date: 03/25/25 Leukocytosis Requesting physician: Anton Lay - Chief Complaint Unresponsive x 1 day on admission - History of Present Illness Patient is a 64-year-old female with a past medical history significant for GERD/Reflux, GI Bleed, Hyperlipidemia, Hypertension, Liver Disease, Musculoskeletal Disorder, Osteoarthritis (OA), Pneumonia, Rheumatoid Arthritis (RA), Thyroid Disorder has been brought into the hospital by EMS after the patient was found to be unresponsive at home by the EMS tried to intubate the patient he did have an episode of vomiting subsequently was brought in on nonrebreather, with patient getting intubated has been admitted to the ICU, on arrival to the hospital patient was hypothermic and subsequently did have a low-grade fever last night 100.6 last night patient has been extubated and is currently breathing comfortably on room air and did mention she took more medication than usual that make her to be unresponsive patient currently denies any headache or URI symptoms. Denies any chest pain she did have a cough not bringing up any sputum some nausea but no vomiting no abdominal pain and no diarrhea no urinary symptoms patient did have a white count of 17.5 on admission which is up to 18.39 creatinine 0.76 electrolytes has been normal liver enzymes are normal urine has been negative urine testing was positive for antidepr essants and benzos blood cultures are pending sputum is growing Radha chest x- ray cardiomegaly pulm vascular congestion infectious he was consulted today because of elevated white count Review of Systems Positive point and negatives has been mentioned in the HPI, complete review of systems was performed and all other systems are negative Past Medical History Past Medical History: Chest Pain / Angina, GERD/Reflux, GI Bleed, Hy perlipidemia, Hypertension, Liver Disease, Musculoskeletal Disorder, Osteoarthritis (OA), Pneumonia, Rheumatoid Arthritis (RA), Thyroid Disorder Additional Past Medical History / Comment(s): Hx liver problem, gallbladder disease, septis, had cholecystectomy and biliary drainage tube. Chronic neck and low back. Colitis, diverticulitis, gastritis, lower GI bleed, constipation. Orthostatic hypotention, dizziness, recent falls. Bilateral lower leg edema. In the past difficulty swallowing, sore mouth, Has thickening of vocal cords. Sore throat, cough, wheezing for months. Gum disease, difficulty with some foods, better if mashed or pureed, Spurs on spine, frequent headaches. History of Any Multi-Drug Resistant Organisms: None Reported Past Surgical History: Back Surgery, Cholecystectomy, Hysterectomy, Joint Replacement, Tonsillectomy Additional Past Surgical History / Comment(s): EGD, colonosocpy, cadavar bone placed in C4 through C7 with titanium jarod, left knee replacement, lower back ep idural injections/ablation, were "burning the nerves in her back" at the pain clinic at one point Past Anesthesia/Blood Transfusion Reactions: No Reported Reaction Smoking Status: Former smoker - Past Family History Mother Family Medical History: Cancer Additional Family Medical History / Comment(s): Brain Cancer. Father Family Medical History: Cancer Additional Family Medical History / Comment(s): Liver Cancer. Sister(s) Family Medical History: Cancer Additional Family Medical History / Comment(s): Breast cancer. Medications and Allergies Home Medications Medication Instructions Recorded Confirmed Type Furosemide [Lasix] 20 mg PO DAILY 03/10/22 03/23/25 History QUEtiapine FUMARATE [SEROquel XR] 50 mg PO HS 03/10/22 03/23/25 History ALPRAZolam [Xanax] 1 mg PO QID 10/19/22 03/23/25 History Zolpidem Tartrate [Ambien] 10 mg PO HS 10/19/22 03/23/25 History traMADol HCL 100 mg PO TID 12/31/22 03/23/25 History Budesonide/Formoterol Fumarate 2 puff INHALATION RT-BID 04/16/23 03/23/25 Hist ory [Symbicort 160-4.5 Mcg Inhaler] Metoprolol Tartrate [Lopressor] 25 mg PO BID 04/16/23 03/23/25 History Omeprazole [PriLOSEC] 20 mg PO BID 04/16/23 03/23/25 History Levothyroxine Sodium [Synthroid] 200 mcg PO DAILY 03/23/25 03/23/25 History Potassium Chloride ER [K-Dur 10] 10 meq PO DAILY 03/23/25 03/23/25 History Allergies Allergy/AdvReac Type Severity Reaction Status Date / Time codeine Allergy Rash/Hives Verified 03/23/25 09:39 hydrocodone [From [place]] AdvReac Severe Abdominal Verified 03/23/25 09:39 Pain,vomiting Penicillins AdvReac Nausea & Verified 03/23/25 09:39 Vomiting & Diarrhea Physical Exam Vitals: Vital Signs Temp Pulse Pulse Resp BP Pulse Ox 03/25/25 14:00 98.7 F 108 H 24 143/79 96 03/25/25 08:27 88 22 03/25/25 08:17 95 03/25/25 08:15 88 18 03/25/25 08:00 98.5 F 115 H 26 H 165/95 96 03/25/25 02:00 99 F 110 H 22 147/94 96 03/25/25 00:37 100.4 F H 109 H 22 147/99 93 L 03/24/25 20:00 100.6 F H 140 H 23 163/89 95 Intake and Output 03/24/25 03/25/25 03/25/25 22:59 06:59 14:59 Intake Total 50 50 100 Output Total 0309 713 2016 Balance -1150 -750 -1800 Intake: IV 50 50 100 Piperacillin-Tazobactam 3 100 .375 gm In Sodium Chloride 0.9% 100 ml @ 25 mls/hr IVPB Q8H [facility] Rx#: [id number] Sodium Chloride 0.9% 1, 50 50 000 ml @ 50 mls/hr IV . Q20H [facility] Rx#:[id number] Output: Urine 8824 [id number] [id number] Female - External 800 Other: Voiding Method External Catheter External Catheter # Voids 1 # Bowel Movements 1 Weight 106.8 kg GENERAL DESCRIPTION: Middle-age female lying in bed, no distress. No tachypnea or accessory muscle of respiration use. HEENT: Shows Pallor , no scleral icterus. Oral mucous membrane is dry. NECK: Trachea central, no thyromegaly. LUNGS: Unlabored breathing. Decreased breath sound at the base HEART: S1, S2, regular rate and rhythm. No loud murmur ABDOMEN: Soft, no tenderness , guarding or rigidity, no organomegaly EXTREMITIES: No edema of feet. SKIN: No rash, no masses palpable. NEUROLOGICAL: The patient is awake, alert, oriented x3, mood and affect normal. Results CBC & Chem 7: 03/25/25 06:33 03/25/25 14:06 Labs: Abnormal Lab Results - Last 24 Hours (Table) 03/24/25 03/25/25 03/25/25 Range/Units 21:33 06:33 06:33 WBC 18.39 H (4.50-10.00) 10*3/uL RBC 4.06 L (4.10-5.20) 10*6/uL Hct 36.9 L (37.2-46.3) % Immature Gran # 0.22 H (0.00-0.04) 10*3/uL Neutrophils # 15.09 H (1.80-7.70) 10*3/uL Monocytes # 1.11 H (0.20-1.00) 10*3/uL Eosinophils # 0.02 L (0.04-0.35) 10*3/uL Potassium 3.0 L (3.5-5.1) mmol/L Chloride 109 H (98-107) mmol/L BUN <2 L (7-17) mg/dL Glucose 120 H (74-99) mg/dL POC Glucose (mg/dL) 114 H (70-110) mg/dL 03/25/25 03/25/25 Range/Units 06:41 11:34 WBC (4.50-10.00) 10*3/uL RBC (4.10-5.20) 10*6/uL Hct (37.2-46.3) % Immature Gran # (0.00-0.04) 10*3/uL Neutrophils # (1.80-7.70) 10*3/uL Monocytes # (0.20-1.00) 10*3/uL Eosinophils # (0.04-0.35) 10*3/uL Potassium (3.5-5.1) mmol/L Chloride (98-107) mmol/L BUN (7-17) mg/dL Glucose (74-99) mg/dL POC Glucose (mg/dL) 119 H 122 H (70-110) mg/dL Microbiology - Last 24 Hours (Table) 03/23/25 03:35 Gram Stain - Preliminary Sputum Sputum Culture - Preliminary Radha albicans 03/23/25 11:29 Blood Culture - Preliminary Blood Assessment and Plan (1) Leukocytosis Current Visit: Yes Status: Acute Code(s): D72.829 - ELEVATED WHITE BLOOD CE LL COUNT, UNSPECIFIED SNOMED Code(s): 008740377 (2) Aspiration pneumonitis Current Visit: Yes Status: Acute Code(s): J69.0 - PNEUMONITIS DUE TO INHALATION OF FOOD AND VOMIT SNOMED Code(s): 715786668 (3) Penicillin allergy Current Visit: Yes Status: Acute Code(s): Z88.0 - ALLERGY STATUS TO PENICILLIN SNOMED Code(s): 11982845 Plan: 1patient with elevated white count in this patient brought to the hospital unresponsive and apparently the patient did overdose on her medication she did have an episode of vomiting on the way to the hospital with EMS on the EMS try to intubate her concerning for aspiration pneumonitis more likely etiology for this elevated white count patient is also on steroid that may have caused further worsening of the white count 2-I will check inflammatory markers 3-penicillin allergy on the chart however the patient has tolerated Zosyn without any problem clinically doubt true penicillin allergy 4-for now continue with Zosyn We will follow on clinical condition and cultures to further adjust medication if needed Thank you for this consultation we will follow the patient along with you Dictation was produced using [employer] dictation software. please excuse any grammatical, word or spelling errors. Time with Patient: Greater than 30
[2025-03-26 05:09] LABS: Basophils # (A) 0.03 10*3/uL (0.00-0.10); Basophils % (A) 0.2 %; Eosinophils # (A) 0.02 10*3/uL (0.04-0.35); Eosinophils % (A) 0.1 %; HCT 39.4 % (37.2-46.3); HGB 13.1 g/dL (12.0-15.0); Lymphocytes # (A) 0.84 10*3/uL (0.90-5.00); Lymphocytes % (A) 5.8 %; MCH 29.8 pg (27.0-32.0); MCHC 33.2 g/dL (32.0-37.0); MCV 89.7 fL (80.0-97.0); Monocytes # (A) 0.27 10*3/uL (0.20-1.00); Monocytes % (A) 1.9 %; Neutrophils # (A) 13.23 10*3/uL (1.80-7.70); Neutrophils % (A) 91.4 %; Platelet Count 285 10*3/uL (140-440); RBC 4.39 10*6/uL (4.10-5.20); RDW 14.4 % (11.5-14.5); WBC 14.48 10*3/uL (4.50-10.00)
--- NOTE | 2025-03-26 05:26 | EEG ---
ELECTROENCEPHALOGRAM REPORT CLINICAL HISTORY: This is a 64-year-old woman who was found altered and nonresponsive to her at home. The video EEG is obtained to evaluate for seizure epileptiform activity. RELEVANT MEDICATION: IV propofol. EEG TYPE: This is a routine 21-channel EEG with video using the 10/20 electrode placement system. Wakefulness is only obtained. The patient is intubated on a ventilator. The background consists of [id number] voltage of 10.5 hertz activity that is well modulated and well sustained. There is no physiological stage 2 sleep architecture. There is no focal slowing. Interictal and ictal is, the patient has 1 episode of sharp and slow waves and appears over bilateral frontal, predominantly over the FP1-F7 lead as well as FP2-F4 lead. There is no clear epileptiform discharges or seizure noted during the study. ACTIVATION PROCEDURE: Photic stimulation and hyperventilation are not performed. CLINICAL INTERPRETATION: This is an abnormal routine EEG during awake state. The background is normal. There is 1 episode of sharp and controlled activity over bilateral frontal as described above that can increase risk of cortical irritability. No clear epileptiform discharge, or seizure. Recommend a repeat EEG to evaluate for any epileptiform discharge, or seizures. Clinical correlation is recommended. MMODL / IJN: [id number] /
[2025-03-26 05:54] LABS: African American GFR (CKD) >90 (>60 ml/min/1.73 sqM); Anion Gap 12 mmol/L; Blood Urea Nitrogen 4 mg/dL (7-17); Carbon Dioxide 24 mmol/L (22-30); Chloride 100 mmol/L (98-107); Glucose 132 mg/dL (74-99); Non-African American GFR(CKD) 82 (>60 ml/min/1.73 sqM); Potassium 3.6 mmol/L (3.5-5.1); Sodium 136 mmol/L (137-145)
[2025-03-26 06:16] LABS: Glucose,Whole Blood 145 mg/dL (70-110)
[2025-03-26] MEDS: LEVOTHYROXINE 100 MCG TAB PO SCH (06:40)
--- NOTE | 2025-03-26 10:39 | P.PN ---
Subjective Progress Note Date: 03/26/25 Principal diagnosis: Acute hypoxic respiratory failure Altered mental status Hypothyroidism probable myxedema, Aspiration pneumonitis Hypothyroidism Sepsis related to above GERD and gastritis History of prior suicidal attempts Major depression and chronic pain syndrome March 26, 2025, patient seen eval examined during rounds labs reviewed medications reviewed patient has been complaining of abdominal pain, denies any nausea, feel abdominal is distended soft loose stool present overnight currently no bowel movement. Currently patient is afebrile, tachycardic with heart rate 110 hypertensive with blood pressure 156/94 room air oxygen saturation 97%. Labs today reviewed patient still have leukocytosis with WBC count of 14,000 rest of CBC fairly within normal limit, chemistry reviewed sodium is 136 potassium was 3.6 BUN/creatinine 4.77 sugar is 145. Blood cultures are positive for gram-positive cocci in clusters final ID is pending, patient remains on bronchodilator, heparin for DVT prophylaxis, Zosyn Protonix and vancomycin. Dr. Chavis has been following this patient as well March 25, 2025 patient seen eval examined during rounds successfully weaned and extubated, on supplemental oxygen, blood pressure slightly high 165/95, saturation 96%, heart rate is 115, improved to 88 patient to be started on as needed hydralazine IV, will review home medicine, continue Lopressor, blood culture and sputum cultures so far has been negative. Patient remains on IV Zosyn for aspiration pneumonitis, chest x-ray Done earlier this morning reviewed, cardiomegaly interstitial edema. Labs from today reviewed BBC count 18.39, hemoglobin hematocrit 12/36 platelet count of 301 chemistry reviewed potassium is 3 BUN/creatinine within normal limit lactic acid is normalized March 24, 2025, patient seen eval examined patient currently undergoing CPAP pressure support trial breathing more stable, awake makes eye contact no obvious distress present, labs from today reviewed WBC count slightly decreased to 16.6 down from 17.5 yesterday hemoglobin also slightly decreased to 11.9 from 13.4 yesterday. Arterial blood gas on CPAP pressure support 7 point 02/24/144. Chemistry hyponatremia improve now sodium is normal 140 potassium is 3.6 CO2 is 17, BUN/creatinine 4/0.7. Chest x-ray stable and G-tube and ET tube no pneumonia or infiltrate identified 64-year-old female seen evaluate examined in ICU patient intubated not much data cannot be obtained from her most of the data has been obtained from the chart. Patient was found to be unresponsive EMS was notified, patient does have prior suicidal attempts. Bedside patient was given Narcan with minimal improvement in mental status intubation was attempted however unsuccessful patient has dark brown emesis patient was placed on nonrebreather mask transferred to emergency department patient was intubated in the emergency department. On arrival patient was hypertensive with blood pressure of 200/130 and hypothermic patient probably aspirated as well during intubation process has been placed on IV Zosyn. Significant labs include CBC: WBC count 1 17.6, hemoglobin 13.4, platelets 267. BMP: Sodium 136, potassium 3.6, chloride 103, serum bicarb 19, BUN 9, creatinine 0.81, glucose 120. Urinalysis unremarkable for infection. Lactic was 3.3. Troponin less than 0.012. NT proBNP not elevated. TSH 47.6 and free T4 low at 0.36. She does have history of hypothyroidism, questionable medication compliance. Urine toxicology screen positive for TCAs and benzodiazepines. Serum alcohol less than 10. Acetaminophen less than 10. Patient currently being evaluated in the emergency department. Currently intubated to the mechanical ventilator, with settings assist-control, respira tory rate 20, tidal volume 500, FiO2 100%, PEEP of 5. ABGs done on these settings include a PaO2 greater than 420, pCO2 of 38, pH of 7.37. Peak pressures were elevated around 37 and static airway pressures around 24. Continuing to suction brown GI contents from ET tube. Placed on Zosyn in the ED for aspiration. Patient is currently sedated on a combination of propofol at 15 mics per kilogram per minute, as well as, IV fentanyl at 0.5 mcg/kg/h. She is unresponsive, does not withdraw to painful stimuli. Normal saline is infusing at 130 mL/h. Prior medical problem issues associated with congestive heart failure, major depression, generalized anxiety disorder, chronic insomnia, chronic pain syndrome, COPD, hypertension hypertensive cardiovascular disease, GERD, history of GI bleed, rheumatoid arthritis, history of C-spine surgery with bone graft and titanium jarod, Objective - Vital Signs Vital signs: Vital Signs Temp 97.8 F 03/26/25 08:00 Pulse 112 H 03/26/25 08:00 Resp 18 03/26/25 08:00 BP 156/94 03/26/25 08:00 Pulse Ox 97 03/26/25 08:00 FiO2 35 03/24/25 09:25 Intake & Output 03/25/25 03/26/25 03/26/25 18:59 06:59 18:59 Intake Total 100 200 Output Total 1900 1100 Balance -1800 -900 Weight 106.5 kg Intake: IV 100 200 Piperacillin-Tazobactam 3 100 200 .375 gm In Sodium Chloride 0.9% 100 ml @ 25 mls/hr IVPB Q8H [facility] Rx#: [id number] Output: Urine 1900 1100 Female - External 800 Other: Voiding Method External Catheter External Catheter External Catheter # Bowel Movements 1 ABP, PAP, CO, CI - Last Documented Arterial Blood Pressure 155/89 - Exam - Constitutional General appearance: average body habitus, disheveled - EENT Eyes: PERRLA Ears: bilateral: normal - Neck Carotids: bilateral: upstroke normal Thyroid: bilateral: normal size - Respiratory Respiratory: bilateral: rales - Cardiovascular Rhythm: regular Heart sounds: normal: S1, S2 - Gastrointestinal General gastrointestinal: decreased bowel sounds, distended diffuse tenderness t - Integumentary Integumentary: normal turgor - Labs CBC & Chem 7: 03/26/25 04:30 03/26/25 04:30 Labs: Abnormal Lab Results - Last 24 Hours (Table) 03/25/25 03/25/25 03/25/25 Range/Units 11:34 16:23 20:15 WBC (4.50-10.00) 10*3/uL Immature Gran # (0.00-0.04) 10*3/uL Neutrophils # (1.80-7.70) 10*3/uL Lymphocytes # (0.90-5.00) 10*3/uL Eosinophils # (0.04-0.35) 10*3/uL Sodium (137-145) mmol/L BUN (7-17) mg/dL Glucose (74-99) mg/dL POC Glucose (mg/dL) 122 H 124 H 131 H (70-110) mg/dL 03/26/25 03/26/25 03/26/25 Range/Units 04:30 04:30 06:14 WBC 14.48 H (4.50-10.00) 10*3/uL Immature Gran # 0.09 H (0.00-0.04) 10*3/uL Neutrophils # 13.23 H (1.80-7.70) 10*3/uL Lymphocytes # 0.84 L (0.90-5.00) 10*3/uL Eosinophils # 0.02 L (0.04-0.35) 10*3/uL Sodium 136 L (137-145) mmol/L BUN 4 L (7-17) mg/dL Glucose 132 H (74-99) mg/dL POC Glucose (mg/dL) 145 H (70-110) mg/dL Microbiology - Last 24 Hours (Table) 03/23/25 03:35 Gram Stain - Final Sputum Sputum Culture - Final Radha albicans 03/23/25 11:29 Blood Culture Gram Stain - Preliminary Blood Blood Culture - Preliminary Assessment and Plan Assessment: Abdominal pain with distention Positive blood culture with gram-positive cocci Acute hypoxic respiratory failure successfully weaned and extubated Uncontrolled hypertension Hypokalemia Altered mental status, significantly improved Hypothyroidism probable myxedema, Aspiration pneumonitis Hypothyroidism Sepsis related to above GERD and gastritis History of prior suicidal attempts Major depression and chronic pain syndrome Plan: CT scan of the abdomen pelvis with contrast Patient on IV vancomycin and Zosyn Follow-up on culture reports Replace potassium Continue broad-spectrum antibiotic Titrate oxygen down as tolerated Pressure control with higher dose of Lopressor and IV hydralazine as needed Workup for altered mental status as per critical care service and neurology Patient is DNR by advance directive Synthroid can be switched to oral PPI continue monitor hemoglobin closely DVT prophylaxis Increase activity as tolerated Time with Patient: Greater than 30
[2025-03-26] MEDS: IOPAMIDOL CONTRAST (ORAL USE) VIAL PO PRN (10:50)
[2025-03-26 11:06] LABS: Glucose,Whole Blood 104 mg/dL (70-110)
[2025-03-26] MEDS: VANCOMYCIN 1,500 MG in SODIUM CHLORIDE 0.9% 500 ML 500 ML IVPB SCH (11:07)
--- NOTE | 2025-03-26 13:11 | P.PN ---
Subjective Progress Note Date: 03/26/25 Principal diagnosis: Acute hypoxic respiratory failure secondary to aspiration pneumonia and hypoventilation secondary to drug effect/polypharmacy Patient is a 64-year-old female with past medical history significant for major depression, previous suicide attempt, hypothyroidism. She is brought in by EMS early this morning, last known well was around 1630 yesterday evening. Reports of a phone conversation with her , states that she was feeling unwell, was going to try to make dinner. When came home, she was found on the ground with abnormal breathing pattern. EMS was called, they administered Narcan, with no response. EMS attempted intubation in the field, however, they were unable to secure the airway. Patient did have a large dark brown emesis, likely aspirated. Transferred to our emergency department on a nonrebreather. ER provider did intubate the patient on arrival. Workup including a CT of the brain without contrast which did not show any intracranial hemorrhage or mass effect. Brain CTA remarkable for approximately 50% luminal stenosis at the right internal carotid bifurcation. There was a patent right common carotid artery stent. No significant stenosis on the left with a patent left common carotid artery stent. Vertebral arteries were patent. Intubation chest x-ray showing the endotracheal tube approximately 2.6 cm above the susie. Enteric tube projects below the diaphragm. No obvious acute cardiopulmonary process. Patient did aspirate and brown gastric content appearing secretions are within the ET tube and being suctioned. CBC: WBC count 1 17.6, hemoglobin 13.4, platelets 267. BMP: Sodium 136, potassium 3.6, chloride 103, serum bicarb 19, BUN 9, creatinine 0.81, glucose 120. Urinalysis unremarkable for infection. Lactic was 3.3. Troponin less than 0.012. NT proBNP not elevated. TSH 47.6 and free T4 low at 0.36. She does have history of hypothyroidism, questionable medication compliance. Urine toxicology screen positive for TCAs and benzodiazepines. Serum alcohol less than 10. Acetaminophen less than 10. Patient currently being evaluated in the emergency department. Currently intubated to the mechanical ventilator, with settings assist-control, respiratory rate 20, tidal volume 500, FiO2 100%, PEEP of 5. ABGs done on these settings include a PaO2 greater than 420, pCO2 of 38, pH of 7.37. Peak pressures were elevated around 37 and static airway pressures around 24. Continuing to suction brown GI contents from ET tube. Placed on Zosyn in the ED for aspiration. Patient is currently sedated on a combination of propofol at 15 mics per kilogram per minute, as well as, IV fentanyl at 0.5 mcg/kg/h. She is unresponsive, does not withdraw to painful stimuli. Normal saline is infusing at 130 mL/h. Patient also hypothermic, with a current temperature of 35 C, external warming blanket is.. Not bradycardic or hypotensive. Code status previously addressed by the ED provider, apparently DO NOT RESUSCITATE. On 03/24/2025, the patient was taken off the propofol. The patient was given a sedation holiday and the patient was wide-awake and alert. She was on assist- control mode with rate of 20, tidal volume of 400, FiO2 35% with a PEEP of 5. Blood gas showed a pH of 7.38 with a pCO2 of 29 and pO2 of 144. Remains on normal saline at rate of 130 cc an hour. The patient had a follow-up chest x- ray that showed no significant abnormalities. No airspace disease. No con solidation. The white cell count is 16.7 with hemoglobin 11.9 and platelet count of 279. The sodium is at 140, potassium is at 3.2, bicarb is at 70, BUN is at 4 with a creatinine of 0.7. The patient is on IV Zosyn as an empiric antibiotic coverage post aspiration. Based on significant recovery and mental status, the patient was given a brief spontaneous breathing trial and following that the patient was extubated and the patient is currently on nasal cannula. She is awake and alert and she is also communicating. She was placed on 2 L of O2 nasal cannula. Hemodynamically stable. No other significant events overnight. 03/25/2025, the patient admits to take excessive number of painkillers probably Ultram. She is currently extubated. She is on room air oxygen. The purpose for the overutilization of encounter was to control her pain more effectively. She has no suicidal ideation. She was extubated yesterday and the patient denies having any significant respiratory distress. She is on normal saline at rate of 50 cc an hour. No cough. No sputum production. She does have some increased wheezing. The patient was started on DuoNeb updrafts. She is also on IV Zosyn regarding witnessed aspiration that occurred at the time of her intubation. The white cell count of 18.3 with a hemoglobin of 12.4 and a platelet count of 301. Sodium is at 142, BUN is 2 with a creatinine of 0.8. Potassium levels at 3.0 replaced at 3.8. Bicarb is at 26. Blood sugars at 124. Tolerating diet. No focal neurological deficits. No other significant events overnight. Patient was seen today on 03/26/2025, patient remains in the ICU, she is on room air, does not seem to be in any distress. Patient is aware of afebrile, hemodynamically relatively stable except for blood pressure 156/94, continues to have a bit of leukocytosis with WC count of 14,000, electrolytes are normal BUN is 4 and creatinine 0.77. Patient seems to be quite anxious, blood cultures are showing positive gram-positive cocci in clusters patient remains on Zosyn and vancomycin. Being followed by infectious disease. Objective - Vital Signs Vital signs: Vital Signs Temp 97.8 F 03/26/25 08:00 Pulse 112 H 03/26/25 08:00 Resp 18 03/26/25 08:00 BP 156/94 03/26/25 08:00 Pulse Ox 97 03/26/25 08:00 FiO2 35 03/24/25 09:25 Intake & Output 03/25/25 03/26/25 03/26/25 18:59 06:59 18:59 Intake Total 100 200 Output Total 1900 1100 Balance -1800 -900 Weight 106.5 kg Intake: IV 100 200 Piperacillin-Tazobactam 3 100 200 .375 gm In Sodium Chloride 0.9% 100 ml @ 25 mls/hr IVPB Q8H [facility] Rx#: [id number] Output: Urine 1900 1100 Female - External 800 Other: Voiding Method External Catheter External Catheter External Catheter # Bowel Movements 1 ABP, PAP, CO, CI - Last Documented Arterial Blood Pressure 155/89 - Exam GENERAL EXAM: Reveals 64-year-old female awake, in no distress but seems anxious HEAD: Normocephalic and atraumatic EYES: Equal nonreactive pupils, midline, no corneal reflex, no nystagmus, nonicteric NOSE: Clear with pink turbinates. THROAT: No erythema or exudates. Orogastric tube with coffee-ground output NECK: No masses, no JVD. CHEST: No chest wall deformity. LUNGS: Equal air entry wit diffuse coarse rhonchi heard bilaterally throughout. Scattered expiratory wheezes throughout the lung craft bilaterally CVS: S1 and S2 normal with no audible murmur, regular rhythm. No extra heart sounds ABDOMEN: Obese abdomen, active bowel sounds, soft, no hepatosplenomegaly, no guarding or rigidity. SKIN: No rashes CENTRAL NERVOUS SYSTEM neurologically, the patient is awake and alert and the patient does not have any focal neurological deficit. Cranial nerves are essentially intact. EXTREMITIES: There is no peripheral edema, clubbing, or cyanosis. Peripheral pulses are intact. - Labs CBC & Chem 7: 03/26/25 04:30 03/26/25 04:30 Labs: Abnormal Lab Results - Last 24 Hours (Table) 03/25/25 03/25/25 03/26/25 Range/Units 16:23 20:15 04:30 WBC 14.48 H (4.50-10.00) 10*3/uL Immature Gran # 0.09 H (0.00-0.04) 10*3/uL Neutrophils # 13.23 H (1.80-7.70) 10*3/uL Lymphocytes # 0.84 L (0.90-5.00) 10*3/uL Eosinophils # 0.02 L (0.04-0.35) 10*3/uL Sodium (137-145) mmol/L BUN (7-17) mg/dL Glucose (74-99) mg/dL POC Glucose (mg/dL) 124 H 131 H (70-110) mg/dL 03/26/25 03/26/25 Range/Units 04:30 06:14 WBC (4.50-10.00) 10*3/uL Immature Gran # (0.00-0.04) 10*3/uL Neutrophils # (1.80-7.70) 10*3/uL Lymphocytes # (0.90-5.00) 10*3/uL Eosinophils # (0.04-0.35) 10*3/uL Sodium 136 L (137-145) mmol/L BUN 4 L (7-17) mg/dL Glucose 132 H (74-99) mg/dL POC Glucose (mg/dL) 145 H (70-110) mg/dL Microbiology - Last 24 Hours (Table) 03/23/25 03:35 Gram Stain - Final Sputum Sputum Culture - Final Radha albicans 03/23/25 11:29 Blood Culture Gram Stain - Preliminary Blood Blood Culture - Preliminary Assessment and Plan Assessment: Impression: Altered mental status most likely drug-induced/consider polypharmacy including narcotic medications Acute hypoxic respiratory failure secondary to aspiration pneumonia and hypoventilation Gram-positive sepsis/bacteremia Acute leukocytosis Hypothyroidism History of GERD History of depression History of suicidal attempts Recommendation Continue antibiotics including Zosyn and vancomycin Transfer patient out of the ICU to a medical floor Continue to monitor daily labs Continue GI DVT prophylaxis Continue Seroquel Continue Ultram for pain control Considering the patient being followed by many consultants including pulmonary, will sign off and see the patient as needed. Time with Patient: Less than 30
--- NOTE | 2025-03-26 13:37 | CT ---
EXAMINATION TYPE: CT abdomen pelvis w con CT DLP: 2173.3 mGycm, Automated exposure control for dose reduction was used. DATE OF EXAM: 03/26/2025 1:30 PM COMPARISON: CT chest abdomen pelvis 01/12/2023, CT abdomen and pelvis 03/10/2022 CLINICAL INDICATION:Female, 64 years old with history of Abdominal distension; ABD DISTENTION TECHNIQUE: Standard CT of the abdomen and pelvis following the administration of 100 cc of Isovue 3 00 IV contrast material and oral contrast. Coronal and sagittal reformats were performed. FINDINGS: LOWER CHEST: Linear atelectasis within the lingula and right lower lobe. ABDOMEN LIVER: Diffusely hypoattenuating parenchyma. Enlarged measuring 22.7 cm in CC dimension. GALLBLADDER AND BILE DUCTS: The gallbladder is surgically absent. No significant biliary ductal dilat ation. PANCREAS: Unremarkable. SPLEEN: Unremarkable. ADRENAL GLANDS: Unremarkable. KIDNEYS AND URETERS: No evidence of hydronephrosis or renal calculus. The kidneys enhance symmetrical ly. Nonspecific bilateral perinephric fat stranding. PELVIS BLADDER: Cystocele demonstrated. REPRODUCTIVE: Unremarkable. ABDOMEN & PELVIS STOMACH AND BOWEL: Stomach and duodenum are unremarkable. Enteric contrast reaches the ascending colo n. No focal bowel wall thickening or surrounding inflammatory changes. The appendix is within normal limits. Mild gaseous but nondilated transverse colon measuring up to 5.4 cm. No evidence of bowel obs truction. PERITONEUM: No evidence of pneumoperitoneum or free fluid. VASCULATURE: Mild to moderate atherosclerotic calcifications are present throughout the abdominal aor ta and its branches. No evidence of aortic aneurysm. MUSCULOSKELETAL: No acute osseous abnormalities. Degenerative changes of bilateral SI joints. Grade 1 anterolisthesis of L4 on L5 without evidence of pars defects. LYMPH NODES: No evidence for lymphadenopathy. SOFT TISSUE/ABDOMINAL WALL: Unremarkable IMPRESSION: 1. Mild gaseous distention of the transverse colon without criteria for dilatation. No evidence for bowel obstruction. 2. Hepatomegaly with diffuse fatty infiltration. [facility], , 03/26/2025 1:34 PM
--- NOTE | 2025-03-26 13:56 | MR ---
EXAMINATION TYPE: MR brain wo/w con DATE OF EXAM: 03/26/2025 1:43 PM COMPARISON: None. CLINICAL INDICATION: Female, 64 years old with history of confusion, Confusion TECHNIQUE: Multi planar multi sequence imaging of the brain. CONTRAST: Patient received 10 mL intravenous Gadobutrol gadolinium contrast. Pre and post contrast e nhanced images are obtained. FINDINGS: The ventricles, basal cisterns and sulci overlying the cerebral convexities are minimally enlarged. There is evidence of minimal periventricular white matter ischemic demyelination. Remote deep white matter insults are also noted. No acute edema is seen on diffusion weighted imaging. There is no evidence for midline shift or mass effect. Acute intracranial hemorrhage or extra-axial collection is not evident. No enhancing lesions are seen. The paranasal sinuses and mastoid air cells are well-aerated. IMPRESSION: Age-related atrophic and chronic small vessel ischemic change. No acute intracranial process at this time. No enhancing lesions are seen. [facility], , 03/26/2025 1:54 PM
[2025-03-26 16:04] LABS: Glucose,Whole Blood 125 mg/dL (70-110)
[2025-03-26 20:12] LABS: Glucose,Whole Blood 110 mg/dL (70-110)
[2025-03-27 06:18] LABS: Basophils # (A) 0.06 10*3/uL (0.00-0.10); Basophils % (A) 0.4 %; Eosinophils # (A) 0.08 10*3/uL (0.04-0.35); Eosinophils % (A) 0.6 %; HCT 41.5 % (37.2-46.3); HGB 13.5 g/dL (12.0-15.0); Lymphocytes # (A) 2.14 10*3/uL (0.90-5.00); Lymphocytes % (A) 14.8 %; MCH 29.9 pg (27.0-32.0); MCHC 32.5 g/dL (32.0-37.0); MCV 91.8 fL (80.0-97.0); Mean Platelet Volume 10.2 fL (9.5-12.2); Monocytes # (A) 0.81 10*3/uL (0.20-1.00); Monocytes % (A) 5.6 %; Neutrophils % (A) 77.6 %; Platelet Count 335 10*3/uL (140-440); RBC 4.52 10*6/uL (4.10-5.20); RDW 14.3 % (11.5-14.5); WBC 14.44 10*3/uL (4.50-10.00)
[2025-03-27 06:28] LABS: Glucose,Whole Blood 145 mg/dL (70-110)
[2025-03-27 06:37] LABS: ALT 47 U/L (4-34); AST 53 U/L (14-36); African American GFR (CKD) 77 (>60 ml/min/1.73 sqM); Albumin 3.9 g/dL (3.5-5.0); Alkaline Phosphatase 120 U/L (38-126); Anion Gap 12 mmol/L; Blood Urea Nitrogen 9 mg/dL (7-17); Carbon Dioxide 23 mmol/L (22-30); Chloride 103 mmol/L (98-107); Glucose 141 mg/dL (74-99); Non-African American GFR(CKD) 67 (>60 ml/min/1.73 sqM); Potassium 3.8 mmol/L (3.5-5.1); Sodium 138 mmol/L (137-145); Total Bilirubin 0.9 mg/dL (0.2-1.3)
--- NOTE | 2025-03-27 08:28 | P.PN ---
Subjective Progress Note Date: 03/26/25 Principal diagnosis: Reason for follow-up is aspiration pneumonitis and bacteremia Patient is a 64-year-old female with a past medical history significant for GERD/Reflux, GI Bleed, Hyperlipidemia, Hypertension, Liver Disease, Musculoskeletal Disorder, Osteoarthritis (OA), Pneumonia, Rheumatoid Arthritis (RA), Thyroid Disorder has been brought into the hospital by EMS after the patient was found to be unresponsive did have an episode of vomiting got intubated and admitted to ICU subsequently has been extubated. On today's evaluation that is 03/26/2025, Patient did have resolution of her fever is afebrile this morning patient denies having any chest pain shortness of breath did have a congested cough, the patient is currently on room air, patient denies any abdominal pain no diarrhea no nausea no vomiting. Patient white count is down to 14.48 creatinine 0.77 blood culture with gram- positive Objective - Vital Signs Vital signs: Vital Signs Temp 97.8 F 03/26/25 08:00 Pulse 112 H 03/26/25 08:00 Resp 18 03/26/25 08:00 BP 156/94 03/26/25 08:00 Pulse Ox 97 03/26/25 08:00 FiO2 35 03/24/25 09:25 Intake & Output 03/25/25 03/26/25 03/26/25 18:59 06:59 18:59 Intake Total 100 200 Output Total 1900 1100 Balance -1800 -900 Weight 106.5 kg Intake: IV 100 200 Piperacillin-Tazobactam 3 100 200 .375 gm In Sodium Chloride 0.9% 100 ml @ 25 mls/hr IVPB Q8H [facility] Rx#: [id number] Output: Urine 1900 1100 Female - External 800 Other: Voiding Method External Catheter External Catheter External Catheter # Bowel Movements 1 ABP, PAP, CO, CI - Last Documented Arterial Blood Pressure 155/89 - Exam GENERAL DESCRIPTION: Middle-age female lying in bed in no distress RESPIRATORY SYSTEM: Unlabored breathing , decreased breath sounds at bases HEART: S1 S2 regular rate and rhythm , ABDOMEN: Soft , no tenderness EXTREMITIES: No edema feet - Labs CBC & Chem 7: 03/27/25 05:54 03/27/25 05:54 Labs: Abnormal Lab Results - Last 24 Hours (Table) 03/25/25 03/25/25 03/26/25 Range/Units 16:23 20:15 04:30 WBC 14.48 H (4.50-10.00) 10*3/uL Immature Gran # 0.09 H (0.00-0.04) 10*3/uL Neutrophils # 13.23 H (1.80-7.70) 10*3/uL Lymphocytes # 0.84 L (0.90-5.00) 10*3/uL Eosinophils # 0.02 L (0.04-0.35) 10*3/uL Sodium (137-145) mmol/L BUN (7-17) mg/dL Glucose (74-99) mg/dL POC Glucose (mg/dL) 124 H 131 H (70-110) mg/dL 03/26/25 03/26/25 Range/Units 04:30 06:14 WBC (4.50-10.00) 10*3/uL Immature Gran # (0.00-0.04) 10*3/uL Neutrophils # (1.80-7.70) 10*3/uL Lymphocytes # (0.90-5.00) 10*3/uL Eosinophils # (0.04-0.35) 10*3/uL Sodium 136 L (137-145) mmol/L BUN 4 L (7-17) mg/dL Glucose 132 H (74-99) mg/dL POC Glucose (mg/dL) 145 H (70-110) mg/dL Microbiology - Last 24 Hours (Table) 03/23/25 03:35 Gram Stain - Final Sputum Sputum Culture - Final Radha albicans 03/23/25 11:29 Blood Culture Gram Stain - Preliminary Blood Blood Culture - Preliminary Assessment and Plan (1) Leukocytosis Current Visit: Yes Status: Acute Code(s): D72.829 - ELEVATED WHITE BLOOD CELL COUNT, UNSPECIFIED SNOMED Code(s): 831645970 (2) Aspiration pneumonitis Current Visit: Yes Status: Acute Code(s): J69.0 - PNEUMONITIS DUE TO INHALATION OF FOOD AND VOMIT SNOMED Code(s): 393117244 (3) Penicillin allergy Current Visit: Yes Status: Acute Code(s): Z88.0 - ALLERGY STATUS TO PENICILL IN SNOMED Code(s): 39271804 (4) Bacteremia Current Visit: Yes Status: Acute Code(s): R78.81 - BACTEREMIA SNOMED Code(s): 6779955 Plan: 1patient with elevated white count in this patient brought to the hospital unresponsive and apparently the patient did overdose on her medication she did have an episode of vomiting on the way to the hospital with EMS on the EMS try to intubate her concerning for aspiration pneumonitis more likely etiology for this elevated white count patient is also on steroid that may have caused further worsening of the white count 2--penicillin allergy on the chart however the patient has tolerated Zosyn without any problem clinically doubt true penicillin allergy 3-positive blood culture await ID sensitivity vancomycin has been added patient already on Zosyn need to monitor her kidney function closely with this antibiotic combination if blood culture finalized with stap epi will carlotta scchristineue vancomycin Dictation was produced using [employer] dictation software. please excuse any gramm atical, word or spelling errors. Time with Patient: Less than 30
[2025-03-27] MEDS ORDERED: LORazepam 1 MG/0.5 ML VIAL IV PRN (09:09)
--- NOTE | 2025-03-27 09:14 | P.PN ---
Subjective Progress Note Date: 03/26/25 Patient was initially seen by Dr. Anton Lay. Please refer to his note for details. Patient is a 64-year-old female with altered mental status. Patient has abnormal thyroid levels. Initial EEG reviewed by Dr. Lay showed 1 episode of sharply contoured activity. Patient is undergoing repeat EEG today. The repeat EEG was normal. Patient states she is doing better. She is laying comfortably in the bed. Patient complaining of some soreness in the left triceps muscle. She denies any trauma or fall. She may have a slight bump inside the muscle. Not very prominent. Some of the workup during this hospital visit consisted of: Patient is afebrile. White blood cell is 16,000 and repeated 17,000 Initial plasma lactic acid vein is 3.3 and repeated most recent 1 is 1.7. Ammonia Level 17. TSH is 47.6 and free T4 is T3 is 0.50 B12: 526 Folate: 10.2 Thyroid peroxidase: 98.8 Stool Occult blood is positive. CT of the head is reported as no acute intracranial process. I personally reviewed the CT and agree with the report CT angiography of the head and neck is reported as focal atherosclerotic disease involving proximal right internal carotid artery approximately 50%. However no other significant stenosis identified. No significant atherosclerotic disease over the left carotid. Objective - Vital Signs Vital signs: Vital Signs Temp 98.2 F 03/26/25 14:00 Pulse 102 H 03/26/25 14:00 Resp 18 03/26/25 14:00 BP 165/97 03/26/25 14:00 Pulse Ox 95 03/26/25 14:00 FiO2 35 03/24/25 09:25 Intake & Output 03/26/25 03/26/25 03/27/25 06:59 18:59 06:59 Intake Total 200 1100 Output Total 1100 1000 Balance -900 100 Weight 106.5 kg Intake: IV 200 100 Piperacillin-Tazobactam 3 200 100 .375 gm In Sodium Chloride 0.9% 100 ml @ 25 mls/hr IVPB Q8H [facility] Rx#: [id number] Oral 1000 Output: Urine 1100 1000 Other: Voiding Method External Catheter External Catheter # Bowel Movements 1 ABP, PAP, CO, CI - Last Documented Arterial Blood Pressure 155/89 - Exam On examination patient is an elderly female, in no acute distress. Patient knows it is 03/26/2025 and that she is in [facility] imported on [place]. She knows name of the current president Mr. Christie. Speech and language functions are normal. Her pupils are equal, round and reacting, visual craft are full, face is symmetric. Patient is edentulous. Tongue protrudes in midline. On muscle strength testing there is no pronator drift and the strength is normal in arms and legs. She has some giveaway weakness in the left deltoid and left triceps due to pain. Her muscle strength is normal. No ataxia for [id number] testing. Sensory to touch is equal. - Labs CBC & Chem 7: 03/27/25 05:54 03/27/25 05:54 Labs: Abnormal Lab Results - Last 24 Hours (Table) 03/25/25 03/26/25 03/26/25 Range/Units 20:15 04:30 04:30 WBC 14.48 H (4.50-10.00) 10*3/uL Immature Gran # 0.09 H (0.00-0.04) 10*3/uL Neutrophils # 13.23 H (1.80-7.70) 10*3/uL Lymphocytes # 0.84 L (0.90-5.00) 10*3/uL Eosinophils # 0.02 L (0.04-0.35) 10*3/uL Sodium 136 L (137-145) mmol/L BUN 4 L (7-17) mg/dL Glucose 132 H (74-99) mg/dL POC Glucose (mg/dL) 131 H (70-110) mg/dL 03/26/25 03/26/25 Range/Units 06:14 16:01 WBC (4.50-10.00) 10*3/uL Immature Gran # (0.00-0.04) 10*3/uL Neutrophils # (1.80-7.70) 10*3/uL Lymphocytes # (0.90-5.00) 10*3/uL Eosinophils # (0.04-0.35) 10*3/uL Sodium (137-145) mmol/L BUN (7-17) mg/dL Glucose (74-99) mg/dL POC Glucose (mg/dL) 145 H 125 H (70-110) mg/dL Microbiology - Last 24 Hours (Table) 03/23/25 03:35 Gram Stain - Final Sputum Sputum Culture - Final Radha albicans 03/23/25 11:29 Blood Culture Gram Stain - Preliminary Blood Blood Culture - Preliminary Assessment and Plan Assessment: This is a 64-year-old woman with history of hypothyroidism, suicidal attempt who presents the emergency department because she was found on the ground unresponsive by her . Altered mental status and possibly due to her uncontrolled hypothyroidism and component of metabolic encephalopathy. CT head is unremarkable. Initial EEG reviewed by Dr. Lay is negative for seizure but had one episode of sharply contoured activity that can increase risk for cortical irritability. Underlying hypothyroidism and continues to have uncontrolled hypothyroidism with high TSH and low T4 and T3 with elevated thryroid peroxidase 98.8/33 Positive fecal occult blood test History of suicidal attempt History of depression Aspiration pneumonitis with bacteremia with gram-positive cocci in clusters Plan: Recommend better control of her thyroid level and will defer that to her primary care her TSH is 47.6 with free T40.36. MRI of the brain with and without contrast revealed age-related atrophic and chronic small vessel ischemic change. No acute intracranial process seen at this time. No enhancing lesions seen. I personally reviewed MRI agree with the findings. CT of abdomen pelvis showed no significant abnormalities. Hepatomegaly with diffuse fatty infiltration. Ammonia 17. B12 526, folate 10.20. Repeat EEG performed today was normal awake and drowsy. No focal, lateralized or epileptiform activity was seen. No indication for antiepileptic medication. I will discontinue tramadol, as it can decrease seizure threshold. Patient's mentation is normal and neurological examination also appears normal. Patient currently on vancomycin and Zosyn for pneumonitis and bacteremia. Defer the rest of the medical management to the primary and other specialist. Neurologically clear.
--- NOTE | 2025-03-27 10:16 | EEG ---
ELECTROENCEPHALOGRAM REPORT PREAMBLE: This is a 64-year-old female with continued confusion, rule out seizures. CURRENT MEDICATIONS: 1. Morphine. 2. Humalog. 3. Zosyn. 4. Seroquel. 5. Ativan. 6. Lopressor. 7. Ultram. EEG FINDINGS: This is a 21-channel digital EEG recorded with video component, utilizing 10/20 international system with referential and bipolar montages. Background consists of well-developed, well regulated, mixed frequencies of 8 to 9 hertz alpha, mixed with some low-voltage fast frequency beta activity. Background is posterior dominant and is reactive to eye opening and closing. Drowsiness was seen with appearance of bilaterally symmetric theta frequency rhythm. Deeper stages of sleep were not seen. Photic driving response was not seen. No focal or generalized epileptiform activity was seen. IMPRESSION: This is a normal awake and drowsy EEG. No focal, lateralized, or epileptiform activity was seen. MMODL / IJN: [id number] /
--- NOTE | 2025-03-27 10:52 | P.PN ---
Subjective Progress Note Date: 03/27/25 Principal diagnosis: Acute hypoxic respiratory failure Altered mental status Hypothyroidism probable myxedema, Aspiration pneumonitis Hypothyroidism Sepsis related to above GERD and gastritis History of prior suicidal attempts Major depression and chronic pain syndrome March 27, 2025, patient seen eval examined during rounds labs reviewed medication care plan discussed, patient has expressed concerns about thoughts and ideas to kill herself which she expressed to the nurse as well as to me, requested 24-hour sitter and psych consult. Currently patient is on bronch odilator broad-spectrum antibiotics DVT prophylaxis and maximal medical therapy. Blood culture positive for gram-positive cocci in cluster final ID is not available patient remains on IV Zosyn service has been following. Labs from today reviewed leukocytosis with WBC count of 14.4 is present Which, which however is slowly improving March 26, 2025, patient seen eval examined during rounds labs reviewed medications reviewed patient has been complaining of abdominal pain, denies any nausea, feel abdominal is distended soft loose stool present overnight currently no bowel movement. Currently patient is afebrile, tachycardic with heart rate 110 hypertensive with blood pressure 156/94 room air oxygen saturation 97%. Labs today reviewed patient still have leukocytosis with WBC count of 14,000 rest of CBC fairly within normal limit, chemistry reviewed sodium is 136 pot assium was 3.6 BUN/creatinine 4.77 sugar is 145. Blood cultures are positive for gram-positive cocci in clusters final ID is pending, patient remains on bronchodilator, heparin for DVT prophylaxis, Zosyn Protonix and vancomycin. Dr. Chavis has been following this patient as well March 25, 2025 patient seen eval examined during rounds successfully weaned and extubated, on supplemental oxygen, blood pressure slightly high 165/95, saturation 96%, heart rate is 115, improved to 88 patient to be started on as needed hydralazine IV, will review home medicine, continue Lopressor, blood culture and sputum cultures so far has been negative. Patient remains on IV Zosyn for aspiration pneumonitis, chest x-ray Done earlier this morning reviewed, cardiomegaly interstitial edema. Labs from today reviewed BBC count 18.39, hemoglobin hematocrit 12/36 platelet count of 301 chemistry reviewed potassium is 3 BUN/creatinine within normal limit lactic acid is normalized March 24, 2025, patient seen eval examined patient currently undergoing CPAP pressure support trial breathing more stable, awake makes eye contact no obvious distress present, labs from today reviewed WBC count slightly decreased to 16.6 down from 17.5 yesterday hemoglobin also slightly decreased to 11.9 from 13.4 yesterday. Arterial blood gas on CPAP pressure support 7 point 02/24/144. Chemistry hyponatremia improve now sodium is normal 140 potassium is 3.6 CO2 is 17, BUN/creatinine 4/0.7. Chest x-ray stable and G-tube and ET tube no pneumonia or infiltrate identified 64-year-old female seen evaluate examined in ICU patient intubated not much data cannot be obtained from her most of the data has been obtained from the chart. Patient was found to be unresponsive EMS was notified, patient does have prior suicidal attempts. Bedside patient was given Narcan with minimal improvement in mental status intubation was attempted however unsuccessful patient has dark brown emesis patient was placed on nonrebreather mask transferred to emergency department patient was intubated in the emergency department. On arrival patient was hypertensive with blood pressure of 200/130 and hypothermic patient probably aspirated as well during intubation process has been placed on IV Zosyn. Significant labs include CBC: WBC count 1 17.6, hemoglobin 13.4, platelets 267. BMP: Sodium 136, potassium 3.6, chloride 103, serum bicarb 19, BUN 9, creatinine 0.81, glucose 120. Urinalysis unremarkable for infection. Lactic was 3.3. Troponin less than 0.012. NT proBNP not elevated. TSH 47.6 and free T4 low at 0.36. She does have history of hypothyroidism, questionable medication compliance. Urine toxicology screen positive for TCAs and benzodiazepines. Serum alcohol less than 10. Acetaminophen less than 10. Patient currently being evaluated in the emergency department. Currently intubated to the mechanical ventilator, with settings assist-control, respiratory rate 20, tidal volume 500, FiO2 100%, PEEP of 5. ABGs done on these settings include a PaO2 greater than 420, pCO2 of 38, pH of 7.37. Peak pressures were elevated around 37 and static airway pressures around 24. Continuing to suction brown GI contents from ET tube. Placed on Zosyn in the ED for aspiration. Patient is currently sedated on a combination of propofol at 15 mics per kilogram per minute, as well as, IV fentanyl at 0.5 mcg/kg/h. She is unresponsive, does not withdraw to painful stimuli. Normal saline is infusing at 130 mL/h. Prior medical problem issues associated with congestive heart failure, major depression, generalized anxiety disorder, chronic insomnia, chronic pain syndrome, COPD, hypertension hypertensive cardiovascular disease, GERD, history of GI bleed, rheumatoid arthritis, history of C-spine surgery with bone graft and titanium jarod, Objective - Vital Signs Vital signs: Vital Signs Temp 97.6 F 03/27/25 06:54 Pulse 118 H 03/27/25 09:18 Resp 18 03/27/25 08:00 BP 158/94 03/27/25 06:54 Pulse Ox 96 03/27/25 09:07 FiO2 21 03/27/25 09:07 Intake & Output 03/26/25 03/27/25 03/27/25 18:59 06:59 18:59 Intake Total 1100 Output Total 1000 0 Balance 100 0 Intake: IV 100 Piperacillin-Tazobactam 3 100 .375 gm In Sodium Chloride 0.9% 100 ml @ 25 mls/hr IVPB Q8H [facility] Rx#: [id number] Oral 1000 Output: Urine 1000 0 Other: Voiding Method External Catheter External Catheter # Voids 1 # Bowel Movements 0 ABP, PAP, CO, CI - Last Documented Arterial Blood Pressure 155/89 - Exam - Constitutional General appearance: average body habitus, disheveled - EENT Eyes: PERRLA Ears: bilateral: normal - Neck Carotids: bilateral: upstroke normal Thyroid: bilateral: normal size - Respiratory Respiratory: bilateral: rales - Cardiovascular Rhythm: regular Heart sounds: normal: S1, S2 - Gastrointestinal General gastrointestinal: decreased bowel sounds, distended diffuse tenderness t - Integumentary Integumentary: normal turgor - Labs CBC & Chem 7: 03/27/25 05:54 03/27/25 05:54 Labs: Abnormal Lab Results - Last 24 Hours (Table) 03/26/25 03/27/25 03/27/25 Range/Units 16:01 05:54 05:54 WBC 14.44 H (4.50-10.00) 10*3/uL Immature Gran # 0.15 H (0.00-0.04) 10*3/uL Neutrophils # 11.20 H (1.80-7.70) 10*3/uL Glucose 141 H (74-99) mg/dL POC Glucose (mg/dL) 125 H (70-110) mg/dL AST 53 H (14-36) U/L ALT 47 H (4-34) U/L 03/27/25 Range/Units 06:24 WBC (4.50-10.00) 10*3/uL Immature Gran # (0.00-0.04) 10*3/uL Neutrophils # (1.80-7.70) 10*3/uL Glucose (74-99) mg/dL POC Glucose (mg/dL) 145 H (70-110) mg/dL AST (14-36) U/L ALT (4-34) U/L Microbiology - Last 24 Hours (Table) 03/23/25 11:29 Blood Culture Gram Stain - Final Blood Blood Culture - Preliminary 03/23/25 03:35 Gram Stain - Final Sputum Sputum Culture - Final Radha albicans Assessment and Plan Assessment: Suicidal ideation and thoughts Major depression Abdominal pain with distention Positive blood culture with gram-positive cocci Acute hypoxic respiratory failure successfully weaned and extubated Uncontrolled hypertension Hypokalemia Altered mental status, significantly improved Hypothyroidism probable myxedema, Aspiration pneumonitis Hypothyroidism Sepsis related to above GERD and gastritis History of prior suicidal attempts Major depression and chronic pain syndrome Plan: Bedside sitter and psych consult CT scan of the abdomen pelvis with contrast reviewed Patient on IV vancomycin and Zosyn Follow-up on culture reports Replace potassium Continue broad-spectrum antibiotic Titrate oxygen down as tolerated Pressure control with higher dose of Lopressor and IV hydralazine as needed Workup for altered mental status as per critical care service and neurology Patient is DNR by advance directive Synthroid can be switched to oral PPI continue monitor hemoglobin closely DVT prophylaxis Increase activity as tolerated Time with Patient: Greater than 30
[2025-03-27 11:39] LABS: Glucose,Whole Blood 109 mg/dL (70-110)
[2025-03-27 13:40] VITALS: BMI 37.9
--- NOTE | 2025-03-27 14:30 | P.CN ---
Psychiatric Consult - . Consult date: 03/27/25 Consult:: 03/27/25 14:20 IDENTIFYING DATA: This patient is a 64-year-old female, on disability and living with REASON FOR REFERRAL: Psychiatry was consulted for suicidal comment HISTORY OF PRESENT ILLNESS: The patient presented to the hospital with altered mental status. Patient was subsequently intubated and transferred to the ICU and started on antibiotics. She was seen on the medical floor with sitter stepping out of the room to maintain privacy. Patient states she made comments of "I will be glad when I get to see my relative" due to her being triggered while in the hospital. She states the last few years have been hard on her including her losing her mother to cancer roughly 3 years ago in addition to her and her are . Patient expressed difficulties with trusting someone and was encouraged to seek counseling given her ongoing stressors given her desire to connect with someone and talk about her stressors. At this time patient denies any suicidal or homicidal ideations, intent or plan. Patient denies any auditory, visual hallucinations and denies any paranoia or delusions. Patients admits to using no substances. She was resistant to any medication changes, stating that her family doctor prescribes her Xanax and Seroquel. PAST PSYCHIATRIC HISTORY: Patient has a history of depression. Patient is currently on Seroquel XR 50 mg at bedtime, Xanax 1 mg 4 times daily. Patient was last hospitalized on the [facility] back in 02/2021. Patient denies any psychiatric outpatient follow-up. Patient reports her last suicide attempt was 4 years ago. PAST MEDICAL HISTORY: Chest Pain / Angina, GERD/Reflux, GI Bleed, Hyperlipidemia, Hypertension, Liver Disease, Musculoskeletal Disorder, Osteoarthritis (OA), Pneumonia, Rheumatoid Arthritis (RA), Thyroid Disorder. ALLERGIES: as per EMR. CHEMICAL DEPENDENCY HISTORY: as per HPI. FAMILY PSYCHIATRIC/SUBSTANCE USE HISTORY: Denies SOCIAL HISTORY: Patient was born and raised in [place], [place]. She is however from her however still lives with him. She has 1 son. She is on SSD. MENTAL STATUS EXAM: General Appearance: Patient appears to be stated age is alert, pleasant, and cooperative. Patient appears to have fair hygiene and grooming wearing hospital gown with fair eye contact. Behavior: Patient is calmly lying in bed without any agitated behavior. Speech: Patient's speech is fluent and nonpressured. Mood/Affect: Patient reports their mood is "okay", affect is congruent Suicidality/Homicidality: Patient denies having any suicidal or homicidal ideation intent or plan. Perceptions: Patient denies any visual hallucinations and denies any auditory hallucinations Though content/process: There is no evidence of any delusional thought content and thought process is circumstantial. Memory and concentration: AOX3, grossly intact for the purposes of this session. Can spell "WORLD" backwards Judgment and insight: poor IMPRESSIONS: History of major depressive disorder Benzodiazepine dependence PLAN: -At this time patient DOES NOT meet criteria for inpatient psychiatric admission. -Would recommend the following medication changes/additions: Continue Seroquel 25 mg twice daily, Xanax 1 mg 4 times daily. 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
--- NOTE | 2025-03-27 15:27 | P.PN ---
Subjective Progress Note Date: 03/27/25 Principal diagnosis: Reason for follow-up is aspiration pneumonitis and bacteremia Patient is a 64-year-old female with a past medical history significant for GERD/Reflux, GI Bleed, Hyperlipidemia, Hypertension, Liver Disease, Musculoskeletal Disorder, Osteoarthritis (OA), Pneumonia, Rheumatoid Arthritis (RA), Thyroid Disorder has been brought into the hospital by EMS after the patient was found to be unresponsive did have an episode of vomiting got intubated and admitted to ICU subsequently has been extubated. On today's evaluation that is 03/27/2025,the patient denies any fever or any chills, patient is breathing comfortably on room air however did have shortness of breath denies any chest pain or worsening cough, to be denies any nausea vomiting abdominal pain or diarrhea. Patient white count is 14.44 creatinine 0.91 sputum is Radha blood culture with gram-positive Objective - Vital Signs Vital signs: Vital Signs Temp 97.6 F 03/27/25 06:54 Pulse 118 H 03/27/25 09:18 Resp 18 03/27/25 08:00 BP 158/94 03/27/25 06:54 Pulse Ox 96 03/27/25 09:07 FiO2 21 03/27/25 09:07 Intake & Output 03/26/25 03/27/25 03/27/25 18:59 06:59 18:59 Intake Total 1100 Output Total 1000 0 Balance 100 0 Intake: IV 100 Piperacillin-Tazobactam 3 100 .375 gm In Sodium Chloride 0.9% 100 ml @ 25 mls/hr IVPB Q8H [facility] Rx#: [id number] Oral 1000 Output: Urine 1000 0 Other: Voiding Method External Catheter External Catheter # Voids 1 # Bowel Movements 0 ABP, PAP, CO, CI - Last Documented Arterial Blood Pressure 155/89 - Exam GENERAL DESCRIPTION: Middle-age female lying in bed in no distress RESPIRATORY SYSTEM: Unlabored breathing , decreased breath sounds at bases HEART: S1 S2 regular rate and rhythm , ABDOMEN: Soft , no tenderness EXTREMITIES: No edema feet - Labs CBC & Chem 7: 03/27/25 05:54 03/27/25 05:54 Labs: Abnormal Lab Results - Last 24 Hours (Table) 03/26/25 03/27/25 03/27/25 Range/Units 16:01 05:54 05:54 WBC 14.44 H (4.50-10.00) 10*3/uL Immature Gran # 0.15 H (0.00-0.04) 10*3/uL Neutrophils # 11.20 H (1.80-7.70) 10*3/uL Glucose 141 H (74-99) mg/dL POC Glucose (mg/dL) 125 H (70-110) mg/dL AST 53 H (14-36) U/L ALT 47 H (4-34) U/L 03/27/25 Range/Units 06:24 WBC (4.50-10.00) 10*3/uL Immature Gran # (0.00-0.04) 10*3/uL Neutrophils # (1.80-7.70) 10*3/uL Glucose (74-99) mg/dL POC Glucose (mg/dL) 145 H (70-110) mg/dL AST (14-36) U/L ALT (4-34) U/L Microbiology - Last 24 Hours (Table) 03/23/25 11:29 Blood Culture Gram Stain - Final Blood Blood Culture - Preliminary 03/23/25 03:35 Gram Stain - Final Sputum Sputum Culture - Final Radha albicans Assessment and Plan (1) Leukocytosis Current Visit: Yes Status: Acute Code(s): D72.829 - ELEVATED WHITE BLOOD CELL COUNT, UNSPECIFIED SNOMED Code(s): 465366825 (2) Aspiration pneumonitis Current Visit: Yes Status: Acute Code(s): J69.0 - PNEUMONITIS DUE TO INHALATION OF FOOD AND VOMIT SNOMED Code(s): 956156708 (3) Penicillin allergy Current Visit: Yes Status: Acute Code(s): Z88.0 - ALLERGY STATUS TO PENICILLIN SNOMED Code(s): 77470855 (4) Bacteremia Current Visit: Yes Status: Acute Code(s): R78.81 - BACTEREMIA SNOMED Code(s): 8380196 Plan: 1patient with elevated white count in this patient brought to the hospital unresponsive and apparently the patient did overdose on her medication she did have an episode of vomiting on the way to the hospital with EMS on the EMS try to intubate her concerning for aspiration pneumonitis more likely etiology for this elevated white count patient is also on steroid that may have caused f urther worsening of the white count 2--penicillin allergy on the chart however the patient has tolerated Zosyn without any problem clinically doubt true penicillin allergy 3-positive blood culture with gram-positive cocci await ID sensitivity 4patient is currently being treated vancomycin as the sputum has been negative for resistant gram-negative we will switch Zosyn to Rocephin to decrease risk of nephrotoxicity Dictation was produced using [employer] dictation software. please excuse any grammatical, word or spelling errors. Time with Patient: Less than 30
[2025-03-27 16:29] LABS: Glucose,Whole Blood 115 mg/dL (70-110)
[2025-03-27] MEDS: AMPICILLIN-SULBACTAM 3 GM in SODIUM CHLORIDE 0.9% 100 ML IVPB SCH (18:53)
[2025-03-27] MEDS: NICOTINE 21MG/24HR PATCH TRANSDERM SCH (20:16)
[2025-03-27 20:28] LABS: Glucose,Whole Blood 119 mg/dL (70-110)
[2025-03-27] MEDS: OLANZapine 7.5 MG TAB PO SCH (20:28)
--- NOTE | 2025-03-27 22:06 | P.MHFACE ---
Face to Face Restrain/Seclus - Evaluation Patient's Immediate Situation: Endangers self safety, Endangers staff safety Patient's Reaction to the Intervention: Combative, Restless, Resistive to care Patient's Medical & Behavioral Condition: Awake, Alert, Confused, Agitated Need to Continue or Terminate Restraint or Seclusion: Continue Face to Face Eval of Restraint Date: 03/27/25 Face to Face Eval of Restraint Time: 21:50
[2025-03-27 22:16] LABS: Glucose,Whole Blood 115 mg/dL (70-110)
[2025-03-27] MEDS: LORazepam 1 MG TAB PO PRN (22:51)
[2025-03-27] MEDS: HALOPERIDOL LACTATE 5 MG/ML 1 ML VIAL IM PRN (23:17)
[2025-03-28 06:12] LABS: Glucose,Whole Blood 80 mg/dL (70-110)
[2025-03-28 10:38] LABS: African American GFR (CKD) 74 (>60 ml/min/1.73 sqM); Non-African American GFR(CKD) 64 (>60 ml/min/1.73 sqM)
--- NOTE | 2025-03-28 10:43 | P.PN ---
Subjective Progress Note Date: 03/28/25 Principal diagnosis: Paranoid ideation also psychogenic fugue Acute hypoxic respiratory failure Altered mental status Hypothyroidism probable myxedema, Aspiration pneumonitis Hypothyroidism Sepsis related to above GERD and gastritis History of prior suicidal attempts Major depression and chronic pain syndrome March 28, 2025, patient seen eval examined during rounds labs reviewed medication care plan discussed, patient remains agitated but not combative off of restraint sitter is present at bedside but patient is extremely confused and disoriented she cannot recall number for her house the number she is calling going to the school she cannot get into her accounts anymore she says that she has $80,000 and 1 account and 5000 and another account but she cannot access them will consult psych again. Patient is having paranoid ideation and thoughts currently she is on Seroquel as well as Haldol as needed she has been placed on remote telemetry. March 27, 2025, patient seen eval examined during rounds labs reviewed medication care plan discussed, patient has expressed concerns about thoughts and ideas to kill herself which she expressed to the nurse as well as to me, requested 24-hour sitter and psych consult. Currently patient is on bronchodilator broad-spectrum antibiotics DVT prophylaxis and maximal medical therapy. Blood culture positive for gram-positive cocci in cluster final ID is not available patient remains on IV Zosyn service has been following. Labs from today reviewed leukocytosis with WBC count of 14.4 is present Which, which however is slowly improving March 26, 2025, patient seen eval examined during rounds labs reviewed medications reviewed patient has been complaining of abdominal pain, denies any nausea, feel abdominal is distended soft loose stool present overnight currently no bowel movement. Currently patient is afebrile, tachycardic with heart rate 110 hypertensive with blood pressure 156/94 room air oxygen saturation 97%. Labs today reviewed patient still have leukocytosis with WBC count of 14,000 rest of CBC fairly within normal limit, chemistry reviewed sodium is 136 potassium was 3.6 BUN/creatinine 4.77 sugar is 145. Blood cultures are positive for gram-positive cocci in clusters final ID is pending, patient remains on bronchodilator, heparin for DVT prophylaxis, Zosyn Protonix and vancomycin. Dr. Chavis has been following this patient as well March 25, 2025 patient seen eval examined during rounds successfully weaned and extubated, on supplemental oxygen, blood pressure slightly high 165/95, saturation 96%, heart rate is 115, improved to 88 patient to be started on as needed hydralazine IV, will review home medicine, continue Lopressor, blood culture and sputum cultures so far has been negative. Patient remains on IV Zosyn for aspiration pneumonitis, chest x-ray Done earlier this morning reviewed, cardiomegaly interstitial edema. Labs from today reviewed BBC count 18.39, hemoglobin hematocrit 12/36 platelet count of 301 chemistry reviewed potassium is 3 BUN/creatinine within normal limit lactic acid is normalized March 24, 2025, patient seen eval examined patient currently undergoing CPAP pressure support trial breathing more stable, awake makes eye contact no obvious distress present, labs from today reviewed WBC count slightly decreased to 16.6 down from 17.5 yesterday hemoglobin also slightly decreased to 11.9 from 13.4 yesterday. Arterial blood gas on CPAP pressure support 7 point 02/24/144. Chemistry hyponatremia improve now sodium is normal 140 potassium is 3.6 CO2 is 17, BUN/creatinine 4/0.7. Chest x-ray stable and G-tube and ET tube no pneumonia or infiltrate identified 64-year-old female seen evaluate examined in ICU patient intubated not much data cannot be obtained from her most of the data has been obtained from the chart. Patient was found to be unresponsive EMS was notified, patient does have prior suicidal attempts. Bedside patient was given Narcan with minimal improvement in mental status intubation was attempted however unsuccessful patient has dark brown emesis patient was placed on nonrebreather mask transferred to emergency department patient was intubated in the emergency department. On arrival patient was hypertensive with blood pressure of 200/130 and hypothermic patient probably aspirated as well during intubation process has been placed on IV Zosyn. Significant labs include CBC: WBC count 1 17.6, hemoglobin 13.4, platelets 267. BMP: Sodium 136, potassium 3.6, chloride 103, serum bicarb 19, BUN 9, creatinine 0.81, glucose 120. Urinalysis unremarkable for infection. Lactic was 3.3. Troponin less than 0.012. NT proBNP not elevated. TSH 47.6 and free T4 low at 0.36. She does have history of hypothyroidism, questionable medication compliance. Urine toxicology screen positive for TCAs and benzodiazepines. Serum alcohol less than 10. Acetaminophen less than 10. Patient currently being evaluated in the emergency department. Currently intubated to the mechanical ventilator, with settings assist-control, respiratory rate 20, tidal volume 500, FiO2 100%, PEEP of 5. ABGs done on these settings include a PaO2 greater than 420, pCO2 of 38, pH of 7.37. Peak pressure s were elevated around 37 and static airway pressures around 24. Continuing to suction brown GI contents from ET tube. Placed on Zosyn in the ED for aspiration. Patient is currently sedated on a combination of propofol at 15 mics per kilogram per minute, as well as, IV fentanyl at 0.5 mcg/kg/h. She is unresponsive, does not withdraw to painful stimuli. Normal saline is infusing at 130 mL/h. Prior medical problem issues associated with congestive heart failure, major depression, generalized anxiety disorder, chronic insomnia, chronic pain syndrome, COPD, hypertension hypertensive cardiovascular disease, GERD, history of GI bleed, rheumatoid arthritis, history of C-spine surgery with bone graft and titanium jarod, Objective - Vital Signs Vital signs: Vital Signs Temp 98.4 F 03/28/25 07:19 Pulse 122 H 03/28/25 07:19 Resp 18 03/28/25 07:19 BP 155/104 03/28/25 07:19 Pulse Ox 96 03/28/25 07:19 FiO2 21 03/27/25 09:07 Intake & Output 03/27/25 03/28/25 03/28/25 18:59 06:59 18:59 Weight 106.5 kg Other: Voiding Method External Catheter # Voids 4 1 ABP, PAP, CO, CI - Last Documented Arterial Blood Pressure 155/89 - Exam - Constitutional General appearance: average body habitus, disheveled - EENT Eyes: PERRLA Ears: bilateral: normal - Neck Carotids: bilateral: upstroke normal Thyroid: bilateral: normal size - Respiratory Respiratory: bilateral: rales - Cardiovascular Rhythm: regular Heart sounds: normal: S1, S2 - Gastrointestinal General gastrointestinal: decreased bowel sounds, distended diffuse tenderness t - Integumentary Integumentary: normal turgor - Labs CBC & Chem 7: 03/27/25 05:54 03/27/25 05:54 Labs: Abnormal Lab Results - Last 24 Hours (Table) 03/27/25 03/27/25 03/27/25 Range/Units 16:28 20:26 22:15 POC Glucose (mg/dL) 115 H 119 H 115 H (70-110) mg/dL Microbiology - Last 24 Hours (Table) 03/23/25 11:29 Blood Culture Gram Stain - Final Blood Blood Culture - Preliminary Assessment and Plan Assessment: Paranoid ideation and psychogenic fugue with extreme agitated confusion, combative status intermittently present but currently appear to have resolved Suicidal ideation and thoughts Major depression Abdominal pain with distention Positive blood culture with gram-positive cocci Acute hypoxic respiratory failure successfully weaned and extubated Uncontrolled hypertension Hypokalemia Altered mental status, significantly improved Hypothyroidism probable myxedema, Aspiration pneumonitis Hypothyroidism Sepsis related to above GERD and gastritis History of prior suicidal attempts Major depression and chronic pain syndrome Plan: Bedside sitter and psych consult CT scan of the abdomen pelvis with contrast reviewed Patient on IV vancomycin and Unasyn Follow-up on culture reports Replace potassium Continue broad-spectrum antibiotic Titrate oxygen down as tolerated Pressure control with higher dose of Lopressor and IV hydralazine as needed Workup for altered mental status as per critical care service and neurology Patient is DNR by advance directive Synthroid can be switched to oral PPI continue monitor hemoglobin closely DVT prophylaxis Increase activity as tolerated Time with Patient: Greater than 30
[2025-03-28 11:35] LABS: Glucose,Whole Blood 86 mg/dL (70-110)
[2025-03-28] MEDS: VANCOMYCIN TROUGH DUE 1 EACH MISC MISCELLANE ONE (13:00)
[2025-03-28] MEDS ORDERED: OLANZapine 10 MG VIAL IM PRN (13:43)
--- NOTE | 2025-03-28 13:48 | P.PN ---
Progress Note - Text Progress Note Date: 03/28/25 IDENTIFYING DATA: Patient is a 64-year-old female, on disability and living with REASON FOR CONSULT: Suicidal comment INTERVAL HISTORY: Patient seen and evaluated. Sitter and both present at bedside. Patient agreed to speak with in the room. Patient expressed a difficult night, stating that she was attempting to go outside so that she could smoke a cigarette and ultimately had to be placed in restraints. Patient also received as needed medications for agitation and was started on Zyprexa 15 this morning. Patient expressed a desire to be discharged. She vehemently denied any suicidal or homicidal ideations, denying any auditory or visual hallucinations. She did exhibit some mild paranoia. She will follow-up with her PCP upon discharge. MENTAL STATUS EXAM: General Appearance: Patient appears to be stated age. Patient appears to have questionable hygiene and grooming wearing hospital gown with fair eye contact. Behavior: Patient is calmly sitting next to bed without any agitated behavior. Speech: Normal rate rhythm volume and tone Mood/Affect: Mood is upset and affect is constricted Suicidality/Homicidality: There is no suicidal or homicidal ideations Perceptions: There are no perceptual abnormalities Though content/process: Thought content devoid of any delusional thoughts, mild paranoia evident Judgment and insight: Poor IMPRESSIONS: History of major depressive disorder Benzodiazepine dependence PLAN: -At this time patient DOES NOT meet criteria for inpatient psychiatric admission. 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
[2025-03-28 16:36] LABS: Glucose,Whole Blood 80 mg/dL (70-110)
--- NOTE | 2025-03-28 17:27 | P.PN ---
Subjective Progress Note Date: 03/28/25 Principal diagnosis: Reason for follow-up is aspiration pneumonitis and bacteremia Patient is a 64-year-old female with a past medical history significant for GERD/Reflux, GI Bleed, Hyperlipidemia, Hypertension, Liver Disease, Musculoskeletal Disorder, Osteoarthritis (OA), Pneumonia, Rheumatoid Arthritis (RA), Thyroid Disorder has been brought into the hospital by EMS after the patient was found to be unresponsive did have an episode of vomiting got intubated and admitted to ICU subsequently has been extubated. On today's evaluation that is 03/28/2025,the patient remains to be afebrile, patient is on room air not requiring supplemental oxygen and denies any sh ortness of breath no chest pain or cough.Patient did have some hallucination no nausea vomiting or diarrhea reported. Patient did have a creatinine 0.94 Vanco trough is 20.4 blood culture still pending Objective - Vital Signs Vital signs: Vital Signs Temp 98.1 F 03/28/25 14:19 Pulse 102 H 03/28/25 14:19 Resp 18 03/28/25 14:19 BP 116/78 03/28/25 14:19 Pulse Ox 96 03/28/25 14:19 FiO2 21 03/27/25 09:07 Intake & Output 03/27/25 03/28/25 03/28/25 18:59 06:59 18:59 Weight 106.5 kg Other: Voiding Method External Catheter External Catheter # Voids 4 1 ABP, PAP, CO, CI - Last Documented Arterial Blood Pressure 155/89 - Exam GENERAL DESCRIPTION: Middle-age female lying in bed in no distress RESPIRATORY SYSTEM: Unlabored breathing , decreased breath sounds at bases HEART: S1 S2 regular rate and rhythm , ABDOMEN: Soft , no tenderness EXTREMITIES: No edema feet - Labs CBC & Chem 7: 03/27/25 05:54 03/28/25 09:55 Labs: Abnormal Lab Results - Last 24 Hours (Table) 03/27/25 03/27/25 Range/Units 20:26 22:15 POC Glucose (mg/dL) 119 H 115 H (70-110) mg/dL Assessment and Plan (1) Leukocytosis Current Visit: Yes Status: Acute Code(s): D72.829 - ELEVATED WHITE BLOOD CELL COUNT, UNSPECIFIED SNOMED Code(s): 898192063 (2) Aspiration pneumonitis Current Visit: Yes Status: Acute Code(s): J69.0 - PNEUMONITIS DUE TO INHALATION OF FOOD AND VOMIT SNOMED Code(s): 529953939 (3) Penicillin allergy Current Visit: Yes Status: Acute Code(s): Z88.0 - ALLERGY STATUS TO PENICILLIN SNOMED Code(s): 97898081 (4) Bacteremia Current Visit: Yes Status: Acute Code(s): R78.81 - BACTEREMIA SNOMED Code(s): 9793476 Plan: 1patient with elevated white count in this patient brought to the hospital unresponsive and apparently the patient did overdose on her medication she did have an episode of vomiting on the way to the hospital with EMS on the EMS try to intubate her concerning for aspiration pneumonitis more likely etiology for this elevated white count patient is also on steroid that may have caused further worsening of the white count 2--penicillin allergy on the chart however the patient has tolerated Zosyn without any problem clinically doubt true penicillin allergy 3-positive blood culture with gram-positive cocci await ID sensitivity blood culture has been reviewed document clearance 4patient is currently being treated vancomycin and Unasyn Dictation was produced using [employer] software. please excuse any grammatical, word or spelling errors. Time with Patient: Less than 30
[2025-03-28] MEDS: MORPHINE SULFATE 4 MG/ML SYRINGE IV PRN (18:40)
[2025-03-28 20:31] LABS: Glucose,Whole Blood 116 mg/dL (70-110)
[2025-03-28] MEDS: QUEtiapine 25 MG TAB PO SCH (21:13)
[2025-03-28] MEDS: POTASSIUM CHLORIDE 10 MEQ in WATER FOR INJECTION 1 100ML.BAG IVPB SCH (22:37)
[2025-03-29] MEDS: VANCOMYCIN 1,500 MG in SODIUM CHLORIDE 0.9% 500 ML 500 ML IVPB SCH (04:07)
[2025-03-29 05:49] LABS: African American GFR (CKD) >90 (>60 ml/min/1.73 sqM); Anion Gap 6 mmol/L; Blood Urea Nitrogen 4 mg/dL (7-17); Calcium 8.2 mg/dL (8.4-10.2); Carbon Dioxide 23 mmol/L (22-30); Chloride 110 mmol/L (98-107); Glucose 98 mg/dL (74-99); Non-African American GFR(CKD) >90 (>60 ml/min/1.73 sqM); Potassium 3.1 mmol/L (3.5-5.1); Sodium 139 mmol/L (137-145)
[2025-03-29 06:24] LABS: Glucose,Whole Blood 122 mg/dL (70-110)
--- NOTE | 2025-03-29 10:20 | P.PN ---
Subjective Progress Note Date: 03/29/25 Principal diagnosis: Paranoid ideation also psychogenic fugue Acute hypoxic respiratory failure Altered mental status Hypothyroidism probable myxedema, Aspiration pneumonitis Hypothyroidism Sepsis related to above GERD and gastritis History of prior suicidal attempts Major depression and chronic pain syndrome March 29, 2025, patient seen eval examined during rounds labs reviewed medications reviewed care plan discussed, respiratory status improved, mental status also i mproved minimal confusion is present, paranoid ideation slightly improved as well patient denies any suicidal or homicidal ideation thought however still remains agitated. ID services following neurology and psychiatry service intermittent following, patient room air oxygen saturation 93% afebrile p otassium is 3.1 BUN/creatinine within normal limit patient remains on IV Unasyn Comycin and has been on potassium and phosphorus replacement protocol, psych service has been reconsulted the have signed out again March 28, 2025, patient seen eval examined during rounds labs reviewed medication care plan discussed, patient remains agitated but not combative off of restraint sitter is present at bedside but patient is extremely confused and disoriented she cannot recall number for her house the number she is calling going to the school she cannot get into her accounts anymore she says that she h as $80,000 and 1 account and 5000 and another account but she cannot access them will consult psych again. Patient is having paranoid ideation and thoughts currently she is on Seroquel as well as Haldol as needed she has been placed on remote telemetry. March 27, 2025, patient seen eval examined during rounds labs reviewed medication care plan discussed, patient has expressed concerns about thoughts and ideas to kill herself which she expressed to the nurse as well as to me, requested 24-hour sitter and psych consult. Currently patient is on bronchodilator broad-spectrum antibiotics DVT prophylaxis and maximal medical therapy. Blood culture positive for gram-positive cocci in cluster final ID is not available patient remains on IV Zosyn service has been following. Labs from today reviewed leukocytosis with WBC count of 14.4 is present Which, which however is slowly improving March 26, 2025, patient seen eval examined during rounds labs reviewed medications reviewed patient has been complaining of abdominal pain, denies any nausea, feel abdominal is distended soft loose stool present overnight currently no bowel movement. Currently patient is afebrile, tachycardic with heart rate 110 hypertensive with blood pressure 156/94 room air oxygen saturation 97%. Labs today reviewed patient still have leukocytosis with WBC count of 14,000 rest of CBC fairly within normal limit, chemistry reviewed sodium is 136 potassium was 3.6 BUN/creatinine 4.77 sugar is 145. Blood cultures are positive for gram-positive cocci in clusters final ID is pending, patient remains on bronchodilator, heparin for DVT prophylaxis, Zosyn Protonix and vancomycin. Dr. Chavis has been following this patient as well March 25, 2025 patient seen eval examined during rounds successfully weaned and extubated, on supplemental oxygen, blood pressure slightly high 165/95, saturation 96%, heart rate is 115, improved to 88 patient to be started on as needed hydralazine IV, will review home medicine, continue Lopressor, blood culture and sputum cultures so far has been negative. Patient remains on IV Zosyn for aspiration pneumonitis, chest x-ray Done earlier this morning reviewed, cardiomegaly interstitial edema. Labs from today reviewed BBC count 18.39, hemoglobin hematocrit 12/36 platelet count of 301 chemistry reviewed potassium is 3 BUN/creatinine within normal limit lactic acid is normalized March 24, 2025, patient seen eval examined patient currently undergoing CPAP pressure support trial breathing more stable, awake makes eye contact no obvious distress present, labs from today reviewed WBC count slightly decreased to 16.6 down from 17.5 yesterday hemoglobin also slightly decreased to 11.9 from 13.4 yesterday. Arterial blood gas on CPAP pressure support 7 point 3/144. Chemistry hyponatremia improve now sodium is normal 140 potassium is 3.6 CO2 is 17, BUN/creatinine 4/0.7. Chest x-ray stable and G-tube and ET tube no pneumonia or infiltrate identified 64-year-old female seen evaluate examined in ICU patient intubated not much data cannot be obtained from her most of the data has been obtained from the chart. Patient was found to be unresponsive EMS was notified, patient does have prior suicidal attempts. Bedside patient was given Narcan with minimal improvement in mental status intubation was attempted however unsuccessful patient has dark brown emesis patient was placed on nonrebreather mask transferred to emergency department patient was intubated in the emergency department. On arrival patient was hypertensive with blood pressure of 200/130 and hypothermic patient probably aspirated as well during intubation process has been placed on IV Zosyn. Significant labs include CBC: WBC count 1 17.6, hemoglobin 13.4, platelets 267. BMP: Sodium 136, potassium 3.6, chloride 103, serum bicarb 19, BUN 9, creatinine 0.81, glucose 120. Urinalysis unremarkable for infection. Lactic was 3.3. Troponin less than 0.012. NT proBNP not elevated. TSH 47.6 and free T4 low at 0.36. She does have history of hypothyroidism, questionable medication compliance. Urine toxicology screen positive for TCAs and benzodiaze pines. Serum alcohol less than 10. Acetaminophen less than 10. Patient currently being evaluated in the emergency department. Currently intubated to the mechanical ventilator, with settings assist-control, respiratory rate 20, tidal volume 500, FiO2 100%, PEEP of 5. ABGs done on these settings include a PaO2 greater than 420, pCO2 of 38, pH of 7.37. Peak pressures were elevated around 37 and static airway pressures around 24. Continuing to suction brown GI contents from ET tube. Placed on Zosyn in the ED for aspiration. Patient is currently sedated on a combination of propofol at 15 mics per kilogram per minute, as well as, IV fentanyl at 0.5 mcg/kg/h. She is unresponsive, does not withdraw to painful stimuli. Normal saline is infusing at 130 mL/h. Prior medical problem issues associated with congestive heart failure, major depression, generalized anxiety disorder, chronic insomnia, chronic pain syndrome, COPD, hypertension hypertensive cardiovascular disease, GERD, history of GI bleed, rheumatoid arthritis, history of C-spine surgery with bone graft and titanium jarod, Objective - Vital Signs Vital signs: Vital Signs Temp 98.6 F 03/29/25 07:15 Pulse 105 H 03/29/25 08:10 Resp 17 03/29/25 07:15 BP 148/86 03/29/25 07:15 Pulse Ox 93 L 03/29/25 07:15 FiO2 21 03/27/25 09:07 Intake & Output 03/28/25 03/29/25 03/29/25 18:59 06:59 18:59 Intake Total 240 540 Balance 240 540 Intake: Oral 240 540 Other: Voiding Method External Catheter Toilet Diaper Incontinent # Voids 3 1 ABP, PAP, CO, CI - Last Documented Arterial Blood Pressure 155/89 - Exam - Constitutional General appearance: average body habitus, disheveled - EENT Eyes: PERRLA Ears: bilateral: normal - Neck Carotids: bilateral: upstroke normal Thyroid: bilateral: normal size - Respiratory Respiratory: bilateral: rales - Cardiovascular Rhythm: regular Heart sounds: normal: S1, S2 - Gastrointestinal General gastrointestinal: decreased bowel sounds, distended diffuse tenderness t - Integumentary Integumentary: normal turgor - Labs CBC & Chem 7: 03/27/25 05:54 03/29/25 05:26 Labs: Abnormal Lab Results - Last 24 Hours (Table) 03/28/25 03/29/25 03/29/25 Range/Units 20:30 05:26 06:22 Potassium 3.1 L (3.5-5.1) mmol/L Chloride 110 H (98-107) mmol/L BUN 4 L (7-17) mg/dL POC Glucose (mg/dL) 116 H 122 H (70-110) mg/dL Calcium 8.2 L (8.4-10.2) mg/dL Assessment and Plan Assessment: Paranoid ideation and psychogenic fugue with extreme agitated confusion, combative status intermittently present but currently appear to have improved Suicidal ideation and thoughts, apparently resolved Major depression Abdominal pain with distention, improving Positive blood culture with gram-positive cocci Acute hypoxic respiratory failure required ventilator sup Uncontrolled hypertension Hypokalemia Altered mental status, significantly improved Hypothyroidism probable myxedema, Aspiration pneumonitis Hypothyroidism Sepsis related to above GERD and gastritis History of prior suicidal attempts Major depression and chronic pain syndrome Plan: Bedside sitter and psych consult CT scan of the abdomen pelvis with contrast reviewed Patient on IV vancomycin and Unasyn Follow-up on culture reports Replace potassium Continue broad-spectrum antibiotic Titrate oxygen down as tolerated Pressure control with higher dose of Lopressor and IV hydralazine as needed Workup for altered mental status as per critical care service and neurology Patient is DNR by advance directive Synthroid can be switched to oral PPI continue monitor hemoglobin closely DVT prophylaxis Increase activity as tolerated Time with Patient: Greater than 30
[2025-03-29 11:38] LABS: Glucose,Whole Blood 162 mg/dL (70-110)
[2025-03-29] MEDS: traMADol 50 MG TAB PO SCH (16:31)
[2025-03-29 16:44] LABS: Glucose,Whole Blood 109 mg/dL (70-110)
--- NOTE | 2025-03-29 21:50 | P.PN ---
Subjective Progress Note Date: 03/29/25 Principal diagnosis: Reason for follow-up is aspiration pneumonitis and bacteremia Patient is a 64-year-old female with a past medical history significant for GERD/Reflux, GI Bleed, Hyperlipidemia, Hypertension, Liver Disease, Musculoskeletal Disorder, Osteoarthritis (OA), Pneumonia, Rheumatoid Arthritis (RA), Thyroid Disorder has been brought into the hospital by EMS after the patient was found to be unresponsive did have an episode of vomiting got intubated and admitted to ICU subsequently has been extubated. On today's evaluation that is 03/29/2025, the patient continues to be afebrile, the patient is on room air and breathing comfortably, the Pt denies having any chest pain or any worsening cough, the patient denies having any abdominal pain no vomiting or any diarrhea, mention feeling better wants to go home. Patient did have a creatinine 0.68 blood culture not yet finalized Objective - Vital Signs Vital signs: Vital Signs Temp 99.2 F 03/29/25 13:36 Pulse 94 03/29/25 13:36 Resp 18 03/29/25 13:36 BP 122/78 03/29/25 13:36 Pulse Ox 94 L 03/29/25 13:36 FiO2 21 03/27/25 09:07 Intake & Output 03/28/25 03/29/25 03/29/25 18:59 06:59 18:59 Intake Total 240 540 Balance 240 540 Weight 106.5 kg Intake: Oral 240 540 Other: Voiding Method External Catheter Toilet Diaper Incontinent # Voids 3 1 ABP, PAP, CO, CI - Last Documented Arterial Blood Pressure 155/89 - Exam GENERAL DESCRIPTION: Middle-age female lying in bed in no distress RESPIRATORY SYSTEM: Unlabored breathing , decreased breath sounds at bases HEART: S1 S2 regular rate and rhythm , ABDOMEN: Soft , no tenderness EXTREMITIES: No edema feet - Labs CBC & Chem 7: 03/27/25 05:54 03/29/25 05:26 Labs: Abnormal Lab Results - Last 24 Hours (Table) 03/28/25 03/29/25 03/29/25 Range/Units 20:30 05: 06:22 Potassium 3.1 L (3.5-5.1) mmol/L Chloride 110 H (98-107) mmol/L BUN 4 L (7-17) mg/dL POC Glucose (mg/dL) 116 H 122 H (70-110) mg/dL Calcium 8.2 L (8.4-10.2) mg/dL 03/29/25 Range/Units 11:37 Potassium (3.5-5.1) mmol/L Chloride (98-107) mmol/L BUN (7-17) mg/dL POC Glucose (mg/dL) 162 H (70-110) mg/dL Calcium (8.4-10.2) mg/dL Assessment and Plan (1) Leukocytosis Current Visit: Yes Status: Acute Code(s): D72.829 - ELEVATED WHITE BLOOD CELL COUNT, UNSPECIFIED SNOMED Code(s): 273165464 (2) Aspiration pneumonitis Current Visit: Yes Status: Acute Code(s): J69.0 - PNEUMONITIS DUE TO INHALATION OF FOOD AND VOMIT SNOMED Code(s): 776480147 (3) Penicillin allergy Current Visit: Yes Status: Acute Code(s): Z88.0 - ALLERGY STATUS TO PENICILLIN SNOMED Code(s): 51675404 (4) Bacteremia Current Visit: Yes Status: Acute Code(s): R78.81 - BACTEREMIA SNOMED Code(s): 8958360 Plan: 1patient with elevated white count in this patient brought to the hospital unresponsive and apparently the patient did overdose on her medication she did have an episode of vomiting on the way to the hospital with EMS on the EMS try to intubate her concerning for aspiration pneumonitis more likely etiology for this elevated white count patient is also on steroid that may have caused further worsening of the white count 2--penicillin allergy on the chart however the patient has tolerated Zosyn without any problem clinically doubt true penicillin allergy 3-positive blood culture with gram-positive cocci await ID sensitivity blood culture has been repeated to document clearance 4patient to continue with vancomycin and Unasyn, while waiting for the final on the blood culture Dictation was produced using [employer] dictation software. please excuse any grammatical, word or spelling errors. Time with Patient: Less than 30
[2025-03-29 22:38] LABS: Glucose,Whole Blood 114 mg/dL (70-110)
[2025-03-30 06:08] LABS: Glucose,Whole Blood 101 mg/dL (70-110)
[2025-03-30 07:34] VITALS: BP 115/65; PULSE 93; RESP 16; TEMP 98.3
--- NOTE | 2025-03-30 10:41 | P.PN ---
Subjective Progress Note Date: 03/30/25 Principal diagnosis: Reason for follow-up is aspiration pneumonitis and bacteremia Patient is a 64-year-old female with a past medical history significant for GERD/Reflux, GI Bleed, Hyperlipidemia, Hypertension, Liver Disease, Musculoskeletal Disorder, Osteoarthritis (OA), Pneumonia, Rheumatoid Arthritis (RA), Thyroid Disorder has been brought into the hospital by EMS after the patient was found to be unresponsive did have an episode of vomiting got intubated and admitted to ICU subsequently has been extubated. On today's evaluation that is 03/30/2025, Patient is afebrile patient is currently on room air and denies having any shortness of breath, the patient d enies any chest pain did have occasional cough, the patient denies any nausea vomiting did not have any abdominal pain and no diarrhea, mention feeling better wants to go home. No new labs has been obtained today still waiting on ID on the blood culture initially repeat blood culture has been negative Objective - Vital Signs Vital signs: Vital Signs Temp 98.3 F 03/30/25 07:33 Pulse 93 03/30/25 07:33 Resp 16 03/30/25 07:33 BP 115/65 03/30/25 07:33 Pulse Ox 90 L 03/30/25 07:33 FiO2 21 03/27/25 09:07 Intake & Output 03/29/25 03/30/25 03/30/25 18:59 06:59 18:59 Intake Total 120 Balance 120 Weight 106.5 kg Intake: Oral 120 Other: Voiding Method Toilet # Voids 3 ABP, PAP, CO, CI - Last Documented Arterial Blood Pressure 155/89 - Exam GENERAL DESCRIPTION: Middle-age female up in the chair in no distress RESPIRATORY SYSTEM: Unlabored breathing , decreased breath sounds at bases HEART: S1 S2 regular rate and rhythm , ABDOMEN: Soft , no tenderness EXTREMITIES: No edema feet - Labs CBC & Chem 7: 03/27/25 05:54 03/29/25 05:26 Labs: Abnormal Lab Results - Last 24 Hours (Table) 03/29/25 03/29/25 Range/Units 11:37 22:37 POC Glucose (mg/dL) 162 H 114 H (70-110) mg/dL Microbiology - Last 24 Hours (Table) 03/28/25 17:42 Blood Culture - Preliminary Blood Assessment and Plan (1) Leukocytosis Current Visit: Yes Status: Acute Code(s): D72.829 - ELEVATED WHITE BLOOD CELL COUNT, UNSPECIFIED SNOMED Code(s): 360688343 (2) Aspiration pneumonitis Current Visit: Yes Status: Acute Code(s): J69.0 - PNEUMONITIS DUE TO INHALATION OF FOOD AND VOMIT SNOMED Code(s): 531825330 (3) Penicillin allergy Current Visit: Yes Status: Acute Code(s): Z88.0 - ALLERGY STATUS TO PENICILLIN SNOMED Code(s): 09465726 (4) Bacteremia Current Visit: Yes Status: Acute Code(s): R78.81 - BACTEREMIA SNOMED Code(s): 7220077 Plan: 1patient with elevated white count in this patient brought to the hospital unresponsive and apparently the patient did overdose on her medication she did have an episode of vomiting on the way to the hospital with EMS on the EMS try to intubate her concerning for aspiration pneumonitis more likely etiology for this elevated white count patient is also on steroid that may have caused further worsening of the white count 2--penicillin allergy on the chart however the patient has tolerated Zosyn without any problem clinically doubt true penicillin allergy 3-positive blood culture with gram-positive cocci await ID sensitivity blood culture has been repeated so far negative more likely dealing with a contaminant rather than true infection 4patient currently being treated with vancomycin and Unasyn, consider short course of Augmentin on discharge Dictation was produced using [employer] software. please excuse any grammatical, word or spelling errors. Time with Patient: Less than 30
[2025-03-30 11:44] LABS: African American GFR (CKD) >90 (>60 ml/min/1.73 sqM); Anion Gap 8 mmol/L; Blood Urea Nitrogen 2 mg/dL (7-17); Calcium 8.7 mg/dL (8.4-10.2); Carbon Dioxide 27 mmol/L (22-30); Chloride 106 mmol/L (98-107); Glucose 102 mg/dL (74-99); Non-African American GFR(CKD) 82 (>60 ml/min/1.73 sqM); Sodium 141 mmol/L (137-145)
[2025-03-30 11:57] LABS: Glucose,Whole Blood 105 mg/dL (70-110)
[2025-03-30] MEDS ORDERED: Potassium Replacement Protocol 1 EACH MISC MISCELLANE PRN (12:21)
[2025-03-30] MEDS: VANCOMYCIN TROUGH DUE 1 EACH MISC MISCELLANE ONE (12:40)
[2025-03-30] MEDS: POTASSIUM CHLORIDE ER 20 MEQ TAB.ER PO SCH (13:21)
[2025-03-30] MEDS ORDERED: CEFDINIR 300 MG CAP PO SCH (21:00)
--- NOTE | 2025-03-30 21:23 | PN ---
PROGRESS NOTE SUBJECTIVE: Acute encephalopathy, altered mental status, seeing Psychiatry and Neurology. Treated for aspiration pneumonia and sepsis, hypoxemic respiratory failure. OBJECTIVE: PSYCHIATRIC: Fair mood and affect. NEUROLOGIC: Alert and oriented x3. ENDOCRINE: BMI is over 40. OPHTHALMOLOGIC: Pupils equal, round, and reactive. PLAN: Continue current treatment. PROGNOSIS: Guarded. Ambulate as tolerated. Please see further orders. MMODL / IJN: [id number] /
[2025-03-31] MEDS ORDERED: VANCOMYCIN 1,750 MG in SODIUM CHLORIDE 0.9% 500 ML 500 ML IVPB SCH (04:00)
== END 2025-03-30 14:39 | disposition home or self-care (01) | DRG 720 ==
LOC: EC 01:14 → 2SICU 03:20 → 4SSUR 03-27 05:01
PROVIDERS: ADMIT Family Medicine; ATTEND Family Medicine
PROC: 5A1945Z Respiratory Ventilation, 24-96 Consecutive Hours (ICD-10-PCS; principal; 2025-03-23)
PROC: 0BH17EZ Insertion of Endotracheal Airway into Trachea, Via Natural or Artificial Opening (ICD-10-PCS; principal; 2025-03-23)
PROC: 3E0G76Z Introduction of Nutritional Substance into Upper GI, Via Natural or Artificial Opening (ICD-10-PCS; 2025-03-23)
PROC: 0DH67UZ Insertion of Feeding Device into Stomach, Via Natural or Artificial Opening (ICD-10-PCS; 2025-03-23)
PROC: 4A133B1 Monitoring of Arterial Pressure, Peripheral, Percutaneous Approach (ICD-10-PCS; 2025-03-23)
PROC: 4A133J1 Monitoring of Arterial Pulse, Peripheral, Percutaneous Approach (ICD-10-PCS; 2025-03-23)
PROC: 03HY32Z Insertion of Monitoring Device into Upper Artery, Percutaneous Approach (ICD-10-PCS; 2025-03-23)
DX: A41.89 Other specified sepsis (principal); E03.9 Hypothyroidism, unspecified; E78.5 Hyperlipidemia, unspecified; E87.6 Hypokalemia; F13.20 Sedative, hypnotic or anxiolytic dependence, uncomplicated; F17.210 Nicotine dependence, cigarettes, uncomplicated; Z78.1 Physical restraint status; Z66 Do not resuscitate; F32.9 Major depressive disorder, single episode, unspecified; F60.0 Paranoid personality disorder; G89.4 Chronic pain syndrome; G93.41 Metabolic encephalopathy; I11.0 Hypertensive heart disease with heart failure; I50.9 Heart failure, unspecified; I65.21 Occlusion and stenosis of right carotid artery; Z68.37 Body mass index [BMI] 37.0-37.9, adult; J69.0 Pneumonitis due to inhalation of food and vomit; J96.01 Acute respiratory failure with hypoxia; E66.01 Morbid (severe) obesity due to excess calories; R68.0 Hypothermia, not associated with low environmental temperature; M06.9 Rheumatoid arthritis, unspecified; J44.0 Chronic obstructive pulmonary disease with (acute) lower respiratory infection; K06.9 Disorder of gingiva and edentulous alveolar ridge, unspecified; R45.851 Suicidal ideations; R65.20 Severe sepsis without septic shock; F51.04 Psychophysiologic insomnia; K21.9 Gastro-esophageal reflux disease without esophagitis; K29.70 Gastritis, unspecified, without bleeding; F41.0 Panic disorder [episodic paroxysmal anxiety]; Z63.5 Disruption of family by separation and divorce; Z79.51 Long term (current) use of inhaled steroids; Z79.82 Long term (current) use of aspirin; Z79.890 Hormone replacement therapy; Z79.899 Other long term (current) drug therapy; Z88.0 Allergy status to penicillin; Z91.51 Personal history of suicidal behavior; Z96.652 Presence of left artificial knee joint; Z87.01 Personal history of pneumonia (recurrent); Z87.898 Personal history of other specified conditions; Z91.81 History of falling; Z88.5 Allergy status to narcotic agent; Z71.3 Dietary counseling and surveillance
CPT/HCPCS: 36415; 36600; 70450; 70496; 70498; 70553; 71045; 74177; 80048; 80053; 80143; 80179; 80202; 80306; 80320; 81001; 82140; 82272; 82533; 82550; 82565; 82607; 82746; 82805; 83036; 83605; 83880; 84132; 84439; 84443; 84481; 84484; 85025; 85610; 85730; 86376; 86850; 86900; 86901; 87040; 87070; 87205; 93005; 94002; 94003; 94640; 94760; 95816; 95822; 96361; 96365; 96375; 99291